=== PATIENT | male | born 1975 | race Caucasian/White ===

== ENCOUNTER → 2018-03-03 16:29 | Outpatient (CLI) | payer MEDICAID, SELFPAY ==
[2018-03-03 16:47] LABS: Abs Immature Grans 0.01 k/cumm (0.0-0.09); Absolute Basophil Count 0.03 k/cumm (0.0-0.2); Absolute Eosinophil Count 0.75 k/cumm (0.0-0.7); Absolute Lymphocyte Count 1.72 k/cumm (1.2-3.4); Absolute Monocyte Count 0.74 k/cumm (0.11-0.7); Absolute Neutrophil Count 4.68 k/cumm (1.2-6.7); Basophils % 0.4; Eosinophils % 9.5; HGB 12.6 g/dL (13.5-17.5); Immature Grans % 0.1; Lymphocytes % 21.7; Mean Corp. HGB Concentration 32.3 g/dL (32.0-36.0); Mean Corpuscular Hemoglobin 27.1 pg (27.0-33.0); Mean Corpuscular Volume 83.9 fL (80-95); Monocytes % 9.3; Platelet Count 350 x1000/uL (130-400); RBC 4.65 m/cumm (4.50-6.00); RBC Distribution Width 13.5 % (11.8-14.1); White Blood Cell Count 7.93 k/cumm (4.4-10.8)
[2018-03-03 17:00] LABS: ALT 26 U/L (12-78); AST 18 U/L (15-37); Albumin 3.2 g/dL (3.4-5.0); Alkaline Phosphatase 98 U/L (46-116); Anion Gap 7.1 mmol/L (3-11); BUN 14 mg/dL (7-18); Bilirubin, Total 0.4 mg/dL (0.2-1.0); CO2 29.9 mmol/L (21.0-32.0); CREATININE 0.87 mg/dL (0.70-1.30); Calcium 8.5 mg/dL (8.5-10.1); Chloride 107 mmol/L (98-107); Glucose 88 mg/dL (70-100); Potassium 4.1 mmol/L (3.5-5.1); Sodium 144 mmol/L (136-145); Total Protein 7.2 g/dL (6.4-8.2)
== END ==
PROVIDERS: PCP Family Medicine; Visit Provider Nurse Practitioner Adult Health
DX: C15.5 Malignant neoplasm of lower third of esophagus (principal)
CPT/HCPCS: 36415; 80053; 85025

== ENCOUNTER → 2018-03-10 15:07 | Outpatient (CLI) | payer MEDICAID, SELFPAY ==
[2018-03-10 16:20] LABS: Abs Immature Grans 0.02 k/cumm (0.0-0.09); Absolute Basophil Count 0.02 k/cumm (0.0-0.2); Absolute Eosinophil Count 0.46 k/cumm (0.0-0.7); Absolute Lymphocyte Count 0.63 k/cumm (1.2-3.4); Absolute Monocyte Count 0.36 k/cumm (0.11-0.7); Absolute Neutrophil Count 5.58 k/cumm (1.2-6.7); Basophils % 0.3; Eosinophils % 6.5; HCT 38.7 % (40.0-50.0); HGB 12.4 g/dL (13.5-17.5); Immature Grans % 0.3; Lymphocytes % 8.9; Mean Corpuscular Hemoglobin 26.6 pg (27.0-33.0); Mean Corpuscular Volume 82.9 fL (80-95); Monocytes % 5.1; Neutrophils % 78.9; Platelet Count 319 x1000/uL (130-400); RBC 4.67 m/cumm (4.50-6.00); RBC Distribution Width 13.4 % (11.8-14.1); White Blood Cell Count 7.07 k/cumm (4.4-10.8)
[2018-03-10 16:32] LABS: ALT 21 U/L (12-78); AST 13 U/L (15-37); Albumin 2.9 g/dL (3.4-5.0); Alkaline Phosphatase 78 U/L (46-116); Anion Gap 6.4 mmol/L (3-11); BUN 11 mg/dL (7-18); Bilirubin, Total 0.6 mg/dL (0.2-1.0); CO2 30.6 mmol/L (21.0-32.0); CREATININE 0.68 mg/dL (0.70-1.30); Calcium 8.3 mg/dL (8.5-10.1); Chloride 104 mmol/L (98-107); Glucose 86 mg/dL (70-100); Potassium 3.9 mmol/L (3.5-5.1); Sodium 141 mmol/L (136-145); Total Protein 6.5 g/dL (6.4-8.2)
== END ==
PROVIDERS: PCP Family Medicine; Visit Provider Nurse Practitioner Adult Health
DX: C15.5 Malignant neoplasm of lower third of esophagus (principal); F10.20 Alcohol dependence, uncomplicated; I25.10 Atherosclerotic heart disease of native coronary artery without angina pectoris
CPT/HCPCS: 36415; 80053; 80061; 80076; 83721; 85025

== ENCOUNTER → 2018-03-18 12:55 | Outpatient (CLI) | payer MEDICAID, SELFPAY ==
[2018-03-18 13:09] LABS: Abs Immature Grans 0.01 k/cumm (0.0-0.09); Absolute Basophil Count 0.02 k/cumm (0.0-0.2); Absolute Eosinophil Count 0.33 k/cumm (0.0-0.7); Absolute Lymphocyte Count 0.29 k/cumm (1.2-3.4); Absolute Monocyte Count 0.32 k/cumm (0.11-0.7); Absolute Neutrophil Count 3.41 k/cumm (1.2-6.7); Basophils % 0.5; Eosinophils % 7.5; HCT 44.5 % (40.0-50.0); HGB 14.6 g/dL (13.5-17.5); Immature Grans % 0.2; Lymphocytes % 6.6; Mean Corp. HGB Concentration 32.8 g/dL (32.0-36.0); Mean Corpuscular Hemoglobin 26.4 pg (27.0-33.0); Mean Corpuscular Volume 80.6 fL (80-95); Mean Platelet Volume 9.3 fL (8.0-11.0); Monocytes % 7.3; Neutrophils % 77.9; Platelet Count 283 x1000/uL (130-400); RBC 5.52 m/cumm (4.50-6.00); RBC Distribution Width 13.3 % (11.8-14.1); White Blood Cell Count 4.38 k/cumm (4.4-10.8)
[2018-03-18 13:24] LABS: ALT 49 U/L (12-78); AST 17 U/L (15-37); Albumin 3.2 g/dL (3.4-5.0); Alkaline Phosphatase 109 U/L (46-116); Anion Gap 8.3 mmol/L (3-11); BUN 12 mg/dL (7-18); Bilirubin, Total 0.9 mg/dL (0.2-1.0); CO2 28.7 mmol/L (21.0-32.0); CREATININE 0.87 mg/dL (0.70-1.30); Chloride 98 mmol/L (98-107); Glucose 137 mg/dL (70-100); Potassium 4.1 mmol/L (3.5-5.1); Sodium 135 mmol/L (136-145); Total Protein 7.5 g/dL (6.4-8.2)
== END ==
PROVIDERS: PCP Family Medicine; Visit Provider Nurse Practitioner Adult Health
DX: C15.5 Malignant neoplasm of lower third of esophagus (principal); F10.20 Alcohol dependence, uncomplicated; I25.10 Atherosclerotic heart disease of native coronary artery without angina pectoris
CPT/HCPCS: 36415; 80053; 85025

== ENCOUNTER 2018-03-18 18:49 | Emergency (ER) | payer MEDICAID, SELFPAY ==
[2018-03-18 18:56] VITALS: BP 113/68; PULSE 111; RESP 18; TEMP 36.9; O2SAT 95
--- NOTE | 2018-03-18 19:30 | DI.REPORT_ITS ---
SYMPTOM/DIAGNOSIS: FEVER, INCREASED SPUTUM PA AND LATERAL CHEST: Comparison is made with 09/03/17. Heart size and pulmonary vasculature are within normal limits. There is a stent seen in the distal esophagus crossing the gastroesophageal junction. The lungs are clear and well expanded. No effusions or pneumothoraces are identified. The bones are intact. IMPRESSION: No acute pulmonary process.
--- NOTE | 2018-03-18 19:44 | ED.GENADUL ---
Disposition Clinical Impression: Fever and neutropenia, Dehydration Disposition: HOME Condition: Fair Instructions: Dehydration (ED) Additional Instructions: Encourage hydration. Please continue to monitor your temperature. If you have any questions or concerns please contact oncology immediately. If you develop new or worsening symptoms return to the emergency department. Oncology would like to hear from you Wednesday. Referrals: Donovan Bobby [Primary Care Provider] - Medical Decision Making - Lab Data Laboratory Tests 03/18/18 03/18/18 19:45 20:27 Lactate 1.2 Urine Color Yellow Urine Clarity Clear Urine pH 6.5 Ur Specific [place] 1.020 Urine Protein Negative Urine Ketones Negative Urine Blood Negative Urine Nitrite Negative Urine Bilirubin Negative Urine Urobilinogen 0.2 Ur Leukocyte Esterase Negative Urine Glucose Negative Results reviewed for labs ordered during visit: Yes - Radiology Data Radiology results: report reviewed CXR reviewed by radiologist. Advised that lungs are unremarkable, no consolidation. Pleural space is unremarkable, no pneumothorax. Heart is unremarkable, no cardiomegaly. Mediastinum significant for wall stent at the distal esophagus across the GE junction. Bones/joints are unremarkable. - Medical Decision Making Patient presents today with chief complaint of neutropenic fever. We are contacted by oncology prior to patient's arrival who advised patient had a T-max of 101.3 at home. Patient has a l temp of 99 at this time. Patient is noted to be slightly tachycardic at 111. Patient does appear dehydrated on exam. He appears fatigued. He is endorsing nausea. Reports that typically ODT Zofran works well for him is requesting this. He has had nausea and vomiting but associates this with chemotherapy. Reports that he had chemotherapy associated nausea and vomiting last week around this time. Reports that he has had poor p.o. intake secondary to his nausea and general malaise. Patient reports that he has had increased sputum production. He denies any cough. Feels that she is more thick than typical and is needing to clear his throat more frequently. No chest pain. No shortness of breath. No new abdominal pain. Patient does have history of diverticulitis. Abdominal pain is limited to epigastric region on exam which patient reports is chronic and unchanged. Calves are soft and nontender. No CVA tenderness. Patient reports that he has had foul-smelling urine. Will obtain urinalysis and chest x-ray to evaluate the symptoms. We will also obtain a lactate. Patient did have blood work completed today. Earlier today, the WBC was noted to be 4.38, this is down from 7.07 last week. Otherwise, the CBC and CMP without significant abnormality. Patient received 2 L of fluid. He reports after the ODT Zofran nausea is greatly improved. He does take tramadol 50 mg every 6 hours. Is requesting his typical evening dose. Reports that he needs the pain medication for his chronic abdominal discomfort. After receiving fluid and pain medicine he reports that his headache is improved. Lactate is 1.2, within normal limits. Urinalysis is without significant normality to suggest infection. Consulted with Dr. Saenz at [facility]. We discussed the patient's presenting vital signs, history and laboratory evaluation. In particular, I was questioning the need for an LP given the patient's low-grade headache. At this point, the patient's headache has resolved. She advised holding off at this time as the patient is such a low-grade fever. She is questioning what may be associated with dehydration given his dehydrated appearance on exam and concentrated urine. Patient did respond well to the fluids. Heart rate is now in the 80s. Dr. Saenz advised watch and wait approach. She did ask that the patient contact oncology Wednesday. Patient reports that he has appointments with oncology on Wednesday and is able to be evaluated by an WELL REACTIVATOR OPERATOR at that time. Patient was given strict return precautions and will be in contact with oncology if he develops new or worsening symptoms. All his questions and concerns were addressed and he is in agreement this plan. Did discuss the usage of his anti-emetics. I advised that he increase this as he is not been taking it as frequently as he is prescribed. Advised that if he is able to stand of his nausea he may frequently sip fluids which will overall help with his symptomatic management. History of Present Illness - General Chief complaint: Fever Stated complaint: PER [facility] Time Seen by Provider: 03/18/18 19:07 Source: patient, family, RN notes reviewed Mode of arrival: ambulatory Limitations: no limitations - History of Present Illness Initial comments: Patient is a 43-year-old male, coming by his , with chief complaint of fever. Patient is currently undergoing chemotherapy and radiation therapy for esophageal cancer. We are contacted prior to his arrival by Dr. Saenz at [facility]. Dr. Saenz advised that the fever at home was noted to be 99?F taken orally. Patient was seen today in the office by his oncologist. Patient underwent chemotherapy on 03/07/2018 and again on 03/14/2018. Patient reports that he has been feeling and feels like crap. However, he contributes primarily to chemotherapy treatments. Patient was endorsing dizziness, headache, urine odor and discoloration to his oncologist. Reports he is feeling quite dehydrated. He reports at this time that he is having very mild headache. Does not typically. However, he does report that this headache feels to be associated with dehydration. He reports that he has been nauseated and vomiting. Vomited just prior to arrival. She states worked well for his nausea and vomiting. The nausea and vomiting is typical after his chemotherapy. Denies any abdominal pain. The reports that just prior to arrival his temp was 101.3?F. Patient reports that his urine has been quite dark since his chemotherapy. Feels that this is not unusual. However, he reports that today he noted a very foul smell to his urine which is changed. Denies pain in back. Denies pain in testicles. - Related Data Aspirin 81 mg PO DAILY tab-cap 03/25/16 Promethazine [Phenergan] 25 mg PO TID PRN #10 tab 05/13/17 Albuterol Sulfate [Proair Hfa] 1 puff IH Q6H PRN #1 inhaler 08/17/17 Nitroglycerin 0.4 mg SL PRN #25 tab-cap 11/25/17 Nicotine [Nicoderm Cq] 1 each TD DAILY #14 patch 01/11/18 Nicotine [Nicotine Patch] 14 mg TD DAILY #14 patch 01/11/18 Metoprolol Succinate 25 mg PO DAILY #90 tab-cap 01/17/18 Atorvastatin Calcium 80 mg PO DAILY #90 tab-cap 01/19/18 Fluticasone Propionate [Flovent 110MCG] 110 mcg IH BID #1 inhaler 01/19/18 Nicotine [Nicotine Patch] 1 each TD DAILY #14 patch 01/19/18 Sucralfate Susp. [Carafate Suspension] 1 g PO QID #1200 ml 01/31/18 Lisinopril 10 mg PO DAILY #90 tab-cap 02/07/18 Pantoprazole Sodium 40 mg PO DAILY #90 tab-cap 07/17/18 Lansoprazole 30 mg PO DAILY #90 tab-cap 02/10/18 TraMADol [Ultram] 50 mg PO Q6H PRN PRN 03/18/18 Allergies Allergy/AdvReac Type Severity Reaction Status Date / Time No Known Allergies Allergy Unverified 03/18/18 19:04 Review of Systems Constitutional: see HPI Eyes: denies: vision change ENT: denies: ear pain, throat pain, congestion Respiratory: see HPI, other (Increased sputum production). denies: cough, shortness of breath Cardiovascular: denies: chest pain, palpitations Gastrointestinal: as per HPI, abdominal pain (Chronic, associated with stent placement), nausea, vomiting. denies: diarrhea, hematemesis Genitourinary: as per HPI, other (Foul-smelling urine). denies: urgency, dysuria, frequency, hematuria Musculoskeletal: denies: back pain, joint swelling Skin: denies: rash, lesions Neurological: as per HPI, headache. denies: weakness, numbness, paresthesias, abnormal gait Past Medical History - Past Medical History Medical history: AMI, cancer, GERD, hypertension Diverticulitis Surgical history: angioplasty/stent, other (Knee arthroscopy) Family history: CAD/ND, diabetes - Social History Alcohol use: none Drug use: marijuana Living Situation: lives with family General Exam - General Limitations: no limitations General appearance: alert, in no apparent distress (Patient appears fatigued and pale) - Head Head exam: Present: atraumatic - Eye Eye exam: Present: normal apperance - ENT ENT exam: Present: normal exam, normal orophraynx, mucous membranes dry - Neck Neck exam: Present: normal inspection. Absent: tenderness, lymphadenopathy - Respiratory Respiratory exam: Present: normal lung sounds bilaterally. Absent: respiratory distress - Cardiovascular Cardiovascular Exam: Present: regular rate, normal rhythm, normal heart sounds - GI/Abdominal GI/Abdominal exam: Present: distended, tenderness (Epigastric tenderness. There is a palpable firmness in this area which patient reports is chronic and associated with stent placement), normal bowel sounds. Absent: soft, guarding, rebound, rigid - Rectal Rectal exam: Present: deferred - Extremities Exam Extremities exam: Present: normal inspection. Absent: pedal edema, calf tenderness - Back Exam Back exam: Present: normal inspection. Absent: CVA tenderness (R), CVA tenderness (L) - Neurological Exam Neurological exam: Present: alert, normal gait - Psychiatric Psychiatric exam: Present: normal affect, normal mood - Skin Skin exam: Present: warm, dry, intact, normal color Course Vital Signs - 24 hr 03/18/18 18:56 Temperature 36.9 C Pulse 111 H Respiratory 18 Rate Blood Pressure 113/68 Pulse Oximetry 95
--- NOTE | 2018-03-18 19:50 | ED.GENADUL_ITS ---
Disposition Clinical Impression: Fever and neutropenia, Dehydration Disposition: HOME Condition: Fair Instructions: Dehydration (ED) Additional Instructions: Encourage hydration. Please continue to monitor your temperature. If you have any questions or concerns please contact oncology immediately. If you develop new or worsening symptoms return to the emergency department. Oncology would like to hear from you Wednesday. Referrals: Donovan Bobby [Primary Care Provider] - Medical Decision Making - Lab Data Laboratory Tests 03/18/18 03/18/18 19:45 20:27 Lactate 1.2 Urine Color Yellow Urine Clarity Clear Urine pH 6.5 Ur Specific [place] 1.020 Urine Protein Negative Urine Ketones Negative Urine Blood Negative Urine Nitrite Negative Urine Bilirubin Negative Urine Urobilinogen 0.2 Ur Leukocyte Esterase Negative Urine Glucose Negative Results reviewed for labs ordered during visit: Yes - Radiology Data Radiology results: report reviewed CXR reviewed by radiologist. Advised that lungs are unremarkable, no consolidation. Pleural space is unremarkable, no pneumothorax. Heart is unremarkable, no cardiomegaly. Mediastinum significant for wall stent at the distal esophagus across the GE junction. Bones/joints are unremarkable. - Medical Decision Making Patient presents today with chief complaint of neutropenic fever. We are contacted by oncology prior to patient's arrival who advised patient had a T- max of 101.3 at home. Patient has a l temp of 99 at this time. Patient is noted to be slightly tachycardic at 111. Patient does appear dehydrated on exam. He appears fatigued. He is endorsing nausea. Reports that typically ODT Zofran works well for him is requesting this. He has had nausea and vomiting but associates this with chemotherapy. Reports that he had chemotherapy associated nausea and vomiting last week around this time. Reports that he has had poor p.o. intake secondary to his nausea and general malaise. Patient reports that he has had increased sputum production. He denies any cough. Feels that she is more thick than typical and is needing to clear his throat more frequently. No chest pain. No shortness of breath. No new abdominal pain. Patient does have history of diverticulitis. Abdominal pain is limited to epigastric region on exam which patient reports is chronic and unchanged. Calves are soft and nontender. No CVA tenderness. Patient reports that he has had foul-smelling urine. Will obtain urinalysis and chest x -ray to evaluate the symptoms. We will also obtain a lactate. Patient did have blood work completed today. Earlier today, the WBC was noted to be 4.38, this is down from 7.07 last week. Otherwise, the CBC and CMP without significant abnormality. Patient received 2 L of fluid. He reports after the ODT Zofran nausea is greatly improved. He does take tramadol 50 mg every 6 hours. Is requesting his typical evening dose. Reports that he needs the pain medication for his chronic abdominal discomfort. After receiving fluid and pain medicine he reports that his headache is improved. Lactate is 1.2, within normal limits. Urinalysis is without significant normality to suggest infection. Consulted with Dr. Saenz at [facility]. We discussed the patient's presenting vital signs, history and laboratory evaluation. In particular, I was questioning the need for an LP given the patient's low-grade headache. At this point, the patient's headache has resolved. She advised holding off at this time as the patient is such a low-grade fever. She is questioning what may be associated with dehydration given his dehydrated appearance on exam and concentrated urine. Patient did respond well to the fluids. Heart rate is now in the 80s. Dr. Saenz advised watch and wait approach. She did ask that the patient contact oncology Wednesday. Patient reports that he has appointments with oncology on Wednesday and is able to be evaluated by an OFFICE EMPLOYEE at that time. Patient was given strict return precautions and will be in contact with oncology if he develops new or worsening symptoms. All his questions and concerns were addressed and he is in agreement this plan. Did discuss the usage of his anti- emetics. I advised that he increase this as he is not been taking it as frequently as he is prescribed. Advised that if he is able to stand of his nausea he may frequently sip fluids which will overall help with his symptomatic management. History of Present Illness - General Chief complaint: Fever Stated complaint: PER [facility] [place] Time Seen by Provider: 03/18/18 19:07 Source: patient, family, RN notes reviewed Mode of arrival: ambulatory Limitations: no limitations - History of Present Illness Initial comments: Patient is a 43-year-old male, coming by his , with chief complaint of fever. Patient is currently undergoing chemotherapy and radiation therapy for esophageal cancer. We are contacted prior to his arrival by Dr. Saenz at [facility]. Dr. Saenz advised that the fever at home was noted to be 99 F taken orally. Patient was seen today in the office by his oncologist. Patient underwent chemotherapy on 03/07/2018 and again on 03/14/2018. Patient reports that he has been feeling and feels like crap. However, he contributes primarily to chemotherapy treatments. Patient was endorsing dizziness, headache , urine odor and discoloration to his oncologist. Reports he is feeling quite dehydrated. He reports at this time that he is having very mild headache. Does not typically. However, he does report that this headache feels to be associated with dehydration. He reports that he has been nauseated and vomiting. Vomited just prior to arrival. She states worked well for his nausea and vomiting. The nausea and vomiting is typical after his chemotherapy. Denies any abdominal pain. The reports that just prior to arrival his temp was 101.3 F. Patient reports that his urine has been quite dark since his chemotherapy. Feels that this is not unusual. However, he reports that today he noted a very foul smell to his urine which is changed. Denies pain in back. Denies pain in testicles. - Related Data Aspirin 81 mg PO DAILY tab-cap 03/25/16 Promethazine [Phenergan] 25 mg PO TID PRN #10 tab 05/13/17 Albuterol Sulfate [Proair Hfa] 1 puff IH Q6H PRN #1 inhaler 08/17/17 Nitroglycerin 0.4 mg SL PRN #25 tab-cap 11/25/17 Nicotine [Nicoderm Cq] 1 each TD DAILY #14 patch 01/11/18 Nicotine [Nicotine Patch] 14 mg TD DAILY #14 patch 01/11/18 Metoprolol Succinate 25 mg PO DAILY #90 tab-cap 01/17/18 Atorvastatin Calcium 80 mg PO DAILY #90 tab-cap 01/19/18 Fluticasone Propionate [Flovent 110MCG] 110 mcg IH BID #1 inhaler 01/19/18 Nicotine [Nicotine Patch] 1 each TD DAILY #14 patch 01/19/18 Sucralfate Susp. [Carafate Suspension] 1 g PO QID #1200 ml 01/31/18 Lisinopril 10 mg PO DAILY #90 tab-cap 02/07/18 Pantoprazole Sodium 40 mg PO DAILY #90 tab-cap 02/08/18 Lansoprazole 30 mg PO DAILY #90 tab-cap 02/10/18 TraMADol [Ultram] 50 mg PO Q6H PRN PRN 03/18/18 Allergies Allergy/AdvReac Type Severity Reaction Status Date / Time No Known Allergies Allergy Unverified 03/18/18 19:04 Review of Systems Constitutional: see HPI Eyes: denies: vision change ENT: denies: ear pain, throat pain, congestion Respiratory: see HPI, other (Increased sputum production). denies: cough, shortness of breath Cardiovascular: denies: chest pain, palpitations Gastrointestinal: as per HPI, abdominal pain (Chronic, associated with stent placement), nausea, vomiting. denies: diarrhea, hematemesis Genitourinary: as per HPI, other (Foul-smelling urine). denies: urgency, dysuria, frequency, hematuria Musculoskeletal: denies: back pain, joint swelling Skin: denies: rash, lesions Neurological: as per HPI, headache. denies: weakness, numbness, paresthesias, abnormal gait Past Medical History - Past Medical History Medical history: AMI, cancer, GERD, hypertension Diverticulitis Surgical history: angioplasty/stent, other (Knee arthroscopy) Family history: CAD/VT, diabetes - Social History Alcohol use: none Drug use: marijuana Living Situation: lives with family General Exam - General Limitations: no limitations General appearance: alert, in no apparent distress (Patient appears fatigued and pale) - Head Head exam: Present: atraumatic - Eye Eye exam: Present: normal apperance - ENT ENT exam: Present: normal exam, normal orophraynx, mucous membranes dry - Neck Neck exam: Present: normal inspection. Absent: tenderness, lymphadenopathy - Respiratory Respiratory exam: Present: normal lung sounds bilaterally. Absent: respiratory distress - Cardiovascular Cardiovascular Exam: Present: regular rate, normal rhythm, normal heart sounds - GI/Abdominal GI/Abdominal exam: Present: distended, tenderness (Epigastric tenderness. There is a palpable firmness in this area which patient reports is chronic and associated with stent placement), normal bowel sounds. Absent: soft, guarding, rebound, rigid - Rectal Rectal exam: Present: deferred - Extremities Exam Extremities exam: Present: normal inspection. Absent: pedal edema, calf tenderness - Back Exam Back exam: Present: normal inspection. Absent: CVA tenderness (R), CVA tenderness (L) - Neurological Exam Neurological exam: Present: alert, normal gait - Psychiatric Psychiatric exam: Present: normal affect, normal mood - Skin Skin exam: Present: warm, dry, intact, normal color Course Vital Signs - 24 hr 03/18/18 18:56 Temperature 36.9 C Pulse 111 H Respiratory 18 Rate Blood Pressure 113/68 Pulse Oximetry 95
[2018-03-18 19:52] LABS: Lactate-non-spesis 1.2 mmol/L (0.6-1.4)
[2018-03-18] MEDS: Ondansetron O.D.T. 4 MG TABEF PO (19:55)
[2018-03-18] MEDS: Normal Saline 1,000 ML 1000 ML IV ×2 (19:56→20:56)
[2018-03-18] MEDS: Normal Saline Flush 10 ML SYR IVP (19:56)
[2018-03-18] MEDS: traMADol 50 MG TAB PO (20:25)
[2018-03-18 20:34] LABS: Bilirubin Negative (Negative); Blood Negative (Negative); Clarity Clear; Glucose Negative (Negative); Ketones Negative (Negative); Leukocyte Esterase Negative (Negative); Nitrite Negative (Negative); Urobilinogen 0.2 EU/dL (Up TO 0.2); pH 6.5 (5-8)
--- NOTE | 2018-03-18 20:58 | DI.VRAD_ITS ---
EXAM: XR Chest, 2 Views EXAM DATE/TIME: 03/18/2018 7:31 PM CLINICAL HISTORY: 43 years old, male; Signs and symptoms; Fever TECHNIQUE: Frontal and lateral views of the chest. COMPARISON: CR - PORTABLE CHEST ONE VIEW 09/03/2016 6:19 PM FINDINGS: Lungs: Unremarkable. No consolidation. Pleural space: Unremarkable. No pneumothorax. Heart: Unremarkable. No cardiomegaly. Mediastinum: Wall stent at the distal esophagus across the GE junction. Bones/joints: Unremarkable. IMPRESSION: No acute findings. Dictated and Authenticated by: Devyn Delgadillo MD. Ordering:MYKEL MATHIS MD
[2018-03-18 21:15] VITALS: BP 106/64; PULSE 89; RESP 16; TEMP 37.5; O2SAT 96
[2018-03-18 21:49] VITALS: BP 106/64; PULSE 89; RESP 16; TEMP 37.5; O2SAT 96
== END 2018-03-18 21:47 | disposition home or self-care (01) ==
PROVIDERS: Physician Assistant; Emergency Provider Emergency Medicine; PCP Family Medicine
DX: D70.9 Neutropenia, unspecified (principal); R50.9 Fever, unspecified; T45.1X5A Adverse effect of antineoplastic and immunosuppressive drugs, initial encounter; R11.2 Nausea with vomiting, unspecified; C15.5 Malignant neoplasm of lower third of esophagus; F10.20 Alcohol dependence, uncomplicated; I25.10 Atherosclerotic heart disease of native coronary artery without angina pectoris; I10 Essential (primary) hypertension
CPT/HCPCS: 36415; 80053; 96360; 96361; 99284; 71046; 81003; 83605; 85025

== ENCOUNTER → 2018-03-24 12:30 | Outpatient (CLI) | payer MEDICAID, SELFPAY ==
[2018-03-24 12:57] LABS: Abs Immature Grans 0.02 k/cumm (0.0-0.09); Absolute Basophil Count 0.01 k/cumm (0.0-0.2); Absolute Eosinophil Count 0.01 k/cumm (0.0-0.7); Absolute Lymphocyte Count 0.14 k/cumm (1.2-3.4); Absolute Monocyte Count 0.41 k/cumm (0.11-0.7); Absolute Neutrophil Count 2.96 k/cumm (1.2-6.7); Basophils % 0.3; Eosinophils % 0.3; HCT 40.3 % (40.0-50.0); HGB 13.6 g/dL (13.5-17.5); Immature Grans % 0.6; Lymphocytes % 3.9; Mean Corp. HGB Concentration 33.7 g/dL (32.0-36.0); Mean Corpuscular Hemoglobin 26.9 pg (27.0-33.0); Mean Corpuscular Volume 79.8 fL (80-95); Mean Platelet Volume 8.9 fL (8.0-11.0); Monocytes % 11.5; Neutrophils % 83.4; Platelet Count 229 x1000/uL (130-400); RBC 5.05 m/cumm (4.50-6.00); RBC Distribution Width 13.6 % (11.8-14.1); White Blood Cell Count 3.55 k/cumm (4.4-10.8)
[2018-03-24 13:10] LABS: ALT 49 U/L (12-78); AST 21 U/L (15-37); Alkaline Phosphatase 99 U/L (46-116); Anion Gap 5.8 mmol/L (3-11); BUN 11 mg/dL (7-18); Bilirubin, Total 0.8 mg/dL (0.2-1.0); CO2 28.2 mmol/L (21.0-32.0); CREATININE 0.72 mg/dL (0.70-1.30); Calcium 9.1 mg/dL (8.5-10.1); Chloride 96 mmol/L (98-107); Glucose 99 mg/dL (70-100); Potassium 4.6 mmol/L (3.5-5.1); Sodium 130 mmol/L (136-145); Total Protein 7.3 g/dL (6.4-8.2)
== END ==
PROVIDERS: PCP Family Medicine; Visit Provider Nurse Practitioner Adult Health
DX: C15.5 Malignant neoplasm of lower third of esophagus (principal); F10.20 Alcohol dependence, uncomplicated; I25.10 Atherosclerotic heart disease of native coronary artery without angina pectoris
CPT/HCPCS: 36415; 80053; 85025

== ENCOUNTER 2018-03-27 01:39 | Outpatient (RCR) | payer MEDICAID, SELFPAY ==
[2018-03-27] MEDS: Normal Saline 2,000 ML 1000 ML IV (09:05)
[2018-03-27] MEDS: Normal Saline Flush 10 ML SYR IVP (09:05)
== END 2018-04-24 23:59 | disposition home or self-care (01) ==
LOC: INF 01:39
PROVIDERS: PCP Family Medicine; Visit Provider Nurse Practitioner Adult Health
DX: E86.0 Dehydration (principal); C15.5 Malignant neoplasm of lower third of esophagus
CPT/HCPCS: 96360; 96361

== ENCOUNTER 2018-03-31 15:03 | Outpatient (CLI) | payer MEDICAID, SELFPAY ==
[2018-03-31 15:27] LABS: Abs Immature Grans 0.01 k/cumm (0.0-0.09); Absolute Basophil Count 0.01 k/cumm (0.0-0.2); Absolute Eosinophil Count 0.01 k/cumm (0.0-0.7); Absolute Lymphocyte Count 0.13 k/cumm (1.2-3.4); Absolute Monocyte Count 0.23 k/cumm (0.11-0.7); Basophils % 0.3; Eosinophils % 0.3; HCT 35.3 % (40.0-50.0); Immature Grans % 0.3; Lymphocytes % 4.3; Mean Corpuscular Volume 79.5 fL (80-95); Mean Platelet Volume 8.6 fL (8.0-11.0); Monocytes % 7.7; Neutrophils % 87.1; Platelet Count 151 x1000/uL (130-400); RBC 4.44 m/cumm (4.50-6.00); RBC Distribution Width 13.8 % (11.8-14.1); White Blood Cell Count 2.99 k/cumm (4.4-10.8)
[2018-03-31 15:40] LABS: ALT 26 U/L (12-78); AST 13 U/L (15-37); Albumin 2.5 g/dL (3.4-5.0); Alkaline Phosphatase 80 U/L (46-116); Anion Gap 4.8 mmol/L (3-11); BUN 13 mg/dL (7-18); Bilirubin, Total 0.3 mg/dL (0.2-1.0); CO2 29.2 mmol/L (21.0-32.0); Calcium 8.6 mg/dL (8.5-10.1); Chloride 105 mmol/L (98-107); Glucose 91 mg/dL (70-100); Potassium 4.2 mmol/L (3.5-5.1); Sodium 139 mmol/L (136-145); Total Protein 6.3 g/dL (6.4-8.2)
== END 2018-03-31 15:23 ==
PROVIDERS: PCP Family Medicine; Visit Provider Nurse Practitioner Adult Health
DX: C15.5 Malignant neoplasm of lower third of esophagus (principal); F10.20 Alcohol dependence, uncomplicated; I25.10 Atherosclerotic heart disease of native coronary artery without angina pectoris
CPT/HCPCS: 36415; 80053; 85025

== ENCOUNTER 2018-04-04 12:21 | Emergency (ER) | payer MEDICAID, SELFPAY ==
[2018-04-04] VITALS (14 sets, daily range): BP systolic 103–117; BP diastolic 61–78; PULSE 108–136; RESP 11–18; TEMP 37; O2SAT 95–97
[2018-04-04] MEDS: Normal Saline 1,000 ML 1000 ML IV (13:07)
--- NOTE | 2018-04-04 13:07 | ED.GENADUL_ITS ---
Discharge Plan Disposition Patient Disposition: HOME Condition: Stable Discharge Details Chief Complaint: GenMedical Clinical Impression: Nausea & vomiting, Diverticulitis of sigmoid colon Primary Care Provider: Donovan Bobby ED Provider: Manolo Pedro Home Meds and New Rx's Prescriptions: New hydrocodone-acetaminophen 10-300 mg tablet 1 tab PO Q4H PRN (Reason: pain) Qty: 12 RF: 0 Continue aspirin 81 MG tablet,chewable 81 mg PO DAILY RF: 0 albuterol sulfate [ProAir HFA] 8.5 GM HFA aerosol inhaler 1 puff Inhalation Q6H PRN Qty: 1 RF: 2 nitroglycerin 0.4 MG tablet, sublingual 0.4 mg Sublingual PRN Qty: 25 RF: 0 nicotine 1 EACH patch 24 hour 14 mg Transdermal DAILY Qty: 14 RF: 0 Nicotine [Nicoderm Cq] 1 EACH PATCH.TD24 1 ea Transdermal DAILY Qty: 14 RF: 0 Metoprolol Succinate 25 MG TAB.ER.24H 25 mg PO DAILY Qty: 90 RF: 4 atorvastatin 80 MG tablet 80 mg PO DAILY Qty: 90 RF: 3 nicotine 1 EACH patch 24 hour 1 ea Transdermal DAILY Qty: 14 RF: 2 fluticasone [Flovent HFA] 12 GM HFA aerosol inhaler 110 mcg Inhalation BID Qty: 1 RF: 12 sucralfate [Carafate] 1 GM/10 ML suspension 1 g PO QID Qty: 1200 RF: 2 lisinopril 10 MG tablet 10 mg PO DAILY Qty: 90 RF: 3 pantoprazole 40 MG tablet,delayed release (DR/EC) 40 mg PO DAILY Qty: 90 RF: 1 Lansoprazole 30 MG CAPSULE.DR 30 mg PO DAILY Qty: 90 RF: 0 promethazine 25 MG tablet 25 mg PO TID PRN (Reason: Nausea) Qty: 10 RF: 0 tramadol 50 MG tablet 50 mg PO Q6H PRN PRNRF: 0 Discharge Instructions Instructions: Hydrocodone (By mouth), Diverticulitis (ED) Additional Instructions: take your antibiotics follow up with your primary care provider or oncologist this week if you have fevers or persistent vomit return to the emergency department Discharge Data Discharge Physician: Manolo Pedro Medical Decision Making MDM Narrative Medical decision making narrative: 43 yo male with hx of esophageal cancer who is undergoing radiation therapy and chemotherapy who comes in with complaints of vomit for 3 days and has had chest pain and abdominal pain since starting radiation for weeks and thinks it is unchanged though now has abdominal pain. He denies fevers or chills. He does appear dehydrated on exam, ecg shows no acute ischemic findings. Will evaluate for cardiac ischemia with troponin, and obtain CT to eval for dissection vs sbo among other surgical pathology and rehydrate the patient. Patient's oncology office called prior to arrival and asked for urine tox to be done so will order this if he urinates pt feeling significantly better, labs show no significant acute abnormalities, awaiting imaging Per Dr. mauro has sigmoid diverticulitis otherwise no acute findings. He feels much better and is hd stable, tolerating PO. He is stable for outpatient management and states he already has abx for cipro and doesn't want a prescription for these here. He is out of his opiates and will refill for 1-2 days until he can see his oncologist, return precautions given Differential Diagnosis chemotherapy side effect, sbo, dissection Imaging Data Radiologic Study: Attestation: I personally reviewed and interpreted this imaging study as follows: Imaging: CT Scan Radiologist's impression: cta thorax/abd/pelvis per Dr. Mauro shows sigmoid diverticulitis Lab Data Lab results reviewed: Yes I reviewed the patient's lab results. ECG Data Attestation: I personally reviewed and interpreted this ECG (s) as follows: Prior ECG tracings: not available for review Interpretation: sinus tachycardia, rate of 123, normal pr's, no acute ischemic findings HPI - General Adult General Mode of arrival: ambulatory . Date/Time Provider Initiated Documentation: 04/04/18 12:47 . Limitations to Documentation: no limitations . Information obtained by: patient . History of Present Illness 43 year old M presents to the emergency department with the chief complaint of nausea and vomit, described as severe, with intensity rated at 7. Quality is described as aching, and is localized to the chest and abdomen. Patient reports no radiation. Patient started experiencing this day(s) (3) and it has been constant. No relieving factors improve symptom(s), No exacerbating factors reported . Patient notes nausea/vomiting. Patient did receive the following treatments prior to arrival, none Related Data Home Medications Medication Instructions Recorded Confirmed aspirin 81 mg PO DAILY tab-cap 03/25/16 03/18/18 tramadol 50 mg PO Q6H PRN PRN 03/18/18 03/18/18 Previous Rx's Medication Instructions Recorded promethazine 25 mg PO TID PRN #10 tab 05/13/17 hydrocodone-acetaminophen 1 tab PO Q4H PRN #12 tab 04/04/18 Allergies Allergy/AdvReac Type Severity Reaction Status Date / Time No Known Allergies Allergy Unverified 03/18/18 19:04 General Stated Complaint: GenMedical CRISTA: 3 Review of Systems Review of Systems All systems reviewed & are unremarkable except as noted in HPI and below Constitutional Denies chills, Denies fever(s) and Denies weakness Eyes Patient Denies loss of vision ENT Denies change in voice Cardiovascular Reports chest pain and Denies dyspnea Respiratory Denies dyspnea Gastrointestinal Reports abdominal pain, Reports nausea and Reports vomiting Genitourinary Denies dysuria Musculoskeletal Denies joint swelling Integumentary/Breasts Denies rash Neurologic Denies loss of vision and Denies weakness Psychiatric Denies depression Endocrine Denies cold intolerance and Denies heat intolerance Allergic/Immunologic Reports urticaria PFSH Family History Mother Diabetes Essential hypertension Heart disease Hyperlipidemia Cerebrovascular accident Father Diabetes Sister No problems noted. Brother Essential hypertension Hyperlipidemia Brother Hyperlipidemia Brother Essential hypertension Heart disease Hyperlipidemia Social History Smoking/Tobacco Use Status: Current every day Surgical History EGD - MAC (12/29/17) Exam Const General: no acute distress Orientation: alert HENMT Head: normal to inspection Ears: external ears normal General nose exam: external nose normal Mouth: moist mucous membranes Eyes General: appearance normal, both eyes and all related structures Neck Neck: normal visual inspection Resp Effort & Inspection: normal respiratory effort and able to speak in complete sentences Cardio Rate: tachycardic Rhythm: regular rhythm GI Inspection: other (soft abdomen, tenderness throughout without guarding or rebound) Palpation: soft Skin General skin exam: no rashes or lesions noted Neuro General: alert and oriented x3 Extrem General: normal to inspection Psych Mental Status: mental status grossly normal Course Vital Signs Temperature 37 C 04/04/18 12:51 Pulse 136 H 04/04/18 12:51 Respiratory Rate 16 04/04/18 12:51 Blood Pressure 103/78 04/04/18 12:51 Pulse Oximetry 97 04/04/18 12:51 Temperature 37 C 04/04/18 12:51 Pulse 136 H 04/04/18 12:51 Respiratory Rate 16 04/04/18 12:51 Blood Pressure 103/78 04/04/18 12:51 Pulse Oximetry 97 04/04/18 12:51
[2018-04-04] MEDS: Ondansetron 4 MG/2 ML VIAL IVP (13:08)
[2018-04-04] MEDS: HYDROmorphone 2 MG/ML VIAL IVP (13:15)
[2018-04-04 13:36] LABS: Abs Immature Grans 0.02 k/cumm (0.0-0.09); Absolute Basophil Count 0.02 k/cumm (0.0-0.2); Absolute Eosinophil Count 0.01 k/cumm (0.0-0.7); Absolute Lymphocyte Count 0.15 k/cumm (1.2-3.4); Absolute Monocyte Count 0.31 k/cumm (0.11-0.7); Absolute Neutrophil Count 2.43 k/cumm (1.2-6.7); Basophils % 0.7; Eosinophils % 0.3; HCT 37.3 % (40.0-50.0); HGB 12.7 g/dL (13.5-17.5); Immature Grans % 0.7; Lymphocytes % 5.1; Mean Corpuscular Volume 79.4 fL (80-95); Mean Platelet Volume 9.4 fL (8.0-11.0); Monocytes % 10.5; Neutrophils % 82.7; Platelet Count 146 x1000/uL (130-400); White Blood Cell Count 2.94 k/cumm (4.4-10.8)
[2018-04-04 13:51] LABS: ALT 26 U/L (12-78); AST 17 U/L (15-37); Albumin 2.6 g/dL (3.4-5.0); Alkaline Phosphatase 115 U/L (46-116); Anion Gap 14.7 mmol/L (3-11); BUN 15 mg/dL (7-18); Bilirubin, Total 0.5 mg/dL (0.2-1.0); CO2 23.3 mmol/L (21.0-32.0); CREATININE 0.81 mg/dL (0.70-1.30); Calcium 9.1 mg/dL (8.5-10.1); Chloride 97 mmol/L (98-107); Glucose 114 mg/dL (70-100); Lipase 57 U/L (73-393); Potassium 4.2 mmol/L (3.5-5.1); Sodium 135 mmol/L (136-145); Total Protein 7.5 g/dL (6.4-8.2)
[2018-04-04] MEDS: Omnipaque 350 MG/ML 100 ML BTL IJ (13:54)
--- NOTE | 2018-04-04 13:55 | DI.CT_ITS ---
SYMPTOM/DIAGNOSIS: CHEST AND ABD PAIN, H/O ESOPHAGEAL CA CTA OF THE CHEST, ABDOMEN AND PELVIS: CT angiography was performed with multi slice acquisition and multi planar and 3D reconstruction. Comparison is made with staging CT of the chest, abdomen and pelvis dated . There is no evidence of aortic dissection or pulmonary emboli. A stent is now seen in the distal esophagus to the mid portion of the stomach. There is soft tissue thickening around the stent in the distal esophagus. There is no abnormal gastric distension or small bowel distension. In the right lower quadrant, there is an area of wall thickening involving the sigmoid colon and some stranding in the adjacent fat involving the distal sigmoid colon. Numerous diverticula are seen in this area. The findings are consistent with diverticulitis. There is no evidence of abscess or perforation. There is no evidence of obstruction. The appendix appears normal. The bladder and prostate are unremarkable. There are underlying emphysematous changes, greater at the upper lobes. The previously noted patchy density in the left lower lobe is no longer present. IMPRESSION: The findings are consistent with sigmoid diverticulitis. Stent seen in the esophagus and stomach with surrounding soft tissue thickening. No acute abnormality is seen in the chest.
[2018-04-04 14:10] LABS: Troponin I < 0.02 ng/mL (0.00-0.06)
== END 2018-04-04 14:48 | disposition home or self-care (01) ==
PROVIDERS: Emergency Provider Emergency Medicine; PCP Family Medicine
DX: R11.2 Nausea with vomiting, unspecified (principal); K57.32 Diverticulitis of large intestine without perforation or abscess without bleeding; C15.9 Malignant neoplasm of esophagus, unspecified; Z79.899 Other long term (current) drug therapy; T45.1X5A Adverse effect of antineoplastic and immunosuppressive drugs, initial encounter
CPT/HCPCS: 36415; 74177; 80053; 83690; 93005; 96374; 96375; 99285; 84484; 85025; 93010; J3490

== ENCOUNTER 2018-04-06 16:30 | Outpatient (CLI) | payer MEDICAID, SELFPAY ==
[2018-04-06 16:48] LABS: Abs Immature Grans 0.01 k/cumm (0.0-0.09); Absolute Basophil Count 0.02 k/cumm (0.0-0.2); Absolute Eosinophil Count 0.02 k/cumm (0.0-0.7); Absolute Lymphocyte Count 0.28 k/cumm (1.2-3.4); Absolute Neutrophil Count 1.07 k/cumm (1.2-6.7); Basophils % 1.2; Eosinophils % 1.2; HCT 33.3 % (40.0-50.0); HGB 10.9 g/dL (13.5-17.5); Immature Grans % 0.6; Lymphocytes % 16.5; Mean Corp. HGB Concentration 32.7 g/dL (32.0-36.0); Mean Corpuscular Hemoglobin 26.7 pg (27.0-33.0); Mean Corpuscular Volume 81.6 fL (80-95); Mean Platelet Volume 8.5 fL (8.0-11.0); Monocytes % 17.6; Neutrophils % 62.9; Platelet Count 133 x1000/uL (130-400); RBC 4.08 m/cumm (4.50-6.00); RBC Distribution Width 14.2 % (11.8-14.1)
[2018-04-06 17:05] LABS: ALT 19 U/L (12-78); AST 15 U/L (15-37); Albumin 2.3 g/dL (3.4-5.0); Alkaline Phosphatase 93 U/L (46-116); Anion Gap 10.4 mmol/L (3-11); BUN 13 mg/dL (7-18); Bilirubin, Total 0.3 mg/dL (0.2-1.0); CO2 24.6 mmol/L (21.0-32.0); CREATININE 0.62 mg/dL (0.70-1.30); Calcium 8.3 mg/dL (8.5-10.1); Chloride 100 mmol/L (98-107); Glucose 86 mg/dL (70-100); Potassium 3.9 mmol/L (3.5-5.1); Sodium 135 mmol/L (136-145); Total Protein 6.5 g/dL (6.4-8.2)
[2018-04-06 17:45] LABS: Diff Comment Diff Reviewed
== END 2018-04-06 16:50 ==
PROVIDERS: PCP Family Medicine; Visit Provider Nurse Practitioner Adult Health
DX: C15.5 Malignant neoplasm of lower third of esophagus (principal)
CPT/HCPCS: 36415; 80053; 85025

== ENCOUNTER 2018-04-14 16:44 | Outpatient (CLI) | payer MEDICAID, SELFPAY ==
[2018-04-14 17:04] LABS: Abs Immature Grans 0.06 k/cumm (0.0-0.09); Absolute Basophil Count 0.02 k/cumm (0.0-0.2); Absolute Eosinophil Count 0.06 k/cumm (0.0-0.7); Absolute Lymphocyte Count 0.81 k/cumm (1.2-3.4); Absolute Monocyte Count 0.55 k/cumm (0.11-0.7); Absolute Neutrophil Count 1.44 k/cumm (1.2-6.7); Basophils % 0.7; HGB 10.6 g/dL (13.5-17.5); Lymphocytes % 27.6; Mean Corp. HGB Concentration 32.1 g/dL (32.0-36.0); Mean Corpuscular Hemoglobin 26.8 pg (27.0-33.0); Mean Corpuscular Volume 83.5 fL (80-95); Mean Platelet Volume 8.4 fL (8.0-11.0); Monocytes % 18.7; Platelet Count 326 x1000/uL (130-400); RBC 3.95 m/cumm (4.50-6.00); RBC Distribution Width 15.1 % (11.8-14.1); White Blood Cell Count 2.94 k/cumm (4.4-10.8)
[2018-04-14 17:17] LABS: ALT 17 U/L (12-78); AST 18 U/L (15-37); Albumin 2.2 g/dL (3.4-5.0); Alkaline Phosphatase 113 U/L (46-116); Anion Gap 7.2 mmol/L (3-11); BUN 9 mg/dL (7-18); Bilirubin, Total 0.3 mg/dL (0.2-1.0); CO2 27.8 mmol/L (21.0-32.0); CREATININE 0.69 mg/dL (0.70-1.30); Calcium 8.4 mg/dL (8.5-10.1); Chloride 102 mmol/L (98-107); Glucose 109 mg/dL (70-100); Potassium 4.5 mmol/L (3.5-5.1); Sodium 137 mmol/L (136-145); Total Protein 6.1 g/dL (6.4-8.2)
[2018-04-14 17:23] LABS: Diff Comment Diff Reviewed
== END 2018-04-14 17:04 ==
PROVIDERS: PCP Family Medicine; Visit Provider Nurse Practitioner Adult Health
DX: C15.5 Malignant neoplasm of lower third of esophagus (principal); F10.20 Alcohol dependence, uncomplicated; I25.10 Atherosclerotic heart disease of native coronary artery without angina pectoris
CPT/HCPCS: 36415; 80053; 85025

== ENCOUNTER 2019-01-18 09:35 | Outpatient (REF) | payer MEDICAID, SELFPAY ==
[2019-01-18 09:45] LABS: Abs Immature Grans 0.02 k/cumm (0.0-0.09); Absolute Basophil Count 0.02 k/cumm (0.0-0.2); Absolute Eosinophil Count 0.32 k/cumm (0.0-0.7); Absolute Monocyte Count 0.78 k/cumm (0.11-0.7); Absolute Neutrophil Count 6.53 k/cumm (1.2-6.7); Basophils % 0.2; Eosinophils % 3.3; HCT 42.2 % (40.0-50.0); Immature Grans % 0.2; Lymphocytes % 20.7; Mean Corp. HGB Concentration 33.2 g/dL (32.0-36.0); Mean Corpuscular Hemoglobin 28.6 pg (27.0-33.0); Mean Corpuscular Volume 86.1 fL (80-95); Mean Platelet Volume 9.6 fL (8.0-11.0); Monocytes % 8.1; Neutrophils % 67.5; Platelet Count 272 x1000/uL (130-400); RBC Distribution Width 15.1 % (11.8-14.1); White Blood Cell Count 9.67 k/cumm (4.4-10.8)
[2019-01-18 09:53] LABS: ALT 40 U/L (12-78); AST 18 U/L (15-37); Albumin 3.2 g/dL (3.4-5.0); Alkaline Phosphatase 155 U/L (46-116); Anion Gap 8.2 mmol/L (3-11); BUN 20 mg/dL (7-18); Bilirubin, Total 0.4 mg/dL (0.2-1.0); CO2 26.8 mmol/L (21.0-32.0); CREATININE 0.85 mg/dL (0.70-1.30); Calcium 8.4 mg/dL (8.5-10.1); Chloride 108 mmol/L (98-107); Glucose 106 mg/dL (70-100); Sodium 143 mmol/L (136-145); Total Protein 6.5 g/dL (6.4-8.2)
== END 2019-01-18 09:55 ==
LOC: LBN 09:35
PROVIDERS: PCP Family Medicine; Visit Provider Registered Nurse Oncology
DX: C15.9 Malignant neoplasm of esophagus, unspecified (principal)
CPT/HCPCS: 80053; 85025

== ENCOUNTER 2019-02-06 23:24 | Emergency (ER) | payer MEDICAID, SELFPAY ==
[2019-02-06 23:30] VITALS: BP 108/77; PULSE 76; RESP 18; TEMP 36.3; O2SAT 99
--- NOTE | 2019-02-07 00:18 | W.ED.GENAD ---
Discharge Plan Disposition Patient Disposition: HOME Condition: Stable Discharge Details Chief Complaint: Urinary Clinical Impression: External hemorrhoid Primary Care Provider: Donovan Bobby ED Provider: Manolo Pedro [place] Meds and New Rx's Prescriptions: New lidocaine HCl [Lidocaine Viscous] 2 % solution 15 ml MM BID-QID Qty: 100 RF: 0 No Action lansoprazole 30 mg capsule,delayed release(DR/EC) 30 mg PO DAILY Qty: 90 RF: 3 albuterol sulfate [ProAir HFA] 90 mcg/actuation HFA aerosol inhaler 1 puff Inhalation Q6H PRN Qty: 1 RF: 2 phenytoin sodium extended [Dilantin Extended] 100 mg capsule 100 mg PO TID RF: 0 prochlorperazine maleate [Compazine] 10 mg tablet 10 mg PO Q6H PRN RF: 0 mirtazapine 30 mg tablet 30 mg PO DAILY Qty: 90 RF: 3 nicotine [Nicoderm CQ] 7 mg/24 hr patch 24 hour 1 patch TD Q24H Qty: 28 RF: 2 Flovent HFA 110 mcg/actuation HFA aerosol inhaler 110 mcg Inhalation BID RF: 0 bupropion HCl [Wellbutrin XL] 150 mg tablet extended release 24 hr 150 mg PO QAM Qty: 90 RF: 2 ondansetron 4 mg tablet,disintegrating 4 mg PO QID PRN (Reason: nausea and vomiting) Qty: 20 RF: 0 aspirin 81 MG tablet,chewable 81 mg PO DAILY RF: 0 nitroglycerin 0.4 MG tablet, sublingual 0.4 mg Sublingual PRN Qty: 25 RF: 0 metoprolol succinate 25 mg tablet extended release 24 hr 25 mg PO DAILY Qty: 90 RF: 4 Discharge Instructions Instructions: Hemorrhoids (ED) Additional Instructions: take the stool softeners that you have prescribed. Apply the lidocaine as needed every 6 hours to the hemorrhoids if symptoms continue in a week see your primary care provider if you feel more ill, have bleeding that doesn't stop or severe worsening of pain return to the emergency department Medical Decision Making 44 yo male with hx of esopagheal cancer comes in with pain in rectum and notes he has hemorrhoids. HE denies any abdominal pain or n/v or back pain. On exam he does have two external hemorrhoids at the 9 and 12 olock positions that are not thrombosed or bleeding. He states he has stool softeners at home and I Advised he start them and also sitz baths and will send home with topical lidocaine, advised f/u with his provider if not better and return precautions given. He also noted some difficulty urinating tonight but urinated here without problems and has only 20cc in bladder now. Suspect some dehydration vs possible enlarged prostate. ADvised f/u with pcp if this continues to be a problem and also return if he has significant suprapubic discomfort and inability to urinate or back pain/weakness. HAs no saddle anesthesia and was able to almost fully empty bladder so doubt cauda equina Differential Diagnosis hemorrhoid, enlarged prostate, dehydration HPI General Mode of arrival: ambulatory. Date/Time Provider Initiated Documentation: 02/06/19 23:38. Limitations to Documentation: no limitations. Information obtained by: patient. History of Present Illness 44 year old M presents to the emergency department with the chief complaint of hemorrhoid pain, described as moderate, Quality is described as aching, and it has been constant. No relieving factors improve symptom(s), No exacerbating factors reported . Patient did receive the following treatments prior to arrival, none Related Data Home Medications Medication Instructions Recorded Confirmed aspirin 81 mg PO DAILY tab-cap 03/25/16 01/24/19 nitroglycerin 0.4 mg SUBLINGUAL PRN #25 tab-cap 11/25/17 01/24/19 metoprolol succinate 25 mg 25 mg PO DAILY #90 tab 10/20/18 01/24/19 tablet,extended release 24 hr albuterol sulfate 90 mcg/actuation 1 puff INHALATION Q6H PRN #1 10/28/18 01/24/19 aerosol inhaler inhaler lansoprazole 30 mg capsule,delayed 30 mg PO DAILY #90 cap 10/28/18 01/24/19 release bupropion HCl 150 mg 24 hr tablet, 150 mg PO QAM #90 tab 12/02/18 01/24/19 extended release fluticasone propionate 110 110 mcg INHALATION BID inhaler 12/02/18 01/24/19 mcg/actuation HFA aerosol inhaler ondansetron 4 mg disintegrating 4 mg PO QID PRN #20 tab 12/02/18 01/24/19 tablet mirtazapine 30 mg tablet 30 mg PO DAILY #90 tab 01/24/19 01/24/19 nicotine 7 mg/24 hr daily 1 patch TD Q24H #28 each 01/24/19 01/24/19 transdermal patch phenytoin sodium extended 100 mg 100 mg PO TID cap 01/24/19 01/24/19 capsule prochlorperazine maleate 10 mg 10 mg PO Q6H PRN tab 01/24/19 01/24/19 tablet lidocaine HCl [Lidocaine Viscous] 15 ml MM BID-QID #100 ml 02/07/19 Previous Rx's Medication Instructions Recorded nitroglycerin 0.4 mg SUBLINGUAL PRN #25 tab-cap 11/25/17 metoprolol succinate 25 mg 25 mg PO DAILY #90 tab 10/20/18 tablet,extended release 24 hr albuterol sulfate 90 mcg/actuation 1 puff INHALATION Q6H PRN #1 10/28/18 aerosol inhaler inhaler lansoprazole 30 mg capsule,delayed 30 mg PO DAILY #90 cap 10/28/18 release bupropion HCl 150 mg 24 hr tablet, 150 mg PO QAM #90 tab 12/02/18 extended release ondansetron 4 mg disintegrating 4 mg PO QID PRN #20 tab 12/02/18 tablet mirtazapine 30 mg tablet 30 mg PO DAILY #90 tab 01/24/19 nicotine 7 mg/24 hr daily 1 patch TD Q24H #28 each 01/24/19 transdermal patch lidocaine HCl [Lidocaine Viscous] 15 ml MM BID-QID #100 ml 02/07/19 Allergies Allergy/AdvReac Type Severity Reaction Status Date / Time No Known Allergies Allergy Unverified 01/24/19 09:01 General Stated Complaint: Urinary CRISTA: 3 Review of Systems Review of Systems All systems reviewed & are unremarkable except as noted in HPI and below Constitutional Denies chills, Denies fever(s) and Denies weakness Cardiovascular Denies chest pain and Denies dyspnea Respiratory Denies dyspnea Gastrointestinal Denies abdominal pain, Denies nausea and Denies vomiting Genitourinary Denies dysuria Neurologic Denies weakness [facility] Social History Smoking/Tobacco Use Status: Former Tobacco Use Drug use: Daily Do you feel safe in your relationship?: Yes Exam Const General: no acute distress Orientation: alert HENAZ Head: normal to inspection Ears: external ears normal General nose exam: external nose normal Mouth: moist mucous membranes Eyes General: appearance normal, both eyes and all related structures Neck Neck: normal visual inspection Resp Effort & Inspection: normal respiratory effort and able to speak in complete sentences Cardio Rate: regular rate Skin General skin exam: no rashes or lesions noted Neuro General: alert and oriented x3 Extrem General: normal to inspection Psych Mental Status: mental status grossly normal Course Vital Signs Temperature 36.3 C L 02/06/19 23:30 Pulse 76 02/06/19 23:30 Respiratory Rate 18 02/06/19 23:30 Blood Pressure 108/77 02/06/19 23:30 Pulse Oximetry 99 02/06/19 23:30 Temperature 36.3 C L 02/06/19 23:30 Temperature Source Tympanic 02/06/19 23:30 Pulse 76 02/06/19 23:30 Respiratory Rate 18 02/06/19 23:30 Blood Pressure 108/77 02/06/19 23:30 Pulse Oximetry 99 02/06/19 23:30 Oxygen Delivery Method Room Air 02/06/19 23:30 Oxygen Flow Rate 0 02/06/19 23:30 Pain Level 8 02/06/19 23:30
[2019-02-07 00:35] VITALS: BP 108/77; PULSE 76; RESP 18; O2SAT 99
[2019-02-07] MEDS: Lidocaine 2% Viscous 15 ML CUP PO (00:40)
== END 2019-02-07 00:40 | disposition home or self-care (01) ==
PROVIDERS: Emergency Provider Emergency Medicine; PCP Family Medicine
DX: K64.4 Residual hemorrhoidal skin tags (principal)
CPT/HCPCS: 99283

== ENCOUNTER 2019-02-22 01:32 | Outpatient (RCR) | payer MEDICAID, SELFPAY ==
[2019-02-01] MEDS: Normal Saline Flush 10 ML SYR 30 ML IVP (08:25)
[2019-02-01 08:31] LABS: Abs Immature Grans 0.01 k/cumm (0.0-0.09); Absolute Basophil Count 0.01 k/cumm (0.0-0.2); Absolute Eosinophil Count 0.15 k/cumm (0.0-0.7); Absolute Lymphocyte Count 0.86 k/cumm (1.2-3.4); Absolute Monocyte Count 0.47 k/cumm (0.11-0.7); Absolute Neutrophil Count 2.15 k/cumm (1.2-6.7); Basophils % 0.3; Eosinophils % 4.1; HCT 39.5 % (40.0-50.0); HGB 13.1 g/dL (13.5-17.5); Immature Grans % 0.3; Lymphocytes % 23.6; Mean Corp. HGB Concentration 33.2 g/dL (32.0-36.0); Mean Corpuscular Hemoglobin 28.6 pg (27.0-33.0); Mean Corpuscular Volume 86.2 fL (80-95); Mean Platelet Volume 8.7 fL (8.0-11.0); Monocytes % 12.9; Neutrophils % 58.8; Platelet Count 146 x1000/uL (130-400); RBC 4.58 m/cumm (4.50-6.00); RBC Distribution Width 14.6 % (11.8-14.1); White Blood Cell Count 3.65 k/cumm (4.4-10.8)
[2019-02-01 08:48] LABS: ALT 24 U/L (12-78); AST 13 U/L (15-37); Albumin 3.2 g/dL (3.4-5.0); Alkaline Phosphatase 110 U/L (46-116); Anion Gap 7.3 mmol/L (3-11); BUN 18 mg/dL (7-18); Bilirubin, Total 0.5 mg/dL (0.2-1.0); CO2 26.7 mmol/L (21.0-32.0); CREATININE 0.94 mg/dL (0.70-1.30); Calcium 8.5 mg/dL (8.5-10.1); Chloride 109 mmol/L (98-107); Glucose 87 mg/dL (70-100); Potassium 4.1 mmol/L (3.5-5.1); Sodium 143 mmol/L (136-145); Total Protein 6.1 g/dL (6.4-8.2)
[2019-02-15 08:21] LABS: Abs Immature Grans 0.01 k/cumm (0.0-0.09); Absolute Basophil Count 0.01 k/cumm (0.0-0.2); Absolute Eosinophil Count 0.11 k/cumm (0.0-0.7); Absolute Lymphocyte Count 0.58 k/cumm (1.2-3.4); Absolute Monocyte Count 0.61 k/cumm (0.11-0.7); Basophils % 0.3; Eosinophils % 2.8; HCT 36.5 % (40.0-50.0); HGB 12.1 g/dL (13.5-17.5); Immature Grans % 0.3; Lymphocytes % 14.8; Mean Corp. HGB Concentration 33.2 g/dL (32.0-36.0); Mean Corpuscular Hemoglobin 28.8 pg (27.0-33.0); Mean Corpuscular Volume 86.9 fL (80-95); Mean Platelet Volume 8.8 fL (8.0-11.0); Monocytes % 15.6; Neutrophils % 66.2; Platelet Count 145 x1000/uL (130-400); RBC Distribution Width 14.9 % (11.8-14.1); White Blood Cell Count 3.92 k/cumm (4.4-10.8)
[2019-02-15] MEDS: Normal Saline Flush 10 ML SYR 30 ML IVP (08:22)
[2019-02-15 08:38] LABS: ALT 27 U/L (12-78); AST 20 U/L (15-37); Alkaline Phosphatase 103 U/L (46-116); Anion Gap 6.7 mmol/L (3-11); BUN 11 mg/dL (7-18); Bilirubin, Total 0.6 mg/dL (0.2-1.0); CO2 29.3 mmol/L (21.0-32.0); CREATININE 0.83 mg/dL (0.70-1.30); Chloride 107 mmol/L (98-107); Glucose 117 mg/dL (70-100); Potassium 3.8 mmol/L (3.5-5.1); Sodium 143 mmol/L (136-145); Total Protein 5.8 g/dL (6.4-8.2)
== END 2019-02-22 23:59 | disposition home or self-care (01) ==
LOC: INF 01:32
PROVIDERS: PCP Family Medicine; Visit Provider Registered Nurse Oncology
DX: C15.9 Malignant neoplasm of esophagus, unspecified (principal); Z45.2 Encounter for adjustment and management of vascular access device
CPT/HCPCS: 36591; 80053; 85025

== ENCOUNTER 2019-02-22 18:54 | Emergency (ER) | payer MEDICAID, SELFPAY ==
[2019-02-22 18:57] VITALS: BP 140/82; PULSE 90; RESP 18; TEMP 37.2; O2SAT 100
--- NOTE | 2019-02-22 19:08 | ED.GENADUL_ITS ---
Discharge Plan Disposition Patient Disposition: HOME Condition: Stable Discharge Details Chief Complaint: Nk/Back Pain Clinical Impression: Radiation dermatitis Primary Care Provider: Donovan Bobby ED Provider: Jovani Sandoval Home Meds and New Rx's Prescriptions: New lidocaine 5 % adhesive patch,medicated 2 patch TP DAILY Qty: 30 RF: 0 No Action lansoprazole 30 mg capsule,delayed release(DR/EC) 30 mg PO DAILY Qty: 90 RF: 3 albuterol sulfate [ProAir HFA] 90 mcg/actuation HFA aerosol inhaler 1 puff Inhalation Q6H PRN Qty: 1 RF: 2 prochlorperazine maleate [Compazine] 10 mg tablet 10 mg PO Q6H PRN RF: 0 mirtazapine 30 mg tablet 30 mg PO DAILY Qty: 90 RF: 3 nicotine [Nicoderm CQ] 7 mg/24 hr patch 24 hour 1 patch TD Q24H Qty: 28 RF: 2 Flovent HFA 110 mcg/actuation HFA aerosol inhaler 110 mcg Inhalation BID RF: 0 bupropion HCl [Wellbutrin XL] 150 mg tablet extended release 24 hr 150 mg PO QAM Qty: 90 RF: 2 ondansetron 4 mg tablet,disintegrating 4 mg PO QID PRN (Reason: nausea and vomiting) Qty: 20 RF: 0 aspirin 81 MG tablet,chewable 81 mg PO DAILY RF: 0 nitroglycerin 0.4 MG tablet, sublingual 0.4 mg Sublingual PRN Qty: 25 RF: 0 metoprolol succinate 25 mg tablet extended release 24 hr 25 mg PO DAILY Qty: 90 RF: 4 lidocaine HCl [Lidocaine Viscous] 2 % solution 15 ml MM BID-QID Qty: 100 RF: 0 Discharge Instructions Additional Instructions: follow up as scheduled with your oncologist tomorrow if you have high fevers, difficulty breathing or severe worsening of pain overnight return to the emergency department Discharge Data Discharge Date/Time-TO BE ENTERED AT DEPARTURE: 02/22/19 20:21 Medical Decision Making <Manolo Pedro MD - Last Filed: 02/23/19 09:26> 44 yo male with hx of esophageal cancer undergoing radiation therapy who comes in with pain around the area of his upper chest and neck where he gets radiation. It has progressively getting worse with treatments like they told him it would. he made an appt to see his oncologist tomorrow for the pain but was unbearable tonight so came here. Has mild erythema that is not warm to touch of the upper chest and anterior neck, no crepitus or other findings to suggest cellulitis or nec fasc. His symptoms seem consistent with radiation of dermatitis, will see if a lidocaine patch helps his pain and hold on topical steroids until he sees his oncologist tomorrow. He is requesting IVF as well for dehydration given it is hard to swallow chronically from his cancer, denies increased difficulty swallowing rececntly. He has no pain over the hyoid or restricted neck movememts, no findings to suggest rpa, well logging captain mud analysis, epiglotitis. No fevers, headaches or meningismus so doubt specialist wound care infection Differential Diagnosis radiation dermatitis, dehydration Medical Records Medical records reviewed: Yes I reviewed the patient's medical records. <Jovani Sandoval DO - Last Filed: 02/22/19 20:10> Case is signed out to me by my colleague Dr. Manolo Pedro. Pending laboratory work-up. Labs have returned, hemoglobin stable, potassium slightly low. We will replete this with oral liquid potassium. Patient has complete resolution of his pain, and would like to go home. Patient remains hemodynamically stable, he is able to tolerate p.o. well without any difficulty, signs of aspiration, or airway compromise. Patient will be discharged home respecting his wishes. He follows up with his oncologist tomorrow. I have extensively reviewed the treatment plan and discharge instructions with the patient and their family. I have addressed all patient concerns at this time. The patient and family was made aware of what symptoms to monitor for that would warrant a return to the emergency department. Discussed the plan with the patient and family, they demonstrate verbal understanding and agreement with our assessment and plan at this time. HPI <Manolo Pedro MD - Last Filed: 02/23/19 09:26> General Mode of arrival: ambulatory . Date/Time Provider Initiated Documentation: 02/22/19 19:00 . Limitations to Documentation: no limitations . Information obtained by: patient . History of Present Illness 44 year old M presents to the emergency department with the chief complaint of neck pain, described as moderate, Quality is described as burning and aching, and is localized to the neck. Patient reports no radiation. Patient started experiencing this week(s) (4) and it has been constant. No relieving factors improve symptom(s), No exacerbating factors reported . Patient did receive the following treatments prior to arrival, none Related Data Home Medications Medication Instructions Recorded Confirmed aspirin 81 mg PO DAILY tab-cap 03/25/16 02/22/19 nitroglycerin 0.4 mg SUBLINGUAL PRN #25 tab-cap 11/25/17 02/22/19 metoprolol succinate 25 mg 25 mg PO DAILY #90 tab 10/20/18 02/22/19 tablet,extended release 24 hr albuterol sulfate 90 mcg/actuation 1 puff INHALATION Q6H PRN #1 10/28/18 02/22/19 aerosol inhaler inhaler lansoprazole 30 mg capsule,delayed 30 mg PO DAILY #90 cap 10/28/18 02/22/19 release bupropion HCl 150 mg 24 hr tablet, 150 mg PO QAM #90 tab 12/02/18 02/22/19 extended release fluticasone propionate 110 110 mcg INHALATION BID inhaler 12/02/18 02/22/19 mcg/actuation HFA aerosol inhaler ondansetron 4 mg disintegrating 4 mg PO QID PRN #20 tab 12/02/18 02/22/19 tablet mirtazapine 30 mg tablet 30 mg PO DAILY #90 tab 01/24/19 02/22/19 nicotine 7 mg/24 hr daily 1 patch TD Q24H #28 each 01/24/19 02/22/19 transdermal patch prochlorperazine maleate 10 mg 10 mg PO Q6H PRN tab 01/24/19 02/22/19 tablet lidocaine HCl [Lidocaine Viscous] 15 ml MM BID-QID #100 ml 02/07/19 02/22/19 lidocaine 2 patch TP DAILY #30 each 02/22/19 Previous Rx's Medication Instructions Recorded nitroglycerin 0.4 mg SUBLINGUAL PRN #25 tab-cap 11/25/17 metoprolol succinate 25 mg 25 mg PO DAILY #90 tab 10/20/18 tablet,extended release 24 hr albuterol sulfate 90 mcg/actuation 1 puff INHALATION Q6H PRN #1 10/28/18 aerosol inhaler inhaler lansoprazole 30 mg capsule,delayed 30 mg PO DAILY #90 cap 10/28/18 release bupropion HCl 150 mg 24 hr tablet, 150 mg PO QAM #90 tab 12/02/18 extended release ondansetron 4 mg disintegrating 4 mg PO QID PRN #20 tab 12/02/18 tablet mirtazapine 30 mg tablet 30 mg PO DAILY #90 tab 01/24/19 nicotine 7 mg/24 hr daily 1 patch TD Q24H #28 each 01/24/19 transdermal patch lidocaine HCl [Lidocaine Viscous] 15 ml MM BID-QID #100 ml 02/07/19 lidocaine 2 patch TP DAILY #30 each 02/22/19 Allergies Allergy/AdvReac Type Severity Reaction Status Date / Time No Known Allergies Allergy Unverified 01/24/19 09:01 General Stated Complaint: Nk/Back Pain CRISTA: 3 Review of Systems <Manolo Pedro MD - Last Filed: 02/23/19 09:26> Review of Systems All systems reviewed & are unremarkable except as noted in HPI and below Constitutional Denies chills, Denies fever(s) and Denies weakness Cardiovascular Denies chest pain and Denies dyspnea Respiratory Denies cough and Denies dyspnea Gastrointestinal Denies abdominal pain, Denies nausea and Denies vomiting Musculoskeletal Denies joint swelling Neurologic Denies weakness PFSH <Manolo Pedro MD - Last Filed: 02/23/19 09:26> Social History Smoking/Tobacco Use Status: Former Tobacco Use Alcohol Intake: current Alcohol Intake frequency: 3 or more drinks per day Drug use: Daily Substance use type: marijuana Do you feel safe at home: Yes Do you feel safe in your relationship?: Yes Exam <Manolo Pedro MD - Last Filed: 02/23/19 09:26> Const General: no acute distress Orientation: alert [facility] Head: normal to inspection Ears: external ears normal General nose exam: external nose normal Mouth: moist mucous membranes Eyes General: appearance normal, both eyes and all related structures Neck Neck: normal visual inspection Resp Effort & Inspection: normal respiratory effort and able to speak in complete sentences Cardio Rate: regular rate Skin General skin exam: elasticity normal Neuro General: alert and oriented x3 Extrem General: normal to inspection Psych Mental Status: mental status grossly normal Course <Manolo Pedro MD - Last Filed: 02/23/19 09:26> Vital Signs Temperature 37.2 C 02/22/19 18:57 Pulse 90 02/22/19 18:57 Respiratory Rate 18 02/22/19 18:57 Blood Pressure 140/82 02/22/19 18:57 Pulse Oximetry 100 02/22/19 18:57 Temperature 37.2 C 02/22/19 18:57 Temperature Source Temporal Artery Scan 02/22/19 18:57 Pulse 90 02/22/19 18:57 Respiratory Rate 18 02/22/19 18:57 Respiratory Effort Non-Labored 02/22/19 19:06 Blood Pressure 140/82 02/22/19 18:57 Pulse Oximetry 100 02/22/19 18:57 Oxygen Delivery Method Room Air 02/22/19 18:57 Oxygen Flow Rate 0 02/22/19 18:57 Sign Out <Manolo Pedro MD - Last Filed: 02/23/19 09:26> Sign Out Data: Sign Out Comment: reassess how he's feeling after IVF, likely d/c Last updated by Manolo Pedro MD at 02/22/19 19:37
[2019-02-22] MEDS: Lidocaine 5% Patch 1 PATCH ×2 (19:23→20:28)
[2019-02-22] MEDS: Normal Saline 1,000 ML 1000 ML IV (19:27)
[2019-02-22 19:33] LABS: Abs Immature Grans 0.03 k/cumm (0.0-0.09); Absolute Basophil Count 0.01 k/cumm (0.0-0.2); Absolute Eosinophil Count 0.11 k/cumm (0.0-0.7); Absolute Lymphocyte Count 0.43 k/cumm (1.2-3.4); Absolute Monocyte Count 0.96 k/cumm (0.11-0.7); Basophils % 0.3; Eosinophils % 2.9; HCT 41.1 % (40.0-50.0); HGB 14.4 g/dL (13.5-17.5); Immature Grans % 0.8; Lymphocytes % 11.5; Mean Corpuscular Volume 82.7 fL (80-95); Mean Platelet Volume 8.8 fL (8.0-11.0); Monocytes % 25.7; Neutrophils % 58.8; Platelet Count 215 x1000/uL (130-400); RBC 4.97 m/cumm (4.50-6.00); RBC Distribution Width 14.3 % (11.8-14.1); White Blood Cell Count 3.74 k/cumm (4.4-10.8)
[2019-02-22 19:38] VITALS: BP 148/87; PULSE 85; RESP 16; O2SAT 98
[2019-02-22 19:48] LABS: ALT 24 U/L (12-78); AST 15 U/L (15-37); Albumin 3.6 g/dL (3.4-5.0); Alkaline Phosphatase 111 U/L (46-116); Anion Gap 10.4 mmol/L (3-11); BUN 14 mg/dL (7-18); Bilirubin, Total 0.5 mg/dL (0.2-1.0); CO2 26.6 mmol/L (21.0-32.0); CREATININE 1.02 mg/dL (0.70-1.30); Calcium 9.3 mg/dL (8.5-10.1); Chloride 103 mmol/L (98-107); Glucose 111 mg/dL (70-100); Magnesium 1.8 mg/dL (1.8-2.4); Potassium 3.2 mmol/L (3.5-5.1); Sodium 140 mmol/L (136-145); Total Protein 7.1 g/dL (6.4-8.2)
[2019-02-22 19:49] VITALS: BP 129/82; PULSE 85; RESP 14; O2SAT 98
[2019-02-22] MEDS: Potassium Chloride Liquid 20 MEQ PKT 40 MEQ PO (20:04)
[2019-02-22] MEDS: Ondansetron O.D.T. 4 MG TABEF (20:21)
[2019-02-22] MEDS: Potassium Chloride 20 MEQ TABCR (20:22)
[2019-02-22 20:25] VITALS: BP 128/87; PULSE 85; RESP 16; O2SAT 98
== END 2019-02-22 20:21 | disposition home or self-care (01) ==
PROVIDERS: Emergency Medicine; Emergency Provider Student in an Organized Health Care Education/Training Program; PCP Family Medicine
DX: L59.8 Other specified disorders of the skin and subcutaneous tissue related to radiation (principal); Z51.0 Encounter for antineoplastic radiation therapy
CPT/HCPCS: 36415; 80053; 96361; 96374; 99284; 83735; 85025

== ENCOUNTER 2019-03-14 01:56 | Outpatient (RCR) | payer MEDICAID, SELFPAY ==
[2019-02-28] MEDS: Normal Saline Flush 10 ML SYR 30 ML IVP (08:35)
[2019-02-28 08:59] LABS: Abs Immature Grans 0.02 k/cumm (0.0-0.09); Absolute Basophil Count 0.02 k/cumm (0.0-0.2); Absolute Eosinophil Count 0.13 k/cumm (0.0-0.7); Absolute Lymphocyte Count 0.36 k/cumm (1.2-3.4); Absolute Monocyte Count 0.68 k/cumm (0.11-0.7); Absolute Neutrophil Count 2.59 k/cumm (1.2-6.7); Basophils % 0.5; Eosinophils % 3.4; HCT 35.2 % (40.0-50.0); HGB 11.9 g/dL (13.5-17.5); Immature Grans % 0.5; Lymphocytes % 9.5; Mean Corp. HGB Concentration 33.8 g/dL (32.0-36.0); Mean Corpuscular Hemoglobin 29.5 pg (27.0-33.0); Mean Corpuscular Volume 87.1 fL (80-95); Mean Platelet Volume 8.6 fL (8.0-11.0); Monocytes % 17.9; Neutrophils % 68.2; Platelet Count 163 x1000/uL (130-400); RBC 4.04 m/cumm (4.50-6.00); RBC Distribution Width 14.9 % (11.8-14.1)
[2019-02-28 09:16] LABS: ALT 16 U/L (12-78); AST 9 U/L (15-37); Albumin 2.6 g/dL (3.4-5.0); Alkaline Phosphatase 98 U/L (46-116); Anion Gap 6.3 mmol/L (3-11); BUN 10 mg/dL (7-18); Bilirubin, Total 0.3 mg/dL (0.2-1.0); CO2 26.7 mmol/L (21.0-32.0); CREATININE 0.82 mg/dL (0.70-1.30); Chloride 110 mmol/L (98-107); Glucose 101 mg/dL (70-100); Sodium 143 mmol/L (136-145); Total Protein 5.8 g/dL (6.4-8.2)
[2019-03-14] MEDS: Normal Saline Flush 10 ML SYR IVP (08:23)
[2019-03-14 08:29] LABS: Abs Immature Grans 0.01 k/cumm (0.0-0.09); Absolute Basophil Count 0.03 k/cumm (0.0-0.2); Absolute Eosinophil Count 0.14 k/cumm (0.0-0.7); Absolute Lymphocyte Count 0.49 k/cumm (1.2-3.4); Absolute Neutrophil Count 2.38 k/cumm (1.2-6.7); Basophils % 0.8; Eosinophils % 3.9; HCT 33.6 % (40.0-50.0); HGB 11.3 g/dL (13.5-17.5); Immature Grans % 0.3; Lymphocytes % 13.8; Mean Corp. HGB Concentration 33.6 g/dL (32.0-36.0); Mean Corpuscular Hemoglobin 29.1 pg (27.0-33.0); Mean Corpuscular Volume 86.6 fL (80-95); Mean Platelet Volume 8.4 fL (8.0-11.0); Monocytes % 14.1; Neutrophils % 67.1; Platelet Count 160 x1000/uL (130-400); RBC 3.88 m/cumm (4.50-6.00); RBC Distribution Width 15.1 % (11.8-14.1); White Blood Cell Count 3.55 k/cumm (4.4-10.8)
[2019-03-14 08:53] LABS: ALT 14 U/L (12-78); AST 8 U/L (15-37); Albumin 2.9 g/dL (3.4-5.0); Alkaline Phosphatase 83 U/L (46-116); BUN 15 mg/dL (7-18); Bilirubin, Total 0.4 mg/dL (0.2-1.0); CREATININE 0.93 mg/dL (0.70-1.30); Calcium 8.2 mg/dL (8.5-10.1); Chloride 111 mmol/L (98-107); Glucose 62 mg/dL (70-100); Potassium 3.6 mmol/L (3.5-5.1); Sodium 146 mmol/L (136-145)
== END 2019-03-25 23:59 | disposition home or self-care (01) ==
LOC: INF 01:56
PROVIDERS: PCP Family Medicine; Visit Provider Registered Nurse Oncology
DX: C15.9 Malignant neoplasm of esophagus, unspecified (principal); Z45.2 Encounter for adjustment and management of vascular access device
CPT/HCPCS: 36591; 80053; 85025

== ENCOUNTER 2019-03-23 17:23 | Emergency (ER) | payer MEDICAID, SELFPAY ==
[2019-03-23 17:29] VITALS: BP 107/74; PULSE 105; RESP 16; TEMP 36.9; O2SAT 97
[2019-03-23] MEDS: Normal Saline-STERILE FIELD 0.9% 10 ML SYR (17:35)
[2019-03-23 17:41] VITALS: RESP 16
--- NOTE | 2019-03-23 17:44 | ED.GENADUL_ITS ---
Discharge Plan Disposition Patient Disposition: HOME Condition: Stable Discharge Details Chief Complaint: GenMedical Clinical Impression: Dehydration Primary Care Provider: Donovan Bobby ED Provider: Manolo Pedro Chemung Meds and New Rx's Prescriptions: Continued lansoprazole 30 mg capsule,delayed release(DR/EC) 30 mg PO DAILY Qty: 90 RF: 3 albuterol sulfate [ProAir HFA] 90 mcg/actuation HFA aerosol inhaler 1 puff Inhalation Q6H PRN Qty: 1 RF: 2 prochlorperazine maleate [Compazine] 10 mg tablet 10 mg PO Q6H PRN RF: 0 lidocaine 5 % adhesive patch,medicated 2 patch TP DAILY RF: 0 mirtazapine 30 mg tablet 45 mg PO DAILY Qty: 90 RF: 3 nicotine 21 mg/24 hr patch 24 hour 1 patch TD Q24H Qty: 30 RF: 0 Flovent HFA 110 mcg/actuation HFA aerosol inhaler 110 mcg Inhalation BID RF: 0 bupropion HCl [Wellbutrin XL] 150 mg tablet extended release 24 hr 150 mg PO QAM Qty: 90 RF: 2 ondansetron 4 mg tablet,disintegrating 4 mg PO QID PRN (Reason: nausea and vomiting) Qty: 20 RF: 0 aspirin 81 MG tablet,chewable 81 mg PO DAILY RF: 0 nitroglycerin 0.4 MG tablet, sublingual 0.4 mg Sublingual PRN Qty: 25 RF: 0 metoprolol succinate 25 mg tablet extended release 24 hr 12.5 mg PO DAILY Qty: 90 RF: 4 lidocaine HCl [Lidocaine Viscous] 2 % solution 15 ml MM BID-QID Qty: 100 RF: 0 Discharge Instructions Instructions: Dehydration (ED) Additional Instructions: have your potassium level rechecked within a week as it was low here today if you feel you are becoming more ill, have high fevers or difficulty breathing return to the emergency department Medical Decision Making 44 yo male with hx of esophageal cancer undergoing chemotherapy and radiation, who comes in with feeling weak and dehydrated. Denies loc, chest pain, sob, fevers, abdominal pain. He states he feels lightheaded when sitting up and has dry mucous membranes, apparently hasn't been drinking fluids well. No focal neuro deficits. Suspect dehydration, will check for anemia and electrolyte abnormalities and hydrate and reassess. labs show K of 3.1 otherwise no significant abnormaltiies and he feels much better with IVF and requesting d/c. Will d/c and have him get his K rechecked next week and if persistently low likely start supplements. He has appointment tomorrow with his oncologist and will return if worsening Differential Diagnosis dehydration, malnutrition, anemia Medical Records Medical records reviewed: Yes I reviewed the patient's medical records. Lab Data Lab results reviewed: Yes I reviewed the patient's lab results. HPI General Mode of arrival: ambulatory . Date/Time Provider Initiated Documentation: 03/23/19 17:34 . Limitations to Documentation: no limitations . Information obtained by: patient . History of Present Illness 44 year old M presents to the emergency department with the chief complaint of weak, described as moderate, Patient started experiencing this day(s) (3) and it has been constant. No relieving factors improve symptom(s), No exacerbating factors reported . Patient did receive the following treatments prior to arrival, none Related Data Home Medications Medication Instructions Recorded Confirmed aspirin 81 mg PO DAILY tab-cap 03/25/16 03/23/19 nitroglycerin 0.4 mg SUBLINGUAL PRN #25 tab-cap 11/25/17 03/23/19 metoprolol succinate 25 mg 12.5 mg PO DAILY #90 tab 10/20/18 03/23/19 tablet,extended release 24 hr albuterol sulfate 90 mcg/actuation 1 puff INHALATION Q6H PRN #1 10/28/18 03/23/19 aerosol inhaler inhaler lansoprazole 30 mg capsule,delayed 30 mg PO DAILY #90 cap 10/28/18 03/23/19 release bupropion HCl 150 mg 24 hr tablet, 150 mg PO QAM #90 tab 12/02/18 03/23/19 extended release fluticasone propionate 110 110 mcg INHALATION BID inhaler 12/02/18 03/23/19 mcg/actuation HFA aerosol inhaler ondansetron 4 mg disintegrating 4 mg PO QID PRN #20 tab 12/02/18 03/23/19 tablet prochlorperazine maleate 10 mg 10 mg PO Q6H PRN tab 01/24/19 03/23/19 tablet lidocaine HCl [Lidocaine Viscous] 15 ml MM BID-QID #100 ml 02/07/19 03/23/19 lidocaine 5 % topical patch 2 patch TP DAILY each 03/10/19 03/23/19 mirtazapine 30 mg tablet 45 mg PO DAILY #90 tab 03/10/19 03/23/19 nicotine 21 mg/24 hr daily 1 patch TD Q24H #30 each 03/10/19 03/23/19 transdermal patch Previous Rx's Medication Instructions Recorded nitroglycerin 0.4 mg SUBLINGUAL PRN #25 tab-cap 11/25/17 metoprolol succinate 25 mg 12.5 mg PO DAILY #90 tab 10/20/18 tablet,extended release 24 hr albuterol sulfate 90 mcg/actuation 1 puff INHALATION Q6H PRN #1 10/28/18 aerosol inhaler inhaler lansoprazole 30 mg capsule,delayed 30 mg PO DAILY #90 cap 10/28/18 release bupropion HCl 150 mg 24 hr tablet, 150 mg PO QAM #90 tab 12/02/18 extended release ondansetron 4 mg disintegrating 4 mg PO QID PRN #20 tab 12/02/18 tablet lidocaine HCl [Lidocaine Viscous] 15 ml MM BID-QID #100 ml 02/07/19 mirtazapine 30 mg tablet 45 mg PO DAILY #90 tab 03/10/19 nicotine 21 mg/24 hr daily 1 patch TD Q24H #30 each 03/10/19 transdermal patch Allergies Allergy/AdvReac Type Severity Reaction Status Date / Time No Known Allergies Allergy Unverified 03/23/19 17:33 General Stated Complaint: GenMedical CRISTA: 3 Review of Systems Review of Systems All systems reviewed & are unremarkable except as noted in HPI and below Constitutional Denies chills and Denies fever(s) Cardiovascular Denies chest pain and Denies dyspnea Respiratory Denies cough and Denies dyspnea Gastrointestinal Denies abdominal pain, Denies nausea and Denies vomiting Musculoskeletal Denies joint swelling Endocrine Denies heat intolerance [facility] Medical History (Updated 03/10/19 @ 12:32 by Donovan Bobby) Cachexia (Acute) will augment mirtazapine encourage po whenever possible Surgical History (Updated 01/02/19 @ 10:53 by Jourdan Cole) EGD - MAC (12/29/17) Social History Smoking/Tobacco Use Status: Former Tobacco Use Alcohol Intake: current Alcohol Intake frequency: 3 or more drinks per day Drug use: Daily Substance use type: marijuana Do you feel safe at home: Yes Do you feel safe in your relationship?: Yes Exam Const General: no acute distress Orientation: alert HENMT Head: normal to inspection Ears: external ears normal General nose exam: external nose normal Mouth: other (dry mucous membranes) Eyes General: appearance normal, both eyes and all related structures Neck Neck: normal visual inspection Resp Effort & Inspection: normal respiratory effort and able to speak in complete sentences Cardio Rate: regular rate Skin General skin exam: no rashes or lesions noted Neuro General: alert and oriented x3 Extrem General: normal to inspection Psych Mental Status: mental status grossly normal Course Vital Signs Temperature 36.9 C 03/23/19 17:29 Pulse 105 H 03/23/19 17:29 Respiratory Rate 16 03/23/19 17:29 Blood Pressure 107/74 03/23/19 17:29 Pulse Oximetry 97 03/23/19 17:29 Temperature 36.9 C 03/23/19 17:29 Temperature Source Skin 03/23/19 17:29 Pulse 105 H 03/23/19 17:29 Respiratory Rate 16 03/23/19 17:41 Respiratory Effort Non-Labored 03/23/19 17:41 Respiratory Depth Normal 03/23/19 17:41 Respiratory Pattern Normal 03/23/19 17:41 Blood Pressure 107/74 03/23/19 17:29 Blood Pressure Position Sitting 03/23/19 17:29 Pulse Oximetry 97 03/23/19 17:29 Oxygen Delivery Method Room Air 03/23/19 17:29 Oxygen Flow Rate 0 03/23/19 17:29 Pain Level 4 03/23/19 17:29
[2019-03-23 18:36] LABS: ALT 24 U/L (16-63); AST 17 U/L (15-37); Albumin 2.9 g/dL (3.4-5.0); Alkaline Phosphatase 88 U/L (46-116); Anion Gap 9.3 mmol/L (3-11); BUN 10 mg/dL (7-18); Bilirubin, Total 0.7 mg/dL (0.2-1.0); CO2 27.7 mmol/L (21.0-32.0); CREATININE 0.85 mg/dL (0.70-1.30); Calcium 8.2 mg/dL (8.5-10.1); Chloride 104 mmol/L (98-107); Glucose 101 mg/dL (70-100); Magnesium 1.7 mg/dL (1.8-2.4); Potassium 3.1 mmol/L (3.5-5.1); Sodium 141 mmol/L (136-145); TSH (W/Ref FT4) 1.09 uIU/mL (0.36-3.74); Total Protein 6.2 g/dL (6.4-8.2)
[2019-03-23 18:39] LABS: Abs Immature Grans 0.01 k/cumm (0.0-0.09); Absolute Basophil Count 0.01 k/cumm (0.0-0.2); Absolute Eosinophil Count 0.05 k/cumm (0.0-0.7); Absolute Neutrophil Count 3.01 k/cumm (1.2-6.7); Basophils % 0.2; Eosinophils % 1.2; HCT 31.6 % (40.0-50.0); HGB 11.1 g/dL (13.5-17.5); Immature Grans % 0.2; Lymphocytes % 7.2; Mean Corp. HGB Concentration 35.1 g/dL (32.0-36.0); Mean Corpuscular Hemoglobin 30.3 pg (27.0-33.0); Mean Corpuscular Volume 86.3 fL (80-95); Mean Platelet Volume 9.2 fL (8.0-11.0); Monocytes % 19.1; Neutrophils % 72.1; Platelet Count 161 x1000/uL (130-400); RBC 3.66 m/cumm (4.50-6.00); RBC Distribution Width 14.5 % (11.8-14.1); White Blood Cell Count 4.18 k/cumm (4.4-10.8)
[2019-03-23] MEDS: Normal Saline 1,000 ML 1000 ML IV (18:43)
--- NOTE | 2019-03-23 19:13 | NUR.NOTE ---
Nursing Note: Per pt request: port access to stay in place. MD agrees to this as well as water supervisor. Right port secured, labeled and capped with curos cap for use 03/24/19 here at [facility] for port blood draw and subsequent treatment at [facility]. Pt verbalizes an understanding of education provided around care and protection of port access. A copy of pt's port card made by this ED and will be scanned into file. Power port needle placed today 19 gauge, .75 with lidocaine. Bio patch used.
[2019-03-23 19:51] VITALS: BP 104/77; PULSE 90; RESP 16; TEMP 36.9; O2SAT 97
== END 2019-03-23 19:51 | disposition home or self-care (01) ==
PROVIDERS: Emergency Provider Emergency Medicine; PCP Family Medicine
DX: E86.0 Dehydration (principal); E87.6 Hypokalemia; C15.9 Malignant neoplasm of esophagus, unspecified; R64 Cachexia; Z79.899 Other long term (current) drug therapy; Z95.828 Presence of other vascular implants and grafts; Z87.891 Personal history of nicotine dependence
CPT/HCPCS: 36591; 80053; 96360; 99284; 83735; 84443; 85025

== ENCOUNTER 2019-04-09 09:27 | Inpatient (IN) | payer OTHER, SELFPAY ==
[2019-04-09] VITALS (142 sets, daily range): BP systolic 108–137; BP diastolic 68–90; PULSE 71–105; RESP 11–29; TEMP 37–37.2; O2SAT 95–100
--- NOTE | 2019-04-09 09:53 | DI.CT_ITS ---
SYMPTOM/DIAGNOSIS: VOMITING, DIZZINESS, H/O ESOPHAGEAL CA, ON CHEMO, HEADACHE NONCONTRAST HEAD CT The exam was performed according to the usual protocol There is no evidence of intracranial hemorrhage or mass. The ventricles are unremarkable. No acute fracture is identified. There is ethmoid sinus disease and mild sphenoid sinus disease. The visualized mastoid air cells are well aerated. The soft tissues are unremarkable. IMPRESSION: No acute intracranial abnormality. PA AND LATERAL CHEST: A Portacath is noted in place with its tip ending at the level of the junction of the superior vena cava and right atrium. Emphysematous changes are noted in the lungs. There is a question regarding faint areas of infiltration involving the right middle and right lower lobes. There is no evidence of a pleural effusion or pneumothorax. The heart is not enlarged. The hilar structures, mediastinum and tracheal air column are intact. SUMMARY: COPD, question faint areas of infiltration in the right middle and right lower lobes.
--- NOTE | 2019-04-09 09:55 | W.ED.GENAD ---
Discharge Plan Disposition Condition: Stable Discharge Details Chief Complaint: Nausea/Vomit/Diar Admit Date/Time: 04/09/19 14:15 Admit Provider: Medina Anne Attending Provider: Bogdan Tovar Primary Care Provider: Donovan Bobby ED Provider: Yfn Sweeney Discharge Instructions Activity:: Activity as Tolerated Equipment/Supplies:: No Equipment Needed Diet:: Low Sodium Discharge Orders Discharge Orders: Discharge Order (Routine); Ordered 04/12/19 Ordered By: Sindi Craig Discharge Data Discharge Date/Time-TO BE ENTERED AT DEPARTURE: 04/09/19 15:01 Medical Decision Making 10:00 --44-year-old male with multiple medical problems including history of coronary artery disease status post stent, esophageal cancer status post resection with esophagectomy, radiation and chemotherapy, now with recurrence and on chemotherapy again, here with nausea, vomiting, inability to tolerate oral fluids. Patient is tachycardic and appears hypovolemic. I will give normal saline IV fluid bolus. Patient also has headache. No focal neurologic deficits but consider metastatic disease. Suspect secondary to dehydration. I will obtain CT of the head to assess for any large mass resulting in vomiting. Patient does have recent low-grade fever, is immunosuppressed and now with new cough. Consider pneumonia. Patient is saturating well in no respiratory distress with clear lung sounds. I will obtain chest x-ray. Screening ECG was reviewed and interpreted by me: Sinus tachycardia 102 bpm, normal axis, QTC 425, PA depression is noted inferiorly with subtle ST elevation, these findings similar to prior EKG from 04/04/2018. Patient has no chest pain. I suspect patient's presentation is related to side effect of chemotherapy. We will give IV hydration, reglan IV and reassess. --CT head interpreted by radiology: No acute intracranial ab normality. Chest x-ray interpreted by radiology: Bilateral pneumonia, focal consolidation right middle lobe and right lower lobe. Plan to initiate treatment with Levaquin 750 mg IV. I have called [facility] to speak with oncologist about potential for transfer versus admission here. 12:55 -- Spoke with [facility] oncology and discussed ED presentation and course and he agrees with Levaquin and recommends adding Zosyn at this time, he does feel that the patient meets criteria for transfer to [facility]. Transfer center to arrange conversation with hospitalist as accepting physician. 13:42 --transfer center at [facility] noted no beds available at [facility]. Spoke with hospitalist at [facility], no beds available. Recommend admitting here for IV antibiotics and monitoring. Spoke with hospitalist who will admit. HPI General Mode of arrival: ambulatory. Date/Time Provider Initiated Documentation: 04/09/19 09:44. Limitations to Documentation: no limitations. Information obtained by: patient. HPI Narrative: 44-year-old male with history of esophageal cancer status post radiation, esophagectomy, on chemotherapy for recurrence, here with chief complaint of nausea. Patient had severe nausea for the past 3 to 4 days. He has frequent dry heaving and is not able to keep down food or fluids. Symptoms are severe. No modifiers -he took Zofran today at 8 AM and Compazine earlier today without effect. No associated abdominal pain. He does have recent cough which is new as well as headache over the past couple days. He has no associated chest pain. Related Data Home Medications Medication Instructions Recorded Confirmed aspirin 81 mg PO DAILY tab-cap 03/25/16 04/12/19 nitroglycerin 0.4 mg SUBLINGUAL PRN #25 tab-cap 11/25/17 04/12/19 metoprolol succinate 25 mg 12.5 mg PO DAILY #90 tab 10/20/18 04/12/19 tablet,extended release 24 hr albuterol sulfate 90 mcg/actuation 1 puff INHALATION Q6H PRN #1 10/28/18 04/12/19 aerosol inhaler inhaler lansoprazole 30 mg capsule,delayed 30 mg PO DAILY #90 cap 10/28/18 04/12/19 release bupropion HCl 150 mg 24 hr tablet, 150 mg PO QAM #90 tab 12/02/18 04/12/19 extended release fluticasone propionate 110 110 mcg INHALATION BID PRN inhaler 12/02/18 04/09/19 mcg/actuation HFA aerosol inhaler ondansetron 4 mg disintegrating 4 mg PO QID PRN #20 tab 12/02/18 04/12/19 tablet prochlorperazine maleate 10 mg 10 mg PO Q6H PRN tab 01/24/19 04/12/19 tablet lidocaine HCl [Lidocaine Viscous] 15 ml MM BID-QID #100 ml 02/07/19 04/12/19 lidocaine 5 % topical patch 2 patch TP DAILY each 03/10/19 04/09/19 nicotine 21 mg/24 hr daily 1 patch TD Q24H #30 each 03/10/19 04/12/19 transdermal patch morphine 10 mg PO Q6H PRN 04/09/19 04/12/19 prochlorperazine 25 mg PA Q6H PRN PRN 04/09/19 04/12/19 levofloxacin [Levaquin] 750 mg PO DAILY #2 tab 04/14/19 mirtazapine [Remeron] 30 mg PO HS #30 tab 04/14/19 Previous Rx's Medication Instructions Recorded nitroglycerin 0.4 mg SUBLINGUAL PRN #25 tab-cap 11/25/17 metoprolol succinate 25 mg 12.5 mg PO DAILY #90 tab 10/20/18 tablet,extended release 24 hr albuterol sulfate 90 mcg/actuation 1 puff INHALATION Q6H PRN #1 10/28/18 aerosol inhaler inhaler lansoprazole 30 mg capsule,delayed 30 mg PO DAILY #90 cap 10/28/18 release bupropion HCl 150 mg 24 hr tablet, 150 mg PO QAM #90 tab 12/02/18 extended release ondansetron 4 mg disintegrating 4 mg PO QID PRN #20 tab 12/02/18 tablet lidocaine HCl [Lidocaine Viscous] 15 ml MM BID-QID #100 ml 02/07/19 nicotine 21 mg/24 hr daily 1 patch TD Q24H #30 each 03/10/19 transdermal patch levofloxacin [Levaquin] 750 mg PO DAILY #2 tab 04/14/19 mirtazapine [Remeron] 30 mg PO HS #30 tab 04/14/19 Allergies Allergy/AdvReac Type Severity Reaction Status Date / Time No Known Allergies Allergy Unverified 04/09/19 09:42 General Stated Complaint: Nausea/Vomit/Diar CRISTA: 3 Review of Systems Review of Systems ROS Unobtainable: All systems reviewed & are unremarkable except as noted in HPI and below Constitutional Constitutional: Reports fever(s) (low grade recently) Cardiovascular Cardiovascular: Denies dyspnea Respiratory Respiratory: Reports cough and Denies dyspnea Gastrointestinal Gastrointestinal: Reports as per HPI, Denies abdominal pain and Denies loose stools Integumentary/Breasts Skin/Breast: Denies rash Neurologic Neurologic: Reports as per HPI PFSH Medical History Cachexia (Chronic) will augment mirtazapine encourage po whenever possible Surgical History EGD - MAC (12/29/17) Family History Mother Diabetes Essential hypertension Heart disease Hyperlipidemia Stroke Father Diabetes Sister No problems noted. Brother Essential hypertension Hyperlipidemia Brother Hyperlipidemia Brother Essential hypertension Heart disease Hyperlipidemia Social History Smoking/Tobacco Use Status: Former Tobacco Use Alcohol Intake: current Alcohol Intake frequency: 3 or more drinks per day Drug use: Daily Substance use type: marijuana Do you feel safe at home: Yes Do you feel safe in your relationship?: Yes Exam Const General: no acute distress Nutritional Appearance: cachectic Orientation: alert and awake Eyes Conjunctivae: normal conjunctivae Sclera: normal sclerae Neck Neck: trachea midline and supple Resp Auscultation: clear to auscultation bilaterally, no rales, no rhonchi and no wheezes Cardio Jugular venous pressure: no JVD Rate: tachycardic Rhythm: regular rhythm GI Palpation: soft, not firm, no guarding, no masses, not rigid and nontender Skin General skin exam: no rashes or lesions noted Neuro General: alert, awake, oriented x3 and tone normal Extrem General: no edema Psych Appearance: grossly normal Mental Status: mental status grossly normal Speech and Movement: speech and movement normal Course Vital Signs Vital signs: Vital Signs Temperature 37.1 C 04/09/19 09:38 Pulse 96 H 04/09/19 09:38 Respiratory Rate 17 04/09/19 09:38 Blood Pressure 129/85 04/09/19 09:38 Pulse Oximetry 99 04/09/19 09:38 Temperature 37.1 C 04/09/19 09:38 Temperature Source Skin 04/09/19 09:38 Pulse 96 H 04/09/19 09:38 Respiratory Rate 17 04/09/19 09:38 Respiratory Effort 04/09/19 09:45 Blood Pressure 129/85 04/09/19 09:38 Blood Pressure Position Sitting 04/09/19 09:38 Pulse Oximetry 99 04/09/19 09:38 Oxygen Delivery Method Room Air 04/09/19 09:38 Oxygen Flow Rate 0 04/09/19 09:38 Pain Level 8 04/09/19 09:38
[2019-04-09 10:28] LABS: Abs Immature Grans 0.01 k/cumm (0.0-0.09); Absolute Basophil Count 0.01 k/cumm (0.0-0.2); Absolute Eosinophil Count 0.02 k/cumm (0.0-0.7); Absolute Lymphocyte Count 0.27 k/cumm (1.2-3.4); Absolute Monocyte Count 0.11 k/cumm (0.11-0.7); Absolute Neutrophil Count 6.47 k/cumm (1.2-6.7); Basophils % 0.1; Eosinophils % 0.3; HCT 33.5 % (40.0-50.0); HGB 11.2 g/dL (13.5-17.5); Immature Grans % 0.1; Lymphocytes % 3.9; Mean Corp. HGB Concentration 33.4 g/dL (32.0-36.0); Mean Corpuscular Hemoglobin 30.3 pg (27.0-33.0); Mean Corpuscular Volume 90.5 fL (80-95); Mean Platelet Volume 8.2 fL (8.0-11.0); Monocytes % 1.6; Platelet Count 207 x1000/uL (130-400); RBC Distribution Width 14.9 % (11.8-14.1); White Blood Cell Count 6.89 k/cumm (4.4-10.8)
[2019-04-09] MEDS: Metoclopramide 10 MG/2 ML VIAL IVP (10:29)
[2019-04-09] MEDS: Normal Saline-STERILE FIELD 0.9% 10 ML SYR (10:29)
[2019-04-09] MEDS: Normal Saline 1,000 ML 1000 ML IV (10:29)
[2019-04-09] MEDS: Normal Saline Flush 10 ML SYR IVP ×2 (10:38→19:25)
[2019-04-09 10:41] LABS: ALT 19 U/L (16-63); AST 13 U/L (15-37); Albumin 3.4 g/dL (3.4-5.0); Alkaline Phosphatase 94 U/L (46-116); BUN 13 mg/dL (7-18); Bilirubin, Total 0.9 mg/dL (0.2-1.0); CREATININE 0.81 mg/dL (0.70-1.30); Calcium 8.8 mg/dL (8.5-10.1); Chloride 99 mmol/L (98-107); Glucose 104 mg/dL (70-100); Magnesium 1.8 mg/dL (1.8-2.4); Potassium 4.2 mmol/L (3.5-5.1); Sodium 136 mmol/L (136-145); Total Protein 6.9 g/dL (6.4-8.2)
[2019-04-09 10:43] LABS: Troponin I < 0.05 ng/mL (0.00-0.06)
[2019-04-09] MEDS: HYDROmorphone 2 MG/ML VIAL 0.5 MG IVP (11:03)
--- NOTE | 2019-04-09 11:29 | DI.VRAD_ITS ---
EXAM: XR Chest, 2 Views EXAM DATE/TIME: 04/09/2019 9:56 AM CLINICAL HISTORY: 44 years old, male; Shortness of breath and other: Dizzyness TECHNIQUE: Imaging protocol: XR of the chest Views: 2 views. COMPARISON: CR CHEST 2 VIEWS PA,LAT 18/03/2018 20:03 FINDINGS: Tubes, catheters and devices: Port-A-Cath in place with the tip in the SVC/RA junction. Lungs: Right middle lobe and right lower lobe consolidation. Increased interstitial markings involving the right and left upper lobe and left lower lobe. Pleural space: No pleural effusion. No pneumothorax. Heart/Mediastinum: Cardiomediastinal silhouette is unremarkable. Bones/joints: Unremarkable for patient's age. IMPRESSION: Bilateral pneumonia. Focal consolidation right middle lobe and right lower lobe. Dictated and Authenticated by: Brissa Cole MD. Ordering:KATHRYN Coulter MD
--- NOTE | 2019-04-09 11:35 | DI.VRAD_ITS ---
EXAM: CT Head Without Contrast EXAM DATE/TIME: 04/09/2019 9:56 AM CLINICAL HISTORY: 44 years old, male; Dizziness TECHNIQUE: Imaging protocol: Computed tomography of the head without contrast. COMPARISON: No relevant prior studies available. FINDINGS: Brain: Unremarkable. No intracranial hemorrhage. Unremarkable white matter. No mass effect. Ventricles: Unremarkable. No ventriculomegaly. Bones/joints: Unremarkable. No acute fracture. Sinuses: Ethmoid sinus disease. Mild sphenoid sinus disease. Mastoid air cells: Visualized mastoid air cells are well aerated. Soft tissues: Unremarkable. IMPRESSION: No acute intracranial abnormality. Dictated and Authenticated by: Brissa Cole MD. Ordering:KATHRYN Coulter MD
[2019-04-09] MEDS: Ketorolac 15 MG/ML VIAL IVP (12:45)
[2019-04-09 13:18] LABS: Lactate 0.6 mmol/L (0.6-1.4)
[2019-04-09] MEDS: levoFLOXacin 750 MG/150 ML BAG 100 MG IVPB (13:24)
--- NOTE | 2019-04-09 14:55 | HPE_ITS ---
Date of service: 04/09/19 Time of Service: 14:55 Assessment and Plan Assessment and plan (1) Nausea & vomiting: Start date: 04/09/19 Start time: 15:31 Status: Acute Assessment and plan: Receives chemo for esophageal cancer, recurrent. Esophagectomy status post radiation one month ago. Restarted on chemo. Chemo is every other week - or Wed-Wednesday for three days on an infusion pump at home. His last dose was following chemo he became nauseated with dry heaving, unable to eat he tried zofran and compazine with no results. This am he called [facility] where he receives care and recommended he go the emergency room. In the Emergency room he was found to have pneumonia bilaterally with focal infiltr ates to RML and RLL. He does endorse sputum production with cough and slight fever yesterday. Afebrile today. He is admitted to m/s with zosyn and vanco for aspiration pneumonia given vomiting over last couple days and immunosupression. Sputum culture ordered, BC ordered, mucinex for cough. ICS. Albuterol prn, IVF for hydration. No wheezing or crackles at this time. Rhonchi to RML and RLL Zofran, compazine and promethzine has been ordered for nausea. Morphine home dose and ibuprofen for pain. (2) Aspiration pneumonia: Start date: 04/09/19 Start time: 15:38 Status: Acute Assessment and plan: Day 1 of vanco and zosyn. See above. (3) Esophageal mass: Start date: 04/09/19 Start time: 15:39 Status: Chronic Assessment and plan: Receiving chemo . see above (4) Mood disorder: Start date: 04/09/19 Start time: 15:40 Status: Chronic Assessment and plan: Depression, will continue home medication of welbutrin. (5) Tobacco use disorder: Start date: 04/09/19 Start time: 15:40 Status: Chronic Assessment and plan: Has not smoked in over a year but does endorse marijuna bid (6) Cachexia: Start date: 04/09/19 Start time: 15:40 Status: Chronic Assessment and plan: esophageal cancer. little appetite. Denies dysphagia, 97 lb wt loss in over a year. patient can eat whatever he likes. (7) DVT prophylaxis: Start date: 04/09/19 Start time: 15:41 Status: Acute Assessment and plan: Heparin subcu History of Present Illness History of Present Illness Chief Complaint: N/V post chemo, Aspiration Pneumonia Narrative: 44 y.o Male with significant PMH for his age. Stemi in 2016 with stent placement, depression, GERD, ION (no longer on CPAP), COPD, tobacco abuse (quit, smoking cigarrettes a year ago), alcohol use (no longer drinks), Diverticulitis and esophageal cancer with esophagectomy post radiation and chemo, with recurrent esophageal cancer on his second round of chemo. Presents to [facility] with nausea vomiting since . Unable to eat, antiemetics were not working. He received chemo at home on - and became sick following discontinuation of chemo. He has not been able to eat or drink and has been suffering a headache. He was admitted to [facility] after CXR in the emergency department revealed bilateral pneumonia with focal infiltrate to RML and RLL. He also head a head CT which was normal. Nothing significant in his lab work. Slight fever at home yesterday but none today. Mr. Love receives chemo every 2 weeks for 3 days a week at home with an infusion pump and IVF of 1 liter every MWF for hydration. He finished radiation 1 month ago. We are suspecting aspiration pneumonia therefore he has been started on vanco and zosyn for broad coverage given immunosuppression on chemo. Sputum culture ordered, blood cultures ordered. Mucinex has been ordered, he does endorse sputum production of clear to yellow, his lungs sounds with rhonchi to RML and RLL, no wheezing, SOB or crackles; incentive spirometer also ordered to help lung function. He does have a hx of COPD and ION but he no longer requires CPAP and does not use his albuterol. Quit smoking over a year ago but does endorse marijuana use bid. He is chacetic with a 97 lb wt loss over the last year. He denies dysphagia but does state tenderness once in awhile where radiation took place. Morphine and ibuprofen is taken daily for pain which I will order. Zofran and compazine are used at home for nausea, these will be ordered along with promethizine, and IVF started. He denies CP, SOB. Review of Systems Review of Systems ROS Unobtainable: All systems reviewed & are unremarkable except as noted in HPI and below Constitutional Constitutional: Reports as per HPI ENT Ears, Nose, Mouth, and Throat: Reports as per HPI and Reports dysphagia Gastrointestinal Gastrointestinal: Reports dysphagia [facility] Medical History (Updated 04/09/19 @ 15:36 by Medina Anne NP) Cachexia (Chronic) will augment mirtazapine encourage po whenever possible Surgical History (Updated 04/09/19 @ 10:00 by Yfn Sweeney MD) EGD - MAC (12/29/17) Family History Mother Diabetes Essential hypertension Heart disease Hyperlipidemia Stroke Father Diabetes Sister No problems noted. Brother Essential hypertension Hyperlipidemia Brother Hyperlipidemia Brother Essential hypertension Heart disease Hyperlipidemia Social History Smoking/Tobacco Use Status: Former Tobacco Use Alcohol Intake: current Alcohol Intake frequency: 3 or more drinks per day Drug use: Daily Substance use type: marijuana Do you feel safe at home: Yes Do you feel safe in your relationship?: Yes Meds Home Medications and Allergies Home Medications Medication Instructions Recorded Confirmed Type aspirin 81 mg PO DAILY tab-cap 03/25/16 04/09/19 History nitroglycerin 0.4 mg SUBLINGUAL PRN #25 tab-cap 11/25/17 04/09/19 Rx metoprolol succinate 25 mg 12.5 mg PO DAILY #90 tab 10/20/18 04/09/19 Rx tablet,extended release 24 hr albuterol sulfate 90 mcg/actuation 1 puff INHALATION Q6H PRN #1 10/28/18 04/09/19 Rx aerosol inhaler inhaler lansoprazole 30 mg capsule,delayed 30 mg PO DAILY #90 cap 10/28/18 04/09/19 Rx release bupropion HCl 150 mg 24 hr tablet, 150 mg PO QAM #90 tab 12/02/18 04/09/19 Rx extended release fluticasone propionate 110 110 mcg INHALATION BID PRN inhaler 12/02/18 04/09/19 History mcg/actuation HFA aerosol inhaler ondansetron 4 mg disintegrating 4 mg PO QID PRN #20 tab 12/02/18 04/09/19 Rx tablet prochlorperazine maleate 10 mg 10 mg PO Q6H PRN tab 01/24/19 04/09/19 History tablet lidocaine HCl [Lidocaine Viscous] 15 ml MM BID-QID #100 ml 02/07/19 04/09/19 Rx lidocaine 5 % topical patch 2 patch TP DAILY each 03/10/19 04/09/19 History mirtazapine 30 mg tablet 45 mg PO DAILY #90 tab 03/10/19 04/09/19 Rx nicotine 21 mg/24 hr daily 1 patch TD Q24H #30 each 03/10/19 04/09/19 Rx transdermal patch morphine 10 mg PO Q6H PRN 04/09/19 04/09/19 History prochlorperazine 25 mg [place] TID PRN 04/09/19 04/09/19 History Allergies Allergy/AdvReac Type Severity Reaction Status Date / Time No Known Allergies Allergy Unverified 04/09/19 09:42 Exam Const General: cooperative, comfortable and no acute distress Nutritional Appearance: cachectic Orientation: alert, awake and oriented x3 HENMT Head: other (sunken eyes) Teeth and gingiva: poor dentition and other (several missing teeth) Eyes Pupils: PERRL Neck Neck: trachea midline and anterior neck swelling (radiation to neck 1 month ago) Lymphatic: no lymphadenopathy noted Chest Chest: normal inspection of the chest Resp Effort & Inspection: normal respiratory effort Auscultation: rhonchi (RML, RLL rhonchi) right lower Cardio Jugular venous pressure: no JVD Rate: regular rate Rhythm: regular rhythm Heart Sounds: S1 normal and S2 normal GI Inspection: visible pulsation and other (sunken in) Auscultation: hypoactive bowel sounds General: deferred Back/Spine/Pelvis Back: no CVA tenderness Thoracic/Lumbar Spine: thoracic and lumbar spine normal to inspection Skin General skin exam: no rashes or lesions noted Wounds: no wounds Neuro General: alert, awake and oriented x3 Cognition: normal cognition Speech: speech normal Sensory Exam: no sensory deficits noted Extrem General: normal to inspection Right upper extremity: normal to inspection Left upper extremity: normal to inspection Right lower extremity: normal to inspection Left lower extremity: normal to inspection Psych Mood: congruent mood Affect: normal affect Attitude: cooperative Results Labs Result diagrams: 04/09/19 10:20 04/09/19 10:20 Labs: Laboratory Results - last 24 hr 04/09/19 04/09/19 04/09/19 10:20 10:20 13:10 WBC 6.89 RBC 3.70 L Hgb 11.2 L Hct 33.5 L MCV 90.5 MCH 30.3 MCHC 33.4 RDW 14.9 H Plt Count 207 MPV 8.2 Immature Gran % 0.1 Neutrophils % 94.0 Lymphocytes % 3.9 Monocytes % 1.6 Eosinophils % 0.3 Basophils % 0.1 Absolute Neutrophils 6.47 Absolute Lymphocytes 0.27 L Absolute Monocytes 0.11 Absolute Eosinophils 0.02 Absolute Basophils 0.01 Sodium 136 Potassium 4.2 Chloride 99 Carbon Dioxide 25.0 Anion Gap 12.0 H BUN 13 Creatinine 0.81 Estimated GFR/1.73 m2 >= 60.00 Glucose 104 H Lactate 0.6 Calcium 8.8 Magnesium 1.8 Total Bilirubin 0.9 AST 13 L ALT 19 Alkaline Phosphatase 94 Troponin I < 0.05 Total Protein 6.9 Albumin 3.4 Last Vital Signs Temp 37.1 C 04/09/19 09:38 Pulse 93 H 04/09/19 14:16 Resp 14 04/09/19 14:28 BP 120/82 04/09/19 14:16 Pulse Ox 98 04/09/19 14:28
[2019-04-09] MEDS: Ibuprofen 800 MG TAB PO (16:37)
[2019-04-09] MEDS: Normal Saline 1,000 ML 75 ML IV (16:38)
[2019-04-09] MEDS: Heparin 5,000 UNITS/ML VIAL 5000 UNITS SC (16:39)
[2019-04-09] MEDS: PIPERACILLIN/TAZO 4.5 GM in Normal Saline 100 ML IVPB ×2 (18:11→23:38)
[2019-04-09] MEDS: Ondansetron 4 MG/2 ML VIAL IVP (19:26)
[2019-04-09] MEDS: guaiFENesin 600 MG TABCR PO (20:09)
[2019-04-09] MEDS: Docusate Sodium 100 MG CAP PO (20:09)
[2019-04-09] MEDS: Mirtazapine 15 MG TAB 45 MG PO (22:08)
[2019-04-09] MEDS: Melatonin 3 MG TAB PO (22:08)
[2019-04-10 04:35] VITALS: TEMP 37.4
[2019-04-10] MEDS: PIPERACILLIN/TAZO 4.5 GM in Normal Saline 100 ML IVPB ×4 (06:02→23:44)
[2019-04-10] MEDS: Normal Saline Flush 10 ML SYR IVP ×5 (06:14→17:58)
[2019-04-10] MEDS: Normal Saline 1,000 ML 75 ML IV (06:38)
[2019-04-10] MEDS: Ibuprofen 800 MG TAB PO (07:01)
[2019-04-10 07:20] VITALS: BP 130/85; PULSE 86; RESP 16; TEMP 36.4; O2SAT 99
[2019-04-10 07:33] LABS: Anion Gap 9.8 mmol/L (3-11); BUN 13 mg/dL (7-18); CO2 24.2 mmol/L (21.0-32.0); CREATININE 0.84 mg/dL (0.70-1.30); Calcium 7.8 mg/dL (8.5-10.1); Chloride 106 mmol/L (98-107); Glucose 92 mg/dL (70-100); Magnesium 1.7 mg/dL (1.8-2.4); Potassium 4.1 mmol/L (3.5-5.1); Sodium 140 mmol/L (136-145)
[2019-04-10 07:46] LABS: Abs Immature Grans 0.01 k/cumm (0.0-0.09); Absolute Basophil Count 0.02 k/cumm (0.0-0.2); Absolute Eosinophil Count 0.14 k/cumm (0.0-0.7); Absolute Lymphocyte Count 0.21 k/cumm (1.2-3.4); Absolute Monocyte Count 0.16 k/cumm (0.11-0.7); Absolute Neutrophil Count 2.86 k/cumm (1.2-6.7); Basophils % 0.6; Eosinophils % 4.1; HCT 28.2 % (40.0-50.0); HGB 9.3 g/dL (13.5-17.5); Immature Grans % 0.3; Lymphocytes % 6.2; Mean Corpuscular Hemoglobin 30.2 pg (27.0-33.0); Mean Corpuscular Volume 91.6 fL (80-95); Mean Platelet Volume 8.9 fL (8.0-11.0); Monocytes % 4.7; Neutrophils % 84.1; RBC 3.08 m/cumm (4.50-6.00); RBC Distribution Width 14.9 % (11.8-14.1)
[2019-04-10] MEDS: guaiFENesin 600 MG TABCR PO ×2 (07:47→20:23)
[2019-04-10] MEDS: buPROPion-XL 150 MG TABCR PO (07:48)
[2019-04-10] MEDS: Docusate Sodium 100 MG CAP PO ×2 (07:48→15:20)
[2019-04-10] MEDS: Aspirin 81 MG CHEW PO (07:48)
[2019-04-10 08:12] LABS: Basophilic Stippling Present; Diff Comment RBC Morph Reviewed; Platelet Count 160 x1000/uL (130-400)
[2019-04-10] MEDS: Ondansetron 4 MG/2 ML VIAL IVP ×3 (08:42→16:50)
[2019-04-10 09:07] LABS: Procalcitonin < 0.1 ng/mL
[2019-04-10] MEDS: Magnesium Oxide 400 MG TAB 800 MG PO (09:13)
[2019-04-10] MEDS: Mometasone 220 MCG 14 DOSE INHALER IH (09:20)
[2019-04-10] MEDS: Nicotine 21 MG/24 HR PATCH TD (09:48)
--- NOTE | 2019-04-10 09:57 | PGE_ITS ---
Date of Service Date of service: 04/10/19 Time of Service: 09:58 Assessment and Plan Assessment and plan (1) Nausea & vomiting: Start date: 04/10/19 Start time: 10:03 Status: Acute Assessment and plan: Rhonchi to RML and RLL, zofran scheduled 30 mins before meals. Phenergan and compazine ordered as well. Did have episode of vomiting this am when trying to swallow more than one pill at a time. he does have difficulty swallowing larger pills, and sometimes hard food due to resection and radiation. Spoke with him about taking one pill at a time, chewing food thoroughly and liquid medication. Ambulatory around hospital. Was in room doing sit up and push up this am. (2) Aspiration pneumonia: Start date: 04/10/19 Start time: 10:08 Status: Acute Assessment and plan: Day 1 of vanco and zosyn. See above. Blood cultures pending. Sputum culture pending. Cough this am upon waking. Continue ICS, a lbuterol prn. mucinex. (3) Esophageal mass: Start date: 04/10/19 Start time: 10:09 Status: Chronic Assessment and plan: Receiving chemo . Every other week with home infusion for 3 days a week. Just finished dose on . (4) Mood disorder: Start date: 04/10/19 Start time: 10:09 Status: Chronic Assessment and plan: Depression, will continue home medication of welbutrin and mirtazipine (5) Tobacco use disorder: Start date: 04/10/19 Start time: 10:10 Status: Chronic Assessment and plan: Has not smoked in over a year but does endorse marijuna bid. Would like 21 mg patch helps him with cravings and not smoking. O rdered (6) Cachexia: Start date: 04/10/19 Start time: 10:10 Status: Chronic Assessment and plan: esophageal cancer. little appetite. Denies dysphagia, 97 lb wt loss in over a year. patient can eat whatever he likes. (7) Hypomagnesemia: Start date: 04/10/19 Start time: 10:15 Status: Acute Assessment and plan: repleted with magneseum. (8) DVT prophylaxis: Start date: 04/10/19 Start time: 10:11 Status: Acute Assessment and plan: Heparin subcu Subjective Subjective Patient reports: feels better Interval history since last seen: Feeling better today. Cough this am with sputum production. Vomiting episode the am when trying to swallow more than 1 pill at a time. He did endorse sometimes he does have difficulty swallowing which is different then what was said yesterday. We spoke about taking 1 pill at a time, chewing food to small bites and changing meds to liquid. Slept well. Niharika scheduled 30 before meals to prevent nausea. Patient would like to ambulate around the hospital with , I feel this is acceptable. He was in room doing sit up and push up this am. He likes to keep moving. Afebrile at this time. IVF dcd 1 liter bolus scheduled for tomorrow. Sputum pending. BC pending. Continue to monitor patient. He denies Exam Const General: cooperative, comfortable and no acute distress Nutritional Appearance: cachectic Orientation: alert, awake and oriented x3 HENMT Head: other (sunken eyes) Teeth and gingiva: poor dentition and other (several missing teeth) Eyes Pupils: PERRL Neck Neck: trachea midline and anterior neck swelling (radiation to neck 1 month ago) Lymphatic: no lymphadenopathy noted Chest Chest: normal inspection of the chest Resp Effort & Inspection: normal respiratory effort Auscultation: rhonchi (RML, RLL rhonchi) right lower Other: to RLL RML Cardio Jugular venous pressure: no JVD Rate: regular rate Rhythm: regular rhythm Heart Sounds: S1 normal and S2 normal GI Inspection: visible pulsation and other (sunken in) Auscultation: hypoactive bowel sounds General: deferred Back/Spine/Pelvis Back: no CVA tenderness Thoracic/Lumbar Spine: thoracic and lumbar spine normal to inspection Skin General skin exam: no rashes or lesions noted Wounds: no wounds Neuro General: alert, awake and oriented x3 Cognition: normal cognition Speech: speech normal Sensory Exam: no sensory deficits noted Extrem General: normal to inspection Right upper extremity: normal to inspection Left upper extremity: normal to inspection Right lower extremity: normal to inspection Left lower extremity: normal to inspection Psych Mood: congruent mood Affect: normal affect Attitude: cooperative Objective Objective Clinical Data: Abnormal lab results 04/09/19 04/09/19 04/10/19 Range/Units 10:20 10:20 06:30 WBC (4.4-10.8) k/cumm RBC 3.70 L (4.50-6.00) m/cumm Hgb 11.2 L (13.5-17.5) g/dL Hct 33.5 L (40.0-50.0) % RDW 14.9 H (11.8-14.1) % Absolute Lymphocytes 0.27 L (1.2-3.4) k/cumm Anion Gap 12.0 H (3-11) mmol/L Glucose 104 H (70-100) mg/dL Calcium 7.8 L (8.5-10.1) mg/dL Magnesium 1.7 L (1.8-2.4) mg/dL AST 13 L (15-37) U/L 04/10/19 Range/Units 06:30 WBC 3.40 L D (4.4-10.8) k/cumm RBC 3.08 L (4.50-6.00) m/cumm Hgb 9.3 L (13.5-17.5) g/dL Hct 28.2 L (40.0-50.0) % RDW 14.9 H (11.8-14.1) % Absolute Lymphocytes 0.21 L (1.2-3.4) k/cumm Anion Gap (3-11) mmol/L Glucose (70-100) mg/dL Calcium (8.5-10.1) mg/dL Magnesium (1.8-2.4) mg/dL AST (15-37) U/L Vital Signs Temperature 36.4 C L 04/10/19 07:20 Temperature Source Tympanic 04/10/19 07:20 Pulse 86 04/10/19 07:20 Pulse Rhythm Regular 04/09/19 19:35 Pulse 97 H 04/09/19 14:40 Respiratory Rate 16 04/10/19 07:20 Respiratory Effort 04/09/19 19:35 Respiratory Depth Normal 04/09/19 19:35 Respiratory Pattern Normal 04/09/19 19:35 Blood Pressure 130/85 04/10/19 07:20 Blood Pressure Mean 89 04/09/19 14:30 Blood Pressure Position Sitting 04/09/19 09:38 Pulse Oximetry 99 04/10/19 07:20 Oxygen Delivery Method Room Air 04/10/19 07:20 Oxygen Flow Rate 0 04/10/19 07:20 Pain Level 0 04/10/19 07:20 Intake & Output 04/09/19 04/09/19 04/10/19 11:59 23:59 11:59 Intake Total 2214 / 2214 1421.25 / 1421.25 Output Total 800 / 800 Balance 2214 / 2214 621.25 / 621.25 Weight 45.7 kg 45.7 kg Intake: IV 2014 921.25 / 921.25 Oral 200 / 200 500 / 500 Output: Urine 800 / 800 Other: Urine Color Yellow Urine Appearance Clear Clear Comment pt removed hat, states that he is voiding. Voiding Methods Toilet Laboratory Results WBC 3.40 k/cumm (4.4-10.8) L D 04/10/19 06:30 RBC 3.08 m/cumm (4.50-6.00) L 04/10/19 06:30 Hgb 9.3 g/dL (13.5-17.5) L 04/10/19 06:30 Hct 28.2 % (40.0-50.0) L 04/10/19 06:30 MCV 91.6 fL (80-95) 04/10/19 06:30 MCH 30.2 pg (27.0-33.0) 04/10/19 06:30 MCHC 33.0 g/dL (32.0-36.0) 04/10/19 06:30 RDW 14.9 % (11.8-14.1) H 04/10/19 06:30 Plt Count 160 x1000/uL (130-400) 04/10/19 06:30 MPV 8.9 fL (8.0-11.0) 04/10/19 06:30 Immature Gran % 0.3 04/10/19 06:30 Neutrophils % 84.1 04/10/19 06:30 Lymphocytes % 6.2 04/10/19 06:30 Monocytes % 4.7 04/10/19 06:30 Eosinophils % 4.1 04/10/19 06:30 Basophils % 0.6 04/10/19 06:30 Absolute Neutrophils 2.86 k/cumm (1.2-6.7) 04/10/19 06:30 Absolute Lymphocytes 0.21 k/cumm (1.2-3.4) L 04/10/19 06:30 Absolute Monocytes 0.16 k/cumm (0.11-0.7) 04/10/19 06:30 Absolute Eosinophils 0.14 k/cumm (0.0-0.7) 04/10/19 06:30 Absolute Basophils 0.02 k/cumm (0.0-0.2) 04/10/19 06:30 Differential Comment Rbc morph reviewed 04/10/19 06:30 RBC Morphology See below 04/10/19 06:30 Basophilic Stippling Present 04/10/19 06:30 Sodium 140 mmol/L (136-145) 04/10/19 06:30 Potassium 4.1 mmol/L (3.5-5.1) 04/10/19 06:30 Chloride 106 mmol/L (98-107) 04/10/19 06:30 Carbon Dioxide 24.2 mmol/L (21.0-32.0) 04/10/19 06:30 Anion Gap 9.8 mmol/L (3-11) 04/10/19 06:30 BUN 13 mg/dL (7-18) 04/10/19 06:30 Creatinine 0.84 mg/dL (0.70-1.30) 04/10/19 06:30 Estimated GFR/1.73 m2 >= 60.00 (mL/min/1.73m2) 04/10/19 06:30 Glucose 92 mg/dL (70-100) 04/10/19 06:30 Lactate 0.6 mmol/L (0.6-1.4) 04/09/19 13:10 Calcium 7.8 mg/dL (8.5-10.1) L 04/10/19 06:30 Magnesium 1.7 mg/dL (1.8-2.4) L 04/10/19 06:30 Total Bilirubin 0.9 mg/dL (0.2-1.0) 04/09/19 10:20 AST 13 U/L (15-37) L 04/09/19 10:20 ALT 19 U/L (16-63) 04/09/19 10:20 Alkaline Phosphatase 94 U/L (46-116) 04/09/19 10:20 Troponin I < 0.05 ng/mL (0.00-0.06) 04/09/19 10:20 Total Protein 6.9 g/dL (6.4-8.2) 04/09/19 10:20 Albumin 3.4 g/dL (3.4-5.0) 04/09/19 10:20 Procalcitonin < 0.1 ng/mL 04/10/19 06:30
[2019-04-10] MEDS: Lansoprazole 30 MG CAPCR PO (09:58)
[2019-04-10] MEDS: Normal Saline 500 ML IV (10:58)
--- NOTE | 2019-04-10 12:30 | PHARADMIT ---
Addendum entered by Francesca Mixon 04/11/19 14:38: Pharmacy Note Subjective nursing reports he is refusing heparin SQ but he is walking the halls-MD aware, no concerns Objective VS ok, afebrile, Mag 1.7. BG 98 Micro blood: no growth x48h Micro sputum: no growth Assessment Vanco trough ordered for 9am 04/12/19 Magox and Potassium x1 doses today Nicotine patch added daily Zofran IVP is before meals to alleviate Nausea and it is helping Zosyn and Vanco continue x total of 5 days (today is full day#2)-Aspiriation Pneumonia dose/HAP Plan Has appt @ [employer] [facility] 04/13/19 Original Note: Admission Pharmacy Clinical Review Nausea, Vomiting, Dehydration, Esophageal Cancer, ?Asp Pneumonia from N/V Code Status Full Code Current Weight 45.7 kg Renally Cleared and Narrow Therapeutic Index Meds CrCl~71ml/min QTc Value / Action Taken QTC 425 BP Control, Fever BP 130/85, Afebrile Electrolytes reviewed K+ 4.1, Mag 1.7 (Mag 800mg po x1) DVT Prophylaxis Heparin SC Opiate Usage / Scheduled Bowel Regimen Ordered Morphine liquid/yes bowel meds Plt/SCr for Heparin / Enoxaparin Plt 160 SCr 0.84 INR for Warfarin H/H stable, WBC/Bands H/H 9.3/28.2 WBC 3.4 Antibiotic appropriateness Zosyn 4.5gm (Aspiration dose), Vancomycin.... x 5 days at least Vanco trough due @ 3pm today rec'd Levaquin in ED x1 Cultures and Sensitivities Sputum and blood pending Surgical ABX d/c within 24 hr DM control / Insulin Dosing BG 92 Heart Failure (Check EF%) (LILIANA's, B-Block, Diuretics) BP meds NOT ordered IV to PO Switch Home Meds Reviewed Asmanex substituted for Flovent HFA Home Meds Not Ordered Atorvastatin, Lidocaine patches, Lisinopril, Toprol, NTG, Sucralfate Comments RN requested liquid Ibuprofen (40ml) po TID/prn-difficulty swallowing with esophageal cancer due to radiation, does have chemo regimen Nicotine patch was x1 dose today Zofran IVP scheduled
[2019-04-10 15:33] LABS: Vancomycin, Trough 22.9 ug/mL (10.0-20.0)
[2019-04-10 15:50] VITALS: BP 131/79; PULSE 100; RESP 17; TEMP 37; O2SAT 100
--- NOTE | 2019-04-10 16:04 | PDOC.CMIN ---
- If Service Date Differs Date of service: 04/10/19 Time of Service: 16:04 Care Management Initial Assess REASON FOR HOSPITALIZATION:: Nausea, vomiting, dehydration, aspiration pneumonia PAST MEDICAL HISTORY/PAST SURGICAL HISTORY:: Mood disorder, weight loss, esophageal cancer, hypertenstion, GERD, hyperlipidemia, cachexia, ST elevated NH, unstable angina, tobacco use disorder. PREVIOUS FUNCTIONAL STATUS/SOCIAL/FAMILY SUPPORTS:: Brady lives with his spouse Jessica in [place], [place]. He is independent with ADL's and transportation. He describes a supportive family and his hermilo to depend on. CURRENT FUNCTIONAL STATUS:: Brady is alert and engaged with CM during assessment. He states he has abstain from alcohol for the past three months. He does report the last time he used alcohol was recently at his daughters wedding and had vomiting after. He declines a resource recovery specialist he states that he receives supports through [facility] and does not need additional services. ADVANCE DIRECTIVES:: None on file, Pt states he completed CM will follow up with [facility] and PCP for copy. Has patient been provided with information about the portal?: Yes Did the patient sign up for the portal?: Yes CODE STATUS:: Full Code INSURANCE COVERAGE / FINANCIAL ISSUES:: [employer] CURRENT HOME/COMMUNITY SERVICES/EQUIPMENT:: He receives service through [facility] and [facility] PRIMARY CARE PHYSICIAN:: POTENTIAL DISCHARGE NEEDS:: Follow up with [facility] and [facility] as directed at time of discharge. PATIENT/FAMILY EDUCATION NEEDS:: Discharge education, limitations and follow up plan of care including ask me three and self management. ANTICIPATED BARRIERS TO DISCHARGE:: None identified TRANSPORTATION:: Via private car with spouse at time of discharge. PLAN:: Brady is being treated for aspiration pneumonia he needs several days of IV antibioitcs per provider. Anticipate no additional services at time of discharge. Brady will resume outpatient services through [facility] at time of discharge.
[2019-04-10] MEDS: Prochlorperazine 10 MG/2 ML VIAL IVP (17:58)
[2019-04-10] MEDS: Melatonin 3 MG TAB PO (20:23)
[2019-04-10] MEDS: Mirtazapine 15 MG TAB 30 MG PO (21:04)
[2019-04-10 23:44] VITALS: BP 105/52; PULSE 85; RESP 18; TEMP 37; O2SAT 98
[2019-04-11 05:47] VITALS: BP 127/60; PULSE 72
[2019-04-11] MEDS: PIPERACILLIN/TAZO 4.5 GM in Normal Saline 100 ML IVPB ×4 (06:05→23:48)
[2019-04-11] MEDS: Normal Saline Flush 10 ML SYR IVP ×10 (06:22→20:34)
[2019-04-11 06:53] LABS: Abs Immature Grans 0.01 k/cumm (0.0-0.09); Absolute Basophil Count 0.02 k/cumm (0.0-0.2); Absolute Eosinophil Count 0.25 k/cumm (0.0-0.7); Absolute Lymphocyte Count 0.43 k/cumm (1.2-3.4); Absolute Monocyte Count 0.17 k/cumm (0.11-0.7); Absolute Neutrophil Count 2.09 k/cumm (1.2-6.7); Basophils % 0.7; Eosinophils % 8.4; HCT 29.5 % (40.0-50.0); HGB 9.5 g/dL (13.5-17.5); Immature Grans % 0.3; Lymphocytes % 14.5; Mean Corp. HGB Concentration 32.2 g/dL (32.0-36.0); Mean Corpuscular Hemoglobin 29.6 pg (27.0-33.0); Mean Corpuscular Volume 91.9 fL (80-95); Mean Platelet Volume 8.9 fL (8.0-11.0); Monocytes % 5.7; Neutrophils % 70.4; Platelet Count 161 x1000/uL (130-400); RBC 3.21 m/cumm (4.50-6.00); White Blood Cell Count 2.97 k/cumm (4.4-10.8)
[2019-04-11 06:55] LABS: Anion Gap 8.5 mmol/L (3-11); BUN 10 mg/dL (7-18); CO2 24.5 mmol/L (21.0-32.0); CREATININE 0.94 mg/dL (0.70-1.30); Chloride 109 mmol/L (98-107); Glucose 98 mg/dL (70-100); Magnesium 1.7 mg/dL (1.8-2.4); Potassium 3.8 mmol/L (3.5-5.1); Sodium 142 mmol/L (136-145)
[2019-04-11] MEDS: Lansoprazole 30 MG CAPCR PO (06:59)
[2019-04-11 07:30] VITALS: BP 117/82; PULSE 112; RESP 19; TEMP 36.5; O2SAT 100
[2019-04-11] MEDS: Ondansetron 4 MG/2 ML VIAL IVP ×3 (07:38→16:39)
[2019-04-11] MEDS: Mometasone 220 MCG 14 DOSE INHALER IH (08:26)
[2019-04-11] MEDS: Prochlorperazine 10 MG/2 ML VIAL IVP ×2 (08:30→13:07)
[2019-04-11] MEDS: Normal Saline 500 ML IV (08:42)
[2019-04-11] MEDS: Nicotine 21 MG/24 HR PATCH TD (09:30)
[2019-04-11] MEDS: buPROPion-XL 150 MG TABCR PO (09:31)
[2019-04-11] MEDS: Magnesium Oxide 400 MG TAB 800 MG PO ×2 (09:31→09:56)
[2019-04-11] MEDS: Aspirin 81 MG CHEW PO (09:32)
[2019-04-11] MEDS: guaiFENesin 600 MG TABCR PO ×2 (09:32→21:14)
[2019-04-11] MEDS: Potassium Chloride 20 MEQ TABCR PO (09:32)
--- NOTE | 2019-04-11 10:58 | PGE_ITS ---
Date of Service Date of service: 04/11/19 Time of Service: 11:03 Assessment and Plan Assessment and plan (1) Nausea & vomiting: Start date: 04/11/19 Start time: 11:39 Status: Acute Assessment and plan: Improved with scheduled zofran administrated 30 minutes prior to meals. Has not had any vomiting today. States that he does have some difficulty with swallowing and has an appointment set up with the radiologist at the [facility] on 04/13/19 to investigate esophageal stricture (2) Aspiration pneumonia: Start date: 04/11/19 Start time: 12:04 Status: Acute Assessment and plan: Day 2 Vancomycin and Zosyn. Blood cultures without growth after 24 hours. Sputum culture pending. Cough improved. Continue with ICS, albuterol prn, and mucinex. (3) Esophageal mass: Start date: 04/11/19 Start time: 12:05 Status: Chronic Assessment and plan: Receiving chemo . Every other week with home infusion for 3 days a week. Just finished dose on . Has an appointment with [facility] on 04/13/19. (4) Hypomagnesemia: Start date: 04/11/19 Start time: 12:05 Status: Acute Assessment and plan: Magnesium level 1.7 today. Replete PRN (5) Cachexia: Start date: 04/11/19 Start time: 12:05 Status: Chronic Assessment and plan: Esophageal cancer. Complains of intermittent dysphagia and chronic nausea. Has had a 97 lb wt loss in over a year. Encourage po intake. (6) Adjustment disorder with depressed mood: Start date: 04/11/19 Start time: 12:05 Status: Chronic Assessment and plan: Continue with home medications Wellbutrin and Mirtazapine. (7) Tobacco use disorder: Start date: 04/11/19 Start time: 12:05 Status: Chronic Assessment and plan: No cigarettes for over a year. Does smoke marijuana daily. Requests nicotene patch to assist with cravings. Nicoderm 21mg patch daily ordered. (8) DVT prophylaxis: Start date: 04/11/19 Start time: 12:05 Status: Acute Assessment and plan: Heparin Sub Q Subjective Subjective Patient reports: feels better Interval history since last seen: Continues with baseline nausea no emesis, reporting good po intake. Continues to take zofran 30 minutes prior to meals. Denies cough, dyspnea/SOB. He states that he has some difficulty with swallowing and that he has an appointment to go see his radiologist at the [facility] on to investigate esophageal strictures. Has been ambulating in halls and outside without difficulty. Expressing desire to go home. Ok to stay another day for IV antibiotics. Exam Const General: cooperative and no acute distress Nutritional Appearance: cachectic Orientation: alert, awake and oriented x3 HENMT Head: normocephalic Eyes Pupils: PERRL EOM: EOM intact bilaterally Resp Effort & Inspection: normal respiratory effort Auscultation: clear to auscultation bilaterally Cardio Rate: regular rate Rhythm: regular rhythm Heart Sounds: S1 normal and S2 normal GI Inspection: normal to inspection and other (sunken in ) Auscultation: normal bowel sounds Other: deferred Skin Lesions: no lesions Rashes: no rashes Neuro General: alert, awake, oriented x3, gait normal and moves all extremities Cognition: normal cognition Speech: speech normal Sensory Exam: no sensory deficits noted Psych Mental Status: mental status grossly normal Speech and Movement: speech and movement normal Affect: normal affect Thought Process: normal Objective Objective Clinical Data: Abnormal lab results 04/10/19 04/11/19 04/11/19 Range/Units 14:55 06:20 06:20 WBC 2.97 L (4.4-10.8) k/cumm RBC 3.21 L (4.50-6.00) m/cumm Hgb 9.5 L (13.5-17.5) g/dL Hct 29.5 L (40.0-50.0) % RDW 15.0 H (11.8-14.1) % Absolute Lymphocytes 0.43 L (1.2-3.4) k/cumm Chloride 109 H (98-107) mmol/L Calcium 8.0 L (8.5-10.1) mg/dL Magnesium 1.7 L (1.8-2.4) mg/dL Vancomycin Trough 22.9 H* (10.0-20.0) ug/mL Vital Signs Temperature 36.5 C 04/11/19 07:30 Temperature Source Tympanic 04/11/19 07:30 Pulse 112 H 04/11/19 07:30 Pulse Rhythm Regular 04/11/19 07:55 Pulse 97 H 04/09/19 14:40 Respiratory Rate 19 04/11/19 07:30 Respiratory Effort Non-Labored 04/11/19 07:55 Respiratory Depth Normal 04/11/19 07:55 Respiratory Pattern Normal 04/11/19 07:55 Blood Pressure 117/82 04/11/19 07:30 Blood Pressure Mean 89 04/09/19 14:30 Blood Pressure Position Sitting 04/09/19 09:38 Pulse Oximetry 100 04/11/19 07:30 Oxygen Delivery Method Room Air 04/11/19 07:30 Oxygen Flow Rate 0 04/11/19 07:30 Pain Level 0 04/11/19 07:30 Intake & Output 04/10/19 04/10/19 04/11/19 11:59 23:59 11:59 Intake Total 1691.25 / 3222.25 1531 / 3222.25 1470 / 1470 Output Total 1100 / 1100 Balance 591.25 / 2122.25 1531 / 2122.25 1470 / 1470 Intake: IV 1191.25 / 2162.25 971 / 2162.25 930 / 930 Oral 500 / 1060 560 / 1060 540 / 540 Output: Urine 1100 / 1100 Other: Urine Color Yellow Light Saritha Urine Appearance Clear Clear Urine Odor None Comment pt removed hat. pt gets up AD MIMI to void. pt reports one void this shift early am. asked him to leave urine to record urine output this am, but patient removed hat d/t diahrrea. left urinal in bathroom for pt to use Stool Size Large Stool Characteristics Formed Hard Voiding Methods Toilet Toilet Laboratory Results WBC 2.97 k/cumm (4.4-10.8) L 04/11/19 06:20 RBC 3.21 m/cumm (4.50-6.00) L 04/11/19 06:20 Hgb 9.5 g/dL (13.5-17.5) L 04/11/19 06:20 Hct 29.5 % (40.0-50.0) L 04/11/19 06:20 MCV 91.9 fL (80-95) 04/11/19 06:20 MCH 29.6 pg (27.0-33.0) 04/11/19 06:20 MCHC 32.2 g/dL (32.0-36.0) 04/11/19 06:20 RDW 15.0 % (11.8-14.1) H 04/11/19 06:20 Plt Count 161 x1000/uL (130-400) 04/11/19 06:20 MPV 8.9 fL (8.0-11.0) 04/11/19 06:20 Immature Gran % 0.3 04/11/19 06:20 Neutrophils % 70.4 04/11/19 06:20 Lymphocytes % 14.5 04/11/19 06:20 Monocytes % 5.7 04/11/19 06:20 Eosinophils % 8.4 04/11/19 06:20 Basophils % 0.7 04/11/19 06:20 Absolute Neutrophils 2.09 k/cumm (1.2-6.7) 04/11/19 06:20 Absolute Lymphocytes 0.43 k/cumm (1.2-3.4) L 04/11/19 06:20 Absolute Monocytes 0.17 k/cumm (0.11-0.7) 04/11/19 06:20 Absolute Eosinophils 0.25 k/cumm (0.0-0.7) 04/11/19 06:20 Absolute Basophils 0.02 k/cumm (0.0-0.2) 04/11/19 06:20 Differential Comment Rbc morph reviewed 04/10/19 06:30 RBC Morphology See below 04/10/19 06:30 Basophilic Stippling Present 04/10/19 06:30 Sodium 142 mmol/L (136-145) 04/11/19 06:20 Potassium 3.8 mmol/L (3.5-5.1) 04/11/19 06:20 Chloride 109 mmol/L (98-107) H 04/11/19 06:20 Carbon Dioxide 24.5 mmol/L (21.0-32.0) 04/11/19 06:20 Anion Gap 8.5 mmol/L (3-11) 04/11/19 06:20 BUN 10 mg/dL (7-18) 04/11/19 06:20 Creatinine 0.94 mg/dL (0.70-1.30) 04/11/19 06:20 Estimated GFR/1.73 m2 >= 60.00 (mL/min/1.73m2) 04/11/19 06:20 Glucose 98 mg/dL (70-100) 04/11/19 06:20 Lactate 0.6 mmol/L (0.6-1.4) 04/09/19 13:10 Calcium 8.0 mg/dL (8.5-10.1) L 04/11/19 06:20 Magnesium 1.7 mg/dL (1.8-2.4) L 04/11/19 06:20 Total Bilirubin 0.9 mg/dL (0.2-1.0) 04/09/19 10:20 AST 13 U/L (15-37) L 04/09/19 10:20 ALT 19 U/L (16-63) 04/09/19 10:20 Alkaline Phosphatase 94 U/L (46-116) 04/09/19 10:20 Troponin I < 0.05 ng/mL (0.00-0.06) 04/09/19 10:20 Total Protein 6.9 g/dL (6.4-8.2) 04/09/19 10:20 Albumin 3.4 g/dL (3.4-5.0) 04/09/19 10:20 Procalcitonin < 0.1 ng/mL 04/10/19 06:30 Vancomycin Trough 22.9 ug/mL (10.0-20.0) H* 04/10/19 14:55
[2019-04-11 11:29] VITALS: BP 107/72; PULSE 72; RESP 18; TEMP 36.3; O2SAT 99
[2019-04-11 14:40] VITALS: BP 109/71; PULSE 74; RESP 16; TEMP 36.9; O2SAT 99
--- NOTE | 2019-04-11 16:00 | CHAPLAIN ---
Willie was resting in bed when I visited. He said he was tired today. When I introduced myself, he pointed out the cross necklace he wears, and told me he is a believer. A couple of near- experiences changed his perspective on life and . He believes that God will take me when he wants, by cancer, by being hit by a car, or by something else. He explained that he had a bad experience in anabaptism years ago, and has not attended since, but has considered going to the [facility] near [place], where his mom attended. We talked about how people often maintain close relationships with God without attending anabaptism. He added that he also leans on Danielito, especially since he has been sick. Willie was expecting his to be in later this afternoon. They have been together a long time, he tells me. His daughter who live and work near [facility] have also visited.
--- NOTE | 2019-04-11 18:09 | PDOC.CMPRO ---
- If Service Date Differs Date of service: 04/11/19 Time of Service: 18:09 Care Management Progress Note S/O: Brady is lying in bed he is alert and engaged during CM interaction. Brady states he is feeling more tired today. He states he has slept most of the day. CM educated patient on the stress response due to illness and the importance of listening to his body when it needs rest. Brady states he is well supported and is taking a day to just rest. A: Brady is a 44 year old male admitted with aspiration pneumonia currently being treated for esophageal cancer. P: Brady is being treated for aspiration pneumonia he needs several days of IV antibiotics per provider. Anticipate discharge at the end of the week. Anticipate no additional services at time of discharge. Brady will resume outpatient services through [facility] at time of discharge.
[2019-04-11] MEDS: Mirtazapine 15 MG TAB 30 MG PO (21:14)
[2019-04-11] MEDS: Melatonin 3 MG TAB PO (21:14)
[2019-04-12 00:03] VITALS: BP 103/66; PULSE 71; RESP 17; TEMP 36.5; O2SAT 97
[2019-04-12] MEDS: Normal Saline Flush 10 ML SYR IVP ×7 (06:25→17:22)
[2019-04-12] MEDS: PIPERACILLIN/TAZO 4.5 GM in Normal Saline 100 ML IVPB ×3 (06:25→17:21)
[2019-04-12] MEDS: Lansoprazole 30 MG CAPCR PO (06:57)
[2019-04-12 07:38] LABS: Abs Immature Grans 0.03 k/cumm (0.0-0.09); Absolute Basophil Count 0.02 k/cumm (0.0-0.2); Absolute Eosinophil Count 0.34 k/cumm (0.0-0.7); Absolute Lymphocyte Count 0.51 k/cumm (1.2-3.4); Absolute Monocyte Count 0.27 k/cumm (0.11-0.7); Absolute Neutrophil Count 3.34 k/cumm (1.2-6.7); Basophils % 0.4; Eosinophils % 7.5; HCT 31.3 % (40.0-50.0); HGB 10.4 g/dL (13.5-17.5); Immature Grans % 0.7; Lymphocytes % 11.3; Mean Corp. HGB Concentration 33.2 g/dL (32.0-36.0); Mean Corpuscular Hemoglobin 30.3 pg (27.0-33.0); Mean Corpuscular Volume 91.3 fL (80-95); Mean Platelet Volume 8.7 fL (8.0-11.0); Neutrophils % 74.1; Platelet Count 169 x1000/uL (130-400); RBC 3.43 m/cumm (4.50-6.00); RBC Distribution Width 15.1 % (11.8-14.1); White Blood Cell Count 4.51 k/cumm (4.4-10.8)
[2019-04-12 07:48] LABS: Anion Gap 12.6 mmol/L (3-11); BUN 4 mg/dL (7-18); CO2 22.4 mmol/L (21.0-32.0); CREATININE 0.93 mg/dL (0.70-1.30); Calcium 8.4 mg/dL (8.5-10.1); Chloride 107 mmol/L (98-107); Glucose 117 mg/dL (70-100); Magnesium 1.7 mg/dL (1.8-2.4); Potassium 3.3 mmol/L (3.5-5.1); Sodium 142 mmol/L (136-145)
[2019-04-12 07:50] VITALS: BP 110/76; PULSE 91; RESP 18; TEMP 36.8; O2SAT 100
[2019-04-12] MEDS: Mometasone 220 MCG 14 DOSE INHALER IH (08:02)
[2019-04-12] MEDS: buPROPion-XL 150 MG TABCR PO (08:03)
[2019-04-12] MEDS: Aspirin 81 MG CHEW PO (08:03)
[2019-04-12] MEDS: guaiFENesin 600 MG TABCR PO (08:03)
[2019-04-12] MEDS: Ondansetron 4 MG/2 ML VIAL IVP ×3 (08:04→15:53)
[2019-04-12] MEDS: Heparin 5,000 UNITS/ML VIAL 5000 UNITS SC ×2 (08:04→15:55)
[2019-04-12] MEDS: Nicotine 21 MG/24 HR PATCH TD (08:04)
[2019-04-12] MEDS: Potassium Chloride 20 MEQ TABCR 40 MEQ PO (10:31)
[2019-04-12] MEDS: Magnesium Oxide 400 MG TAB 800 MG PO (10:31)
[2019-04-12] MEDS: Normal Saline 1,000 ML 100 ML IV (10:32)
[2019-04-12] MEDS: Prochlorperazine 10 MG/2 ML VIAL IVP (13:19)
[2019-04-12 15:45] VITALS: BP 126/84; PULSE 81; RESP 19; TEMP 36.5; O2SAT 100
--- NOTE | 2019-04-12 16:31 | CMPROGNOTE_ITS ---
- If Service Date Differs Date of service: 04/12/19 Time of Service: 16:32 Care Management Progress Note S/O: Brady is up in his room when CM into visit. He wants to be able to go to his appointment at [facility] on . He feels that his difficulty swallowing has become worse and he needs to see his radiologist/oncologist who is only in [facility] every other week. Brady agrees with the plan to change to SB1 today for continues IV antibiotics. Frequency of antibiotics do not allow for him to complete as outpatient. CM reviewed benefits, and SB1 contract with the patient he agrees. CM contacted [facility] and obtained prior authorization for status change, notified access, medical surgical unit and provider. A: Brady is a 44 year old male with esophageal cancer, admitted with with aspiration pneumonia, receiving IV antibiotics. P: Brady will be discharged home when medically ready. His status will change to SB1 for IV abx, anticipate no additional services at time of discharge. He will transport himself home at time of discharge.
--- NOTE | 2019-04-12 18:02 | W.PM.DS.N ---
Date of service: 04/12/19 Time of Service: 18:02 DS: Diagnosis Discharge Diagnosis (1) Nausea & vomiting: Status: Acute (2) Aspiration pneumonia: Status: Acute (3) Esophageal mass: Status: Chronic (4) Hypomagnesemia: Status: Acute (5) Cachexia: Status: Chronic (6) Adjustment disorder with depressed mood: Status: Chronic (7) Tobacco use disorder: Status: Chronic (8) DVT prophylaxis: Status: Acute Discharge Plan Disposition Patient Disposition: [facility] SWING BED LEVEL 1 Condition: Stable Discharge Details Chief Complaint: Nausea/Vomit/Diar Reason For Visit: NAUSEA, VOMITING, DEHYDRATION, ESOPHAGEAL CA, ASP. Admit Date/Time: 04/09/19 14:15 Admit Provider: Medina Anne Attending Provider: Medina Anne Primary Care Provider: Donovan Bobby ED Provider: Yfn Sweeney Hospital Course Hospital Course: Chief complaint: Intractable nausea and vomiting, pneumonia. HPI: 44yo male with history of recurrent esophagel CA, currently on chemotherapy. Admitted from [facility] ER for nausea and vomiting with evidence of pneumonia. Patient has done well with broad specturm antibiotics. Due to immunosuppression related to chemotherapy, and cultures pending he has required a full course of 5 days of IV antibiotics. As patient has an onocology appointment on 04/12/19 and continues to require IV antibiotics to finish therapy course the decision was to transfer him to swing bed status at [facility]. Hospital Course: Assessment and Plan Assessment and plan (1) Nausea & vomiting: Status: Acute Assessment and plan: Denies actual nausea but endorses dysphagia which is causing him to throw up his medications. Continue with zofran administrated 30 minutes prior to meals. States that he does have some difficulty with swallowing and has an appointment set up with the radiologist at the [facility] on 04/13/19 to investigate esophageal stricture (2) Aspiration pneumonia: Status: Acute Assessment and plan: Day 3 Vancomycin and Zosyn. Blood cultures without growth after 24 hours. Sputum culture pending. Cough improved. Continue with ICS, albuterol prn, and mucinex. (3) Esophageal mass: Status: Chronic Assessment and plan: Receiving chemo . Every other week with home infusion for 3 days a week. Just finished dose on . Has an appointment with [facility] on 04/13/19. (4) Hypomagnesemia: Status: Acute Assessment and plan: Magnesium level 1.7 today. Replete PRN (5) Cachexia: Status: Chronic Assessment and plan: Esophageal cancer. Complains of intermittent dysphagia and chronic nausea. Has had a 97 lb wt loss in over a year. Encourage po intake. (6) Adjustment disorder with depressed mood: Status: Chronic Assessment and plan: Continue with home medications Wellbutrin and Mirtazapine. (7) Tobacco use disorder: Status: Chronic Assessment and plan: No cigarettes for over a year. Does smoke marijuana daily. Requests nicotene patch to assist with cravings. Nicoderm 21mg patch daily ordered. (8) DVT prophylaxis: Status: Acute Assessment and plan: Heparin Sub Q Home Meds and New Rx's Prescriptions: No Action lansoprazole 30 mg capsule,delayed release(DR/EC) 30 mg PO DAILY Qty: 90 RF: 3 albuterol sulfate [ProAir HFA] 90 mcg/actuation HFA aerosol inhaler 1 puff Inhalation Q6H PRN Qty: 1 RF: 2 prochlorperazine maleate [Compazine] 10 mg tablet 10 mg PO Q6H PRN RF: 0 lidocaine 5 % adhesive patch,medicated 2 patch TP DAILY RF: 0 mirtazapine 30 mg tablet 45 mg PO DAILY Qty: 90 RF: 3 nicotine 21 mg/24 hr patch 24 hour 1 patch TD Q24H Qty: 30 RF: 0 Flovent HFA 110 mcg/actuation HFA aerosol inhaler 110 mcg Inhalation BID PRNRF: 0 bupropion HCl [Wellbutrin XL] 150 mg tablet extended release 24 hr 150 mg PO QAM Qty: 90 RF: 2 ondansetron 4 mg tablet,disintegrating 4 mg PO QID PRN (Reason: nausea and vomiting) Qty: 20 RF: 0 aspirin 81 MG tablet,chewable 81 mg PO DAILY RF: 0 nitroglycerin 0.4 MG tablet, sublingual 0.4 mg Sublingual PRN Qty: 25 RF: 0 metoprolol succinate 25 mg tablet extended release 24 hr 12.5 mg PO DAILY Qty: 90 RF: 4 prochlorperazine 25 mg Suppository 25 mg RI TID PRNRF: 0 morphine 10 mg/5 mL Solution 10 mg PO Q6H PRNRF: 0 lidocaine HCl [Lidocaine Viscous] 2 % solution 15 ml MM BID-QID Qty: 100 RF: 0 Discharge Instructions Stand Alone Forms: Nursing Discharge Form Referrals: Donovan Bobby [Primary Care Provider] - Activity:: Activity as Tolerated Equipment/Supplies:: No Equipment Needed Diet:: Low Sodium Discharge Orders Discharge Orders: Discharge Order (Routine); Ordered 04/12/19 Ordered By: Sindi Craig DS: Summary Status at Discharge Functional status at discharge: independent ambulation Overall status at discharge: patient is back to baseline Mental Status: mental status grossly normal Speech and Movement: speech and movement normal Mood: congruent mood Affect: normal affect Exam Const General: cooperative and no acute distress Nutritional Appearance: cachectic Orientation: alert, awake and oriented x3 HENMT Head: normocephalic Eyes Pupils: PERRL EOM: EOM intact bilaterally Resp Effort & Inspection: normal respiratory effort Auscultation: clear to auscultation bilaterally Cardio Rate: regular rate Rhythm: regular rhythm Heart Sounds: S1 normal and S2 normal GI Inspection: normal to inspection and other (sunken in ) Auscultation: normal bowel sounds Skin Lesions: no lesions Rashes: no rashes Neuro General: alert, awake, oriented x3, gait normal and moves all extremities Cognition: normal cognition Speech: speech normal Sensory Exam: no sensory deficits noted Psych Mental Status: mental status grossly normal Speech and Movement: speech and movement normal Mood: congruent mood Affect: normal affect Thought Process: normal DS: Data Vitals/I&O Vitals and I&O: Vital Signs Temperature 36.5 C 04/12/19 15:45 Temperature Source Tympanic 04/12/19 15:45 Pulse 81 04/12/19 15:45 Pulse Rhythm Regular 04/12/19 17:28 Pulse 97 H 04/09/19 14:40 Respiratory Rate 19 04/12/19 15:45 Respiratory Effort Non-Labored 04/12/19 17:28 Respiratory Depth Normal 04/12/19 17:28 Respiratory Pattern Normal 04/12/19 17:28 Blood Pressure 126/84 04/12/19 15:45 Blood Pressure Mean 89 04/09/19 14:30 Blood Pressure Position Sitting 04/09/19 09:38 Pulse Oximetry 100 04/12/19 15:45 Oxygen Delivery Method Room Air 04/12/19 15:45 Oxygen Flow Rate 0 04/12/19 15:45 Pain Level 0 04/12/19 15:45 Intake & Output 04/11/19 04/12/19 04/12/19 23:59 11:59 23:59 Intake Total 1271 / 2741 650 / 750 100 / 750 Output Total 350 / 350 Balance 1271 / 2741 300 / 400 100 / 400 Weight 46.7 kg Intake: IV 591 / 1521 400 / 500 100 / 500 Oral 680 / 1220 250 / 250 Output: Urine 350 / 350 Other: Urine Appearance Clear Comment up AD MIMI to void. pt reports 4 voids this shift, encouraged pt to use urinal or hat to record voids Voiding Methods Toilet Urinal Data Completed and Pending Labs on day of discharge: Labs from last 24 hours 04/12/19 04/12/19 04/12/19 09:15 07:25 07:25 WBC 4.51 D RBC 3.43 L Hgb 10.4 L Hct 31.3 L MCV 91.3 MCH 30.3 MCHC 33.2 RDW 15.1 H Plt Count 169 MPV 8.7 Immature Gran % 0.7 Neutrophils % 74.1 Lymphocytes % 11.3 Monocytes % 6.0 Eosinophils % 7.5 Basophils % 0.4 Absolute Neutrophils 3.34 Absolute Lymphocytes 0.51 L Absolute Monocytes 0.27 Absolute Eosinophils 0.34 Absolute Basophils 0.02 Sodium 142 Potassium 3.3 L Chloride 107 Carbon Dioxide 22.4 Anion Gap 12.6 H BUN 4 L Creatinine 0.93 Estimated GFR/1.73 m2 >= 60.00 Glucose 117 H Calcium 8.4 L Magnesium 1.7 L Vancomycin Trough 25.0 H* Preliminary micro results at discharge 04/09/19 13:18 Blood Culture - Preliminary Blood NO GROWTH 72 HOURS 04/09/19 13:10 Blood Culture - Preliminary Blood NO GROWTH 72 HOURS 04/10/19 07:05 Sputum Culture - Preliminary Sputum PFSH Medical History Cachexia (Chronic) will augment mirtazapine encourage po whenever possible Surgical History EGD - MAC (12/29/17) Family History Mother Diabetes Essential hypertension Heart disease Hyperlipidemia Stroke Father Diabetes Sister No problems noted. Brother Essential hypertension Hyperlipidemia Brother Hyperlipidemia Brother Essential hypertension Heart disease Hyperlipidemia Social History Smoking/Tobacco Use Status: Former Tobacco Use Alcohol Intake: current Alcohol Intake frequency: 3 or more drinks per day Drug use: Daily Substance use type: marijuana Do you feel safe at home: Yes Do you feel safe in your relationship?: Yes
== END 2019-04-12 18:24 | disposition swing bed (61) | DRG 391 ==
LOC: ER 14:52 → MS 15:11
PROVIDERS: Nurse Practitioner Family; Admitting Provider Internal Medicine; Emergency Provider Student in an Organized Health Care Education/Training Program; PCP Family Medicine; Visit Provider Internal Medicine
DX: R11.2 Nausea with vomiting, unspecified (principal); J69.0 Pneumonitis due to inhalation of food and vomit; C15.9 Malignant neoplasm of esophagus, unspecified; R64 Cachexia; Z68.1 Body mass index [BMI] 19.9 or less, adult; Z79.899 Other long term (current) drug therapy; R13.10 Dysphagia, unspecified; E83.42 Hypomagnesemia; F43.21 Adjustment disorder with depressed mood; Z87.891 Personal history of nicotine dependence; F12.90 Cannabis use, unspecified, uncomplicated; Z90.49 Acquired absence of other specified parts of digestive tract; J44.9 Chronic obstructive pulmonary disease, unspecified; G47.33 Obstructive sleep apnea (adult) (pediatric)
CPT/HCPCS: 36415; 80048; 80053; 84145; 87040; 93005; 94640; 96361; 96365; 96375; 99223; 99232; 99233; 99238; 99285; 70450; 71046; 80202; 83605; 83735; 84484; 85025; 87070; 87205; 87324; 93010; J0780; J1644; J1885; J1956; J2405; J2543; J2765

== ENCOUNTER 2019-04-12 18:18 | Inpatient (IN) | payer OTHER, SELFPAY ==
[2019-04-12] MEDS: Ondansetron 4 MG/2 ML VIAL IVP (16:00)
[2019-04-12 17:00] VITALS: PULSE 88; RESP 16; TEMP 36.7; O2SAT 98
[2019-04-12] MEDS: PIPERACILLIN/TAZO 4.5 GM in Normal Saline 100 ML IVPB ×2 (17:20→23:51)
--- NOTE | 2019-04-12 18:21 | HPE_ITS ---
Date of service: 04/12/19 Time of Service: 18:21 History of Present Illness History of Present Illness Chief Complaint: Nausea, vomiting, pneumonia Narrative: Hospital Course Hospital Course: Chief complaint: Intractable nausea and vomiting, pneumonia. HPI: 44yo male with history of recurrent esophagel CA, currently on chemotherapy. Admitted from [facility] ER for nausea and vomiting with evidence of pneumonia. Patient has done well with broad specturm antibiotics. Due to immunosuppression related to chemotherapy, and cultures pending he has required a full course of 5 days of IV antibiotics. As patient has an onocology appointment on 04/12/19 and continues to require IV antibiotics to finish therapy course the decision was to transfer him to swing bed status at [facility]. Hospital Course: Assessment and Plan Assessment and plan (1) Nausea & vomiting: Status: Acute Assessment and plan: Denies actual nausea but endorses dysphagia which is causing him to throw up his medications. Continue with zofran administrated 30 minutes prior to meals. States that he does have some difficulty with swallowing and has an appointment set up with the radiologist at the [facility] on 04/13/19 to investigate esophageal stricture (2) Aspiration pneumonia: Status: Acute Assessment and plan: Day 3 Vancomycin and Zosyn. Blood cultures without growth after 24 hours. Sputum culture pending. Cough improved. Continue with ICS, albuterol prn, and mucinex. (3) Esophageal mass: Status: Chronic Assessment and plan: Receiving chemo . Every other week with home infusion for 3 days a week. Just finished dose on . Has an appointment with [facility] on 04/13/19. (4) Hypomagnesemia: Status: Acute Assessment and plan: Magnesium level 1.7 today. Replete PRN (5) Cachexia: Status: Chronic Assessment and plan: Esophageal cancer. Complains of intermittent dysphagia and chronic nausea. Has had a 97 lb wt loss in over a year. Encourage po intake. (6) Adjustment disorder with depressed mood: Status: Chronic Assessment and plan: Continue with home medications Wellbutrin and Mirtazapine. (7) Tobacco use disorder: Status: Chronic Assessment and plan: No cigarettes for over a year. Does smoke marijuana daily. Requests nicotene patch to assist with cravings. Nicoderm 21mg patch daily ordered. (8) DVT prophylaxis: Status: Acute Assessment and plan: Heparin Sub Q PFSH Social History Smoking/Tobacco Use Status: Former Tobacco Use Alcohol Intake: current Alcohol Intake frequency: 3 or more drinks per day Drug use: Daily Substance use type: marijuana Do you feel safe at home: Yes Do you feel safe in your relationship?: Yes Meds Home Medications and Allergies Home Medications Medication Instructions Recorded Confirmed Type aspirin 81 mg PO DAILY tab-cap 03/25/16 04/09/19 History nitroglycerin 0.4 mg SUBLINGUAL PRN #25 tab-cap 11/25/17 04/09/19 Rx metoprolol succinate 25 mg 12.5 mg PO DAILY #90 tab 10/20/18 04/09/19 Rx tablet,extended release 24 hr albuterol sulfate 90 mcg/actuation 1 puff INHALATION Q6H PRN #1 10/28/18 04/09/19 Rx aerosol inhaler inhaler lansoprazole 30 mg capsule,delayed 30 mg PO DAILY #90 cap 10/28/18 04/09/19 Rx release bupropion HCl 150 mg 24 hr tablet, 150 mg PO QAM #90 tab 12/02/18 04/09/19 Rx extended release fluticasone propionate 110 110 mcg INHALATION BID PRN inhaler 12/02/18 04/09/19 History mcg/actuation HFA aerosol inhaler ondansetron 4 mg disintegrating 4 mg PO QID PRN #20 tab 12/02/18 04/09/19 Rx tablet prochlorperazine maleate 10 mg 10 mg PO Q6H PRN tab 01/24/19 04/09/19 History tablet lidocaine HCl [Lidocaine Viscous] 15 ml MM BID-QID #100 ml 02/07/19 04/09/19 Rx lidocaine 5 % topical patch 2 patch TP DAILY each 03/10/19 04/09/19 History mirtazapine 30 mg tablet 45 mg PO DAILY #90 tab 03/10/19 04/09/19 Rx nicotine 21 mg/24 hr daily 1 patch TD Q24H #30 each 03/10/19 04/09/19 Rx transdermal patch morphine 10 mg PO Q6H PRN 04/09/19 04/09/19 History prochlorperazine 25 mg OH TID PRN 04/09/19 04/09/19 History Allergies Allergy/AdvReac Type Severity Reaction Status Date / Time No Known Allergies Allergy Unverified 04/09/19 09:42
[2019-04-12] MEDS: guaiFENesin 600 MG TABCR PO (21:26)
[2019-04-12] MEDS: Mirtazapine 15 MG TAB 30 MG PO (21:26)
[2019-04-12] MEDS: Nystatin 500000 UNITS/5 ML SUSP 5ML CUP PO (21:27)
[2019-04-12] MEDS: Melatonin 3 MG TAB PO (21:27)
[2019-04-12] MEDS: Normal Saline Flush 10 ML SYR IVP (21:29)
[2019-04-12] MEDS: Normal Saline 1,000 ML 100 ML IV (21:39)
--- NOTE | 2019-04-12 23:31 | NUR.NOTE ---
Nursing Note: Pt converted to swing bed status this pm. He went out on pass to home came back at 2120 hrs. Requested to get Morphine po and phenergan given as PRN. Post on right chest flushed and with good blood return. Well behaved and needs attended.
[2019-04-13] MEDS: Normal Saline 1,000 ML 100 ML IV (04:36)
[2019-04-13] MEDS: PIPERACILLIN/TAZO 4.5 GM in Normal Saline 100 ML IVPB ×4 (06:00→23:57)
[2019-04-13] MEDS: Normal Saline Flush 10 ML SYR IVP ×5 (06:55→23:57)
[2019-04-13] MEDS: Ondansetron 4 MG/2 ML VIAL IVP ×3 (06:55→15:58)
[2019-04-13] MEDS: Lansoprazole 30 MG CAPCR PO (06:55)
[2019-04-13] MEDS: Nystatin 500000 UNITS/5 ML SUSP 5ML CUP PO ×4 (07:08→19:35)
[2019-04-13] MEDS: guaiFENesin 600 MG TABCR PO ×2 (07:08→19:35)
[2019-04-13] MEDS: Heparin 5,000 UNITS/ML VIAL 5000 UNITS SC ×2 (07:08→15:59)
[2019-04-13 07:10] VITALS: BP 131/78; PULSE 101; RESP 16; TEMP 36.5; O2SAT 99
[2019-04-13 07:54] LABS: Anion Gap 11.7 mmol/L (3-11); BUN 5 mg/dL (7-18); CO2 22.3 mmol/L (21.0-32.0); CREATININE 0.81 mg/dL (0.70-1.30); Calcium 7.9 mg/dL (8.5-10.1); Chloride 109 mmol/L (98-107); Glucose 115 mg/dL (70-100); Magnesium 1.6 mg/dL (1.8-2.4); Potassium 3.2 mmol/L (3.5-5.1); Sodium 143 mmol/L (136-145)
[2019-04-13] MEDS: MAGNESIUM SULFATE 2 GM/50 ML BAG IVPB (12:53)
[2019-04-13] MEDS: Potassium Chloride 20 MEQ TABCR 40 MEQ PO ×2 (12:57→18:59)
--- NOTE | 2019-04-13 12:58 | PHARADMIT ---
Admission Pharmacy Clinical Review PNEUMONIA (Swing Bed) Code Status Full Code Current Weight wGT-46.7 kg Renally Cleared and Narrow Therapeutic Index Meds CrCl~ 73 mL/min Meds-OK QTc Value / Action Taken QTc- 425 NA BP Control, Fever BP-131/58 Tmax-36.7C Electrolytes reviewed Na- 143 K+3.2 Mag-1.6 DVT Prophylaxis ASA, Heparin- sc Opiate Usage / Scheduled Bowel Regimen Ordered Yes Yes Plt/SCr for Heparin / Enoxaparin Plts-NA SCr-0.81 INR for Warfarin NA H/H stable, WBC/Bands NA Antibiotic appropriateness Zosyn, Vancomycin Day#4 Cultures and Sensitivities SEE ACUTE CHART Surgical ABX d/c within 24 hr NA DM control / Insulin Dosing BG-115 Heart Failure (Check EF%) (LILIANA's, B-Block, Diuretics) none IV to PO Switch No Home Meds Reviewed Yes Home Meds Not Ordered Toprol-XL, Lisinopril, Flovent, Lidooderm, Carafate, NTG Comments BELOW IS THE pHARMACY cLINICAL INTERVENTIONS FOR THE ACUTE ADMISSION: JENNY GALLARDO Male : 1975 Emr# [id number] 04/10/19 12:30 - Pharmacy Review by Francesca Mixon Acct Num: [id number] : 1975 Patient Age: 44 Addendum entered by Francesca Mixon 04/11/19 14:38: Pharmacy Note Subjective nursing reports he is refusing heparin SQ but he is walking the halls-MD aware, no concerns Objective VS ok, afebrile, Mag 1.7. BG 98 Micro blood: no growth x48h Micro sputum: no growth Assessment Vanco trough ordered for 9am 04/12/19 Magox and Potassium x1 doses today Nicotine patch added daily Zofran IVP is before meals to alleviate Nausea and it is helping Zosyn and Vanco continue x total of 5 days (today is full day#2)-Aspiriation Pneumonia dose/HAP Plan Has appt @ [facility] 04/13/19 Original Note: Admission Pharmacy Clinical Review Nausea, Vomiting, Dehydration, Esophageal Cancer, ?Asp Pneumonia from N/V Code Status Full Code Current Weight 45.7 kg Renally Cleared and Narrow Therapeutic Index Meds CrCl~71ml/min QTc Value / Action Taken QTC 425 BP Control, Fever BP 130/85, Afebrile Electrolytes reviewed K+ 4.1, Mag 1.7 (Mag 800mg po x1) DVT Prophylaxis Heparin SC Opiate Usage / Scheduled Bowel Regimen Ordered Morphine liquid/yes bowel meds Plt/SCr for Heparin / Enoxaparin Plt 160 SCr 0.84 INR for Warfarin H/H stable, WBC/Bands H/H 9.3/28.2 WBC 3.4 Antibiotic appropriateness Zosyn 4.5gm (Aspiration dose), Vancomycin.... x 5 days at least Vanco trough due @ 3pm today rec'd Levaquin in ED x1 Cultures and Sensitivities Sputum and blood pending Surgical ABX d/c within 24 hr DM control / Insulin Dosing BG 92 Heart Failure (Check EF%) (LILIANA's, B-Block, Diuretics) BP meds NOT ordered IV to PO Switch Home Meds Reviewed Asmanex substituted for Flovent HFA Home Meds Not Ordered Atorvastatin, Lidocaine patches, Lisinopril, Toprol, NTG, Sucralfate Comments RN requested liquid Ibuprofen (40ml) po TID/prn-difficulty swallowing with esophageal cancer due to radiation, does have chemo regimen Nicotine patch was x1 dose today Zofran IVP scheduled Initialized on 04/10/19 12:30 - END OF NOTE
[2019-04-13 16:29] VITALS: BP 111/76; PULSE 76; RESP 18; TEMP 36.7; O2SAT 100
--- NOTE | 2019-04-13 17:37 | CMSCP_ITS ---
- If Service Date Differs Date of service: 04/12/19 Time of Service: 16:00 Swingbed Plan of Care Plan of care: SWING BED PROGRAM ACTIVITIES/DISCHARGE PLAN OF CARE ACTIVITIES PLAN Date: 04/12/19 Identified Need: Individual activities Intervention/Plan:Activity cart, phone, pet therapy, television, reki, and music therapy when available Initials [facility] DISCHARGE PLAN Date:04/13/19 Identified Need: IV abx q6 and q12 Intervention/Plan: Swing bed for IV abx for the next 48 hours then discharged home with community support services and [facility] Initials [facility]
--- NOTE | 2019-04-13 17:42 | CM.SBPSYCH ---
- If Service Date Differs Date of service: 04/12/19 Time of Service: 16:00 SB Psychosocial/Act.Assessment - Hospital Admission Admission Date: 04/09/19 Admission From:: ED Diagnosis:: Aspiration pneumonia - Swing Bed Admission Swing Bed Admit Date:: 04/12/19 Swing Bed Level of Care: Level 1/SNF - Social Supports PREVIOUS FUNCTIONAL STATUS/SOCIAL/FAMILY SUPPORTS:: Brady lives with his spouse Jessica in [place], [place]. He is independent with ADL's and transportation. He describes a supportive family and his beverly to depend on. - Work History Employment Status:: Not working at this time. Currently being treated for esophageal cancer. - Benefits Financial: Commerical - [employer] Importance of Beverly:: Patient states very important, he wears a cross on his neck and states my beverly keeps me going. - Advance Directives for Healthcare If no AD, do you want more information:: No Advance Directive Agent: None on file, Pt states he completed CM will follow up with [facility] and PCP for copy. - Present Functional Status Physical Abilities:: intact Cognitive:: intact Communication:: Communicates his needs well Sensory Systems: Dysphagia at times related to esophageal cancer and treatments Behavior:: restless, polite and respectful - Medical History PAST MEDICAL HISTORY/PAST SURGICAL HISTORY:: Mood disorder, weight loss, esophageal cancer, hypertenstion, GERD, hyperlipidemia, cachexia, ST elevated GA, unstable angina, tobacco use disorder. General Health:: fair - Admission Data Reason for Swing Bed Admission:: IV abx for 48 hours to complete the treatment for aspiration pneumonia and ability to follow up with oncology as needed. Discharge Plan:: Discharge home when IV abx completed. Follow up with primary care and oncologist after discharge. Legal Services Professional: Pam Hardy Date Assessment was completed:: 04/12/19
[2019-04-13] MEDS: Mirtazapine 15 MG TAB 30 MG PO (21:12)
[2019-04-13] MEDS: Melatonin 3 MG TAB PO (21:12)
[2019-04-13] MEDS: Prochlorperazine 10 MG/2 ML VIAL IVP (21:20)
[2019-04-14 00:10] VITALS: BP 120/73; PULSE 69; RESP 16; TEMP 36; O2SAT 100
[2019-04-14] MEDS: PIPERACILLIN/TAZO 4.5 GM in Normal Saline 100 ML IVPB ×3 (05:28→17:12)
[2019-04-14] MEDS: Lansoprazole 30 MG CAPCR PO (06:33)
[2019-04-14] MEDS: Ondansetron 4 MG/2 ML VIAL IVP ×3 (06:33→17:05)
[2019-04-14 07:11] VITALS: BP 116/77; PULSE 83; RESP 16; TEMP 36.3; O2SAT 100
[2019-04-14 07:21] LABS: Abs Immature Grans 0.02 k/cumm (0.0-0.09); Absolute Basophil Count 0.02 k/cumm (0.0-0.2); Absolute Eosinophil Count 0.17 k/cumm (0.0-0.7); Absolute Lymphocyte Count 0.43 k/cumm (1.2-3.4); Absolute Monocyte Count 0.46 k/cumm (0.11-0.7); Absolute Neutrophil Count 2.34 k/cumm (1.2-6.7); Basophils % 0.6; Eosinophils % 4.9; HCT 26.8 % (40.0-50.0); HGB 8.9 g/dL (13.5-17.5); Immature Grans % 0.6; Lymphocytes % 12.5; Mean Corp. HGB Concentration 33.2 g/dL (32.0-36.0); Mean Corpuscular Hemoglobin 30.4 pg (27.0-33.0); Mean Corpuscular Volume 91.5 fL (80-95); Mean Platelet Volume 8.6 fL (8.0-11.0); Monocytes % 13.4; Platelet Count 135 x1000/uL (130-400); RBC 2.93 m/cumm (4.50-6.00); RBC Distribution Width 15.6 % (11.8-14.1); White Blood Cell Count 3.44 k/cumm (4.4-10.8)
[2019-04-14 07:27] LABS: Anion Gap 12.6 mmol/L (3-11); BUN 4 mg/dL (7-18); CO2 21.4 mmol/L (21.0-32.0); CREATININE 0.85 mg/dL (0.70-1.30); Calcium 8.1 mg/dL (8.5-10.1); Chloride 108 mmol/L (98-107); Glucose 103 mg/dL (70-100); Magnesium 1.8 mg/dL (1.8-2.4); Potassium 3.6 mmol/L (3.5-5.1); Sodium 142 mmol/L (136-145)
[2019-04-14] MEDS: Nystatin 500000 UNITS/5 ML SUSP 5ML CUP PO ×3 (07:40→17:04)
[2019-04-14] MEDS: Nicotine 21 MG/24 HR PATCH TD (07:40)
[2019-04-14] MEDS: buPROPion-XL 150 MG TABCR PO (07:40)
[2019-04-14] MEDS: guaiFENesin 600 MG TABCR PO (07:40)
[2019-04-14] MEDS: Aspirin 81 MG CHEW PO (07:40)
[2019-04-14] MEDS: Heparin 5,000 UNITS/ML VIAL 5000 UNITS SC ×2 (07:41→17:07)
[2019-04-14 07:56] LABS: Anisocytosis 1+; Diff Comment RBC Morph Reviewed
[2019-04-14 07:57] LABS: Polychromasia Present
[2019-04-14 07:58] LABS: Poikilocytes 1+
[2019-04-14] MEDS: Mometasone 220 MCG 14 DOSE INHALER IH (08:07)
[2019-04-14] MEDS: Prochlorperazine 10 MG/2 ML VIAL IVP (09:19)
[2019-04-14] MEDS: Normal Saline 1,000 ML 150 ML IV (12:43)
[2019-04-14] MEDS: Normal Saline Flush 10 ML SYR IVP ×3 (12:46→17:56)
[2019-04-14] MEDS: Magnesium Oxide 400 MG TAB PO (13:36)
[2019-04-14] MEDS: Potassium Chloride 20 MEQ TABCR 40 MEQ PO (13:37)
--- NOTE | 2019-04-14 13:50 | W.PM.DS.N ---
Date of service: 04/14/19 Time of Service: 13:50 DS: Diagnosis Discharge Diagnosis (1) Aspiration pneumonia: Start date: 04/14/19 Start time: 13:50 Status: Acute Asessment and Plan: Finished five days of zosyn and vanco for aspiration pneumonia following dysphagia and vomiting. Will discharge home with a 2 day dose levaquin for extra coverage given on Chemo. Discharge Plan Disposition Patient Disposition: HOME Condition: Improving Discharge Details Reason For Visit: PNEUMONIA Admit Date/Time: 04/12/19 18:18 Admit Provider: Bogdan Tovar Attending Provider: Bogdan Tovar Primary Care Provider: Donovan Bobby Hospital Course Hospital Course: 44 y.o Male with PMH of recurrent esophagel CA, currently on chemotherapy. Admitted from [facility] ER for nausea and vomiting with evidence of pneumonia. He was placed on swing bed to finish a course of IV antibiotics vanco and zosyn due to immunosuppression on chemo. Blood cultures with no growth after 96 hours. Sputum culture no growth for 72 hours. He is being discharged home today after antibiotics. He will continue levaquin for two days for added coverage given immunosuppression. He denies CP, SOB, N/v/D. Home Meds and New Rx's Prescriptions: New mirtazapine [Remeron] 15 mg Tablet 30 mg PO HS Qty: 30 RF: 0 levofloxacin [Levaquin] 750 mg tablet 750 mg PO DAILY Qty: 2 RF: 0 Continued lansoprazole 30 mg capsule,delayed release(DR/EC) 30 mg PO DAILY Qty: 90 RF: 3 albuterol sulfate [ProAir HFA] 90 mcg/actuation HFA aerosol inhaler 1 puff Inhalation Q6H PRN Qty: 1 RF: 2 prochlorperazine maleate [Compazine] 10 mg tablet 10 mg PO Q6H PRN RF: 0 lidocaine 5 % adhesive patch,medicated 2 patch TP DAILY RF: 0 nicotine 21 mg/24 hr patch 24 hour 1 patch TD Q24H Qty: 30 RF: 0 Flovent HFA 110 mcg/actuation HFA aerosol inhaler 110 mcg Inhalation BID PRNRF: 0 bupropion HCl [Wellbutrin XL] 150 mg tablet extended release 24 hr 150 mg PO QAM Qty: 90 RF: 2 ondansetron 4 mg tablet,disintegrating 4 mg PO QID PRN (Reason: nausea and vomiting) Qty: 20 RF: 0 aspirin 81 MG tablet,chewable 81 mg PO DAILY RF: 0 nitroglycerin 0.4 MG tablet, sublingual 0.4 mg Sublingual PRN Qty: 25 RF: 0 metoprolol succinate 25 mg tablet extended release 24 hr 12.5 mg PO DAILY Qty: 90 RF: 4 prochlorperazine 25 mg Suppository 25 mg [place] Q6H PRN PRNRF: 0 morphine 10 mg/5 mL Solution 10 mg PO Q6H PRNRF: 0 lidocaine HCl [Lidocaine Viscous] 2 % solution 15 ml MM BID-QID Qty: 100 RF: 0 Discontinued mirtazapine 30 mg tablet 45 mg PO DAILY Qty: 90 RF: 3 Discharge Instructions Instructions: Antibiotic Resistant Bacteria (GEN), Esophageal Cancer (DC), Gastroesophageal Reflux Disease (GEN), Esophageal Dilation (DC) Additional Instructions: Continue antibiotics for 2 days. Take a probiotic daily, yogurt or over the counter to help the good bacteria in your gut. Follow up with Oncologist. Stand Alone Forms: Nursing Discharge Form Referrals: Donovan Bobby [Primary Care Provider] - 04/19/19 9:40 am Activity:: Activity as Tolerated Equipment/Supplies:: No Equipment Needed Diet:: As Tolerated Discharge Orders Discharge Orders: Discharge Order (Routine); Ordered 04/14/19 Ordered By: Medina Anne DS: Summary Status at Discharge Functional status at discharge: independent ambulation Overall status at discharge: patient is back to baseline Mental Status: mental status grossly normal Speech and Movement: speech and movement normal Mood: congruent mood Affect: normal affect Exam Const General: cooperative, comfortable and no acute distress HENMT Head: normal to inspection Eyes Conjunctivae: conjunctivae normal Pupils: PERRL Neck Neck: normal visual inspection Lymphatic: other Other: swollen anterior neck from radiation Chest Chest: normal inspection of the chest Resp Effort & Inspection: normal respiratory effort and able to speak in complete sentences Auscultation: clear to auscultation bilaterally Cardio Jugular venous pressure: no JVD Palpation: normal PMI Rate: regular rate Rhythm: regular rhythm Heart Sounds: S1 normal and S2 normal GI Inspection: normal to inspection Palpation: soft and no hepatosplenomegaly Skin General skin exam: no rashes or lesions noted Wounds: no wounds Other: ashen appearance. Neuro General: alert, awake and oriented x3 Extrem General: normal to inspection Psych Mental Status: mental status grossly normal Speech and Movement: speech and movement normal Mood: congruent mood Affect: normal affect Attitude: cooperative DS: Data Vitals/I&O Vitals and I&O: Vital Signs Temperature 36.3 C L 04/14/19 07:11 Temperature Source Temporal Artery Scan 04/14/19 07:11 Pulse 83 04/14/19 07:11 Pulse Rhythm Regular 04/14/19 06:00 Respiratory Rate 16 04/14/19 07:11 Respiratory Effort Non-Labored 04/14/19 06:00 Respiratory Depth Normal 04/14/19 06:00 Respiratory Pattern Normal 04/14/19 06:00 Blood Pressure 116/77 04/14/19 07:11 Pulse Oximetry 100 04/14/19 07:11 Oxygen Delivery Method Room Air 04/14/19 07:11 Oxygen Flow Rate 0 04/14/19 07:11 Pain Level 10 04/14/19 12:45 Intake & Output 04/13/19 04/14/19 04/14/19 23:59 11:59 23:59 Intake Total 694.333 / 2319.333 560 / 660 100 / 660 Balance 694.333 / 2319.333 560 / 660 100 / 660 Intake: IV 694.333 / 2069.333 440 / 540 100 / 540 Oral 120 / 120 Other: Urine Appearance Clear Clear Comment pt voiding independently; urine not assessed at this time; pt denies issues at this time Stool Size Moderate Stool Characteristics Liquid Brown Voiding Methods Toilet Data Completed and Pending Completed studies during hospitalization [Text1]: Exam(s) a CT:CT head wo a RAD:XR chest 2V PA & lateral SYMPTOM/DIAGNOSIS: VOMITING, DIZZINESS, H/O ESOPHAGEAL CA, ON CHEMO, HEADACHE NONCONTRAST HEAD CT The exam was performed according to the usual protocol There is no evidence of intracranial hemorrhage or mass. The ventricles are unremarkable. No acute fracture is identified. There is ethmoid sinus disease and mild sphenoid sinus disease. The visualized mastoid air cells are well aerated. The soft tissues are unremarkable. IMPRESSION: No acute intracranial abnormality. PA AND LATERAL CHEST: A Portacath is noted in place with its tip ending at the level of the junction of the superior vena cava and right atrium. Emphysematous changes are noted in the lungs. There is a question regarding faint areas of infiltration involving the right middle and right lower lobes. There is no evidence of a pleural effusion or pneumothorax. The heart is not enlarged. The hilar structures, mediastinum and tracheal air column are intact. SUMMARY: COPD, question faint areas of infiltration in the right middle and right lower lobes. Exam(s) a CT:CT head wo a RAD:XR chest 2V PA & lateral SYMPTOM/DIAGNOSIS: VOMITING, DIZZINESS, H/O ESOPHAGEAL CA, ON CHEMO, HEADACHE NONCONTRAST HEAD CT The exam was performed according to the usual protocol There is no evidence of intracranial hemorrhage or mass. The ventricles are unremarkable. No acute fracture is identified. There is ethmoid sinus disease and mild sphenoid sinus disease. The visualized mastoid air cells are well aerated. The soft tissues are unremarkable. IMPRESSION: No acute intracranial abnormality. PA AND LATERAL CHEST: A Portacath is noted in place with its tip ending at the level of the junction of the superior vena cava and right atrium. Emphysematous changes are noted in the lungs. There is a question regarding faint areas of infiltration involving the right middle and right lower lobes. There is no evidence of a pleural effusion or pneumothorax. The heart is not enlarged. The hilar structures, mediastinum and tracheal air column are intact. SUMMARY: COPD, question faint areas of infiltration in the right middle and right lower lobes. Exam(s) EXAM: XR Chest, 2 Views EXAM DATE/TIME: 04/09/2019 9:56 AM CLINICAL HISTORY: 44 years old, male; Shortness of breath and other: Dizzyness TECHNIQUE: Imaging protocol: XR of the chest Views: 2 views. COMPARISON: CR CHEST 2 VIEWS PA,LAT 18/03/2018 20:03 FINDINGS: Tubes, catheters and devices: Port-A-Cath in place with the tip in the SVC/RA junction. Lungs: Right middle lobe and right lower lobe consolidation. Increased interstitial markings involving the right and left upper lobe and left lower lobe. Pleural space: No pleural effusion. No pneumothorax. Heart/Mediastinum: Cardiomediastinal silhouette is unremarkable. Bones/joints: Unremarkable for patient's age. IMPRESSION: Bilateral pneumonia. Focal consolidation right middle lobe and right lower lobe. EXAM: CT Head Without Contrast EXAM DATE/TIME: 04/09/2019 9:56 AM CLINICAL HISTORY: 44 years old, male; Dizziness TECHNIQUE: Imaging protocol: Computed tomography of the head without contrast. COMPARISON: No relevant prior studies available. FINDINGS: Brain: Unremarkable. No intracranial hemorrhage. Unremarkable white matter. No mass effect. Ventricles: Unremarkable. No ventriculomegaly. Bones/joints: Unremarkable. No acute fracture. Sinuses: Ethmoid sinus disease. Mild sphenoid sinus disease. Mastoid air cells: Visualized mastoid air cells are well aerated. Soft tissues: Unremarkable. IMPRESSION: No acute intracranial abnormality. Labs on day of discharge: Labs from last 24 hours 04/14/19 04/14/19 06:40 06:40 WBC 3.44 L RBC 2.93 L Hgb 8.9 L Hct 26.8 L MCV 91.5 MCH 30.4 MCHC 33.2 RDW 15.6 H Plt Count 135 MPV 8.6 Immature Gran % 0.6 Neutrophils % 68.0 Lymphocytes % 12.5 Monocytes % 13.4 Eosinophils % 4.9 Basophils % 0.6 Absolute Neutrophils 2.34 Absolute Lymphocytes 0.43 L Absolute Monocytes 0.46 Absolute Eosinophils 0.17 Absolute Basophils 0.02 Differential Comment Rbc morph reviewed RBC Morphology See below Polychromasia Present Poikilocytosis 1+ Anisocytosis 1+ Sodium 142 Potassium 3.6 Chloride 108 H Carbon Dioxide 21.4 Anion Gap 12.6 H BUN 4 L Creatinine 0.85 Estimated GFR/1.73 m2 >= 60.00 Glucose 103 H Calcium 8.1 L Magnesium 1.8 PFSH Medical History Cachexia (Chronic) will augment mirtazapine encourage po whenever possible Surgical History EGD - MAC (12/29/17) Family History Mother Diabetes Essential hypertension Heart disease Hyperlipidemia Stroke Father Diabetes Sister No problems noted. Brother Essential hypertension Hyperlipidemia Brother Hyperlipidemia Brother Essential hypertension Heart disease Hyperlipidemia Social History Smoking/Tobacco Use Status: Former Tobacco Use Alcohol Intake: current Alcohol Intake frequency: 3 or more drinks per day Drug use: Daily Substance use type: marijuana Do you feel safe at home: Yes Do you feel safe in your relationship?: Yes
--- NOTE | 2019-04-14 15:46 | CMDISCH_ITS ---
- If Service Date Differs Date of service: 04/14/19 Time of Service: 15:46 LACE Index Scoring Tool - Questions: Length of Stay (in days): 4 - 6 Acuity (Admit via E.D.?): Yes Comorbidities: Any Tumor E.D. Visits: 4 - Answers: Total Score: 13 Risk of Readmission: High Risk Care Management Discharge Reason for Hospitalization: Aspiration pneumonia Discharge Plan: Brady will be discharged home today after his last dose of IV abx. He has scheduled follow up with [facility] and will have a speech and egd at [facility] coordinated by [facility]. Brady will return home with his spouse time of discharge. Patient/Family Education Needs: Discharge education, limitations and follow up plan of care.
[2019-04-14] MEDS: Heparin 500 UNITS/5 ML SYRINGE IV (17:56)
[2019-04-14 17:57] VITALS: BP 128/87; PULSE 81; RESP 17; TEMP 36.3; O2SAT 99
== END 2019-04-14 18:08 | disposition home or self-care (01) | DRG 178 ==
PROVIDERS: Nurse Practitioner Family; Admitting Provider Internal Medicine; PCP Family Medicine; Visit Provider Internal Medicine
DX: J69.0 Pneumonitis due to inhalation of food and vomit (principal); R64 Cachexia; Z68.1 Body mass index [BMI] 19.9 or less, adult; C15.9 Malignant neoplasm of esophagus, unspecified; Z79.2 Long term (current) use of antibiotics; Z79.899 Other long term (current) drug therapy; Z79.891 Long term (current) use of opiate analgesic; F43.21 Adjustment disorder with depressed mood
CPT/HCPCS: 36415; 80048; 94640; 99239; 99306; 99316; NC; 80202; 83735; 85025; J0780; J1644; J2405; J2543

== ENCOUNTER 2019-04-17 00:54 | Outpatient (RCR) | payer OTHER, SELFPAY ==
[2019-03-28] MEDS: Normal Saline Flush 10 ML SYR IVP (08:11)
[2019-03-28 08:22] LABS: Abs Immature Grans 0.03 k/cumm (0.0-0.09); Absolute Basophil Count 0.03 k/cumm (0.0-0.2); Absolute Eosinophil Count 0.12 k/cumm (0.0-0.7); Absolute Lymphocyte Count 0.58 k/cumm (1.2-3.4); Absolute Neutrophil Count 0.89 k/cumm (1.2-6.7); Basophils % 1.4; Eosinophils % 5.6; HCT 31.3 % (40.0-50.0); HGB 10.8 g/dL (13.5-17.5); Immature Grans % 1.4; Mean Corp. HGB Concentration 34.5 g/dL (32.0-36.0); Mean Corpuscular Volume 86.9 fL (80-95); Mean Platelet Volume 8.8 fL (8.0-11.0); Monocytes % 23.3; Neutrophils % 41.3; Platelet Count 198 x1000/uL (130-400); RBC Distribution Width 15.4 % (11.8-14.1); White Blood Cell Count 2.15 k/cumm (4.4-10.8)
[2019-03-28 08:32] LABS: ALT 15 U/L (16-63); AST 10 U/L (15-37); Albumin 2.7 g/dL (3.4-5.0); Alkaline Phosphatase 77 U/L (46-116); Anion Gap 8.6 mmol/L (3-11); BUN 8 mg/dL (7-18); Bilirubin, Total 0.6 mg/dL (0.2-1.0); CO2 27.4 mmol/L (21.0-32.0); CREATININE 0.84 mg/dL (0.70-1.30); Calcium 8.2 mg/dL (8.5-10.1); Chloride 105 mmol/L (98-107); Glucose 116 mg/dL (70-100); Potassium 3.3 mmol/L (3.5-5.1); Sodium 141 mmol/L (136-145); Total Protein 5.9 g/dL (6.4-8.2)
[2019-03-28 08:45] LABS: Diff Comment Diff Reviewed; Polychromasia Present
[2019-04-04] MEDS: Normal Saline Flush 10 ML SYR IVP (08:55)
[2019-04-04 09:06] LABS: Abs Immature Grans 0.08 k/cumm (0.0-0.09); Absolute Basophil Count 0.03 k/cumm (0.0-0.2); Absolute Eosinophil Count 0.19 k/cumm (0.0-0.7); Absolute Lymphocyte Count 0.66 k/cumm (1.2-3.4); Absolute Monocyte Count 0.54 k/cumm (0.11-0.7); Absolute Neutrophil Count 2.98 k/cumm (1.2-6.7); Basophils % 0.7; Eosinophils % 4.2; HCT 32.7 % (40.0-50.0); HGB 10.7 g/dL (13.5-17.5); Immature Grans % 1.8; Lymphocytes % 14.7; Mean Corp. HGB Concentration 32.7 g/dL (32.0-36.0); Mean Corpuscular Hemoglobin 30.1 pg (27.0-33.0); Mean Corpuscular Volume 91.9 fL (80-95); Mean Platelet Volume 8.4 fL (8.0-11.0); Monocytes % 12.1; Neutrophils % 66.5; Platelet Count 304 x1000/uL (130-400); RBC 3.56 m/cumm (4.50-6.00); RBC Distribution Width 16.3 % (11.8-14.1); White Blood Cell Count 4.48 k/cumm (4.4-10.8)
[2019-04-04 09:17] LABS: ALT 17 U/L (16-63); AST 11 U/L (15-37); Albumin 2.8 g/dL (3.4-5.0); Alkaline Phosphatase 84 U/L (46-116); Anion Gap 8.9 mmol/L (3-11); BUN 10 mg/dL (7-18); Bilirubin, Total 0.5 mg/dL (0.2-1.0); CO2 28.1 mmol/L (21.0-32.0); CREATININE 0.86 mg/dL (0.70-1.30); Calcium 8.3 mg/dL (8.5-10.1); Chloride 109 mmol/L (98-107); Glucose 106 mg/dL (70-100); Sodium 146 mmol/L (136-145)
== END 2019-04-24 23:59 | disposition home or self-care (01) ==
LOC: INF 00:54
PROVIDERS: PCP Family Medicine; Visit Provider Registered Nurse Oncology
DX: C15.9 Malignant neoplasm of esophagus, unspecified (principal); Z45.2 Encounter for adjustment and management of vascular access device
CPT/HCPCS: 36591; 80053; 85025

== ENCOUNTER 2019-04-30 22:37 | Emergency (ER) | payer OTHER, SELFPAY ==
--- NOTE | 2019-04-30 00:15 | DI.CT_ITS ---
EXAM: CT CHEST PE CTA CLINICAL HISTORY: chest pain, h/o esophageal and throat cancer. TECHNIQUE: The study was carried out according to the usual protocol with the intravenous administra tion of 60 cc of Omnipaque 350. Axial CT angiography was performed with multi-slice acquisition and multi-planar and/or 3D reconstruc tions. FINDINGS: There is no evidence of PE. The aorta is unremarkable. There is no evidence of aneurysm or dissectio n. Note is made of pleural blebs/paraseptal emphysema. Note is made of a nodular infiltrate involvin g the right upper lobe consistent with focal nonspecific small airway disease. Follow-up examination is warranted to ensure resolution. The pleural spaces are unremarkable with no evidence of a pneumo thorax or pleural effusion. The heart is not enlarged. Patient is status post gastric pull-through l ikely for esophageal malignancy. The intrathoracic portion of the stomach is critically thick walled . Clinical correlation regarding the possibility of gastritis suggested. There is no lymphadenopath y. The bony structures are unremarkable. Soft tissues are unremarkable. IMPRESSION: Intrathoracic portion of the stomach is equivocally thick-walled. Recommended clinical correlation in this patient who is status post gastric pull-through. A nodular infiltrate in the right upper lobe w ould be compatible with a focal nonspecific small airway disease. Follow-up evaluation is suggested t o ensure resolution.
[2019-04-30 22:43] VITALS: BP 125/80; PULSE 95; RESP 16; TEMP 37.3; O2SAT 99
[2019-04-30] MEDS: HYDROmorphone 2 MG/ML VIAL 0.5 MG IVP (23:26)
--- NOTE | 2019-04-30 23:46 | ED.GENADUL_ITS ---
Discharge Plan Disposition Patient Disposition: AGAINST MEDICAL ADVICE Condition: Improving Discharge Details Chief Complaint: Chest Pain Clinical Impression: Chest pain, URI with cough and congestion Primary Care Provider: Donovan Bobby ED Provider: Therese Lora Home Meds and New Rx's Prescriptions: Continued lansoprazole 30 mg capsule,delayed release(DR/EC) 30 mg PO DAILY Qty: 90 RF: 3 albuterol sulfate [ProAir HFA] 90 mcg/actuation HFA aerosol inhaler 1 puff Inhalation Q6H PRN Qty: 1 RF: 2 prochlorperazine maleate [Compazine] 10 mg tablet 10 mg PO Q6H PRN RF: 0 Flovent HFA 110 mcg/actuation HFA aerosol inhaler 110 mcg Inhalation BID PRNRF: 0 bupropion HCl [Wellbutrin XL] 150 mg tablet extended release 24 hr 150 mg PO QAM Qty: 90 RF: 2 ondansetron 4 mg tablet,disintegrating 4 mg PO QID PRN (Reason: nausea and vomiting) Qty: 20 RF: 0 aspirin 81 MG tablet,chewable 81 mg PO DAILY RF: 0 nitroglycerin 0.4 MG tablet, sublingual 0.4 mg Sublingual PRN Qty: 25 RF: 0 nicotine 21 mg/24 hr patch 24 hour 1 patch TD Q24H Qty: 30 RF: 0 prochlorperazine 25 mg Suppository 25 mg OK Q6H PRN PRNRF: 0 morphine 10 mg/5 mL Solution 10 mg PO Q6H PRNRF: 0 mirtazapine [Remeron] 15 mg Tablet 30 mg PO HS Qty: 30 RF: 0 Discharge Instructions Instructions: Chest Pain (ED), Upper Respiratory Infection (ED) Additional Instructions: You may have pericarditis which is an inflammation possibly due to a viral infection around your heart. Treatment for this can include NSAIDs such as ibuprofen. You are leaving AGAINST MEDICAL ADVICE as we do not know the cause of your chest pain and your EKG has changes compared to a previous EKG. You are advised to follow-up with your primary care doctor in the next 2 days for reevaluation. Return immediately to the emergency department if you develop any worsening or concerning symptoms such as persistent fevers, worsening chest pain, shortness of breath. Discharge Data Discharge Physician: Therese Lora Medical Decision Making 2300 -- 44-year-old male with history of daily alcohol abuse, CAD and cardiac stent, GERD, hypertension, hyperlipidemia, esophageal cancer with previous esophageal stent who recently finished chemotherapy presents with right-sided pleuritic chest pain and productive cough for the past few weeks. Patient was recently admitted to the hospital for aspiration pneumonia treated with IV antibiotics with negative sputum and blood cultures. Temp 99.1 temporal on arrival, 100.3 p.o. on my evaluation. Remainder vitals within normal limits. Patient appears chronically ill. Patient initially seen by my colleague Sujit Jo who ordered a cardiac work-up including CT chest to rule out PE considering his history and complaint of pleuritic pain. EKG on arrival noted a rate of 99, sinus with questionable [address] elevation in 2, 3, aVF and V6, with notable OK depression in 2, 3, aVF and V6, which appears new compared to previous EKG. A second repeat EKG did not note significant change. EKG is reviewed with [facility] cardiology who found that with patient's symptom presentation and EKG findings, presentation more concerning for pericarditis. Cardiac and infectious work-up ordered including blood cultures, influenza, CT chest ordered. Patient given a dose of Dilaudid and admitted to complete relief of pain. Labs and imaging reviewed. White blood cell count 6. Hemoglobin stable at 9.5. Normal electrolytes. Troponin negative. Lactate 0.5. CT chest notes thick- walled intrathoracic portion of stomach as well as nodule infiltrate right upper lobe compatible with focal nonspecific small airway disease. No evidence of PE. 0230 --second troponin negative. Repeat EKG still notes OK depression and ST elevation in inferior lateral leads which may be repolarization as well as ST depression in aVR which may be consistent with pericarditis. Patient was advised to stay for admission for serial troponins and observation but he is declining. The risks of and disability due to a serious pathology explained to patient and he fully understands. He demonstrates capacity to make decisions. AMA form signed. As pt is refusing admission, discussed with patient that his symptoms could possibly be due to pericarditis and would recommend NSAIDs, fluids, rest and follow-up with his primary care doctor in the next 2 days. He is advised to return here immediately at any time if worse. Medical Records Medical records reviewed: Yes I reviewed the patient's medical records. Imaging Data Radiologic Study: Radiologist's impression: CT Angiography Chest With Contrast Exam date and time: 04/30/2019 11:58 PM Clinical history: 44 years old, male; Chest pain; Type not specified; Prior surgery; Surgery date: 6+ months; Surgery type: Esophageal cancer surgery 04/2018, picc; Patient HX: Esophageal and throat cancer TECHNIQUE: Imaging protocol: Computed tomographic angiography of the chest with intravenous contrast. 3D rendering: MIP reconstructed images were created and reviewed. Radiation optimization: All CT scans at this facility use at least one of these dose optimization techniques: automated exposure control; mA and/or kV adjustment per patient size (includes targeted exams where dose is matched to clinical indication); or iterative reconstruction. Contrast material: OMNIPAQUE 350; Contrast volume: 60 ml; Contrast route: PICC; COMPARISON: Vascular^CTA CAP (Adult) 04/04/2018 1:27 PM FINDINGS: Pulmonary arteries: There is no evidence for PE. Aorta: Unremarkable. No aortic aneurysm. No aortic dissection. Lungs: Subpleural blebs/paraseptal emphysema noted Nodular infiltrate right upper lobe compatible with focal nonspecific small airways disease. Followup may be warranted to insure resolution. Pleural space: Unremarkable. No pneumothorax. No pleural effusion. Heart: Unremarkable. No cardiomegaly. No pericardial effusion. Mediastinum: Patient status post gastric pull-through likely for esophageal malignancy Stomach and bowel: The intrathoracic portion of the stomach is equivocally thickwalled. Recommend clinical correlation to exclude gastritis involving the gastric pull-through. Lymph nodes: Unremarkable. No enlarged lymph nodes. Bones/joints: Unremarkable. No acute fracture. Soft tissues: Unremarkable. IMPRESSION: 1. The intrathoracic portion of the stomach is equivocally thickwalled. Recommend clinical correlation to exclude gastritis involving the gastric pull-through. 2. Nodular infiltrate right upper lobe compatible with focal nonspecific small airways disease. Followup may be warranted to insure resolution. Lab Data Lab results reviewed: Yes I reviewed the patient's lab results. ECG Data Attestation: I personally reviewed and interpreted this ECG (s) as follows: Interpretation: #1 --Rate of 99, sinus, [address] elevation in 2, aVF, V6 which appears more consistent with repolarization. [address] depression in aVR. OK depression noted in 2, 3, aVF, V6. OK 124. QTc 400. QRS 96. #2 --rate of 101, sinus, [address] elevation in 2, 3, aVF, V6 which appears consistent with possible repolarization. OK depression noted in 2, 3, aVF and V6. OK 126. QTc 407. QRS 98. #3 --rate of 76. sinus, [address] elevation in 2, 3, aVF, the 5 and V6. OK depression noted in 2, 3, aVF, V5 and V6. [address] depression noted in aVR. OK 136. QTc 396. QRS 100. HPI General Mode of arrival: ambulatory . Date/Time Provider Initiated Documentation: 04/30/19 22:40 . Limitations to Documentation: no limitations . Information obtained by: patient . HPI Narrative: Patient is a 44-year-old male with history of alcohol abuse, coronary artery disease with one stent, GERD, hypertension, hyperlipidemia, esophageal cancer with previous history of esophageal stent, who recently finished chemotherapy a few weeks ago who presents with cough productive of green sputum for the past few weeks and substernal right-sided sharp chest pain for the past few days. States the pain in his chest is worse with deep breath. He denies any known injury. He was recently admitted here for aspiration pneumonia treated with IV antibiotics after having vomiting and was found to have negative blood and sputum cultures. Patient states he developed the cough after his recent admission. He denies known fever, shortness of breath, leg pain or swelling, or injury. He states his pain is currently 8/10. Related Data Home Medications Medication Instructions Recorded Confirmed aspirin 81 mg PO DAILY tab-cap 03/25/16 04/30/19 nitroglycerin 0.4 mg SUBLINGUAL PRN #25 tab-cap 11/25/17 04/30/19 albuterol sulfate 90 mcg/actuation 1 puff INHALATION Q6H PRN #1 10/28/18 04/30/19 aerosol inhaler inhaler lansoprazole 30 mg capsule,delayed 30 mg PO DAILY #90 cap 10/28/18 04/30/19 release bupropion HCl 150 mg 24 hr tablet, 150 mg PO QAM #90 tab 12/02/18 04/30/19 extended release fluticasone propionate 110 110 mcg INHALATION BID PRN inhaler 12/02/18 04/30/19 mcg/actuation HFA aerosol inhaler ondansetron 4 mg disintegrating 4 mg PO QID PRN #20 tab 12/02/18 04/30/19 tablet prochlorperazine maleate 10 mg 10 mg PO Q6H PRN tab 01/24/19 04/30/19 tablet morphine 10 mg PO Q6H PRN 04/09/19 04/30/19 prochlorperazine 25 mg OK Q6H PRN PRN 04/09/19 04/30/19 mirtazapine [Remeron] 30 mg PO HS #30 tab 04/14/19 04/30/19 nicotine 21 mg/24 hr daily 1 patch TD Q24H #30 each 04/27/19 04/30/19 transdermal patch Previous Rx's Medication Instructions Recorded nitroglycerin 0.4 mg SUBLINGUAL PRN #25 tab-cap 11/25/17 albuterol sulfate 90 mcg/actuation 1 puff INHALATION Q6H PRN #1 10/28/18 aerosol inhaler inhaler lansoprazole 30 mg capsule,delayed 30 mg PO DAILY #90 cap 10/28/18 release bupropion HCl 150 mg 24 hr tablet, 150 mg PO QAM #90 tab 12/02/18 extended release ondansetron 4 mg disintegrating 4 mg PO QID PRN #20 tab 12/02/18 tablet mirtazapine [Remeron] 30 mg PO HS #30 tab 04/14/19 nicotine 21 mg/24 hr daily 1 patch TD Q24H #30 each 04/27/19 transdermal patch Allergies Allergy/AdvReac Type Severity Reaction Status Date / Time No Known Allergies Allergy Unverified 04/30/19 22:45 General Stated Complaint: Chest Pain CRISTA: 3 Review of Systems Review of Systems ROS Unobtainable: All systems reviewed & are unremarkable except as noted in HPI and below Constitutional Constitutional: Reports as per HPI, Denies chills and Denies fever(s) Eyes Eyes: Denies blurry vision ENT Ears, Nose, Mouth, and Throat: Denies dizziness, Denies sore throat and Denies throat swelling Cardiovascular Cardiovascular: Reports chest pain and Denies dyspnea Respiratory Respiratory: Reports cough and Denies dyspnea Gastrointestinal Gastrointestinal: Denies abdominal pain, Denies diarrhea and Denies vomiting Genitourinary Genitourinary: Denies hematuria and Denies dysuria Musculoskeletal Musculoskeletal: Denies back pain and Denies numbness Integumentary/Breasts Skin/Breast: Denies lesions and Denies rash Neurologic Neurologic: Denies dizziness, Denies focal weakness and Denies numbness Allergic/Immunologic Allergic/Immunologic: Denies throat swelling [facility] Medical History Adjustment disorder with depressed mood (Inactive) Alcohol abuse (Inactive 07/14/13) Bleeding hemorrhoids (Inactive 05/28/17) Cachexia (Chronic) will augment mirtazapine encourage po whenever possible Coronary artery disease (Inactive) Esophageal cancer (Inactive) Essential hypertension (Inactive 07/13/13) Gastroesophageal reflux disease with esophagitis (Inactive 03/09/13) GERD (gastroesophageal reflux disease) (Inactive) Hyperlipidemia (Inactive 11/19/08) Mood disorder (Inactive) ST elevation myocardial infarction involving left circumflex coronary artery (Inactive 03/18/16) SANDRITA to LCX EF 62% Tobacco use disorder (Inactive) Surgical History EGD - MAC (12/29/17) Esophagus cancer (Acute) with h/o esophagus stent History of coronary artery stent placement (Chronic) Family History Mother Diabetes Essential hypertension Heart disease Hyperlipidemia Stroke Father Diabetes Sister No problems noted. Brother Essential hypertension Hyperlipidemia Brother Hyperlipidemia Brother Essential hypertension Heart disease Hyperlipidemia Social History Smoking/Tobacco Use Status: Former Tobacco Use Alcohol Intake: current Alcohol Intake frequency: 3 or more drinks per day Drug use: Daily Substance use type: marijuana Do you feel safe at home: Yes Do you feel safe in your relationship?: Yes Exam Const General: cooperative, no acute distress and ill appearing chronically Nutritional Appearance: cachectic HENMT Head: normal to inspection Face and sinus: normal facial exam Eyes General: appearance normal, both eyes and all related structures Pupils: PERRL EOM: EOM intact bilaterally Neck Neck: normal visual inspection and No submandibular swelling Lymphatic: no lymphadenopathy noted Chest Chest: normal inspection of the chest and no tenderness Resp Effort & Inspection: normal respiratory effort and able to speak in complete sentences Auscultation: clear to auscultation bilaterally Cardio Rate: regular rate Rhythm: regular rhythm GI Inspection: normal to inspection Palpation: soft, not firm, not rigid and nontender Auscultation: normal bowel sounds Skin General skin exam: no rashes or lesions noted Neuro General: alert, awake and oriented x3 Cognition: normal cognition Speech: speech normal Motor: muscle tone normal throughout Sensory Exam: no sensory deficits noted Extrem General: normal to inspection, full ROM, normal capillary refill, no calf tenderness bilaterally and no edema Psych Appearance: grossly normal Mental Status: mental status grossly normal Speech and Movement: speech and movement normal Affect: normal affect Course Vital Signs Vital signs: Vital Signs Temperature 99.1 F 04/30/19 22:43 Pulse 95 H 04/30/19 22:43 Respiratory Rate 16 04/30/19 22:43 Blood Pressure 125/80 04/30/19 22:43 Pulse Oximetry 99 04/30/19 22:43 Temperature 99.1 F 04/30/19 22:43 Pulse 95 H 04/30/19 22:43 Respiratory Rate 16 04/30/19 22:43 Respiratory Effort 04/30/19 22:48 Blood Pressure 125/80 04/30/19 22:43 Pulse Oximetry 99 04/30/19 22:43 Pain Level 9 04/30/19 23:26 Lab/Test Results Lab/Test Results: 04/30/19 23:03 Nasopharynx Influenza Types A,B Antigen - Pending 04/30/19 22:57 Blood Blood Culture - Pending 04/30/19 22:57 Blood Blood Culture - Pending
[2019-04-30] MEDS: Omnipaque 350 MG/ML 100 ML BTL IJ (23:53)
[2019-04-30 23:57] LABS: Abs Immature Grans 0.03 k/cumm (0.0-0.09); Absolute Basophil Count 0.02 k/cumm (0.0-0.2); Absolute Eosinophil Count 0.19 k/cumm (0.0-0.7); Absolute Lymphocyte Count 0.65 k/cumm (1.2-3.4); Absolute Monocyte Count 1.37 k/cumm (0.11-0.7); Absolute Neutrophil Count 3.98 k/cumm (1.2-6.7); Basophils % 0.3; HGB 9.5 g/dL (13.5-17.5); Immature Grans % 0.5; Lymphocytes % 10.4; Mean Corp. HGB Concentration 31.7 g/dL (32.0-36.0); Mean Corpuscular Hemoglobin 31.1 pg (27.0-33.0); Mean Corpuscular Volume 98.4 fL (80-95); Mean Platelet Volume 8.9 fL (8.0-11.0); Neutrophils % 63.8; Platelet Count 210 x1000/uL (130-400); RBC 3.05 m/cumm (4.50-6.00); RBC Distribution Width 14.9 % (11.8-14.1); White Blood Cell Count 6.24 k/cumm (4.4-10.8)
[2019-05-01] VITALS (30 sets, daily range): BP systolic 86–98; BP diastolic 54–63; PULSE 77–97; RESP 16; TEMP 37.1; O2SAT 95–99
[2019-05-01] MEDS: Acetaminophen 500 MG TAB 1000 MG PO (00:19)
[2019-05-01] MEDS: Normal Saline 1,000 ML 1000 ML IV (00:19)
[2019-05-01 00:25] LABS: ALT 23 U/L (16-63); AST 19 U/L (15-37); Albumin 2.7 g/dL (3.4-5.0); Alkaline Phosphatase 107 U/L (46-116); Anion Gap 7.3 mmol/L (3-11); BUN 12 mg/dL (7-18); Bilirubin, Total 0.5 mg/dL (0.2-1.0); CO2 27.7 mmol/L (21.0-32.0); CREATININE 0.71 mg/dL (0.70-1.30); Calcium 8.1 mg/dL (8.5-10.1); Chloride 103 mmol/L (98-107); Glucose 104 mg/dL (70-100); Magnesium 1.7 mg/dL (1.8-2.4); Potassium 3.9 mmol/L (3.5-5.1); Sodium 138 mmol/L (136-145); Total Protein 5.9 g/dL (6.4-8.2)
[2019-05-01 00:27] LABS: Troponin I < 0.05 ng/mL (0.00-0.06)
--- NOTE | 2019-05-01 00:30 | DI.VRAD_ITS ---
PROCEDURE INFORMATION: Exam: CT Angiography Chest With Contrast Exam date and time: 04/30/2019 11:58 PM Clinical history: 44 years old, male; Chest pain; Type not specified; Prior surgery; Surgery date: 6+ months; Surgery type: Esophageal cancer surgery 04/2018, pic[facility]; Patient HX: Esophageal and throat cancer TECHNIQUE: Imaging protocol: Computed tomographic angiography of the chest with intravenous contrast. 3D rendering: MIP reconstructed images were created and reviewed. Radiation optimization: All CT scans at this facility use at least one of these dose optimization techniques: automated exposure control; mA and/or kV adjustment per patient size (includes targeted exams where dose is matched to clinical indication); or iterative reconstruction. Contrast material: OMNIPAQUE 350; Contrast volume: 60 ml; Contrast route: PICC; COMPARISON: Vascular^CTA CAP (Adult) 04/04/2018 1:27 PM FINDINGS: Pulmonary arteries: There is no evidence for PE. Aorta: Unremarkable. No aortic aneurysm. No aortic dissection. Lungs: Subpleural blebs/paraseptal emphysema noted Nodular infiltrate right upper lobe compatible with focal nonspecific small airways disease. Followup may be warranted to insure resolution. Pleural space: Unremarkable. No pneumothorax. No pleural effusion. Heart: Unremarkable. No cardiomegaly. No pericardial effusion. Mediastinum: Patient status post gastric pull-through likely for esophageal malignancy Stomach and bowel: The intrathoracic portion of the stomach is equivocally thickwalled. Recommend clinical correlation to exclude gastritis involving the gastric pull-through. Lymph nodes: Unremarkable. No enlarged lymph nodes. Bones/joints: Unremarkable. No acute fracture. Soft tissues: Unremarkable. IMPRESSION: 1. The intrathoracic portion of the stomach is equivocally thickwalled. Recommend clinical correlation to exclude gastritis involving the gastric pull-through. 2. Nodular infiltrate right upper lobe compatible with focal nonspecific small airways disease. Followup may be warranted to insure resolution. Dictated and Authenticated by: Edd Hernandez MD. Ordering:HARPER Alba MD
[2019-05-01] MEDS: Ketorolac 30 MG/ML VIAL IVP (01:18)
[2019-05-01 01:30] LABS: Lipase 47 U/L (73-393)
[2019-05-01 01:54] LABS: Lactate 0.5 mmol/L (0.6-1.4)
[2019-05-01 02:14] LABS: Troponin I < 0.05 ng/mL (0.00-0.06)
[2019-05-01] MEDS: Heparin 500 UNITS/5 ML SYRINGE IVP (02:56)
== END 2019-05-01 02:55 | disposition left against medical advice (07) ==
PROVIDERS: Nurse Practitioner Family; Emergency Provider Physician Assistant; PCP Family Medicine
DX: R07.9 Chest pain, unspecified (principal); J06.9 Acute upper respiratory infection, unspecified; R05 Cough; I25.10 Atherosclerotic heart disease of native coronary artery without angina pectoris; I10 Essential (primary) hypertension; Z95.5 Presence of coronary angioplasty implant and graft
CPT/HCPCS: 36415; 71275; 80053; 83690; 87040; 87449; 93005; 96361; 96374; 96375; 99285; 83605; 83735; 84484; 85025; 93010; J1885; J3490

== ENCOUNTER 2019-05-01 01:45 | Outpatient (RCR) | payer SELFPAY | END 2019-05-25 23:59 | disposition home or self-care (01) | LOC: INF 01:45 | PROVIDERS: PCP Family Medicine; Visit Provider Registered Nurse Oncology | DX: R69 Illness, unspecified (principal) ==

== ENCOUNTER 2019-06-02 16:45 | Emergency (ER) | payer OTHER, SELFPAY ==
[2019-06-02] VITALS (40 sets, daily range): BP systolic 118–148; BP diastolic 75–104; PULSE 72–115; RESP 10–25; TEMP 36.5; O2SAT 93–100
--- NOTE | 2019-06-02 17:15 | DI.CT_ITS ---
EXAM: CT ABDOMEN PELVIS W CLINICAL HISTORY: epigastric abdominal pain, h/o esaphageal CA TECHNIQUE: The exam was performed with 64 cc's of Omnipaque 350. CT CHEST PE CTA from 04/30/2019 FINDINGS: There is a stable 3 mm nodule in the right middle lobe. There is stable scarring in the medial aspec t of the left lung base. No acute pulmonary infiltrates are present. There are again seen postsurgi brittany changes of a gastric pull-up. The liver is normal in size. No hepatic mass is seen. The portal, superior mesenteric and splenic v eins are patent. The gallbladder is negative. There is no biliary ductal dilatation. The pancreas is unremarkable. Calcifications are again seen in the spleen. These likely reflect prior granulomatous disease. There is unchanged nodularity of the left adrenal gland. The right adrenal gland is unremarkable. The kidneys, ureters and urinary bladder are unremarkable. The reproductive organs are unremarkable as visualized. There is atherosclerosis of the abdominal aorta but no aneurysmal dilatation. No significant abdominal or pelvic adenopathy, ascites or pneumoperitoneum is present. There is stool seen throughout the colon. This likely reflects constipation. There is no evidence o f bowel obstruction. There is a normal appendix present. There are densities seen in the right lower quadrant. These were not present on the prior examinatio n. They appear to be intraluminal. These may represent fecaliths/appendicoliths. No acute osseous abnormalities identified. IMPRESSION: 1. Large amount of stool throughout the colon. The findings are suggestive of constipation. 2. Status post gastric pull-up. 3. Stable right middle lobe pulmonary nodule and left basilar scarring or atelectasis. 4. Densities seen in the right lower quadrant of the abdomen. These appear to be intraluminal, this may represent residual contrast, fecalith or appendicolith.
[2019-06-02] MEDS: HYDROmorphone 2 MG/ML VIAL 1 MG IVP ×2 (17:31→18:28)
[2019-06-02] MEDS: Ondansetron 4 MG/2 ML VIAL (17:32)
[2019-06-02] MEDS: Normal Saline Flush 10 ML SYR IVP (17:38)
--- NOTE | 2019-06-02 17:46 | ED.GENADUL_ITS ---
Discharge Plan Disposition Patient Disposition: HOME Condition: Good Discharge Details Chief Complaint: Abd Prob Clinical Impression: Constipation, Abdominal pain Primary Care Provider: Donovan Bobby ED Provider: Jovani Sandoval Home Meds and New Rx's Prescriptions: New docusate sodium [Colace] 100 mg capsule 100 mg PO BID Qty: 60 RF: 0 No Action lansoprazole 30 mg capsule,delayed release(DR/EC) 30 mg PO DAILY Qty: 90 RF: 3 albuterol sulfate [ProAir HFA] 90 mcg/actuation HFA aerosol inhaler 1 puff Inhalation Q6H PRN Qty: 1 RF: 2 prochlorperazine maleate [Compazine] 10 mg tablet 10 mg PO Q6H PRN RF: 0 bupropion HCl 300 mg tablet extended release 24 hr 300 mg PO QAM Qty: 30 RF: 2 mirtazapine [Remeron] 15 mg tablet 30 mg PO HS Qty: 30 RF: 0 nicotine 21 mg/24 hr patch 24 hour 1 patch TD Q24H Qty: 30 RF: 2 Flovent HFA 110 mcg/actuation HFA aerosol inhaler 110 mcg Inhalation BID PRNRF: 0 ondansetron 4 mg tablet,disintegrating 4 mg PO QID PRN (Reason: nausea and vomiting) Qty: 20 RF: 0 aspirin 81 MG tablet,chewable 81 mg PO DAILY RF: 0 nitroglycerin 0.4 MG tablet, sublingual 0.4 mg Sublingual PRN Qty: 25 RF: 0 prochlorperazine 25 mg Suppository 25 mg ID Q6H PRN PRNRF: 0 morphine 10 mg/5 mL Solution 5 mg PO Q6H PRNRF: 0 Discharge Instructions Instructions: Constipation (ED), Abdominal Pain (ED) Additional Instructions: At this time your labs have notably improved. It appears that you were mildly dehydrated, but also notably constipated. This is likely secondary to morphine use. Please take the Colace as directed to help with this. If you notice any worsening of your symptoms, or any new symptoms such as vomiting, diarrhea, fev er, chills, shortness of breath, chest pain, numbness, weakness, or fainting , please return immediately to the emergency department for reevaluation. Please follow up with your primary care provider as soon as possible for reassessment and reevaluation. As always, it was a pleasure participating in your medical care today. Referrals: Donovan Bobby. [Primary Care Provider] - Discharge Data Discharge Date/Time-TO BE ENTERED AT DEPARTURE: 06/02/19 21:35 Medical Decision Making <Yfn Sweeney MD - Last Filed: 07/06/19 16:05> 17:40 --44-year-old male with history of esophageal cancer, coronary artery disease, here with severe epigastric abdominal pain and tenderness. Concern for acute surgical process. Plan to obtain CT of the abdomen pelvis. I will treat pain with Dilaudid 1 mg IV. IV fluids have been initiated and patient is remained n.p.o. --Screening ECG was reviewed and interpreted by me: Sinus tachycardia, ID depression is noted inferiorly, EKG with no significant change from prior EKG 04/04/2018. Nondiagnostic. --Labs reviewed and lactate elevated, mild anion gap acidosis. Plan to continue IV fluid. CT of the abdomen and pelvis interpreted by radiology: Suspect constipation. Status post gastric pull-up procedure. Patient reassessed and feeling much better. I discussed results with the patient. Will repeat lactate and BMP. <Jovani Sandoval DO - Last Filed: 06/02/19 21:22> Patient signed out to me by Dr. Yfn Sweeney. Please refer to his documentation for initial assessment and plan. We are pending repeat labs on signout. CT scan was negative for acute process aside for evidence of mild constipation. No evidence of perforation per virtual radiology. Serial troponins have been normal, initial EKG was unchanged. Repeat anion gap was normal, repeat lactate was normal. Calcium was slightly low, however when corrected against albumin was 8.1. Urinalysis was negative for any evidence of infection. On reassessment the patient feels well and is notably asking to go home. He would like to be discharged immediately. We will prescribe Colace for home use, recommend continued fluids and outpatient enema. We discussed red flags which to return. I have extensively reviewed the treatment plan and discharge instructions with the patient and their family. I have addressed all patient concerns at this time. The patient and family was made aware of what symptoms to monitor for that would warrant a return to the emergency department. Discussed the plan with the patient and family, they demonstrate verbal understanding and agreement with our assessment and plan at this time. HPI <Yfn Sweeney MD - Last Filed: 07/06/19 16:05> General Mode of arrival: ambulatory . Date/Time Provider Initiated Documentation: 06/02/19 16:58 . Limitations to Documentation: no limitations . Information obtained by: patient . HPI Narrative: 44-year-old male with multiple medical problems including history of esophageal cancer, status post chemotherapy, coronary artery disease status post stent, here with chief complaint of abdominal pain. Patient notes pain started this morning and has been intermittent since onset. More severe this afternoon. Pain is localized to his epigastric abdomen. Pain is worse on palpation of his abdomen. He notes associated nausea. Patient specifically describes the pain as diverticulitis pain but in my upper abdomen. Related Data Home Medications Medication Instructions Recorded Confirmed aspirin 81 mg PO DAILY tab-cap 03/25/16 06/02/19 nitroglycerin 0.4 mg SUBLINGUAL PRN #25 tab-cap 11/25/17 06/02/19 albuterol sulfate 90 mcg/actuation 1 puff INHALATION Q6H PRN #1 10/28/18 06/02/19 aerosol inhaler inhaler lansoprazole 30 mg capsule,delayed 30 mg PO DAILY #90 cap 10/28/18 06/02/19 release fluticasone propionate 110 110 mcg INHALATION BID PRN inhaler 12/02/18 06/02/19 mcg/actuation HFA aerosol inhaler ondansetron 4 mg disintegrating 4 mg PO QID PRN #20 tab 12/02/18 06/02/19 tablet prochlorperazine maleate 10 mg 10 mg PO Q6H PRN tab 01/24/19 06/02/19 tablet morphine 5 mg PO Q6H PRN 04/09/19 06/02/19 prochlorperazine 25 mg ID Q6H PRN PRN 04/09/19 06/02/19 bupropion HCl 300 mg 24 hr tablet, 300 mg PO QAM #30 tab 05/23/19 06/02/19 extended release mirtazapine 15 mg tablet 30 mg PO HS #30 tab 05/23/19 06/02/19 nicotine 21 mg/24 hr daily 1 patch TD Q24H #30 each 05/23/19 06/02/19 transdermal patch docusate sodium [Colace] 100 mg PO BID #60 cap 06/02/19 Previous Rx's Medication Instructions Recorded nitroglycerin 0.4 mg SUBLINGUAL PRN #25 tab-cap 11/25/17 albuterol sulfate 90 mcg/actuation 1 puff INHALATION Q6H PRN #1 10/28/18 aerosol inhaler inhaler lansoprazole 30 mg capsule,delayed 30 mg PO DAILY #90 cap 10/28/18 release ondansetron 4 mg disintegrating 4 mg PO QID PRN #20 tab 12/02/18 tablet bupropion HCl 300 mg 24 hr tablet, 300 mg PO QAM #30 tab 05/23/19 extended release mirtazapine 15 mg tablet 30 mg PO HS #30 tab 05/23/19 nicotine 21 mg/24 hr daily 1 patch TD Q24H #30 each 05/23/19 transdermal patch docusate sodium [Colace] 100 mg PO BID #60 cap 06/02/19 Allergies Allergy/AdvReac Type Severity Reaction Status Date / Time No Known Allergies Allergy Unverified 06/02/19 17:00 General Stated Complaint: Abd Prob CRISTA: 3 Review of Systems <Yfn Sweeney MD - Last Filed: 07/06/19 16:05> All systems reviewed & are unremarkable except as noted in HPI and below Constitutional Constitutional: Denies fever(s) Gastrointestinal Gastrointestinal: Reports abdominal pain and Reports nausea Genitourinary Genitourinary: Reports dysuria PFSH <Yfn Sweeney MD - Last Filed: 07/06/19 16:05> Medical History Adjustment disorder with depressed mood (Inactive) Alcohol abuse (Inactive 07/14/13) Bleeding hemorrhoids (Inactive 05/28/17) Cachexia (Chronic) will augment mirtazapine encourage po whenever possible Coronary artery disease (Inactive) Esophageal cancer (Inactive) Essential hypertension (Inactive 07/13/13) Gastroesophageal reflux disease with esophagitis (Inactive 03/09/13) GERD (gastroesophageal reflux disease) (Inactive) Hyperlipidemia (Inactive 11/19/08) Mood disorder (Inactive) ST elevation myocardial infarction involving left circumflex coronary artery (Inactive 03/18/16) SANDRITA to LCX EF 62% Tobacco use disorder (Inactive) Surgical History EGD - MAC (12/29/17) Esophagus cancer (Acute) with h/o esophagus stent History of coronary artery stent placement (Chronic) Family History Mother Diabetes Essential hypertension Heart disease Hyperlipidemia Stroke Father Diabetes Sister No problems noted. Brother Essential hypertension Hyperlipidemia Brother Hyperlipidemia Brother Essential hypertension Heart disease Hyperlipidemia Social History Smoking/Tobacco Use Status: Former Tobacco Use Alcohol Intake: current Alcohol Intake frequency: 3 or more drinks per day Drug use: Daily Substance use type: marijuana Do you feel safe at home: Yes Do you feel safe in your relationship?: Yes Exam <Yfn Sweeney MD - Last Filed: 07/06/19 16:05> Const General: cooperative and uncomfortable HENMT Mouth: moist mucous membranes Eyes Conjunctivae: normal conjunctivae Sclera: normal sclerae Neck Neck: trachea midline and supple Resp Auscultation: clear to auscultation bilaterally, no rales, no rhonchi and no wheezes Cardio Jugular venous pressure: no JVD Rate: tachycardic Rhythm: regular rhythm GI Inspection: non-distended Palpation: soft, no guarding, no masses, not rigid and tender in the epigastrum Auscultation: normal bowel sounds Skin General skin exam: no rashes or lesions noted Neuro General: alert, awake and tone normal Extrem General: no edema Psych Appearance: grossly normal Mental Status: mental status grossly normal Course <Yfn Sweeney MD - Last Filed: 07/06/19 16:05> Vital Signs Vital signs: Vital Signs Temperature 36.5 C 06/02/19 16:57 Pulse 98 H 06/02/19 16:57 Respiratory Rate 16 06/02/19 16:57 Blood Pressure 140/97 H 06/02/19 16:57 Pulse Oximetry 98 06/02/19 16:57 Temperature 36.5 C 06/02/19 16:57 Temperature Source Temporal Artery Scan 06/02/19 16:57 Pulse 98 H 06/02/19 16:57 Respiratory Rate 16 06/02/19 16:57 Respiratory Effort Non-Labored 06/02/19 16:57 Blood Pressure 140/97 H 06/02/19 16:57 Blood Pressure Position Sitting 06/02/19 16:57 Pulse Oximetry 98 06/02/19 16:57 Oxygen Delivery Method Room Air 06/02/19 16:57 Oxygen Flow Rate 0 06/02/19 16:57 Pain Level 10 06/02/19 17:31 Sign Out <Yfn Sweeney MD - Last Filed: 07/06/19 16:05> Sign Out Data: Sign Out Comment: Care signed out to Dr. Sandoval with plan to follow-up on repeat chemistry, lactate, and troponin. Reassess patient for disposition. Last updated by Yfn Sweeney MD at 06/02/19 20:21
[2019-06-02 17:48] LABS: Abs Immature Grans 0.03 k/cumm (0.0-0.09); Absolute Basophil Count 0.04 k/cumm (0.0-0.2); Absolute Lymphocyte Count 0.98 k/cumm (1.2-3.4); Absolute Monocyte Count 0.66 k/cumm (0.11-0.7); Absolute Neutrophil Count 6.08 k/cumm (1.2-6.7); Basophils % 0.5; Eosinophils % 3.7; HCT 38.7 % (40.0-50.0); HGB 12.7 g/dL (13.5-17.5); Immature Grans % 0.4; Lymphocytes % 12.1; Mean Corp. HGB Concentration 32.8 g/dL (32.0-36.0); Mean Corpuscular Hemoglobin 30.6 pg (27.0-33.0); Mean Corpuscular Volume 93.3 fL (80-95); Monocytes % 8.2; Neutrophils % 75.1; Platelet Count 246 x1000/uL (130-400); RBC 4.15 m/cumm (4.50-6.00); RBC Distribution Width 11.8 % (11.8-14.1); White Blood Cell Count 8.09 k/cumm (4.4-10.8)
[2019-06-02] MEDS: Omnipaque 350 MG/ML 100 ML BTL IJ (18:02)
[2019-06-02 18:07] LABS: ALT 27 U/L (16-63); AST 12 U/L (15-37); Albumin 3.3 g/dL (3.4-5.0); Alkaline Phosphatase 112 U/L (46-116); BUN 17 mg/dL (7-18); Bilirubin, Total 0.3 mg/dL (0.2-1.0); Calcium 8.4 mg/dL (8.5-10.1); Chloride 107 mmol/L (98-107); Glucose 116 mg/dL (70-100); Lipase 69 U/L (73-393); Potassium 3.5 mmol/L (3.5-5.1); Sodium 142 mmol/L (136-145); Total Protein 6.6 g/dL (6.4-8.2)
[2019-06-02 18:10] LABS: Troponin I < 0.05 ng/mL (0.00-0.06)
--- NOTE | 2019-06-02 18:25 | DI.VRAD_ITS ---
PROCEDURE INFORMATION: Exam: CT Abdomen And Pelvis With Contrast Exam date and time: 06/02/2019 5:56 PM Clinical history: 44 years old, male; Prior surgery; Patient HX: Epigastric abdominal pain, h/o esophageal CA TECHNIQUE: Imaging protocol: Computed tomography of the abdomen and pelvis with intravenous contrast. COMPARISON: CT CHEST ABD PELVIS WITH CONTRAST 01/11/2018 9:36 AM FINDINGS: Lungs: The visualized lung bases are within normal limits. Heart: The visualized portions of the heart and pericardium are unremarkable. Mediastinum: The patient has a history of esophageal carcinoma. Liver: The liver is within normal limits. Gallbladder and bile ducts: The gallbladder is unremarkable. Pancreas: The pancreas is within normal limits. Spleen: The spleen is within normal limits. There are calcifications within the spleen which could represent old granulomatous disease. Adrenals: The adrenal glands are unremarkable. Kidneys and ureters: The kidneys are within normal limits. Stomach and bowel: The patient is status post gastric pull-up procedure. There are feces within the colon which could represent some degree of constipation. Appendix: The patient is status post appendectomy. Intraperitoneal space: Unremarkable. No free air. No significant fluid collection. Vasculature: There are arteriosclerotic changes of the aorta. Lymph nodes: No enlarged lymph nodes. Bladder: The urinary bladder is within normal limits. Reproductive: The prostate and seminal vesicles are within normal limits. Bones/joints: Unremarkable. No acute fracture. Soft tissues: Unremarkable. IMPRESSION: Suspect constipation. Status post gastric pull-up procedure. Dictated and Authenticated by: Bridger Saunders MD. Ordering:KATHRYN Coulter MD
[2019-06-02] MEDS: Normal Saline 1,000 ML 1000 ML IV (18:27)
[2019-06-02 20:35] LABS: Troponin I < 0.05 ng/mL (0.00-0.06)
[2019-06-02 20:38] LABS: Lactate 0.5 mmol/L (0.6-1.4)
[2019-06-02 20:47] LABS: Anion Gap 9.9 mmol/L (3-11); BUN 13 mg/dL (7-18); CO2 25.1 mmol/L (21.0-32.0); CREATININE 0.67 mg/dL (0.70-1.30); Calcium 7.5 mg/dL (8.5-10.1); Chloride 105 mmol/L (98-107); Glucose 101 mg/dL (70-100); Potassium 3.9 mmol/L (3.5-5.1); Sodium 140 mmol/L (136-145)
[2019-06-02 21:11] LABS: Bilirubin Negative (Negative); Blood Negative (Negative); Clarity Clear (Clear); Glucose Negative (Negative); Ketones Negative (Negative); Leukocyte Esterase Negative (Negative); Nitrite Negative (Negative); Urobilinogen 0.2 EU/dL (Up TO 0.2)
[2019-06-02] MEDS: Heparin 500 UNITS/5 ML SYRINGE (21:33)
== END 2019-06-02 21:35 | disposition home or self-care (01) ==
PROVIDERS: Student in an Organized Health Care Education/Training Program; Emergency Provider Student in an Organized Health Care Education/Training Program; PCP Family Medicine
DX: K59.00 Constipation, unspecified (principal); R10.13 Epigastric pain; E86.0 Dehydration; I10 Essential (primary) hypertension; Z95.828 Presence of other vascular implants and grafts
CPT/HCPCS: 36415; 36591; 80048; 80053; 83690; 93005; 96361; 96374; 96375; 96376; 99285; 74177; 81003; 83605; 84484; 85025; 93010; 99284; J2405; J3490

== ENCOUNTER 2021-10-13 02:26 | Outpatient (RCR) | payer OTHER, SELFPAY ==
[2021-09-30] MEDS: Normal Saline Flush 10 ML SYR IVP (07:40)
[2021-09-30 08:03] LABS: Abs Immature Grans 0.02 10^3/uL (0.0-0.06); Absolute Basophil Count 0.04 10^3/uL (0.0-0.2); Absolute Eosinophil Count 0.15 10^3/uL (0.0-0.7); Absolute Lymphocyte Count 1.79 10^3/uL (1.2-3.4); Absolute Monocyte Count 0.67 10^3/uL (0.1-0.8); Absolute Neutrophil Count 6.19 10^3/uL (1.2-6.7); Basophils % 0.5; Eosinophils % 1.7; HCT 45.4 % (40.0-50.0); HGB 14.6 g/dL (13.5-17.5); Immature Grans % 0.2; Lymphocytes % 20.2; MCH 29.5 pg (27.0-33.0); MCHC 32.2 % (32.0-36.0); MCV 91.7 fL (80-95); Monocytes % 7.6; Neutrophils % 69.8; Nucleated RBC 0 %; Platelet Count 299 10^3/uL (130-400); RBC 4.95 10^6/uL (4.36-5.78); RDW 13.1 % (11.8-14.1); RDW-SD 44.1 fL; WBC 8.86 10^3/uL (4.4-10.8)
[2021-09-30 08:08] LABS: Calculated LDL 131 mg/dL (<100); Cholesterol 224 mg/dL (<200); HDL Cholesterol 67 mg/dL (40-60); Triglyceride 131 mg/dL (<150)
[2021-09-30 08:16] LABS: ALT 24 U/L (16-63); AST 15 U/L (15-37); Albumin 3.7 g/dL (3.4-5.0); Alkaline Phosphatase 75 U/L (46-116); Anion Gap 8.6 mmol/L (3-11); BUN 13 mg/dL (7-18); CO2 26.4 mmol/L (21.0-32.0); Chloride 107 mmol/L (98-107); Glucose 127 mg/dL (74-106); Sodium 142 mmol/L (136-145); Total Protein 7.1 g/dL (6.4-8.2)
[2021-09-30 19:58] LABS: CEA 39.4 ng/mL (See Note)
[2021-10-13] MEDS: Normal Saline Flush 10 ML SYR IVP (08:36)
[2021-10-13 08:52] LABS: Abs Immature Grans 0.03 10^3/uL (0.0-0.06); Absolute Basophil Count 0.03 10^3/uL (0.0-0.2); Absolute Eosinophil Count 0.19 10^3/uL (0.0-0.7); Absolute Monocyte Count 0.65 10^3/uL (0.1-0.8); Absolute Neutrophil Count 4.47 10^3/uL (1.2-6.7); Basophils % 0.4; Eosinophils % 2.5; HCT 43.7 % (40.0-50.0); HGB 14.3 g/dL (13.5-17.5); Immature Grans % 0.4; Lymphocytes % 29.1; MCH 29.9 pg (27.0-33.0); MCHC 32.7 % (32.0-36.0); MCV 91.4 fL (80-95); MPV 8.8 fL (8.0-11.0); Monocytes % 8.6; Nucleated RBC 0 %; Platelet Count 217 10^3/uL (130-400); RBC 4.78 10^6/uL (4.36-5.78); RDW 12.7 % (11.8-14.1); RDW-SD 42.5 fL; WBC 7.57 10^3/uL (4.4-10.8)
[2021-10-13 09:17] LABS: ALT 23 U/L (16-63); AST 12 U/L (15-37); Albumin 3.7 g/dL (3.4-5.0); Alkaline Phosphatase 76 U/L (46-116); Anion Gap 8.2 mmol/L (3-11); BUN 15 mg/dL (7-18); Bilirubin, Total 0.6 mg/dL (0.2-1.0); CO2 26.8 mmol/L (21.0-32.0); CREATININE 1.1 mg/dL (0.70-1.30); Calcium 8.7 mg/dL (8.5-10.1); Chloride 104 mmol/L (98-107); FREE T4 1.09 ng/dL (0.76-1.46); Glucose 147 mg/dL (74-106); Potassium 4.1 mmol/L (3.5-5.1); Sodium 139 mmol/L (136-145); TSH 13.67 uIU/mL (0.36-3.74); Total Protein 6.9 g/dL (6.4-8.2)
[2021-10-13 18:24] LABS: CEA 52.3 ng/mL (See Note)
== END 2021-10-23 23:59 | disposition home or self-care (01) ==
LOC: INF 02:26
PROVIDERS: PCP Family Medicine; Visit Provider Nurse Practitioner Adult Health
DX: C15.5 Malignant neoplasm of lower third of esophagus (principal); E78.5 Hyperlipidemia, unspecified; Z45.2 Encounter for adjustment and management of vascular access device
CPT/HCPCS: 36591; 80053; 80061; 82378; 84439; 84443; 85025

== ENCOUNTER 2021-11-10 02:12 | Outpatient (RCR) | payer OTHER, SELFPAY ==
[2021-10-27 08:27] LABS: Abs Immature Grans 0.02 10^3/uL (0.0-0.06); Absolute Basophil Count 0.03 10^3/uL (0.0-0.2); Absolute Eosinophil Count 0.06 10^3/uL (0.0-0.7); Absolute Lymphocyte Count 2.05 10^3/uL (1.2-3.4); Absolute Monocyte Count 0.74 10^3/uL (0.1-0.8); Absolute Neutrophil Count 3.48 10^3/uL (1.2-6.7); Basophils % 0.5; Eosinophils % 0.9; HCT 38.7 % (40.0-50.0); HGB 13.4 g/dL (13.5-17.5); Immature Grans % 0.3; Lymphocytes % 32.1; MCH 30.5 pg (27.0-33.0); MCHC 34.6 % (32.0-36.0); MPV 8.8 fL (8.0-11.0); Monocytes % 11.6; Neutrophils % 54.6; Nucleated RBC 0 %; Platelet Count 216 10^3/uL (130-400); RDW 15.2 % (11.8-14.1); RDW-SD 43.4 fL; WBC 6.38 10^3/uL (4.4-10.8)
[2021-10-27] MEDS: Normal Saline Flush 10 ML SYR IVP (08:35)
[2021-10-27 08:51] LABS: ALT 20 U/L (16-63); AST 15 U/L (15-37); Albumin 3.6 g/dL (3.4-5.0); Alkaline Phosphatase 75 U/L (46-116); Anion Gap 8.4 mmol/L (3-11); BUN 10 mg/dL (7-18); Bilirubin, Total 1.1 mg/dL (0.2-1.0); CO2 26.6 mmol/L (21.0-32.0); CREATININE 0.9 mg/dL (0.70-1.30); Calcium 8.8 mg/dL (8.5-10.1); Chloride 104 mmol/L (98-107); FREE T4 1.18 ng/dL (0.76-1.46); Glucose 129 mg/dL (74-106); Potassium 4.1 mmol/L (3.5-5.1); Sodium 139 mmol/L (136-145); TSH 10.81 uIU/mL (0.36-3.74); Total Protein 6.9 g/dL (6.4-8.2)
[2021-10-27 18:36] LABS: CEA 50.6 ng/mL (See Note)
[2021-11-10] MEDS: Normal Saline Flush 10 ML SYR IVP (07:20)
[2021-11-10 07:29] LABS: Abs Immature Grans 0.02 10^3/uL (0.0-0.06); Absolute Basophil Count 0.05 10^3/uL (0.0-0.2); Absolute Eosinophil Count 0.09 10^3/uL (0.0-0.7); Basophils % 0.9; Eosinophils % 1.6; HCT 34.8 % (40.0-50.0); HGB 12.2 g/dL (13.5-17.5); Immature Grans % 0.3; Lymphocytes % 31.3; MCH 31.4 pg (27.0-33.0); MCHC 35.1 % (32.0-36.0); MCV 89.7 fL (80-95); MPV 8.6 fL (8.0-11.0); Monocytes % 13.9; Platelet Count 182 10^3/uL (130-400); RBC 3.88 10^6/uL (4.36-5.78); RDW 17.6 % (11.8-14.1); RDW-SD 53.4 fL; WBC 5.76 10^3/uL (4.4-10.8)
[2021-11-10 07:50] LABS: ALT 40 U/L (16-63); AST 21 U/L (15-37); Albumin 3.5 g/dL (3.4-5.0); Alkaline Phosphatase 78 U/L (46-116); Anion Gap 6.8 mmol/L (3-11); BUN 10 mg/dL (7-18); Bilirubin, Total 0.9 mg/dL (0.2-1.0); CO2 27.2 mmol/L (21.0-32.0); CREATININE 0.9 mg/dL (0.70-1.30); Calcium 8.4 mg/dL (8.5-10.1); Chloride 106 mmol/L (98-107); FREE T4 1.31 ng/dL (0.76-1.46); Glucose 104 mg/dL (74-106); Potassium 4.2 mmol/L (3.5-5.1); Sodium 140 mmol/L (136-145); TSH 10.13 uIU/mL (0.36-3.74); Total Protein 6.6 g/dL (6.4-8.2)
[2021-11-10 18:08] LABS: CEA 41.5 ng/mL (See Note)
== END 2021-11-22 23:59 | disposition home or self-care (01) ==
LOC: INF 02:12
PROVIDERS: PCP Family Medicine; Visit Provider Nurse Practitioner Adult Health
DX: C15.5 Malignant neoplasm of lower third of esophagus (principal); Z45.2 Encounter for adjustment and management of vascular access device; Z79.899 Other long term (current) drug therapy
CPT/HCPCS: 36591; 80053; 82378; 84439; 84443; 85025

== ENCOUNTER 2021-12-15 02:33 | Outpatient (RCR) | payer OTHER, SELFPAY ==
[2021-12-01 10:05] LABS: Abs Immature Grans 0.03 10^3/uL (0.0-0.06); Absolute Basophil Count 0.06 10^3/uL (0.0-0.2); Absolute Eosinophil Count 0.19 10^3/uL (0.0-0.7); Absolute Lymphocyte Count 1.92 10^3/uL (1.2-3.4); Absolute Monocyte Count 0.99 10^3/uL (0.1-0.8); Absolute Neutrophil Count 1.21 10^3/uL (1.2-6.7); Basophils % 1.4; Eosinophils % 4.3; HCT 36.7 % (40.0-50.0); HGB 12.5 g/dL (13.5-17.5); Immature Grans % 0.7; Lymphocytes % 43.6; MCH 32.3 pg (27.0-33.0); MCHC 34.1 % (32.0-36.0); MCV 95 fL (80-95); MPV 8.6 fL (8.0-11.0); Monocytes % 22.5; Neutrophils % 27.5; Platelet Count 213 10^3/uL (130-400); RBC 3.87 10^6/uL (4.36-5.78); RDW 18.2 % (11.8-14.1); RDW-SD 62.1 fL
[2021-12-01] MEDS: Normal Saline Flush 10 ML SYR IVP (10:12)
[2021-12-01 10:44] LABS: ALT 43 U/L (16-63); AST 27 U/L (15-37); Albumin 3.6 g/dL (3.4-5.0); Alkaline Phosphatase 77 U/L (46-116); BUN 9 mg/dL (7-18); CREATININE 0.8 mg/dL (0.70-1.30); Calcium 8.7 mg/dL (8.5-10.1); Chloride 106 mmol/L (98-107); Glucose 117 mg/dL (74-106); Potassium 4.1 mmol/L (3.5-5.1); Sodium 143 mmol/L (136-145); TSH 2.25 uIU/mL (0.36-3.74); Total Protein 6.5 g/dL (6.4-8.2)
[2021-12-01 11:00] LABS: FREE T4 1.27 ng/dL (0.76-1.46)
[2021-12-15] MEDS: Normal Saline Flush 10 ML SYR IVP (08:38)
[2021-12-15 08:46] LABS: Abs Immature Grans 0.03 10^3/uL (0.0-0.06); Absolute Basophil Count 0.03 10^3/uL (0.0-0.2); Absolute Eosinophil Count 0.16 10^3/uL (0.0-0.7); Absolute Lymphocyte Count 1.89 10^3/uL (1.2-3.4); Absolute Monocyte Count 0.85 10^3/uL (0.1-0.8); Absolute Neutrophil Count 3.43 10^3/uL (1.2-6.7); Basophils % 0.5; Eosinophils % 2.5; HCT 37.9 % (40.0-50.0); HGB 12.9 g/dL (13.5-17.5); Immature Grans % 0.5; Lymphocytes % 29.6; MCH 32.7 pg (27.0-33.0); MCV 96 fL (80-95); MPV 9.6 fL (8.0-11.0); Monocytes % 13.3; Neutrophils % 53.6; Platelet Count 183 10^3/uL (130-400); RBC 3.94 10^6/uL (4.36-5.78); RDW 16.2 % (11.8-14.1); RDW-SD 57.6 fL; WBC 6.39 10^3/uL (4.4-10.8)
[2021-12-15 09:09] LABS: ALT 35 U/L (16-63); AST 24 U/L (15-37); Albumin 3.4 g/dL (3.4-5.0); Alkaline Phosphatase 75 U/L (46-116); Anion Gap 8.5 mmol/L (3-11); BUN 13 mg/dL (7-18); Bilirubin, Total 0.8 mg/dL (0.2-1.0); CO2 26.5 mmol/L (21.0-32.0); Calcium 8.7 mg/dL (8.5-10.1); Chloride 106 mmol/L (98-107); FREE T4 1.15 ng/dL (0.76-1.46); Glucose 156 mg/dL (74-106); Potassium 4.1 mmol/L (3.5-5.1); Sodium 141 mmol/L (136-145); TSH 2.99 uIU/mL (0.36-3.74); Total Protein 6.6 g/dL (6.4-8.2)
[2021-12-15 18:18] LABS: CEA 16.6 ng/mL (See Note)
== END 2021-12-23 23:59 | disposition home or self-care (01) ==
LOC: INF 02:33
PROVIDERS: Nurse Practitioner Adult Health; PCP Family Medicine; Visit Provider Internal Medicine Medical Oncology
DX: C15.5 Malignant neoplasm of lower third of esophagus (principal); Z45.2 Encounter for adjustment and management of vascular access device
CPT/HCPCS: 36591; 80053; 82378; 84439; 84443; 85025

== ENCOUNTER 2022-01-12 02:13 | Outpatient (RCR) | payer OTHER, SELFPAY ==
[2021-12-29] MEDS: Normal Saline Flush 10 ML SYR IVP (10:36)
[2021-12-29 10:53] LABS: Abs Immature Grans 0.03 10^3/uL (0.0-0.06); Absolute Basophil Count 0.06 10^3/uL (0.0-0.2); Absolute Eosinophil Count 0.16 10^3/uL (0.0-0.7); Absolute Lymphocyte Count 2.21 10^3/uL (1.2-3.4); Absolute Monocyte Count 1.02 10^3/uL (0.1-0.8); Absolute Neutrophil Count 3.25 10^3/uL (1.2-6.7); Basophils % 0.9; Eosinophils % 2.4; HCT 37.2 % (40.0-50.0); HGB 12.6 g/dL (13.5-17.5); Immature Grans % 0.4; Lymphocytes % 32.8; MCH 31.9 pg (27.0-33.0); MCHC 33.9 % (32.0-36.0); MCV 94 fL (80-95); MPV 9.2 fL (8.0-11.0); Monocytes % 15.2; Neutrophils % 48.3; Platelet Count 196 10^3/uL (130-400); RBC 3.95 10^6/uL (4.36-5.78); RDW 15.1 % (11.8-14.1); WBC 6.73 10^3/uL (4.4-10.8)
[2021-12-29 11:17] LABS: ALT 34 U/L (16-63); AST < 5 U/L (15-37); Albumin 3.4 g/dL (3.4-5.0); Alkaline Phosphatase 86 U/L (46-116); Anion Gap 7.6 mmol/L (3-11); BUN 8 mg/dL (7-18); Bilirubin, Total 0.9 mg/dL (0.2-1.0); CO2 28.4 mmol/L (21.0-32.0); CREATININE 0.9 mg/dL (0.70-1.30); Calcium 8.5 mg/dL (8.5-10.1); Chloride 106 mmol/L (98-107); FREE T4 1.34 ng/dL (0.76-1.46); Glucose 109 mg/dL (74-106); Magnesium 1.9 mg/dL (1.8-2.4); Potassium 3.9 mmol/L (3.5-5.1); Sodium 142 mmol/L (136-145); TSH 4.75 uIU/mL (0.36-3.74); Total Protein 6.6 g/dL (6.4-8.2)
[2021-12-29 18:16] LABS: CEA 11.6 ng/mL (See Note)
[2022-01-12] MEDS: Normal Saline Flush 10 ML SYR IVP (08:23)
[2022-01-12 08:25] LABS: Abs Immature Grans 0.03 10^3/uL (0.0-0.06); Absolute Basophil Count 0.04 10^3/uL (0.0-0.2); Absolute Eosinophil Count 0.15 10^3/uL (0.0-0.7); Absolute Monocyte Count 0.95 10^3/uL (0.1-0.8); Absolute Neutrophil Count 3.49 10^3/uL (1.2-6.7); Basophils % 0.6; Eosinophils % 2.3; HCT 40.6 % (40.0-50.0); HGB 13.9 g/dL (13.5-17.5); Immature Grans % 0.5; MCH 31.7 pg (27.0-33.0); MCHC 34.2 % (32.0-36.0); MCV 93 fL (80-95); MPV 9.3 fL (8.0-11.0); Monocytes % 14.3; Neutrophils % 52.3; Platelet Count 174 10^3/uL (130-400); RBC 4.38 10^6/uL (4.36-5.78); RDW 14.6 % (11.8-14.1); RDW-SD 48.3 fL; WBC 6.66 10^3/uL (4.4-10.8)
[2022-01-12 08:49] LABS: ALT 29 U/L (16-63); AST 25 U/L (15-37); Albumin 3.6 g/dL (3.4-5.0); Alkaline Phosphatase 83 U/L (46-116); Anion Gap 8.6 mmol/L (3-11); BUN 9 mg/dL (7-18); Bilirubin, Total 0.7 mg/dL (0.2-1.0); CO2 27.4 mmol/L (21.0-32.0); CREATININE 0.9 mg/dL (0.70-1.30); Calcium 8.9 mg/dL (8.5-10.1); Chloride 103 mmol/L (98-107); FREE T4 1.33 ng/dL (0.76-1.46); Glucose 124 mg/dL (74-106); Magnesium 1.8 mg/dL (1.8-2.4); Potassium 3.8 mmol/L (3.5-5.1); Sodium 139 mmol/L (136-145); Total Protein 6.9 g/dL (6.4-8.2)
[2022-01-12 19:46] LABS: CEA 9.5 ng/mL (See Note)
== END 2022-01-22 23:59 | disposition home or self-care (01) ==
LOC: INF 02:13
PROVIDERS: PCP Family Medicine; Visit Provider Internal Medicine Medical Oncology
DX: C15.5 Malignant neoplasm of lower third of esophagus (principal); Z79.899 Other long term (current) drug therapy; Z45.2 Encounter for adjustment and management of vascular access device
CPT/HCPCS: 36591; 80053; 82378; 83735; 84439; 84443; 85025

== ENCOUNTER 2022-02-16 02:31 | Outpatient (RCR) | payer OTHER, SELFPAY ==
[2022-02-02] MEDS: Normal Saline Flush 10 ML SYR IVP (11:55)
[2022-02-02 12:12] LABS: Abs Immature Grans 0.04 10^3/uL (0.0-0.06); Absolute Basophil Count 0.05 10^3/uL (0.0-0.2); Absolute Eosinophil Count 0.15 10^3/uL (0.0-0.7); Absolute Lymphocyte Count 1.95 10^3/uL (1.2-3.4); Absolute Monocyte Count 0.91 10^3/uL (0.1-0.8); Absolute Neutrophil Count 4.73 10^3/uL (1.2-6.7); Basophils % 0.6; Eosinophils % 1.9; HGB 14.9 g/dL (13.5-17.5); Immature Grans % 0.5; Lymphocytes % 24.9; MCH 31.5 pg (27.0-33.0); MCHC 34.7 % (32.0-36.0); MCV 91 fL (80-95); MPV 8.8 fL (8.0-11.0); Monocytes % 11.6; Neutrophils % 60.5; Platelet Count 245 10^3/uL (130-400); RBC 4.73 10^6/uL (4.36-5.78); RDW 14.8 % (11.8-14.1); RDW-SD 49.4 fL; WBC 7.83 10^3/uL (4.4-10.8)
[2022-02-02 12:37] LABS: ALT 20 U/L (16-63); AST 16 U/L (15-37); Albumin 3.4 g/dL (3.4-5.0); Alkaline Phosphatase 84 U/L (46-116); Anion Gap 7.7 mmol/L (3-11); BUN 13 mg/dL (7-18); Bilirubin, Total 0.4 mg/dL (0.2-1.0); CO2 27.3 mmol/L (21.0-32.0); CREATININE 0.9 mg/dL (0.70-1.30); Calcium 8.8 mg/dL (8.5-10.1); Chloride 105 mmol/L (98-107); Glucose 156 mg/dL (74-106); Potassium 3.9 mmol/L (3.5-5.1); Sodium 140 mmol/L (136-145); TSH 2.88 uIU/mL (0.36-3.74); Total Protein 6.6 g/dL (6.4-8.2)
[2022-02-02 23:40] LABS: CEA 6.4 ng/mL (See Note)
[2022-02-16] MEDS: Normal Saline Flush 10 ML SYR IVP (07:41)
[2022-02-16 08:05] LABS: Abs Immature Grans 0.03 10^3/uL (0.0-0.06); Absolute Basophil Count 0.05 10^3/uL (0.0-0.2); Absolute Eosinophil Count 0.19 10^3/uL (0.0-0.7); Absolute Neutrophil Count 4.59 10^3/uL (1.2-6.7); Basophils % 0.7; Eosinophils % 2.5; HCT 42.1 % (40.0-50.0); HGB 14.7 g/dL (13.5-17.5); Immature Grans % 0.4; Lymphocytes % 23.8; MCH 31.2 pg (27.0-33.0); MCHC 34.9 % (32.0-36.0); MCV 89 fL (80-95); MPV 9.3 fL (8.0-11.0); Monocytes % 11.9; Neutrophils % 60.7; Platelet Count 166 10^3/uL (130-400); RBC 4.71 10^6/uL (4.36-5.78); RDW 14.8 % (11.8-14.1); RDW-SD 48.2 fL; WBC 7.56 10^3/uL (4.4-10.8)
[2022-02-16 08:30] LABS: ALT 31 U/L (16-63); AST 25 U/L (15-37); Albumin 3.4 g/dL (3.4-5.0); Alkaline Phosphatase 84 U/L (46-116); Anion Gap 8.8 mmol/L (3-11); BUN 9 mg/dL (7-18); Bilirubin, Total 0.6 mg/dL (0.2-1.0); CO2 27.2 mmol/L (21.0-32.0); CREATININE 0.8 mg/dL (0.70-1.30); Calcium 8.8 mg/dL (8.5-10.1); Chloride 105 mmol/L (98-107); FREE T4 1.15 ng/dL (0.76-1.46); Glucose 141 mg/dL (74-106); Magnesium 1.9 mg/dL (1.8-2.4); Sodium 141 mmol/L (136-145); TSH 2.85 uIU/mL (0.36-3.74); Total Protein 6.7 g/dL (6.4-8.2)
[2022-02-16 18:07] LABS: CEA 5.8 ng/mL (See Note)
== END 2022-02-22 23:59 | disposition home or self-care (01) ==
LOC: INF 02:31
PROVIDERS: PCP Family Medicine; Visit Provider Internal Medicine Medical Oncology
DX: C15.5 Malignant neoplasm of lower third of esophagus (principal); Z79.899 Other long term (current) drug therapy; Z45.2 Encounter for adjustment and management of vascular access device
CPT/HCPCS: 36591; 80053; 82378; 83735; 84439; 84443; 85025

== ENCOUNTER 2022-03-23 02:58 | Outpatient (RCR) | payer OTHER, SELFPAY ==
[2022-03-02] MEDS: Normal Saline Flush 10 ML SYR IVP (10:01)
[2022-03-02 10:14] LABS: Abs Immature Grans 0.02 10^3/uL (0.0-0.06); Absolute Basophil Count 0.05 10^3/uL (0.0-0.2); Absolute Eosinophil Count 0.16 10^3/uL (0.0-0.7); Absolute Lymphocyte Count 2.11 10^3/uL (1.2-3.4); Absolute Monocyte Count 0.89 10^3/uL (0.1-0.8); Absolute Neutrophil Count 3.49 10^3/uL (1.2-6.7); Basophils % 0.7; Eosinophils % 2.4; HCT 42.2 % (40.0-50.0); HGB 14.7 g/dL (13.5-17.5); Immature Grans % 0.3; Lymphocytes % 31.4; MCH 31.3 pg (27.0-33.0); MCHC 34.8 % (32.0-36.0); MCV 90 fL (80-95); MPV 9.5 fL (8.0-11.0); Monocytes % 13.2; Platelet Count 183 10^3/uL (130-400); RDW 15.4 % (11.8-14.1); RDW-SD 49.5 fL; WBC 6.72 10^3/uL (4.4-10.8)
[2022-03-02 10:42] LABS: ALT 32 U/L (16-63); AST 25 U/L (15-37); Albumin 3.4 g/dL (3.4-5.0); Alkaline Phosphatase 84 U/L (46-116); Anion Gap 5.4 mmol/L (3-11); BUN 8 mg/dL (7-18); Bilirubin, Total 0.7 mg/dL (0.2-1.0); CO2 30.6 mmol/L (21.0-32.0); CREATININE 0.8 mg/dL (0.70-1.30); Calcium 8.7 mg/dL (8.5-10.1); Chloride 106 mmol/L (98-107); FREE T4 1.14 ng/dL (0.76-1.46); Glucose 107 mg/dL (74-106); Potassium 4.4 mmol/L (3.5-5.1); Sodium 142 mmol/L (136-145); TSH 6.94 uIU/mL (0.36-3.74); Total Protein 6.7 g/dL (6.4-8.2)
[2022-03-02 17:28] LABS: CEA 5.6 ng/mL (See Note)
[2022-03-23] MEDS: Normal Saline Flush 10 ML SYR IVP (09:38)
[2022-03-23 09:55] LABS: Abs Immature Grans 0.04 10^3/uL (0.0-0.06); Absolute Basophil Count 0.06 10^3/uL (0.0-0.2); Absolute Lymphocyte Count 1.88 10^3/uL (1.2-3.4); Absolute Monocyte Count 0.96 10^3/uL (0.1-0.8); Absolute Neutrophil Count 3.09 10^3/uL (1.2-6.7); Eosinophils % 3.2; HCT 41.5 % (40.0-50.0); HGB 13.9 g/dL (13.5-17.5); Immature Grans % 0.6; Lymphocytes % 30.2; MCH 30.8 pg (27.0-33.0); MCHC 33.5 % (32.0-36.0); MCV 92 fL (80-95); MPV 9.3 fL (8.0-11.0); Monocytes % 15.4; Neutrophils % 49.6; Platelet Count 215 10^3/uL (130-400); RBC 4.52 10^6/uL (4.36-5.78); RDW 16.1 % (11.8-14.1); RDW-SD 53.6 fL; WBC 6.23 10^3/uL (4.4-10.8)
[2022-03-23 10:19] LABS: ALT 30 U/L (16-63); AST 24 U/L (15-37); Albumin 3.4 g/dL (3.4-5.0); Alkaline Phosphatase 101 U/L (46-116); Anion Gap 7.3 mmol/L (3-11); BUN 8 mg/dL (7-18); Bilirubin, Total 0.8 mg/dL (0.2-1.0); CO2 28.7 mmol/L (21.0-32.0); CREATININE 0.9 mg/dL (0.70-1.30); Calcium 8.5 mg/dL (8.5-10.1); Chloride 104 mmol/L (98-107); FREE T4 1.16 ng/dL (0.76-1.46); Glucose 158 mg/dL (74-106); Magnesium 1.9 mg/dL (1.8-2.4); Potassium 3.9 mmol/L (3.5-5.1); Sodium 140 mmol/L (136-145); TSH 9.62 uIU/mL (0.36-3.74); Total Protein 6.7 g/dL (6.4-8.2)
== END 2022-03-25 23:59 | disposition home or self-care (01) ==
LOC: INF 02:58
PROVIDERS: Nurse Practitioner Adult Health; PCP Family Medicine; Visit Provider Internal Medicine Medical Oncology
DX: C15.5 Malignant neoplasm of lower third of esophagus (principal); Z79.899 Other long term (current) drug therapy; Z45.2 Encounter for adjustment and management of vascular access device
CPT/HCPCS: 36591; 80053; 82378; 83735; 84439; 84443; 85025

== ENCOUNTER 2022-04-20 02:26 | Outpatient (RCR) | payer OTHER, SELFPAY ==
[2022-04-06] MEDS: Normal Saline Flush 10 ML SYR IVP (12:22)
[2022-04-06 12:29] LABS: Abs Immature Grans 0.04 10^3/uL (0.0-0.06); Absolute Basophil Count 0.04 10^3/uL (0.0-0.2); Absolute Eosinophil Count 0.06 10^3/uL (0.0-0.7); Absolute Lymphocyte Count 1.71 10^3/uL (1.2-3.4); Absolute Monocyte Count 0.87 10^3/uL (0.1-0.8); Absolute Neutrophil Count 7.85 10^3/uL (1.2-6.7); Basophils % 0.4; Eosinophils % 0.6; HCT 40.5 % (40.0-50.0); HGB 13.8 g/dL (13.5-17.5); Immature Grans % 0.4; Lymphocytes % 16.2; MCH 30.7 pg (27.0-33.0); MCHC 34.1 % (32.0-36.0); MCV 90 fL (80-95); MPV 9.3 fL (8.0-11.0); Monocytes % 8.2; Neutrophils % 74.2; Platelet Count 194 10^3/uL (130-400); RBC 4.49 10^6/uL (4.36-5.78); RDW 15.6 % (11.8-14.1); RDW-SD 50.8 fL; WBC 10.57 10^3/uL (4.4-10.8)
[2022-04-06 13:00] LABS: ALT 23 U/L (16-63); AST 19 U/L (15-37); Albumin 3.4 g/dL (3.4-5.0); Alkaline Phosphatase 84 U/L (46-116); Anion Gap 7.7 mmol/L (3-11); BUN 14 mg/dL (7-18); Bilirubin, Total 0.8 mg/dL (0.2-1.0); CO2 29.3 mmol/L (21.0-32.0); CREATININE 1.1 mg/dL (0.70-1.30); Calcium 8.8 mg/dL (8.5-10.1); Chloride 104 mmol/L (98-107); Estimated GFR 82.29 (mL/min/1.73m2); FREE T4 1.32 ng/dL (0.76-1.46); Glucose 127 mg/dL (74-106); Magnesium 1.8 mg/dL (1.8-2.4); Potassium 3.7 mmol/L (3.5-5.1); Sodium 141 mmol/L (136-145); TSH 2.02 uIU/mL (0.36-3.74); Total Protein 6.7 g/dL (6.4-8.2)
[2022-04-06 22:32] LABS: CEA 5.1 ng/mL (See Note)
[2022-04-20] MEDS: Normal Saline Flush 10 ML SYR IVP (09:40)
[2022-04-20 09:52] LABS: Abs Immature Grans 0.03 10^3/uL (0.0-0.06); Absolute Basophil Count 0.05 10^3/uL (0.0-0.2); Absolute Eosinophil Count 0.27 10^3/uL (0.0-0.7); Absolute Lymphocyte Count 1.68 10^3/uL (1.2-3.4); Absolute Monocyte Count 0.87 10^3/uL (0.1-0.8); Absolute Neutrophil Count 4.94 10^3/uL (1.2-6.7); Basophils % 0.6; Eosinophils % 3.4; HCT 43.9 % (40.0-50.0); HGB 14.9 g/dL (13.5-17.5); Immature Grans % 0.4; Lymphocytes % 21.4; MCH 31.3 pg (27.0-33.0); MCHC 33.9 % (32.0-36.0); MCV 92 fL (80-95); MPV 8.9 fL (8.0-11.0); Monocytes % 11.1; Neutrophils % 63.1; Platelet Count 222 10^3/uL (130-400); RBC 4.76 10^6/uL (4.36-5.78); RDW 15.3 % (11.8-14.1); RDW-SD 51.7 fL; WBC 7.84 10^3/uL (4.4-10.8)
[2022-04-20 10:19] LABS: ALT 24 U/L (16-63); AST 19 U/L (15-37); Albumin 3.3 g/dL (3.4-5.0); Alkaline Phosphatase 87 U/L (46-116); Anion Gap 8.3 mmol/L (3-11); BUN 11 mg/dL (7-18); Bilirubin, Total 0.8 mg/dL (0.2-1.0); CO2 26.7 mmol/L (21.0-32.0); CREATININE 1.1 mg/dL (0.70-1.30); Calcium 8.9 mg/dL (8.5-10.1); Chloride 104 mmol/L (98-107); Estimated GFR 82.29 (mL/min/1.73m2); FREE T4 0.94 ng/dL (0.76-1.46); Glucose 181 mg/dL (74-106); Magnesium 1.7 mg/dL (1.8-2.4); Sodium 139 mmol/L (136-145); TSH 14.55 uIU/mL (0.36-3.74); Total Protein 6.8 g/dL (6.4-8.2)
[2022-04-20 18:29] LABS: CEA 4.5 ng/mL (See Note)
== END 2022-04-24 23:59 | disposition home or self-care (01) ==
LOC: INF 02:26
PROVIDERS: Nurse Practitioner Adult Health; PCP Family Medicine; Visit Provider Internal Medicine Medical Oncology
DX: C15.5 Malignant neoplasm of lower third of esophagus (principal); Z79.899 Other long term (current) drug therapy; Z45.2 Encounter for adjustment and management of vascular access device
CPT/HCPCS: 36591; 80053; 82378; 83735; 84439; 84443; 85025

== ENCOUNTER 2022-05-18 02:23 | Outpatient (RCR) | payer OTHER, SELFPAY ==
[2022-05-04] MEDS: Normal Saline Flush 10 ML SYR IVP (07:51)
[2022-05-04 08:08] LABS: Abs Immature Grans 0.03 10^3/uL (0.0-0.06); Absolute Basophil Count 0.05 10^3/uL (0.0-0.2); Absolute Lymphocyte Count 1.65 10^3/uL (1.2-3.4); Absolute Neutrophil Count 4.22 10^3/uL (1.2-6.7); Basophils % 0.7; Eosinophils % 2.9; HCT 44.2 % (40.0-50.0); HGB 15.1 g/dL (13.5-17.5); Immature Grans % 0.4; Lymphocytes % 23.7; MCH 31.6 pg (27.0-33.0); MCHC 34.2 % (32.0-36.0); MCV 93 fL (80-95); MPV 9.1 fL (8.0-11.0); Monocytes % 11.5; Neutrophils % 60.8; Platelet Count 213 10^3/uL (130-400); RBC 4.78 10^6/uL (4.36-5.78); RDW-SD 50.9 fL; WBC 6.95 10^3/uL (4.4-10.8)
[2022-05-04 08:33] LABS: ALT 25 U/L (16-63); AST 19 U/L (15-37); Albumin 3.6 g/dL (3.4-5.0); Alkaline Phosphatase 85 U/L (46-116); Anion Gap 9.7 mmol/L (3-11); BUN 9 mg/dL (7-18); Bilirubin, Total 0.8 mg/dL (0.2-1.0); CO2 27.3 mmol/L (21.0-32.0); CREATININE 0.9 mg/dL (0.70-1.30); Chloride 105 mmol/L (98-107); Glucose 120 mg/dL (74-106); Magnesium 1.8 mg/dL (1.8-2.4); Sodium 142 mmol/L (136-145); TSH 6.68 uIU/mL (0.36-3.74); Total Protein 6.9 g/dL (6.4-8.2)
[2022-05-04 18:38] LABS: CEA 5.5 ng/mL (See Note)
[2022-05-04 23:33] LABS: FREE T4 1.22 ng/dL (0.76-1.46)
[2022-05-18] MEDS: Normal Saline Flush 10 ML SYR IVP (09:42)
[2022-05-18 09:47] LABS: Abs Immature Grans 0.03 10^3/uL (0.0-0.06); Absolute Basophil Count 0.04 10^3/uL (0.0-0.2); Absolute Eosinophil Count 0.21 10^3/uL (0.0-0.7); Absolute Lymphocyte Count 1.77 10^3/uL (1.2-3.4); Absolute Monocyte Count 0.82 10^3/uL (0.1-0.8); Absolute Neutrophil Count 3.08 10^3/uL (1.2-6.7); Basophils % 0.7; Eosinophils % 3.5; HCT 43.2 % (40.0-50.0); HGB 14.6 g/dL (13.5-17.5); Immature Grans % 0.5; Lymphocytes % 29.7; MCH 31.1 pg (27.0-33.0); MCHC 33.8 % (32.0-36.0); MCV 92 fL (80-95); MPV 8.8 fL (8.0-11.0); Monocytes % 13.8; Neutrophils % 51.8; Platelet Count 211 10^3/uL (130-400); RDW 14.1 % (11.8-14.1); RDW-SD 47.2 fL; WBC 5.95 10^3/uL (4.4-10.8)
[2022-05-18 10:15] LABS: ALT 27 U/L (16-63); AST 18 U/L (15-37); Albumin 3.6 g/dL (3.4-5.0); Alkaline Phosphatase 81 U/L (46-116); Anion Gap 5.2 mmol/L (3-11); BUN 12 mg/dL (7-18); Bilirubin, Total 0.8 mg/dL (0.2-1.0); CO2 30.8 mmol/L (21.0-32.0); CREATININE 1.1 mg/dL (0.70-1.30); Calcium 9.2 mg/dL (8.5-10.1); Chloride 103 mmol/L (98-107); Estimated GFR 82.29 (mL/min/1.73m2); Glucose 124 mg/dL (74-106); Magnesium 2.1 mg/dL (1.8-2.4); Potassium 4.2 mmol/L (3.5-5.1); Sodium 139 mmol/L (136-145); Total Protein 6.7 g/dL (6.4-8.2)
[2022-05-18 18:36] LABS: CEA 4.8 ng/mL (See Note)
== END 2022-05-25 23:59 | disposition home or self-care (01) ==
LOC: INF 02:23
PROVIDERS: PCP Family Medicine; Visit Provider Internal Medicine Medical Oncology
DX: C15.5 Malignant neoplasm of lower third of esophagus (principal); Z79.899 Other long term (current) drug therapy; Z45.2 Encounter for adjustment and management of vascular access device
CPT/HCPCS: 36591; 80053; 82378; 83735; 84439; 84443; 85025

== ENCOUNTER 2022-06-15 02:16 | Outpatient (RCR) | payer OTHER, SELFPAY ==
[2022-06-01] MEDS: Normal Saline Flush 10 ML SYR IVP (09:31)
[2022-06-01 09:51] LABS: Abs Immature Grans 0.03 10^3/uL (0.0-0.06); Absolute Basophil Count 0.05 10^3/uL (0.0-0.2); Absolute Eosinophil Count 0.24 10^3/uL (0.0-0.7); Absolute Lymphocyte Count 2.21 10^3/uL (1.2-3.4); Absolute Monocyte Count 0.95 10^3/uL (0.1-0.8); Absolute Neutrophil Count 3.95 10^3/uL (1.2-6.7); Basophils % 0.7; Eosinophils % 3.2; Immature Grans % 0.4; Lymphocytes % 29.7; MCH 31.4 pg (27.0-33.0); MCHC 33.3 % (32.0-36.0); MCV 94 fL (80-95); Monocytes % 12.8; Neutrophils % 53.2; Platelet Count 222 10^3/uL (130-400); RBC 4.46 10^6/uL (4.36-5.78); RDW-SD 47.8 fL; WBC 7.43 10^3/uL (4.4-10.8)
[2022-06-01 10:18] LABS: ALT 19 U/L (16-63); AST 14 U/L (15-37); Albumin 3.5 g/dL (3.4-5.0); Alkaline Phosphatase 72 U/L (46-116); Anion Gap 6.7 mmol/L (3-11); BUN 16 mg/dL (7-18); Bilirubin, Total 0.7 mg/dL (0.2-1.0); CO2 29.3 mmol/L (21.0-32.0); CREATININE 1.2 mg/dL (0.70-1.30); Calcium 8.8 mg/dL (8.5-10.1); Chloride 106 mmol/L (98-107); Estimated GFR 74.13 (mL/min/1.73m2); FREE T4 1.32 ng/dL (0.76-1.46); Glucose 93 mg/dL (74-106); Potassium 4.1 mmol/L (3.5-5.1); Sodium 142 mmol/L (136-145); TSH 1.51 uIU/mL (0.36-3.74); Total Protein 6.4 g/dL (6.4-8.2)
[2022-06-01 18:13] LABS: CEA 5.3 ng/mL (See Note)
[2022-06-15] MEDS: Normal Saline Flush 10 ML SYR IVP (10:04)
[2022-06-15 10:26] LABS: Abs Immature Grans 0.04 10^3/uL (0.0-0.06); Absolute Basophil Count 0.07 10^3/uL (0.0-0.2); Absolute Eosinophil Count 0.33 10^3/uL (0.0-0.7); Absolute Lymphocyte Count 2.64 10^3/uL (1.2-3.4); Absolute Monocyte Count 1.46 10^3/uL (0.1-0.8); Absolute Neutrophil Count 6.89 10^3/uL (1.2-6.7); Basophils % 0.6; Eosinophils % 2.9; HCT 45.5 % (40.0-50.0); HGB 15.4 g/dL (13.5-17.5); Immature Grans % 0.3; Lymphocytes % 23.1; MCH 31.6 pg (27.0-33.0); MCHC 33.8 % (32.0-36.0); MCV 93 fL (80-95); Monocytes % 12.8; Neutrophils % 60.3; Platelet Count 236 10^3/uL (130-400); RBC 4.87 10^6/uL (4.36-5.78); RDW-SD 47.7 fL; WBC 11.43 10^3/uL (4.4-10.8)
[2022-06-15 10:53] LABS: ALT 28 U/L (16-63); AST 17 U/L (15-37); Albumin 3.6 g/dL (3.4-5.0); Alkaline Phosphatase 93 U/L (46-116); Anion Gap 8.2 mmol/L (3-11); BUN 14 mg/dL (7-18); Bilirubin, Total 0.9 mg/dL (0.2-1.0); CO2 28.8 mmol/L (21.0-32.0); CREATININE 1.3 mg/dL (0.70-1.30); Calcium 9.2 mg/dL (8.5-10.1); Chloride 102 mmol/L (98-107); Estimated GFR 67.34 (mL/min/1.73m2); FREE T4 1.35 ng/dL (0.76-1.46); Glucose 98 mg/dL (74-106); Magnesium 2.2 mg/dL (1.8-2.4); Potassium 4.3 mmol/L (3.5-5.1); Sodium 139 mmol/L (136-145); TSH 3.75 uIU/mL (0.36-3.74); Total Protein 7.2 g/dL (6.4-8.2)
[2022-06-15 20:22] LABS: CEA 5.6 ng/mL (See Note)
== END 2022-06-24 23:59 | disposition home or self-care (01) ==
LOC: INF 02:16
PROVIDERS: PCP Family Medicine; Visit Provider Internal Medicine Medical Oncology
DX: C15.5 Malignant neoplasm of lower third of esophagus (principal); Z79.899 Other long term (current) drug therapy; Z45.2 Encounter for adjustment and management of vascular access device
CPT/HCPCS: 36591; 80053; 82378; 83735; 84439; 84443; 85025

== ENCOUNTER 2022-07-13 02:41 | Outpatient (RCR) | payer OTHER, SELFPAY ==
[2022-06-29] MEDS: Normal Saline Flush 10 ML SYR IVP (09:27)
[2022-06-29 09:39] LABS: Abs Immature Grans 0.06 10^3/uL (0.0-0.06); Absolute Basophil Count 0.05 10^3/uL (0.0-0.2); Absolute Eosinophil Count 0.42 10^3/uL (0.0-0.7); Absolute Lymphocyte Count 1.99 10^3/uL (1.2-3.4); Absolute Monocyte Count 1.08 10^3/uL (0.1-0.8); Absolute Neutrophil Count 5.88 10^3/uL (1.2-6.7); Basophils % 0.5; Eosinophils % 4.4; HCT 41.9 % (40.0-50.0); HGB 13.9 g/dL (13.5-17.5); Immature Grans % 0.6; MCH 31.2 pg (27.0-33.0); MCHC 33.2 % (32.0-36.0); MCV 94 fL (80-95); MPV 8.8 fL (8.0-11.0); Monocytes % 11.4; Neutrophils % 62.1; Platelet Count 218 10^3/uL (130-400); RBC 4.46 10^6/uL (4.36-5.78); WBC 9.48 10^3/uL (4.4-10.8)
[2022-06-29 10:06] LABS: ALT 21 U/L (16-63); AST 18 U/L (15-37); Albumin 3.4 g/dL (3.4-5.0); Alkaline Phosphatase 78 U/L (46-116); Anion Gap 6.1 mmol/L (3-11); BUN 11 mg/dL (7-18); Bilirubin, Total 0.6 mg/dL (0.2-1.0); CO2 28.9 mmol/L (21.0-32.0); Calcium 8.7 mg/dL (8.5-10.1); Chloride 106 mmol/L (98-107); Estimated GFR 92.26 (mL/min/1.73m2); FREE T4 1.19 ng/dL (0.76-1.46); Glucose 123 mg/dL (74-106); Magnesium 1.8 mg/dL (1.8-2.4); Sodium 141 mmol/L (136-145); TSH 1.05 uIU/mL (0.36-3.74); Total Protein 6.4 g/dL (6.4-8.2)
[2022-06-29 17:49] LABS: CEA 6.2 ng/mL (See Note)
[2022-07-13] MEDS: Normal Saline Flush 10 ML SYR IVP (10:25)
[2022-07-13 10:38] LABS: Abs Immature Grans 0.02 10^3/uL (0.0-0.06); Absolute Basophil Count 0.04 10^3/uL (0.0-0.2); Absolute Eosinophil Count 0.34 10^3/uL (0.0-0.7); Absolute Lymphocyte Count 1.94 10^3/uL (1.2-3.4); Absolute Monocyte Count 1.15 10^3/uL (0.1-0.8); Absolute Neutrophil Count 4.84 10^3/uL (1.2-6.7); Basophils % 0.5; Eosinophils % 4.1; HCT 43.7 % (40.0-50.0); HGB 14.7 g/dL (13.5-17.5); Immature Grans % 0.2; Lymphocytes % 23.3; MCH 31.5 pg (27.0-33.0); MCHC 33.6 % (32.0-36.0); MCV 94 fL (80-95); MPV 8.9 fL (8.0-11.0); Monocytes % 13.8; Neutrophils % 58.1; Platelet Count 253 10^3/uL (130-400); RBC 4.67 10^6/uL (4.36-5.78); RDW 14.5 % (11.8-14.1); RDW-SD 49.3 fL; WBC 8.33 10^3/uL (4.4-10.8)
[2022-07-13 11:05] LABS: ALT 23 U/L (16-63); AST 19 U/L (15-37); Albumin 3.6 g/dL (3.4-5.0); Alkaline Phosphatase 82 U/L (46-116); Anion Gap 6.9 mmol/L (3-11); BUN 11 mg/dL (7-18); Bilirubin, Total 0.9 mg/dL (0.2-1.0); CO2 29.1 mmol/L (21.0-32.0); CREATININE 1.1 mg/dL (0.70-1.30); Calcium 9.5 mg/dL (8.5-10.1); Chloride 103 mmol/L (98-107); Estimated GFR 82.29 (mL/min/1.73m2); FREE T4 1.43 ng/dL (0.76-1.46); Glucose 115 mg/dL (74-106); Magnesium 2.1 mg/dL (1.8-2.4); Potassium 4.2 mmol/L (3.5-5.1); Sodium 139 mmol/L (136-145); TSH 2.74 uIU/mL (0.36-3.74); Total Protein 6.9 g/dL (6.4-8.2)
[2022-07-13 18:31] LABS: CEA 5.7 ng/mL (See Note)
== END 2022-07-25 23:59 | disposition home or self-care (01) ==
LOC: INF 02:41
PROVIDERS: PCP Family Medicine; Visit Provider Internal Medicine Medical Oncology
DX: C15.5 Malignant neoplasm of lower third of esophagus (principal); Z79.899 Other long term (current) drug therapy; Z45.2 Encounter for adjustment and management of vascular access device
CPT/HCPCS: 36591; 80053; 82378; 83735; 84439; 84443; 85025

== ENCOUNTER 2022-08-04 01:46 | Outpatient (CLI) | payer OTHER, SELFPAY ==
--- NOTE | 2022-08-04 | DI.CT_ITS ---
Exam(s) CT CHEST/ABD W EXAM: CT CHEST/ABD W CLINICAL HISTORY: RECUR. METASTATIC ESOPHAGEALCA.C15.5,ON CHEMO,RESTAGING EXAM TECHNIQUE: Imaging Protocol: Axial computed tomography images with coronal and sagittal reformatted images were created and reviewed CONTRAST MATERIAL: Intravenous: Omnipaque 350 contrast volume:100 mL Oral: Yes FINDINGS: CHEST: Tracheobronchial tree: Patent where visualized. Pulmonary parenchyma: Emphysematous changes are present in the lungs. There is unchanged scarring in the medial aspects of the upper lobes bilaterally. There is a stable nodule in the lateral aspect o f the right middle lobe. Scarring at the base of the right major fissure is unchanged. No new pulmo nary nodules are present. No focal consolidating infiltrates are seen. Visualized thyroid gland: Unremarkable. Mediastinum and [place]: No dominant adenopathy or fluid collection. Postsurgical changes are again seen of a gastric pull-up. Pleura: No effusion or pneumothorax. Heart: The heart is not dilated. Coronary artery calcifications are present. No pericardial effusion . Pulmonary arteries: The segmental and subsegmental pulmonary arteries are inadequately opacified for evaluation of pulmonary emboli. No large central pulmonary embolus is seen. Aorta: Thoracic aorta non-dilated. Atherosclerosis is present. Lymph nodes: Within normal limits. Tubes, Catheters, and Lines: There is an [id number] catheter in place. The tip is in good positio n at the junction of the superior vena cava and right atrium. Soft tissues: Unremarkable. Bones:Within normal limits for the patient's age. No suspicious lesions. ABDOMEN: Liver: Normal density. No measurable mass. Portal, Superior Mesenteric, and Splenic Veins: Unremarkable. Gallbladder and Biliary Tract: No radiodense calculus or dilation. Pancreas: Normal density, no abnormal calcifications or inflammatory process. Spleen: Calcified granuloma are present. Adrenals: There is unchanged nodularity of the left adrenal gland. The right adrenal gland is unrema rkable. Kidneys: Normal size, contour and axis. No radiodense stones or obstructive uropathy. No masses seen. Abdominal Aorta: Abdominal portion non-dilated. Atherosclerosis is present. Bowel: No obstruction or bowel wall thickening. Postsurgical changes are again seen of a gastric pull -up. Peritoneal Cavity: No ascites, collection or mesenteric inflammatory response. No free air. Lymph Nodes: Within normal limits. Bones: Within normal limits for the patient's age. No suspicious lesions. Soft Tissues: Unremarkable. IMPRESSION: 1. No change in appearance of the chest compared to the prior examination. 2. No evidence of abdominal metastatic disease. RADIATION DOSE DELIVERED: 893.83mGy.cm Total DLP DATA REPOSITORY: All CT scans at this facility are submitted to the National Radiology Data Registry (NRDR) Dose Index Registry (DIR) with the [employer] (A[employer]). RADIATION OPTIMIZATION: All CT scans at this facility use at least one of these dose optimization te chniques: automated exposure control; mA and/or kV adjustment per patient size (includes targeted exa ms where dose is matched to clinical indication); or iterative reconstruction.
[2022-08-04] MEDS: Normal Saline - Diluent 50 ML VIAL IJ (09:57)
[2022-08-04] MEDS: Omnipaque 350 MG/ML 100 ML BTL IJ (09:59)
[2022-08-04] MEDS: Normal Saline Flush 10 ML SYR IVP (09:59)
[2022-08-04] MEDS: Barium Sulfate 2% W/V-Berry Smoothie 450 ML BTL PO (10:03)
== END 2022-08-04 02:06 ==
LOC: DI 01:46
PROVIDERS: PCP Family Medicine; Visit Provider Internal Medicine Medical Oncology
DX: C15.5 Malignant neoplasm of lower third of esophagus (principal)
CPT/HCPCS: 71260; 74160; J3490

== ENCOUNTER 2022-08-17 02:11 | Outpatient (RCR) | payer OTHER, SELFPAY ==
[2022-07-28] MEDS: Normal Saline Flush 10 ML SYR IVP (09:21)
[2022-07-28 09:24] LABS: Abs Immature Grans 0.08 10^3/uL (0.0-0.06); Absolute Basophil Count 0.07 10^3/uL (0.0-0.2); Absolute Eosinophil Count 0.43 10^3/uL (0.0-0.7); Absolute Lymphocyte Count 2.82 10^3/uL (1.2-3.4); Absolute Monocyte Count 1.31 10^3/uL (0.1-0.8); Absolute Neutrophil Count 5.23 10^3/uL (1.2-6.7); Basophils % 0.7; Eosinophils % 4.3; HCT 45.4 % (40.0-50.0); HGB 14.9 g/dL (13.5-17.5); Immature Grans % 0.8; Lymphocytes % 28.4; MCH 31.3 pg (27.0-33.0); MCHC 32.8 % (32.0-36.0); MCV 95 fL (80-95); Monocytes % 13.2; Neutrophils % 52.6; Platelet Count 248 10^3/uL (130-400); RBC 4.76 10^6/uL (4.36-5.78); RDW 14.4 % (11.8-14.1); RDW-SD 50.4 fL; WBC 9.94 10^3/uL (4.4-10.8)
[2022-07-28 09:52] LABS: ALT 36 U/L (16-63); AST 24 U/L (15-37); Albumin 3.6 g/dL (3.4-5.0); Alkaline Phosphatase 105 U/L (46-116); Anion Gap 5.2 mmol/L (3-11); BUN 12 mg/dL (7-18); Bilirubin, Total 0.7 mg/dL (0.2-1.0); CO2 28.8 mmol/L (21.0-32.0); CREATININE 1.1 mg/dL (0.70-1.30); Calcium 8.9 mg/dL (8.5-10.1); Chloride 107 mmol/L (98-107); Estimated GFR 82.29 (mL/min/1.73m2); FREE T4 1.11 ng/dL (0.76-1.46); Glucose 75 mg/dL (74-106); Magnesium 2.2 mg/dL (1.8-2.4); Potassium 4.5 mmol/L (3.5-5.1); Sodium 141 mmol/L (136-145); TSH 2.07 uIU/mL (0.36-3.74)
[2022-07-28 19:28] LABS: CEA 5.8 ng/mL (See Note)
[2022-08-04] MEDS: Normal Saline Flush 10 ML SYR IVP (10:22)
[2022-08-04] MEDS: Heparin 500 UNITS/5 ML SYRINGE IV (10:22)
[2022-08-17] MEDS: Normal Saline Flush 10 ML SYR IVP (07:38)
[2022-08-17 08:01] LABS: Absolute Basophil Count 0.06 10^3/uL (0.0-0.2); Absolute Lymphocyte Count 1.78 10^3/uL (1.2-3.4); Absolute Monocyte Count 1.61 10^3/uL (0.1-0.8); Absolute Neutrophil Count 8.11 10^3/uL (1.2-6.7); Basophils % 0.5; Eosinophils % 0.8; HCT 39.4 % (40.0-50.0); HGB 13.2 g/dL (13.5-17.5); Immature Grans % 1.7; MCH 31.6 pg (27.0-33.0); MCHC 33.5 % (32.0-36.0); MCV 94 fL (80-95); MPV 9.2 fL (8.0-11.0); Monocytes % 13.6; Neutrophils % 68.4; Platelet Count 405 10^3/uL (130-400); RBC 4.18 10^6/uL (4.36-5.78); RDW 13.5 % (11.8-14.1); RDW-SD 46.2 fL; WBC 11.86 10^3/uL (4.4-10.8)
[2022-08-17 08:03] LABS: Absolute Eosinophil Count 0.09 10^3/uL (0.0-0.7)
[2022-08-17 08:17] LABS: Diff Comment Agrees w/ Instrument; RBC Morphology Normal
[2022-08-17 08:40] LABS: ALT 23 U/L (16-63); AST 15 U/L (15-37); Albumin 3.1 g/dL (3.4-5.0); Alkaline Phosphatase 118 U/L (46-116); BUN 10 mg/dL (7-18); Bilirubin, Total 0.6 mg/dL (0.2-1.0); CREATININE 0.9 mg/dL (0.70-1.30); Calcium 9.1 mg/dL (8.5-10.1); Chloride 103 mmol/L (98-107); Glucose 108 mg/dL (74-106); Magnesium 1.7 mg/dL (1.8-2.4); Potassium 4.3 mmol/L (3.5-5.1); Sodium 139 mmol/L (136-145); TSH 2.13 uIU/mL (0.36-3.74); Total Protein 7.1 g/dL (6.4-8.2)
[2022-08-17 17:28] LABS: CEA 4.7 ng/mL (See Note)
== END 2022-08-25 23:59 | disposition home or self-care (01) ==
LOC: INF 02:11
PROVIDERS: PCP Family Medicine; Visit Provider Internal Medicine Medical Oncology
DX: C15.5 Malignant neoplasm of lower third of esophagus (principal); Z79.899 Other long term (current) drug therapy; Z45.2 Encounter for adjustment and management of vascular access device
CPT/HCPCS: 36591; 80053; 96523; 82378; 83735; 84439; 84443; 85025

== ENCOUNTER 2022-09-14 02:10 | Outpatient (RCR) | payer OTHER, SELFPAY ==
[2022-08-31] MEDS: Normal Saline Flush 10 ML SYR IVP (08:14)
[2022-08-31 08:29] LABS: Abs Immature Grans 0.08 10^3/uL (0.0-0.06); Absolute Lymphocyte Count 1.53 10^3/uL (1.2-3.4); Absolute Monocyte Count 1.22 10^3/uL (0.1-0.8); Basophils % 0.8; Eosinophils % 1.7; HCT 42.4 % (40.0-50.0); HGB 13.8 g/dL (13.5-17.5); Immature Grans % 0.7; Lymphocytes % 12.8; MCH 31.1 pg (27.0-33.0); MCHC 32.5 % (32.0-36.0); MCV 96 fL (80-95); MPV 8.8 fL (8.0-11.0); Monocytes % 10.2; Neutrophils % 73.8; Platelet Count 415 10^3/uL (130-400); RBC 4.44 10^6/uL (4.36-5.78); RDW 13.2 % (11.8-14.1); RDW-SD 47.1 fL; WBC 11.96 10^3/uL (4.4-10.8)
[2022-08-31 08:31] LABS: Absolute Neutrophil Count 8.83 10^3/uL (1.2-6.7)
[2022-08-31 08:54] LABS: ALT 14 U/L (16-63); AST 20 U/L (15-37); Albumin 3.4 g/dL (3.4-5.0); Alkaline Phosphatase 92 U/L (46-116); Anion Gap 5.9 mmol/L (3-11); BUN 10 mg/dL (7-18); Bilirubin, Total 0.5 mg/dL (0.2-1.0); CO2 28.1 mmol/L (21.0-32.0); CREATININE 0.9 mg/dL (0.70-1.30); Chloride 104 mmol/L (98-107); FREE T4 1.42 ng/dL (0.76-1.46); Glucose 112 mg/dL (74-106); Potassium 3.9 mmol/L (3.5-5.1); Sodium 138 mmol/L (136-145); TSH 0.28 uIU/mL (0.36-3.74); Total Protein 7.2 g/dL (6.4-8.2)
[2022-08-31 18:10] LABS: CEA 4.5 ng/mL (See Note)
[2022-09-14] MEDS: Normal Saline Flush 10 ML SYR IVP (07:24)
[2022-09-14 07:34] LABS: Abs Immature Grans 0.06 10^3/uL (0.0-0.06); Absolute Basophil Count 0.07 10^3/uL (0.0-0.2); Absolute Eosinophil Count 0.51 10^3/uL (0.0-0.7); Absolute Lymphocyte Count 2.29 10^3/uL (1.2-3.4); Absolute Monocyte Count 0.94 10^3/uL (0.1-0.8); Absolute Neutrophil Count 5.44 10^3/uL (1.2-6.7); Basophils % 0.8; Eosinophils % 5.5; HCT 43.1 % (40.0-50.0); HGB 14.2 g/dL (13.5-17.5); Immature Grans % 0.6; Lymphocytes % 24.6; MCH 31.2 pg (27.0-33.0); MCHC 32.9 % (32.0-36.0); MCV 95 fL (80-95); MPV 8.9 fL (8.0-11.0); Monocytes % 10.1; Neutrophils % 58.4; Platelet Count 264 10^3/uL (130-400); RBC 4.55 10^6/uL (4.36-5.78); RDW 13.3 % (11.8-14.1); RDW-SD 46.4 fL; WBC 9.31 10^3/uL (4.4-10.8)
[2022-09-14 07:59] LABS: ALT 30 U/L (16-63); AST 23 U/L (15-37); Albumin 3.3 g/dL (3.4-5.0); Alkaline Phosphatase 91 U/L (46-116); Anion Gap 7.8 mmol/L (3-11); BUN 9 mg/dL (7-18); Bilirubin, Total 0.4 mg/dL (0.2-1.0); CO2 28.2 mmol/L (21.0-32.0); CREATININE 0.9 mg/dL (0.70-1.30); Calcium 8.7 mg/dL (8.5-10.1); Chloride 106 mmol/L (98-107); Glucose 115 mg/dL (74-106); Magnesium 1.9 mg/dL (1.8-2.4); Potassium 4.4 mmol/L (3.5-5.1); Sodium 142 mmol/L (136-145); TSH 0.99 uIU/mL (0.36-3.74); Total Protein 6.4 g/dL (6.4-8.2)
[2022-09-14 18:48] LABS: CEA 4.4 ng/mL (See Note)
== END 2022-09-22 23:59 | disposition home or self-care (01) ==
LOC: INF 02:10
PROVIDERS: Nurse Practitioner Adult Health; PCP Family Medicine; Visit Provider Internal Medicine Medical Oncology
DX: C15.5 Malignant neoplasm of lower third of esophagus (principal); Z79.899 Other long term (current) drug therapy
CPT/HCPCS: 36591; 80053; 82378; 83735; 84439; 84443; 85025

== ENCOUNTER 2022-10-12 03:37 | Outpatient (RCR) | payer OTHER, SELFPAY ==
[2022-09-28] MEDS: Normal Saline Flush 10 ML SYR IVP (07:44)
[2022-09-28 08:13] LABS: Abs Immature Grans 0.03 10^3/uL (0.0-0.06); Absolute Basophil Count 0.05 10^3/uL (0.0-0.2); Absolute Eosinophil Count 0.27 10^3/uL (0.0-0.7); Absolute Lymphocyte Count 1.69 10^3/uL (1.2-3.4); Absolute Monocyte Count 0.82 10^3/uL (0.1-0.8); Absolute Neutrophil Count 4.36 10^3/uL (1.2-6.7); Basophils % 0.7; Eosinophils % 3.7; HCT 44.2 % (40.0-50.0); HGB 14.5 g/dL (13.5-17.5); Immature Grans % 0.4; Lymphocytes % 23.4; MCH 30.9 pg (27.0-33.0); MCHC 32.8 % (32.0-36.0); MCV 94 fL (80-95); MPV 8.9 fL (8.0-11.0); Monocytes % 11.4; Neutrophils % 60.4; Platelet Count 289 10^3/uL (130-400); RBC 4.69 10^6/uL (4.36-5.78); RDW 13.3 % (11.8-14.1); RDW-SD 45.8 fL; WBC 7.22 10^3/uL (4.4-10.8)
[2022-09-28 08:27] LABS: ALT 22 U/L (16-63); AST 16 U/L (15-37); Albumin 3.7 g/dL (3.4-5.0); Alkaline Phosphatase 81 U/L (46-116); Anion Gap 7.2 mmol/L (3-11); BUN 12 mg/dL (7-18); Bilirubin, Total 0.7 mg/dL (0.2-1.0); CO2 28.8 mmol/L (21.0-32.0); CREATININE 0.9 mg/dL (0.70-1.30); Calcium 9.1 mg/dL (8.5-10.1); Chloride 103 mmol/L (98-107); Glucose 106 mg/dL (74-106); Magnesium 1.8 mg/dL (1.8-2.4); Potassium 4.1 mmol/L (3.5-5.1); Sodium 139 mmol/L (136-145); Total Protein 6.9 g/dL (6.4-8.2)
[2022-09-28 18:48] LABS: CEA 4.5 ng/mL (See Note)
[2022-10-12] MEDS: Normal Saline Flush 10 ML SYR IVP (07:47)
[2022-10-12 08:07] LABS: Abs Immature Grans 0.07 10^3/uL (0.0-0.06); Absolute Basophil Count 0.07 10^3/uL (0.0-0.2); Absolute Eosinophil Count 0.26 10^3/uL (0.0-0.7); Absolute Neutrophil Count 9.29 10^3/uL (1.2-6.7); Basophils % 0.6; Eosinophils % 2.1; HCT 43.8 % (40.0-50.0); HGB 14.8 g/dL (13.5-17.5); Immature Grans % 0.6; Lymphocytes % 13.7; MCH 31.7 pg (27.0-33.0); MCHC 33.8 % (32.0-36.0); MCV 94 fL (80-95); MPV 8.5 fL (8.0-11.0); Monocytes % 8.1; Neutrophils % 74.9; Platelet Count 251 10^3/uL (130-400); RBC 4.67 10^6/uL (4.36-5.78); RDW 13.7 % (11.8-14.1); RDW-SD 46.7 fL
[2022-10-12 08:33] LABS: ALT 22 U/L (16-63); AST 15 U/L (15-37); Albumin 3.5 g/dL (3.4-5.0); Alkaline Phosphatase 80 U/L (46-116); Anion Gap 7.8 mmol/L (3-11); BUN 11 mg/dL (7-18); Bilirubin, Total 0.5 mg/dL (0.2-1.0); CO2 29.2 mmol/L (21.0-32.0); Calcium 8.7 mg/dL (8.5-10.1); Chloride 106 mmol/L (98-107); Estimated GFR 92.26 (mL/min/1.73m2); Glucose 116 mg/dL (74-106); Magnesium 1.9 mg/dL (1.8-2.4); Potassium 4.2 mmol/L (3.5-5.1); Sodium 143 mmol/L (136-145); TSH 3.98 uIU/mL (0.36-3.74); Total Protein 6.5 g/dL (6.4-8.2)
[2022-10-12 08:43] LABS: T4 9.8 ug/dL (4.7-13.3)
[2022-10-12 18:06] LABS: CEA 5.3 ng/mL (See Note)
== END 2022-10-23 23:59 | disposition home or self-care (01) ==
LOC: INF 03:37
PROVIDERS: Nurse Practitioner Family; PCP Family Medicine; Visit Provider Internal Medicine Medical Oncology
DX: C15.5 Malignant neoplasm of lower third of esophagus (principal); Z79.899 Other long term (current) drug therapy; Z45.2 Encounter for adjustment and management of vascular access device
CPT/HCPCS: 36591; 80053; 82378; 83735; 84436; 84443; 85025

== ENCOUNTER 2022-10-26 09:16 | Emergency (ER) | payer OTHER, SELFPAY ==
[2022-10-26 09:19] VITALS: BP 121/74; PULSE 88; RESP 18; TEMP 36.9; O2SAT 99
--- NOTE | 2022-10-26 09:33 | ED.GENADUL_ITS ---
Discharge Plan Disposition Patient Disposition: Home Condition: Stable Discharge Details Clinical Impression: Pneumonia, Leukocytosis Primary Care Provider: Donovan Bobby ED Provider: Sylvie Myers Meds and New Rx's Prescriptions: New levofloxacin 750 mg tablet 750 mg PO DAILY Qty: 6 0RF Continued budesonide-formoterol [Symbicort] 80-4.5 mcg/actuation HFA aerosol inhaler 2 puff IH BID PRN Patient Comments: not on med list multivitamin Tablet 1 tab PO DAILY nystatin 100,000 unit/mL suspension 5 ml PO QID Qty: 200 0RF Rx Instructions: swish and swallow levothyroxine 75 mcg capsule 75 mcg PO DAILY Qty: 90 3RF nitroglycerin 0.4 mg tablet, sublingual 0.4 mg Sublingual PRN Qty: 25 0RF tadalafil 20 mg tablet 20 mg PO DAILY PRN (Reason: sexual activity) Qty: 30 2RF Rx Instructions: administer approximately 30min before sexual activity; do not use more than 1 dose per 24hrs amoxicillin 875 mg tablet 875 mg PO BID Qty: 14 0RF Patient Comments: not on med list aspirin 81 MG tablet,chewable 81 mg PO DAILY nicotine 14 mg/24 hr patch 24 hour 1 patch TD DAILY Qty: 28 5RF Patient Comments: not on med list lansoprazole 30 mg capsule,delayed release(DR/EC) 30 mg PO DAILY Qty: 90 3RF nicotine 21 mg/24 hr patch 24 hour 1 patch TD Q24H Qty: 30 2RF Patient Comments: not on med list bupropion HCl 300 mg tablet extended release 24 hr 300 mg PO QAM Qty: 30 5RF ondansetron 4 mg tablet,disintegrating 4 mg PO QID PRN (Reason: nausea and vomiting) Qty: 20 3RF diphenhydramine HCl 12.5 mg/5 mL Elixir 12.5 mg PO Q4H PRN docusate sodium 100 mg Capsule 100 mg PO BID lidocaine HCl 2 % Solution 1 applic MUCOUS MEMBRANE Q4H PRN albuterol sulfate 90 mcg/actuation Hfa Aerosol Inhaler 2 puff INHALATION Q4H PRN fluticasone propionate 110 mcg/actuation Hfa Aerosol Inhaler 2 puff INHALATION PRN PRN alum-mag hydroxide-simeth 200-200-20 mg/5 mL Suspension 5 ml PO Q4H lorazepam 0.5 mg tablet 0.5 mg PO Q6H PRN sulfamethoxazole 500 mg Tablet PO sennosides [senna] 8.6 mg Tablet 8.6 mg PO DAILY PRN prochlorperazine maleate 10 mg tablet 10 mg PO Q6H Patient Comments: TAKE 1 TABLET BY MOUTH EVERY 6 HOURS NEEDED FOR NAUSEA mirtazapine 15 mg Tablet 15 mg PO QHS Discharge Instructions Instructions: Pneumonia (ED) Additional Instructions: As we discussed, your history and exam as well as imaging are most consistent with pneumonia. Please encourage hydration. Please take the antibiotics as prescribed. Even if symptoms improve, please take the entire course. Please take a probiotic while on the antibiotics. If you develop difficulty breathing, shortness of breath, inability stay hydrated or any new/worsening symptom please seek care urgently once again. Otherwise, please follow-up within the next week with your oncology team. Please call today to schedule follow-up appointment. They will be able to reschedule your pet exam, chemotherapy and continue to evaluate the area in the right bottom of your lung. Referrals: Donovan Bobby MD [Primary Care Provider] - Discharge Data Discharge Date/Time-TO BE ENTERED AT DEPARTURE: 10/26/22 14:22 Medical Decision Making Patient is a pleasant 47-year-old male, accompanied by his , presenting today with chief complaint of fever in setting of receiving chemotherapy for esophageal cancer. Patient last received chemo 2 weeks ago and was due for repeat dosing today. States that he had fever with a Tmax of 102.8 ?F for the past 24 hours. Has been taking acetaminophen with good relief. Last took acetaminophen 4 hours prior to arrival. He reports that on Wednesday, 3 days ago, he was helping to push a friend's truck that was stuck and since then has been having some upper right-sided chest discomfort and shoulder pain. He states that this is worse when he takes a deep breath. This subsequently makes him feel slightly short of breath. He has not had any substernal chest pain. He does have a history of PA and states this does not feel like it has in the past although he states that he has had some chest pain unrelated to this pushing the car which has felt more similar to his cardiac pathology. States that he feels like I may be getting a chest cold. States that he did bring up some brown sputum this morning. However, has not been outwardly sick up to this point denies any rhinorrhea, nasal congestion, ear pain. He has some chronic abdominal discomfort which she associates with his known esophageal cancer and previous surgeries and has also had increase in acid reflux which she associates with large metabolic pain he was recently. However, he denies any increase in his baseline abdominal pain. No change in bowel habits. States that his urine has been dark but otherwise no increased frequency, urgency or dysuria. On exam, patient appears chronically ill and cachectic. His lungs are clear, normal cardiac auscultation. He is full range of motion of the right shoulder with no indication of infection in the shoulder. No reproducible pain. No reproducible chest pain with palpation although he does have increased discomfort with deep inspiration in the right upper lobe. No crepitus palpable. Abdomen is benign. His previous surgical incision sites are well- healed. He has no CVA tenderness. He does have bilateral calf tenderness which patient feels is more musculoskeletal in nature from pushing the car. He has no lower extremity edema. Patient has no meningeal irritation. Past medical history is pertinent for alcohol abuse, anxiety, CAD, esophageal cancer, hypertension, GERD, hyperlipidemia. Concern for primarily infectious etiology, particular pneumonia. Consider neutropenic fever. Patient has not been neutropenic recently and did have blood draw completed prior to his previous chemotherapy 2 weeks ago. However, as he has been does since then certainly consider this still. I also considered a potential PE given the pleuritic nature, bilateral calf pain we will move forward with a CTA to evaluate for this. We will begin the patient on levofloxacin. While he certainly does not sound to have active ACS., He may have progressing coronary artery disease given his other chest discomforts. Labs reviewed, WBC 19, ANC elevated at 15. Lactqte WNL. Cultures pending. CMP significant for elevate at 1.4 which is new for the patient. Consulted with radiologist, he advised that there is concerning mass in the RLL which has increased in size since July. It does have some surrounding groundglass appearance. We will send the images to his oncology team. Patient is already received levofloxacin. Patient does not have a neutropenic fever. We will consult with oncology team regarding continued management. Consulted with Dr. Montanez with oncology at [facility] [place]. She reviewed the imaging, we discussed labs, history, presentation. Will continue with Levofloxacin, as outpatient as he is not neutropenic. They are concerned about the above spot on RLL but are unclear if cancerous vs. infectious. Will treat with abx, they will reschedule PET scan. Discussed with mustapha. He will call oncology team to schedule f/u. Will continue with Levofloxacin. Encouraged hydration. Discussed supportive care measures. Strict return preautions given. All of their questions and concern were addressed, they are in agreement with this plan. HPI General Date/Time Provider Initiated Documentation: 10/26/22 09:33 . Limitations to Documentation: no limitations . Information obtained by: patient, family, RN notes reviewed and old records reviewed . History of Present Illness 47 year old M presents to the emergency department with the chief complaint of fever, cough, described as moderate, Quality is described as aching (right upper chest wall pain with deep inspiration), Patient reports no radiation. Patient started experiencing this day(s) (1) and it has been constant. Medication improves symptom(s), (APAP has had good relief) No exacerbating factors reported . Patient notes confusion (right upper chest wall, pleuritic pain), cough, fever/chills, loss of appetite, malaise, nausea/vomiting (states he gets nauseated with anxiety) and shortness of breath (associated with deep inspiration and discomfort on right side); denies rash. Patient did receive the following treatments prior to arrival, other (APAP) Related Data Home Medications Medication Instructions Recorded Confirmed aspirin 81 mg chewable tablet 81 mg PO DAILY 03/25/16 10/26/22 nicotine 14 mg/24 hr daily 1 patch transdermal DAILY #28 ea 03/27/20 08/19/22 transdermal patch budesonide-formoterol HFA 80 2 puff inhalation BID PRN 04/16/20 08/19/22 mcg-4.5 mcg/actuation aerosol inhaler (Symbicort) multivitamin 1 tab PO DAILY 04/16/20 10/26/22 nystatin 100,000 unit/mL oral 5 ml PO QID thrush #200 mL 04/16/20 08/19/22 suspension lansoprazole 30 mg capsule,delayed 30 mg PO DAILY #90 caps 11/04/20 10/26/22 release nicotine 21 mg/24 hr daily 1 patch transdermal Q24H #30 ea 09/25/21 08/19/22 transdermal patch nitroglycerin 0.4 mg sublingual 0.4 mg sublingual PRN #25 tabs 12/23/21 10/26/22 tablet tadalafil 20 mg tablet 20 mg PO DAILY PRN sexual activity 12/23/21 10/26/22 #30 tabs levothyroxine 75 mcg capsule 75 mcg PO DAILY #90 caps 02/16/22 10/26/22 bupropion HCl 300 mg 24 hr tablet, 300 mg PO QAM #30 tabs 07/04/22 10/26/22 extended release amoxicillin 875 mg tablet 875 mg PO BID #14 tabs 08/19/22 08/19/22 ondansetron 4 mg disintegrating 4 mg PO QID PRN nausea and 10/21/22 10/26/22 tablet vomiting #20 tabs albuterol sulfate 90 mcg/actuation 2 puff inhalation Q4H PRN 10/26/22 10/26/22 aerosol inhaler aluminum-mag hydroxide-simethicone 5 ml PO Q4H 10/26/22 10/26/22 200 mg-200 mg-20 mg/5 mL oral susp diphenhydramine HCl 12.5 mg/5 mL 12.5 mg PO Q4H PRN 10/26/22 10/26/22 oral elixir docusate sodium 100 mg capsule 100 mg PO BID 10/26/22 10/26/22 fluticasone propionate 110 2 puff inhalation PRN PRN 10/26/22 10/26/22 mcg/actuation HFA aerosol inhaler levofloxacin 750 mg tablet 750 mg PO DAILY #6 tabs 10/26/22 lidocaine HCl 2 % mucosal solution 1 applic mucous membrane Q4H PRN 10/26/22 10/26/22 lorazepam 0.5 mg tablet 0.5 mg PO Q6H PRN 10/26/22 10/26/22 mirtazapine 15 mg tablet 15 mg PO QHS 10/26/22 10/26/22 prochlorperazine maleate 10 mg 10 mg PO Q6H 10/26/22 10/26/22 tablet sennosides 8.6 mg tablet (senna) 8.6 mg PO DAILY PRN 10/26/22 10/26/22 sulfamethoxazole 500 mg tablet mg PO 10/26/22 Previous Rx's Medication Instructions Recorded nicotine 14 mg/24 hr daily 1 patch transdermal DAILY #28 ea 03/27/20 transdermal patch nystatin 100,000 unit/mL oral 5 ml PO QID thrush #200 mL 04/16/20 suspension lansoprazole 30 mg capsule,delayed 30 mg PO DAILY #90 caps 11/04/20 release nicotine 21 mg/24 hr daily 1 patch transdermal Q24H #30 ea 09/25/21 transdermal patch nitroglycerin 0.4 mg sublingual 0.4 mg sublingual PRN #25 tabs 12/23/21 tablet tadalafil 20 mg tablet 20 mg PO DAILY PRN sexual activity 12/23/21 #30 tabs levothyroxine 75 mcg capsule 75 mcg PO DAILY #90 caps 02/16/22 bupropion HCl 300 mg 24 hr tablet, 300 mg PO QAM #30 tabs 07/04/22 extended release amoxicillin 875 mg tablet 875 mg PO BID #14 tabs 08/19/22 ondansetron 4 mg disintegrating 4 mg PO QID PRN nausea and 10/21/22 tablet vomiting #20 tabs levofloxacin 750 mg tablet 750 mg PO DAILY #6 tabs 10/26/22 Allergies Allergy/AdvReac Type Severity Reaction Status Date / Time No Known Allergies Allergy Verified 10/26/22 09:36 General Stated Complaint: Fever CRISTA: 3 Review of Systems Constitutional Constitutional: Reports as per HPI and Denies headache(s) Eyes Eyes: Reports as per HPI, Denies eye discharge and Denies irritation ENT Ears, Nose, Mouth, and Throat: Reports as per HPI and Denies headache(s) Cardiovascular Cardiovascular: Reports as per HPI Respiratory Respiratory: Reports as per HPI Gastrointestinal Gastrointestinal: Reports as per HPI, Denies abdominal pain, Denies change in bowel habits and Denies vomiting Integumentary/Breasts Skin/Breast: Reports as per HPI and Denies rash Neurologic Neurologic: Reports as per HPI and Denies headache(s) PFSH All Active Problems (Updated 10/26/22 @ 14:09 by NISSA Dahl) Pneumonia (Acute) Leukocytosis (Acute) Sinusitis (Acute) Sleep disorder (Acute) Anxiety (Chronic) Mood disorder (Acute) Mucus plugging of bronchi (Acute) Thrush (Acute) Erectile dysfunction (Acute) Hypomagnesemia (Acute) Aspiration pneumonia (Acute) DVT prophylaxis (Acute) Nausea & vomiting (Acute) Fatigue (Chronic) Low BP (Chronic) wean metoprolol to stop Cachexia (Chronic) will augment mirtazapine encourage po whenever possible Pharyngitis (Chronic) Likely related to radiation Persistent mood disorder (Chronic) better but wt down History of arthroscopy of left knee (Chronic 12/31/14) Weight loss (Chronic) 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) Knee pain (Chronic 07/14/13) Unstable angina (Chronic) Medical History (Updated 10/26/22 @ 14:09 by NISSA Dahl) Adjustment disorder with depressed mood Alcohol abuse (07/14/13) Anxiety Bleeding hemorrhoids (05/28/17) Coronary artery disease Esophageal cancer Essential hypertension (07/13/13) Gastroesophageal reflux disease with esophagitis (03/09/13) GERD (gastroesophageal reflux disease) Hyperlipidemia (11/19/08) ST elevation myocardial infarction involving left circumflex coronary artery (03/18/16) SANDRITA to LCX EF 62% Tobacco use disorder Surgical History EGD - MAC (12/29/17) Esophagus cancer with h/o esophagus stent History of coronary artery stent placement Family History Mother Diabetes Essential hypertension Heart disease Hyperlipidemia Stroke Father Diabetes Sister No problems noted. Brother Essential hypertension Hyperlipidemia Brother Hyperlipidemia Brother Essential hypertension Heart disease Hyperlipidemia Social History (Updated 10/21/20 @ 09:53 by Elizabeth Cho) Smoking/Tobacco Use Status: Former Tobacco Use Smokeless tobacco user: chewing tobacco Quit status: has quit before Smoking risk assessment performed?: Yes Alcohol Intake: former Drug use: Daily Substance use type: marijuana Caregiver/Support person: No Household members: spouse Housing: house Communication Needs: None Do you need help understanding health information?: Never Pets and animals: Yes Pets and animals: dog(s) and bird(s) Do you think of yourself as: straight/heterosexual Current gender identity: male What is your relationship status?: How often do you talk on the phone with friends or family?: three or more times per week How often do you get together with friends or relatives?: never How often do you attend sabianist or samaritan services?: decline to answer Do you belong to any clubs or organized social groups?: no Panel score (0-1 are the most socially isolated patients): 2 What type of physical activity do you participate in: decline to answer [place]/Latter-Day: No preference Special beverly needs: No Seatbelt use: always Helmet use: Yes Drive 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 Do you feel safe at home: Yes Do you feel safe in your relationship?: Yes Exam Const General: cooperative, comfortable, no acute distress, well developed, well groomed and ill appearing chronically Nutritional Appearance: well nourished and cachectic Orientation: alert and awake [facility] Head: normal to inspection, normocephalic and atraumatic Ears: hearing grossly normal bilaterally, external ears normal and TM's normal bilaterally General nose exam: external nose normal and nares normal Face and sinus: normal facial exam, sinuses nontender and face symmetric Mouth: oral mucosae normal, lip normal, tongue normal, oropharynx normal and moist mucous membranes Teeth and gingiva: dentition normal Throat: posterior oropharynx normal, tonsils normal and uvula midline Eyes General: appearance normal, both eyes and all related structures Neck Neck: normal visual inspection, full ROM, no lymphadenopathy and no meningeal signs Chest Chest: normal inspection of the chest, no crepitus, no masses, tenderness (right upper chest wall) and No rash (scarring noted near neck) Resp Effort & Inspection: normal respiratory effort, able to speak in complete sentences and no respiratory distress Auscultation: clear to auscultation bilaterally, no rales, no rhonchi and no wheezes Cardio Rate: regular rate Rhythm: regular rhythm Heart Sounds: S1 normal and S2 normal GI Inspection: normal to inspection and scar (well healed surgical incision) Palpation: soft, no guarding, not rigid and nontender Skin General skin exam: no rashes or lesions noted Neuro General: patient alert and patient awake Cognition: normal cognition Speech: speech normal Gait: normal gait Extrem General: normal to inspection, capillary refill normal, normal gait and calf tenderness (equal bilaterally, no palpable cord, reported to be MSK from overuse) Psych Appearance: grossly normal and well kempt Mental Status: mental status grossly normal Speech and Movement: speech and movement normal Course Vital Signs Vital signs: Vital Signs Temperature 36.9 C 10/26/22 09:19 Pulse 88 10/26/22 09:19 Respiratory Rate 18 10/26/22 09:19 Blood Pressure 121/74 10/26/22 09:19 Pulse Oximetry 99 10/26/22 09:19 Temperature 36.9 C 10/26/22 09:19 Temperature Source Oral 10/26/22 09:19 Pulse 88 10/26/22 09:19 Respiratory Rate 18 10/26/22 09:19 Respiratory Effort Normal, Non-Labored 10/26/22 09:21 Blood Pressure 121/74 10/26/22 09:19 Pulse Oximetry 99 10/26/22 09:19 Oxygen Delivery Method Room Air 10/26/22 09:19 Oxygen Flow Rate 0 10/26/22 09:19
--- NOTE | 2022-10-26 09:45 | DI.CT_ITS ---
Exam(s) CT CHEST PE CTA EXAM: CT CHEST PE CTA CLINICAL HISTORY: right sided pleuritic pain, known cancer, SOB. TECHNIQUE: Imaging Protocol: CT angiography of the chest was performed using pulmonary embolus anali col. Multi planar reconstructions were performed. CONTRAST MATERIAL: Intravenous: Omnipaque 350 Contrast volume: 100 cc COMPARISON: CT CT CHEST/ABD W from 08/04/2022 FINDINGS: CHEST: PULMONARY ARTERIES: There are no intraluminal filling defects to suggest acute pulmonary emboli. LUNGS: There is a increasing size nodular density in the right lung base which is pleural based and m easures approximately 2 x 2.5 cm and exhibits some additional surrounding ground-glass infiltrate. T his finding has increased from the prior CT scan of 08/04/2022. The adjacent ground-glass component measures approximately 3 x 2 cm. There is also small area of infiltrate in the medial aspect of the right upper lobe adjacent to the mediastinum. This, however, is unchanged from 08/04/2022. No other areas of infiltrate and there are no pleural effusions on either side. There are no pleural effusio ns. MEDIASTINUM: Gastric pull up surgery again noted. No evidence of fluid collection the mediastinum no r pneumomediastinum. No subcarinal adenopathy. Mild right-sided hilar adenopathy. No adenopathy in the anterior mediastinal fat. Visualized thyroid unremarkable. CARDIAC: Heart size is upper normal. There is no pericardial effusion.Caliber of the thoracic aorta is within normal limits. No evidence of aortic dissection. There is no significant shift of the inte rventricular septum. PARTIALLY VISUALIZED UPPERMOST ABDOMEN: No obvious findings OSSEOUS: No significant osseous lesions.. IMPRESSION: 1. No evidence of acute pulmonary emboli. 2. Increasing pleural based density in the right lower lobe contiguous with the diaphragm and posteri or aspect of the major fissure at this level, this measuring approximately 2 x 2.5 cm and exhibiting surrounding ground-glass infiltrate. Both these findings are significantly increased from previous. Cannot exclude neoplasm at this level with surrounding infiltrate. There is no associated pleural e ffusion. 3. Right upper lobe paramedian infiltrate appears unchanged from 08/04/2022. 4. Gastric pull-up again noted with no evidence of mediastinal fluid nor mediastinal air. Called by myself to ER provider. RADIATION DOSE DELIVERED: 251.1mGy.cm Total DLP DATA REPOSITORY: All CT scans at this facility are submitted to the National Radiology Data Registry (NRDR) Dose Index Registry (DIR) with the [employer] (ACR). RADIATION OPTIMIZATION: All CT scans at this facility use at least one of these dose optimization te chniques: automated exposure control; mA and/or kV adjustment per patient size (includes targeted exa ms where dose is matched to clinical indication); or iterative reconstruction.
--- NOTE | 2022-10-26 10:00 | RT.EKG_ITS ---
APPROVED REPORT Exam: Resting ECG Reason for Exam: Patient Location: E HR:81 bpm ECG Measurements Heart Rate 81 AXIS RI 153 P 74 QRSd 99 QRS 70 QT 350 T 47 QTc 407 Conclusion Sinus rhythm...normal P axis, V-rate 60- 99 ST elevation suggests acute pericarditis...ST >0.10mV, ant/lat/inf
[2022-10-26 10:26] LABS: Lactate 1.2 mmol/L (0.6-1.4)
[2022-10-26] MEDS: Ketorolac 15 MG/ML VIAL IVP (10:26)
[2022-10-26] MEDS: Normal Saline 1,000 ML 1000 ML IV (10:26)
[2022-10-26 10:29] LABS: Abs Immature Grans 0.14 10^3/uL (0.0-0.06); Absolute Basophil Count 0.06 10^3/uL (0.0-0.2); Absolute Eosinophil Count 0.06 10^3/uL (0.0-0.7); Absolute Lymphocyte Count 1.46 10^3/uL (1.2-3.4); Absolute Monocyte Count 2.82 10^3/uL (0.1-0.8); Absolute Neutrophil Count 15.19 10^3/uL (1.2-6.7); Basophils % 0.3; Eosinophils % 0.3; HCT 45.3 % (40.0-50.0); HGB 15.2 g/dL (13.5-17.5); Immature Grans % 0.7; Lymphocytes % 7.4; MCH 31.3 pg (27.0-33.0); MCHC 33.6 % (32.0-36.0); MCV 93 fL (80-95); MPV 8.9 fL (8.0-11.0); Monocytes % 14.3; Platelet Count 254 10^3/uL (130-400); RBC 4.85 10^6/uL (4.36-5.78); RDW 13.8 % (11.8-14.1); RDW-SD 46.4 fL; WBC 19.73 10^3/uL (4.4-10.8)
[2022-10-26 10:50] LABS: ALT 52 U/L (16-63); AST 35 U/L (15-37); Albumin 3.5 g/dL (3.4-5.0); Alkaline Phosphatase 100 U/L (46-116); Anion Gap 9.1 mmol/L (3-11); BUN 12 mg/dL (7-18); Bilirubin, Total 1.4 mg/dL (0.2-1.0); CO2 28.9 mmol/L (21.0-32.0); Calcium 9.1 mg/dL (8.5-10.1); Chloride 102 mmol/L (98-107); Estimated GFR 92.26 (mL/min/1.73m2); Glucose 96 mg/dL (74-106); Magnesium 2.2 mg/dL (1.8-2.4); Sodium 140 mmol/L (136-145); Total Protein 7.4 g/dL (6.4-8.2); Troponin I < 50 ng/L (<or=60)
[2022-10-26 10:55] LABS: Diff Comment Diff Reviewed; RBC Morphology Normal
[2022-10-26] MEDS: levoFLOXacin 750 MG/150 ML BAG 100 MG IVPB (11:06)
[2022-10-26 11:09] VITALS: BP 109/65; PULSE 90; RESP 20; TEMP 36.9; O2SAT 100
[2022-10-26 11:31] LABS: Bilirubin Negative (Negative); Blood Negative (Negative); Clarity Clear (Clear); Glucose Negative (Negative); Ketones Trace mg/dL (Negative); Leukocyte Esterase Negative (Negative); Nitrite Negative (Negative)
[2022-10-26] MEDS: Omnipaque 350 MG/ML 500 ML BTL-Imaging package 100 ML IJ (11:56)
[2022-10-26] MEDS: Normal Saline Flush 10 ML SYR IVP (11:57)
[2022-10-26] MEDS: Normal Saline - Diluent 50 ML VIAL IJ (11:57)
[2022-10-26] MEDS: Ondansetron 4 MG/2 ML VIAL IVP (13:45)
[2022-10-26 14:22] VITALS: BP 125/85; PULSE 85; RESP 20; TEMP 37.1; O2SAT 99
[2022-10-26 14:23] LABS: COVID-19 PCR Negative (Negative); Influenza A PCR Negative (Negative); Influenza B PCR Negative (Negative); RSV PCR Negative (Negative)
[2022-10-26 14:24] LABS: Source Nasopharynx
== END 2022-10-26 14:22 | disposition home or self-care (01) ==
PROVIDERS: Emergency Provider Physician Assistant; PCP Family Medicine
DX: J18.9 Pneumonia, unspecified organism (principal); D72.829 Elevated white blood cell count, unspecified; R06.02 Shortness of breath; R07.89 Other chest pain; Z20.822 Contact with and (suspected) exposure to COVID-19; C15.9 Malignant neoplasm of esophagus, unspecified; I25.10 Atherosclerotic heart disease of native coronary artery without angina pectoris; R22.41 Localized swelling, mass and lump, right lower limb; I25.2 Old myocardial infarction
CPT/HCPCS: 36415; 71275; 80053; 87040; 87637; 93005; 96361; 96365; 96366; 96375; 99285; 81003; 83605; 83735; 84484; 85025; 93010; 99284; J1885; J1956; J2405

== ENCOUNTER 2022-11-09 01:25 | Outpatient (RCR) | payer OTHER, SELFPAY ==
[2022-11-09] MEDS: Normal Saline Flush 10 ML SYR IVP (07:50)
[2022-11-09 08:24] LABS: Abs Immature Grans 0.08 10^3/uL (0.0-0.06); Absolute Basophil Count 0.09 10^3/uL (0.0-0.2); Absolute Monocyte Count 1.02 10^3/uL (0.1-0.8); Absolute Neutrophil Count 11.03 10^3/uL (1.2-6.7); Basophils % 0.6; Eosinophils % 1.4; HGB 14.8 g/dL (13.5-17.5); Immature Grans % 0.6; Lymphocytes % 13.3; MCH 30.8 pg (27.0-33.0); MCHC 33.6 % (32.0-36.0); MCV 92 fL (80-95); MPV 8.5 fL (8.0-11.0); Monocytes % 7.1; Platelet Count 412 10^3/uL (130-400); RBC 4.81 10^6/uL (4.36-5.78); RDW 13.4 % (11.8-14.1); RDW-SD 45.6 fL; WBC 14.32 10^3/uL (4.4-10.8)
[2022-11-09 08:47] LABS: ALT 22 U/L (16-63); AST 17 U/L (15-37); Albumin 3.5 g/dL (3.4-5.0); Alkaline Phosphatase 84 U/L (46-116); BUN 13 mg/dL (7-18); Bilirubin, Total 0.7 mg/dL (0.2-1.0); CREATININE 0.9 mg/dL (0.70-1.30); Calcium 8.8 mg/dL (8.5-10.1); Chloride 105 mmol/L (98-107); FREE T4 1.15 ng/dL (0.76-1.46); Glucose 147 mg/dL (74-106); Magnesium 1.8 mg/dL (1.8-2.4); Sodium 140 mmol/L (136-145); TSH 7.49 uIU/mL (0.36-3.74); Total Protein 7.1 g/dL (6.4-8.2)
[2022-11-09 18:10] LABS: CEA 5.3 ng/mL (See Note)
== END 2022-11-22 23:59 | disposition home or self-care (01) ==
LOC: INF 01:25
PROVIDERS: Nurse Practitioner Family; PCP Family Medicine; Visit Provider Internal Medicine Medical Oncology
DX: Z79.899 Other long term (current) drug therapy (principal); C15.5 Malignant neoplasm of lower third of esophagus; Z45.2 Encounter for adjustment and management of vascular access device
CPT/HCPCS: 36591; 80053; 82378; 83735; 84439; 84443; 85025

== ENCOUNTER 2022-12-07 01:51 | Outpatient (RCR) | payer OTHER, SELFPAY ==
[2022-11-23] MEDS: Normal Saline Flush 10 ML SYR IVP (09:40)
[2022-11-23 09:46] LABS: Abs Immature Grans 0.02 10^3/uL (0.0-0.06); Absolute Basophil Count 0.03 10^3/uL (0.0-0.2); Absolute Eosinophil Count 0.34 10^3/uL (0.0-0.7); Absolute Lymphocyte Count 2.81 10^3/uL (1.2-3.4); Absolute Monocyte Count 1.25 10^3/uL (0.1-0.8); Absolute Neutrophil Count 5.08 10^3/uL (1.2-6.7); Basophils % 0.3; Eosinophils % 3.6; HCT 42.6 % (40.0-50.0); HGB 14.3 g/dL (13.5-17.5); Immature Grans % 0.2; Lymphocytes % 29.5; MCH 30.8 pg (27.0-33.0); MCHC 33.6 % (32.0-36.0); MCV 92 fL (80-95); MPV 8.8 fL (8.0-11.0); Monocytes % 13.1; Neutrophils % 53.3; Platelet Count 243 10^3/uL (130-400); RBC 4.65 10^6/uL (4.36-5.78); RDW 13.9 % (11.8-14.1); RDW-SD 46.6 fL; WBC 9.53 10^3/uL (4.4-10.8)
[2022-11-23 10:10] LABS: ALT 25 U/L (16-63); AST 21 U/L (15-37); Albumin 3.2 g/dL (3.4-5.0); Alkaline Phosphatase 95 U/L (46-116); Anion Gap 7.5 mmol/L (3-11); BUN 13 mg/dL (7-18); Bilirubin, Total 0.4 mg/dL (0.2-1.0); CO2 26.5 mmol/L (21.0-32.0); CREATININE 0.9 mg/dL (0.70-1.30); Calcium 8.5 mg/dL (8.5-10.1); Chloride 111 mmol/L (98-107); FREE T4 1.04 ng/dL (0.76-1.46); Glucose 81 mg/dL (74-106); Magnesium 1.9 mg/dL (1.8-2.4); Potassium 4.4 mmol/L (3.5-5.1); Sodium 145 mmol/L (136-145); TSH 2.33 uIU/mL (0.36-3.74); Total Protein 6.5 g/dL (6.4-8.2)
[2022-12-07] MEDS: Normal Saline Flush 10 ML SYR IVP (08:29)
[2022-12-07 08:43] LABS: Abs Immature Grans 0.03 10^3/uL (0.0-0.06); Absolute Basophil Count 0.05 10^3/uL (0.0-0.2); Absolute Eosinophil Count 0.27 10^3/uL (0.0-0.7); Absolute Lymphocyte Count 2.25 10^3/uL (1.2-3.4); Absolute Monocyte Count 0.98 10^3/uL (0.1-0.8); Absolute Neutrophil Count 4.37 10^3/uL (1.2-6.7); Basophils % 0.6; Eosinophils % 3.4; HCT 42.5 % (40.0-50.0); HGB 14.1 g/dL (13.5-17.5); Immature Grans % 0.4; Lymphocytes % 28.3; MCH 30.6 pg (27.0-33.0); MCHC 33.2 % (32.0-36.0); MCV 92 fL (80-95); Monocytes % 12.3; Platelet Count 250 10^3/uL (130-400); RBC 4.61 10^6/uL (4.36-5.78); RDW 14.1 % (11.8-14.1); RDW-SD 47.8 fL; WBC 7.95 10^3/uL (4.4-10.8)
[2022-12-07 09:03] LABS: ALT 29 U/L (16-63); AST 15 U/L (15-37); Albumin 3.2 g/dL (3.4-5.0); Alkaline Phosphatase 98 U/L (46-116); Anion Gap 3.9 mmol/L (3-11); BUN 9 mg/dL (7-18); Bilirubin, Total 0.7 mg/dL (0.2-1.0); CO2 30.1 mmol/L (21.0-32.0); CREATININE 0.9 mg/dL (0.70-1.30); Calcium 8.7 mg/dL (8.5-10.1); Chloride 107 mmol/L (98-107); FREE T4 1.15 ng/dL (0.76-1.46); Glucose 110 mg/dL (74-106); Magnesium 1.9 mg/dL (1.8-2.4); Potassium 4.1 mmol/L (3.5-5.1); Sodium 141 mmol/L (136-145); TSH 3.11 uIU/mL (0.36-3.74); Total Protein 6.7 g/dL (6.4-8.2)
[2022-12-07 18:08] LABS: CEA 5.1 ng/mL (See Note)
== END 2022-12-23 23:59 | disposition home or self-care (01) ==
LOC: INF 01:51
PROVIDERS: Nurse Practitioner Family; PCP Family Medicine; Visit Provider Internal Medicine Medical Oncology
DX: Z79.899 Other long term (current) drug therapy (principal); C15.5 Malignant neoplasm of lower third of esophagus; Z45.2 Encounter for adjustment and management of vascular access device
CPT/HCPCS: 36591; 80053; 82378; 83735; 84439; 84443; 85025

== ENCOUNTER 2023-01-05 01:16 | Outpatient (CLI) | payer OTHER, SELFPAY ==
--- NOTE | 2023-01-05 | DI.CT_ITS ---
Exam(s) CT CHEST W EXAM: CT CHEST W CLINICAL HISTORY: ESOPHAGUS CA,C15.5,LUNG METS, ON TREATMENT, RESTAGING EXAM,. TECHNIQUE: Multi planar reconstructions were performed. CONTRAST MATERIAL: Omnipaque 350; 75 cc COMPARISON: CT CT CHEST PE CTA from 10/26/2022 FINDINGS: CHEST: Tip of the Port-A-Cath is in the upper right atrium. Gastric pull-up again noted. No new significant findings at the anastomosis. No abnormal fluid unruly ection or air in the mediastinum.. No new adenopathy along the pole up nor elsewhere in the mediasti num-subcarinal region nor within the epigastric region of the upper abdomen. No metastatic lesions e vident in the partially included liver.. LUNGS: The previously described concerning abnormal pleural based nodular infiltrate in the right marquis g base just above the hemidiaphragm presently measures approximately 1.6 by 1.7 cm, smaller than prev ious and there is no longer surrounding ground-glass infiltrate in the adjacent lung. No new additio nal right lung findings. No new left lung findings. No pleural effusions on either side. MEDIASTINUM: There is no new hilar adenopathy. No adenopathy in the anterior mediastinal fat nor sub carinal region. Thyroid gland appears unremarkable. CARDIAC: Heart size is normal. There is no pericardial effusion.Caliber of the thoracic aorta is wit hin normal limits. VISUALIZED UPPER ABDOMEN:Calcified granulomas noted in the spleen. Spleen size normal. Nodularity o f the adrenal glands appears unchanged. OSSEOUS: No significant osseous lesions.No fractures.. IMPRESSION: 1. Compared to prior CT scan of 10/26/2022 the gastric pull-up appears stable and there is no evidenc e of new lymphadenopathy, fluid collection, or air/gas in the mediastinum. 2. The previously described concerning pleural based nodular infiltrate in the right lower lobe has d ecreased in size, previously measuring 2.5 x 2 cm and presently measuring 1.6 x 1.7 cm. There are no new pulmonary nodules nor pleural effusions. 3. No metastatic lesions seen in the liver, realized that only 2/3 of the liver included in the fiel d of view of this chest study. RADIATION DOSE DELIVERED: 403.76mGy.cm Total DLP DATA REPOSITORY: All CT scans at this facility are submitted to the National Radiology Data Registry (NRDR) Dose Index Registry (DIR) with the [employer] (ACR). RADIATION OPTIMIZATION: All CT scans at this facility use at least one of these dose optimization te chniques: automated exposure control; mA and/or kV adjustment per patient size (includes targeted exa ms where dose is matched to clinical indication); or iterative reconstruction.
[2023-01-05] MEDS: Normal Saline Flush 10 ML SYR IVP (14:05)
[2023-01-05] MEDS: Omnipaque 350 MG/ML 100 ML BTL IJ (14:06)
[2023-01-05] MEDS: Normal Saline - Diluent 50 ML VIAL IJ (14:06)
== END 2023-01-05 01:36 ==
LOC: DI 01:17
PROVIDERS: PCP Family Medicine; Visit Provider Internal Medicine Medical Oncology
DX: C15.5 Malignant neoplasm of lower third of esophagus (principal); R91.1 Solitary pulmonary nodule
CPT/HCPCS: 71260; J3490

== ENCOUNTER 2023-01-11 03:55 | Outpatient (RCR) | payer OTHER, SELFPAY ==
[2022-12-28] MEDS: Normal Saline Flush 10 ML SYR IVP (08:24)
[2022-12-28 08:33] LABS: Abs Immature Grans 0.05 10^3/uL (0.0-0.06); Absolute Basophil Count 0.07 10^3/uL (0.0-0.2); Absolute Eosinophil Count 0.25 10^3/uL (0.0-0.7); Absolute Lymphocyte Count 2.06 10^3/uL (1.2-3.4); Absolute Neutrophil Count 3.19 10^3/uL (1.2-6.7); Basophils % 1.1; Eosinophils % 3.8; HCT 42.6 % (40.0-50.0); HGB 14.2 g/dL (13.5-17.5); Immature Grans % 0.8; Lymphocytes % 31.1; MCH 30.4 pg (27.0-33.0); MCHC 33.3 % (32.0-36.0); MCV 91 fL (80-95); MPV 8.8 fL (8.0-11.0); Monocytes % 15.1; Neutrophils % 48.1; Platelet Count 357 10^3/uL (130-400); RBC 4.67 10^6/uL (4.36-5.78); RDW 13.7 % (11.8-14.1); WBC 6.62 10^3/uL (4.4-10.8)
[2022-12-28 08:57] LABS: ALT 22 U/L (16-63); AST 19 U/L (15-37); Albumin 3.4 g/dL (3.4-5.0); Alkaline Phosphatase 99 U/L (46-116); Anion Gap 8.5 mmol/L (3-11); BUN 10 mg/dL (7-18); Bilirubin, Total 0.5 mg/dL (0.2-1.0); CO2 27.5 mmol/L (21.0-32.0); CREATININE 0.8 mg/dL (0.70-1.30); Chloride 106 mmol/L (98-107); Estimated GFR 108.49 (mL/min/1.73m2); FREE T4 0.91 ng/dL (0.76-1.46); Glucose 136 mg/dL (74-106); Potassium 4.2 mmol/L (3.5-5.1); Sodium 142 mmol/L (136-145); TSH 8.68 uIU/mL (0.36-3.74)
[2022-12-29 10:24] LABS: CEA 3.7 ng/mL (See Note)
[2023-01-05] MEDS: Normal Saline Flush 10 ML SYR IVP (13:52)
[2023-01-05] MEDS: Heparin 500 UNITS/5 ML SYRINGE IV (13:52)
[2023-01-11 09:27] LABS: Abs Immature Grans 0.02 10^3/uL (0.0-0.06); Absolute Basophil Count 0.04 10^3/uL (0.0-0.2); Absolute Eosinophil Count 0.23 10^3/uL (0.0-0.7); Absolute Lymphocyte Count 1.78 10^3/uL (1.2-3.4); Absolute Neutrophil Count 5.51 10^3/uL (1.2-6.7); Basophils % 0.5; Eosinophils % 2.7; HCT 39.9 % (40.0-50.0); HGB 13.6 g/dL (13.5-17.5); Immature Grans % 0.2; MCH 30.6 pg (27.0-33.0); MCHC 34.1 % (32.0-36.0); MCV 90 fL (80-95); MPV 8.4 fL (8.0-11.0); Monocytes % 10.6; Platelet Count 295 10^3/uL (130-400); RBC 4.45 10^6/uL (4.36-5.78); RDW 13.4 % (11.8-14.1); RDW-SD 44.2 fL; WBC 8.48 10^3/uL (4.4-10.8)
[2023-01-11 09:53] LABS: ALT 16 U/L (16-63); AST 15 U/L (15-37); Albumin 3.3 g/dL (3.4-5.0); Alkaline Phosphatase 89 U/L (46-116); Anion Gap 8.5 mmol/L (3-11); BUN 8 mg/dL (7-18); Bilirubin, Total 0.7 mg/dL (0.2-1.0); CO2 27.5 mmol/L (21.0-32.0); CREATININE 0.9 mg/dL (0.70-1.30); Calcium 8.7 mg/dL (8.5-10.1); Chloride 107 mmol/L (98-107); FREE T4 1.09 ng/dL (0.76-1.46); Glucose 101 mg/dL (74-106); Magnesium 1.9 mg/dL (1.8-2.4); Potassium 3.8 mmol/L (3.5-5.1); Sodium 143 mmol/L (136-145); TSH 5.83 uIU/mL (0.36-3.74); Total Protein 6.6 g/dL (6.4-8.2)
[2023-01-11] MEDS: Normal Saline Flush 10 ML SYR IVP (10:08)
[2023-01-11 19:04] LABS: CEA 3.6 ng/mL (See Note)
== END 2023-01-22 23:59 | disposition home or self-care (01) ==
LOC: INF 03:55
PROVIDERS: Nurse Practitioner Family; PCP Family Medicine; Visit Provider Internal Medicine Medical Oncology
DX: Z79.899 Other long term (current) drug therapy (principal); C15.5 Malignant neoplasm of lower third of esophagus; Z45.2 Encounter for adjustment and management of vascular access device
CPT/HCPCS: 36591; 80053; 96523; 82378; 83735; 84439; 84443; 85025

== ENCOUNTER 2023-02-08 10:30 | Outpatient (RCR) | payer OTHER, SELFPAY ==
[2023-01-25] MEDS: Normal Saline Flush 10 ML SYR IVP (09:03)
[2023-01-25 09:13] LABS: Abs Immature Grans 0.02 10^3/uL (0.0-0.06); Absolute Basophil Count 0.05 10^3/uL (0.0-0.2); Absolute Eosinophil Count 0.34 10^3/uL (0.0-0.7); Absolute Lymphocyte Count 2.09 10^3/uL (1.2-3.4); Absolute Monocyte Count 0.95 10^3/uL (0.1-0.8); Absolute Neutrophil Count 5.83 10^3/uL (1.2-6.7); Basophils % 0.5; Eosinophils % 3.7; HCT 41.6 % (40.0-50.0); Immature Grans % 0.2; Lymphocytes % 22.5; MCH 30.3 pg (27.0-33.0); MCHC 33.7 % (32.0-36.0); MCV 90 fL (80-95); MPV 8.8 fL (8.0-11.0); Monocytes % 10.2; Neutrophils % 62.9; Platelet Count 296 10^3/uL (130-400); RBC 4.62 10^6/uL (4.36-5.78); RDW 13.5 % (11.8-14.1); RDW-SD 44.4 fL; WBC 9.28 10^3/uL (4.4-10.8)
[2023-01-25 09:38] LABS: ALT 16 U/L (16-63); AST 14 U/L (15-37); Albumin 3.4 g/dL (3.4-5.0); Alkaline Phosphatase 94 U/L (46-116); Anion Gap 7.7 mmol/L (3-11); BUN 11 mg/dL (7-18); Bilirubin, Total 0.7 mg/dL (0.2-1.0); CO2 27.3 mmol/L (21.0-32.0); CREATININE 0.9 mg/dL (0.70-1.30); Calcium 8.7 mg/dL (8.5-10.1); Chloride 104 mmol/L (98-107); Estimated GFR 104.05 (mL/min/1.73m2); Glucose 109 mg/dL (74-106); Potassium 3.9 mmol/L (3.5-5.1); Sodium 139 mmol/L (136-145); TSH 4.99 uIU/mL (0.36-3.74); Total Protein 6.8 g/dL (6.4-8.2)
[2023-01-26 03:24] LABS: CEA 3.9 ng/mL (See Note)
[2023-02-08] MEDS: Normal Saline Flush 10 ML SYR IVP (10:42)
[2023-02-08 10:49] LABS: Abs Immature Grans 0.03 10^3/uL (0.0-0.06); Absolute Basophil Count 0.04 10^3/uL (0.0-0.2); Absolute Eosinophil Count 0.12 10^3/uL (0.0-0.7); Absolute Lymphocyte Count 1.97 10^3/uL (1.2-3.4); Absolute Monocyte Count 0.73 10^3/uL (0.1-0.8); Basophils % 0.6; Eosinophils % 1.9; HCT 40.1 % (40.0-50.0); HGB 13.2 g/dL (13.5-17.5); Immature Grans % 0.5; Lymphocytes % 30.8; MCH 29.7 pg (27.0-33.0); MCHC 32.9 % (32.0-36.0); MCV 90 fL (80-95); MPV 8.6 fL (8.0-11.0); Monocytes % 11.4; Neutrophils % 54.8; Platelet Count 285 10^3/uL (130-400); RBC 4.45 10^6/uL (4.36-5.78); RDW 13.4 % (11.8-14.1); RDW-SD 44.4 fL; WBC 6.39 10^3/uL (4.4-10.8)
[2023-02-08 11:12] LABS: ALT 14 U/L (16-63); AST 13 U/L (15-37); Albumin 3.4 g/dL (3.4-5.0); Alkaline Phosphatase 86 U/L (46-116); Anion Gap 7.6 mmol/L (3-11); BUN 7 mg/dL (7-18); Bilirubin, Total 0.6 mg/dL (0.2-1.0); CO2 27.4 mmol/L (21.0-32.0); CREATININE 1.1 mg/dL (0.70-1.30); Calcium 8.7 mg/dL (8.5-10.1); Chloride 106 mmol/L (98-107); Estimated GFR 81.78 (mL/min/1.73m2); FREE T4 1.09 ng/dL (0.76-1.46); Glucose 160 mg/dL (74-106); Magnesium 1.9 mg/dL (1.8-2.4); Potassium 3.7 mmol/L (3.5-5.1); Sodium 141 mmol/L (136-145); TSH 6.34 uIU/mL (0.36-3.74); Total Protein 6.6 g/dL (6.4-8.2)
[2023-02-09 10:05] LABS: CEA 3.6 ng/mL (See Note)
== END 2023-02-22 23:59 | disposition home or self-care (01) ==
LOC: INF 10:30
PROVIDERS: Nurse Practitioner Family; PCP Family Medicine; Visit Provider Internal Medicine Medical Oncology
DX: C15.5 Malignant neoplasm of lower third of esophagus (principal); Z79.899 Other long term (current) drug therapy; Z45.2 Encounter for adjustment and management of vascular access device
CPT/HCPCS: 36591; 80053; 82378; 83735; 84439; 84443; 85025

== ENCOUNTER 2023-03-24 01:31 | Outpatient (RCR) | payer OTHER, SELFPAY ==
[2023-03-01] MEDS: Normal Saline Flush 10 ML SYR IVP (11:13)
[2023-03-01 11:32] LABS: Abs Immature Grans 0.03 10^3/uL (0.0-0.06); Absolute Basophil Count 0.05 10^3/uL (0.0-0.2); Absolute Eosinophil Count 0.12 10^3/uL (0.0-0.7); Absolute Lymphocyte Count 1.43 10^3/uL (1.2-3.4); Absolute Monocyte Count 1.15 10^3/uL (0.1-0.8); Absolute Neutrophil Count 3.74 10^3/uL (1.2-6.7); Basophils % 0.8; Eosinophils % 1.8; HCT 39.3 % (40.0-50.0); HGB 13.1 g/dL (13.5-17.5); Immature Grans % 0.5; Lymphocytes % 21.9; MCH 30.2 pg (27.0-33.0); MCHC 33.3 % (32.0-36.0); MCV 91 fL (80-95); MPV 8.8 fL (8.0-11.0); Monocytes % 17.6; Neutrophils % 57.4; Platelet Count 383 10^3/uL (130-400); RBC 4.34 10^6/uL (4.36-5.78); RDW 14.1 % (11.8-14.1); RDW-SD 46.5 fL; WBC 6.52 10^3/uL (4.4-10.8)
[2023-03-01 11:57] LABS: ALT 23 U/L (16-63); AST 18 U/L (15-37); Albumin 3.3 g/dL (3.4-5.0); Alkaline Phosphatase 92 U/L (46-116); Anion Gap 6.5 mmol/L (3-11); BUN 12 mg/dL (7-18); Bilirubin, Total 0.5 mg/dL (0.2-1.0); CO2 28.5 mmol/L (21.0-32.0); Calcium 8.8 mg/dL (8.5-10.1); Chloride 105 mmol/L (98-107); Estimated GFR 91.69 (mL/min/1.73m2); FREE T4 1.04 ng/dL (0.76-1.46); Glucose 152 mg/dL (74-106); Magnesium 1.9 mg/dL (1.8-2.4); Potassium 3.8 mmol/L (3.5-5.1); Sodium 140 mmol/L (136-145); TSH 4.22 uIU/mL (0.36-3.74); Total Protein 6.5 g/dL (6.4-8.2)
[2023-03-01 23:00] LABS: CEA 3.8 ng/mL (See Note)
[2023-03-24] MEDS: Normal Saline Flush 10 ML SYR IVP (08:00)
[2023-03-24 08:50] LABS: Abs Immature Grans 0.07 10^3/uL (0.0-0.06); Absolute Basophil Count 0.07 10^3/uL (0.0-0.2); Absolute Eosinophil Count 0.21 10^3/uL (0.0-0.7); Absolute Lymphocyte Count 1.94 10^3/uL (1.2-3.4); Absolute Monocyte Count 1.24 10^3/uL (0.1-0.8); Absolute Neutrophil Count 3.32 10^3/uL (1.2-6.7); Eosinophils % 3.1; HCT 41.8 % (40.0-50.0); HGB 13.6 g/dL (13.5-17.5); Lymphocytes % 28.3; MCH 29.4 pg (27.0-33.0); MCHC 32.5 % (32.0-36.0); MCV 91 fL (80-95); MPV 9.4 fL (8.0-11.0); Monocytes % 18.1; Neutrophils % 48.5; Platelet Count 385 10^3/uL (130-400); RBC 4.62 10^6/uL (4.36-5.78); RDW 13.8 % (11.8-14.1); RDW-SD 45.6 fL; WBC 6.85 10^3/uL (4.4-10.8)
[2023-03-24 09:21] LABS: ALT 26 U/L (16-63); AST 20 U/L (15-37); Albumin 3.6 g/dL (3.4-5.0); Alkaline Phosphatase 104 U/L (46-116); Anion Gap 9.4 mmol/L (3-11); BUN 11 mg/dL (7-18); Bilirubin, Total 0.6 mg/dL (0.2-1.0); CO2 27.6 mmol/L (21.0-32.0); CREATININE 0.8 mg/dL (0.70-1.30); Calcium 8.9 mg/dL (8.5-10.1); Chloride 103 mmol/L (98-107); Estimated GFR 107.82 (mL/min/1.73m2); FREE T4 1.16 ng/dL (0.76-1.46); Glucose 128 mg/dL (74-106); Magnesium 1.8 mg/dL (1.8-2.4); Potassium 3.7 mmol/L (3.5-5.1); Sodium 140 mmol/L (136-145); TSH 5.38 uIU/mL (0.36-3.74); Total Protein 6.9 g/dL (6.4-8.2)
[2023-03-24 19:06] LABS: CEA 3.9 ng/mL (See Note)
== END 2023-03-25 23:59 | disposition home or self-care (01) ==
LOC: INF 01:31
PROVIDERS: PCP Family Medicine; Visit Provider Internal Medicine Medical Oncology
DX: C15.5 Malignant neoplasm of lower third of esophagus (principal); Z79.899 Other long term (current) drug therapy; Z45.2 Encounter for adjustment and management of vascular access device
CPT/HCPCS: 36591; 80053; 82378; 83735; 84439; 84443; 85025

== ENCOUNTER → 2023-04-12 02:54 | Outpatient (CLI) | payer OTHER, SELFPAY ==
--- NOTE | 2023-04-12 | DI.CT_ITS ---
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 TECHNIQUE: Imaging Protocol: Axial CT angiography was performed with multi-slice acquisition and mu lti-planar and/or 3D reconstructions. CONTRAST MATERIAL: Intravenous: Omnipaque 350 Contrast volume:[address] CHEST/ABD W from 08/04/[address] CHEST PE CTA from 10/26/[address] CHEST W from 01/05/2023 FINDINGS: CHEST: Pulmonary Arteries: No evidence of filling defects to suggest pulmonary emboli. Tracheobronchial tree: No bronchiectasis or mucus plugging. Mediastinum and [place]: Status post gastric pull-through. No dominant adenopathy or fluid collection. Pulmonary parenchyma: Moderate emphysematous changes. Stable appearance of masslike density above th e right diaphragm in the, in the anterior right middle lobe, measuring 17 millimeters. Pleura: No effusion. No pneumothorax. Heart: The heart is notdilated. Mild coronary artery calcifications are seen. Aorta: Thoracic aorta non-dilated. Bones: Unremarkable for age. Tubes, Catheters, and Lines: Port over left chest. ABDOMEN and PELVIS: Liver: Normal size. Normal density. No suspicious measurable mass. Portal, Superior Mesenteric, and Splenic Veins: Unremarkable. Gallbladder and Biliary Tract: No radiodense calculus. No biliary dilatation. Pancreas: Normal density, no abnormal calcifications or inflammatory process. Spleen: Normal. Adrenals: No masses seen. Kidneys: Normal size, contour and axis. No radiodense stones. No obstructive uropathy. No masses seen . Vasculature: Abdominal portion non-dilated. Bowel: No obstruction or bowel wall thickening. Appendix is unremarkable. Peritoneal Cavity: No ascites, collection or mesenteric inflammatory response. Lymph Nodes: Within normal limits. Soft Tissues: Unremarkable. Lymph Nodes: Within normal limits. Bones: Unremarkable for age.. IMPRESSION: 1. Stable appearance of masslike density above the right diaphragm. No new findings. 2. No acute abdominal or pelvic process. RADIATION DOSE DELIVERED: 711.94mGy.cm Total DLP DATA REPOSITORY: All CT scans at this facility are submitted to the National Radiology Data Registry (NRDR) Dose Index Registry (DIR) with the [employer] (ACR). RADIATION OPTIMIZATION: All CT scans at this facility use at least one of these dose optimization te chniques: automated exposure control; mA and/or kV adjustment per patient size (includes targeted exa ms where dose is matched to clinical indication); or iterative reconstruction.
[2023-04-12] MEDS: Barium Sulfate 2% W/V-Berry Smoothie 450 ML BTL PO (13:04)
[2023-04-12] MEDS: Normal Saline Flush 10 ML SYR IVP (14:12)
[2023-04-12] MEDS: Omnipaque 350 MG/ML 500 ML BTL-Imaging package IJ (14:13)
== END ==
PROVIDERS: PCP Family Medicine; Visit Provider Internal Medicine Medical Oncology
DX: C15.5 Malignant neoplasm of lower third of esophagus (principal); C78.01 Secondary malignant neoplasm of right lung
CPT/HCPCS: 71260; 74160

== ENCOUNTER 2023-04-12 04:16 | Outpatient (RCR) | payer OTHER, SELFPAY ==
[2023-04-12] MEDS: Heparin 500 UNITS/5 ML SYRINGE IV (13:00)
[2023-04-12] MEDS: Normal Saline Flush 10 ML SYR IVP (13:00)
[2023-04-12 13:12] LABS: Abs Immature Grans 0.03 10^3/uL (0.0-0.06); Absolute Basophil Count 0.04 10^3/uL (0.0-0.2); Absolute Eosinophil Count 0.28 10^3/uL (0.0-0.7); Absolute Lymphocyte Count 2.51 10^3/uL (1.2-3.4); Absolute Monocyte Count 0.89 10^3/uL (0.1-0.8); Absolute Neutrophil Count 2.25 10^3/uL (1.2-6.7); Basophils % 0.7; Eosinophils % 4.7; HCT 41.4 % (40.0-50.0); HGB 13.4 g/dL (13.5-17.5); Immature Grans % 0.5; Lymphocytes % 41.8; MCH 29.1 pg (27.0-33.0); MCHC 32.4 % (32.0-36.0); MCV 90 fL (80-95); MPV 8.7 fL (8.0-11.0); Monocytes % 14.8; Neutrophils % 37.5; Platelet Count 346 10^3/uL (130-400); RBC 4.61 10^6/uL (4.36-5.78); RDW 13.6 % (11.8-14.1); RDW-SD 44.7 fL
[2023-04-12 13:41] LABS: ALT 18 U/L (16-63); AST 14 U/L (15-37); Albumin 3.4 g/dL (3.4-5.0); Alkaline Phosphatase 97 U/L (46-116); Anion Gap 8.2 mmol/L (3-11); BUN 16 mg/dL (7-18); Bilirubin, Total 0.5 mg/dL (0.2-1.0); CO2 27.8 mmol/L (21.0-32.0); CREATININE 0.8 mg/dL (0.70-1.30); Calcium 9.4 mg/dL (8.5-10.1); Chloride 103 mmol/L (98-107); Estimated GFR 107.82 (mL/min/1.73m2); FREE T4 1.26 ng/dL (0.76-1.46); Glucose 110 mg/dL (74-106); Potassium 3.9 mmol/L (3.5-5.1); Sodium 139 mmol/L (136-145); Total Protein 6.9 g/dL (6.4-8.2)
[2023-04-12 23:13] LABS: CEA 3.2 ng/mL (See Note)
== END 2023-04-24 23:59 | disposition home or self-care (01) ==
LOC: INF 04:16
PROVIDERS: Nurse Practitioner Family; PCP Family Medicine; Visit Provider Internal Medicine Medical Oncology
DX: C15.5 Malignant neoplasm of lower third of esophagus (principal); Z79.899 Other long term (current) drug therapy; Z45.2 Encounter for adjustment and management of vascular access device
CPT/HCPCS: 36591; 80053; 82378; 83735; 84439; 84443; 85025

== ENCOUNTER 2023-05-10 04:29 | Outpatient (RCR) | payer OTHER, SELFPAY ==
[2023-05-10] MEDS: Normal Saline Flush 10 ML SYR IVP (11:57)
[2023-05-10 12:02] LABS: Abs Immature Grans 0.09 10^3/uL (0.0-0.06); Absolute Basophil Count 0.06 10^3/uL (0.0-0.2); Absolute Monocyte Count 1.52 10^3/uL (0.1-0.8); Absolute Neutrophil Count 7.75 10^3/uL (1.2-6.7); Basophils % 0.5; Eosinophils % 1.6; HGB 13.5 g/dL (13.5-17.5); Immature Grans % 0.7; Lymphocytes % 21.4; MCH 29.5 pg (27.0-33.0); MCHC 32.9 % (32.0-36.0); MCV 90 fL (80-95); MPV 9.2 fL (8.0-11.0); Monocytes % 12.4; Neutrophils % 63.4; Platelet Count 327 10^3/uL (130-400); RBC 4.58 10^6/uL (4.36-5.78); RDW 13.4 % (11.8-14.1); RDW-SD 43.8 fL; WBC 12.22 10^3/uL (4.4-10.8)
[2023-05-10 12:05] LABS: Absolute Lymphocyte Count 2.62 10^3/uL (1.2-3.4)
[2023-05-10 12:17] LABS: Diff Comment Diff Reviewed; RBC Morphology Normal
[2023-05-10 12:27] LABS: ALT 52 U/L (16-63); AST 21 U/L (15-37); Albumin 3.2 g/dL (3.4-5.0); Alkaline Phosphatase 133 U/L (46-116); Anion Gap 6.8 mmol/L (3-11); BUN 13 mg/dL (7-18); Bilirubin, Total 0.5 mg/dL (0.2-1.0); CO2 27.2 mmol/L (21.0-32.0); Chloride 105 mmol/L (98-107); Estimated GFR 91.69 (mL/min/1.73m2); FREE T4 1.27 ng/dL (0.76-1.46); Glucose 132 mg/dL (74-106); Potassium 3.7 mmol/L (3.5-5.1); Sodium 139 mmol/L (136-145); TSH 0.82 uIU/mL (0.36-3.74)
[2023-05-10 23:33] LABS: CEA 3.3 ng/mL (See Note)
== END 2023-05-25 23:59 | disposition home or self-care (01) ==
LOC: INF 04:29
PROVIDERS: Nurse Practitioner Family; PCP Family Medicine; Visit Provider Internal Medicine Medical Oncology
DX: C15.5 Malignant neoplasm of lower third of esophagus (principal); Z79.899 Other long term (current) drug therapy; Z45.2 Encounter for adjustment and management of vascular access device
CPT/HCPCS: 36591; 80053; 82378; 83735; 84439; 84443; 85025

== ENCOUNTER 2023-06-21 02:24 | Outpatient (RCR) | payer OTHER, SELFPAY ==
[2023-05-31] MEDS: Normal Saline Flush 10 ML SYR IVP (08:54)
[2023-05-31 08:56] LABS: Abs Immature Grans 0.03 10^3/uL (0.0-0.06); Absolute Basophil Count 0.04 10^3/uL (0.0-0.2); Absolute Lymphocyte Count 2.02 10^3/uL (1.2-3.4); Absolute Monocyte Count 1.13 10^3/uL (0.1-0.8); Absolute Neutrophil Count 2.75 10^3/uL (1.2-6.7); Basophils % 0.6; Eosinophils % 3.2; HCT 41.4 % (40.0-50.0); HGB 13.4 g/dL (13.5-17.5); Immature Grans % 0.5; Lymphocytes % 32.7; MCH 28.7 pg (27.0-33.0); MCHC 32.4 % (32.0-36.0); MCV 89 fL (80-95); MPV 8.9 fL (8.0-11.0); Monocytes % 18.3; Neutrophils % 44.7; Platelet Count 368 10^3/uL (130-400); RBC 4.67 10^6/uL (4.36-5.78); RDW 13.5 % (11.8-14.1); RDW-SD 43.9 fL; WBC 6.17 10^3/uL (4.4-10.8)
[2023-05-31 09:23] LABS: ALT 34 U/L (16-63); AST 22 U/L (15-37); Albumin 3.3 g/dL (3.4-5.0); Alkaline Phosphatase 110 U/L (46-116); Anion Gap 8.4 mmol/L (3-11); BUN 8 mg/dL (7-18); Bilirubin, Total 0.3 mg/dL (0.2-1.0); CO2 26.6 mmol/L (21.0-32.0); CREATININE 0.8 mg/dL (0.70-1.30); Chloride 104 mmol/L (98-107); Estimated GFR 107.82 (mL/min/1.73m2); FREE T4 1.36 ng/dL (0.76-1.46); Glucose 123 mg/dL (74-106); Potassium 3.7 mmol/L (3.5-5.1); Sodium 139 mmol/L (136-145); TSH 0.48 uIU/mL (0.36-3.74); Total Protein 6.7 g/dL (6.4-8.2)
[2023-05-31 18:03] LABS: CEA 4.2 ng/mL (See Note)
[2023-06-21] MEDS: Normal Saline Flush 10 ML SYR IVP (08:40)
[2023-06-21 09:01] LABS: Abs Immature Grans 0.06 10^3/uL (0.0-0.06); Absolute Basophil Count 0.06 10^3/uL (0.0-0.2); Absolute Eosinophil Count 0.07 10^3/uL (0.0-0.7); Absolute Lymphocyte Count 2.06 10^3/uL (1.2-3.4); Absolute Monocyte Count 1.12 10^3/uL (0.1-0.8); Absolute Neutrophil Count 5.02 10^3/uL (1.2-6.7); Basophils % 0.7; Eosinophils % 0.8; HCT 41.3 % (40.0-50.0); HGB 13.3 g/dL (13.5-17.5); Immature Grans % 0.7; Lymphocytes % 24.6; MCH 28.6 pg (27.0-33.0); MCHC 32.2 % (32.0-36.0); MCV 89 fL (80-95); MPV 9.1 fL (8.0-11.0); Monocytes % 13.3; Neutrophils % 59.9; Platelet Count 341 10^3/uL (130-400); RBC 4.65 10^6/uL (4.36-5.78); RDW 13.5 % (11.8-14.1); WBC 8.39 10^3/uL (4.4-10.8)
[2023-06-21 09:24] LABS: ALT 23 U/L (16-63); AST 19 U/L (15-37); Albumin 3.4 g/dL (3.4-5.0); Alkaline Phosphatase 105 U/L (46-116); Anion Gap 8.2 mmol/L (3-11); BUN 13 mg/dL (7-18); Bilirubin, Total 0.6 mg/dL (0.2-1.0); CO2 26.8 mmol/L (21.0-32.0); CREATININE 0.9 mg/dL (0.70-1.30); Calcium 9.1 mg/dL (8.5-10.1); Chloride 108 mmol/L (98-107); Estimated GFR 104.05 (mL/min/1.73m2); FREE T4 1.22 ng/dL (0.76-1.46); Glucose 115 mg/dL (74-106); Magnesium 1.7 mg/dL (1.8-2.4); Potassium 3.7 mmol/L (3.5-5.1); Sodium 143 mmol/L (136-145); TSH 1.45 uIU/mL (0.36-3.74); Total Protein 6.9 g/dL (6.4-8.2)
[2023-06-21 19:06] LABS: CEA 4.1 ng/mL (See Note)
== END 2023-06-24 23:59 | disposition home or self-care (01) ==
LOC: INF 02:24
PROVIDERS: Nurse Practitioner Family; PCP Family Medicine; Visit Provider Internal Medicine Medical Oncology
DX: C15.5 Malignant neoplasm of lower third of esophagus (principal); Z79.899 Other long term (current) drug therapy; Z45.2 Encounter for adjustment and management of vascular access device
CPT/HCPCS: 36591; 80053; 82378; 83735; 84439; 84443; 85025

== ENCOUNTER → 2023-07-05 02:58 | Outpatient (CLI) | payer OTHER, SELFPAY ==
[2023-07-05] MEDS: Normal Saline - Diluent 50 ML VIAL IJ (09:40)
[2023-07-05] MEDS: Barium Sulfate 2% W/V-Creamy Vanilla Smoothie 450 ML BTL PO (09:41)
[2023-07-05] MEDS: Omnipaque 350 MG/ML 500 ML BTL-Imaging package 100 ML IJ (09:41)
--- NOTE | 2023-07-05 10:00 | DI.CT_ITS ---
Exam(s) CT CHEST/ABD W EXAM: CT CHEST/ABD W CLINICAL HISTORY: ESOPHAGUS CANCER C15.5. TECHNIQUE: Imaging Protocol: Axial computed tomography images with coronal and sagittal reformatted images were created and reviewed CONTRAST MATERIAL: Intravenous: Omnipaque 350 Contrast volume:100 ml Oral: yes/450 mL barium PO COMPARISON: CT CT ABDOMEN PELVIS W from 06/02/[address] CHEST/ABD W from 04/12/2023 FINDINGS: CHEST: Status post gastric pull-through. No focal mass visible. Tracheobronchial tree: Patent where visualized. Pulmonary parenchyma: Mild emphysematous changes. Stable appearance of masslike density a the right diaphragm. No consolidation or new mass. Pleura: No effusion or pneumothorax. Lymph nodes: Within normal limits. Aorta: Thoracic portion non-dilated. Heart: No pericardial effusion. Normal size. Coronary artery calcifications. Bones: Unremarkable for age. No lytic or blastic lesions.No compression fractures. Soft tissues: Unremarkable. ABDOMEN and PELVIS: Liver: Normal density. No measurable mass. Gallbladder and biliary tract: No evidence of stones or wall thickening. No biliary dilatation. Pancreas: Normal density, no abnormal calcifications or inflammatory process. Spleen: Normal. Kidneys: Normal size, contour and axis. No radiodense stones hip. No obstructive uropathy. No suspic ious masses seen. Adrenal glands: No masses seen. Aorta: Abdominal portion non-dilated. Lymph nodes: Within normal limits. Soft tissues: Unremarkable. Bowel: No obstruction or bowel wall thickening. Peritoneal cavity: No ascites. No focal collection. No mesenteric inflammatory response. Bones: Unremarkable for age. IMPRESSION: Post gastric pull-through. Stable masslike density at right lung base. No new findings. RADIATION DOSE DELIVERED: Total DLP DATA REPOSITORY: All CT scans at this facility are submitted to the National Radiology Data Registry (NRDR) Dose Index Registry (DIR) with the [employer] (ACR). RADIATION OPTIMIZATION: All CT scans at this facility use at least one of these dose optimization te chniques: automated exposure control; mA and/or kV adjustment per patient size (includes targeted exa ms where dose is matched to clinical indication); or iterative reconstruction.
== END ==
PROVIDERS: PCP Family Medicine; Visit Provider Internal Medicine Medical Oncology
DX: C15.5 Malignant neoplasm of lower third of esophagus (principal); Z98.890 Other specified postprocedural states
CPT/HCPCS: 71260; 74160

== ENCOUNTER 2023-07-12 01:56 | Outpatient (RCR) | payer OTHER, SELFPAY ==
[2023-07-05] MEDS: Normal Saline Flush 10 ML SYR IVP (08:35)
[2023-07-05] MEDS: Heparin 500 UNITS/5 ML SYRINGE IV (08:35)
[2023-07-12 08:56] LABS: Abs Immature Grans 0.04 10^3/uL (0.0-0.06); Absolute Basophil Count 0.07 10^3/uL (0.0-0.2); Absolute Eosinophil Count 0.27 10^3/uL (0.0-0.7); Absolute Monocyte Count 1.28 10^3/uL (0.1-0.8); Absolute Neutrophil Count 3.55 10^3/uL (1.2-6.7); Eosinophils % 3.7; HCT 42.7 % (40.0-50.0); HGB 13.9 g/dL (13.5-17.5); Immature Grans % 0.6; Lymphocytes % 27.7; MCH 29.2 pg (27.0-33.0); MCHC 32.6 % (32.0-36.0); MCV 90 fL (80-95); MPV 9.1 fL (8.0-11.0); Monocytes % 17.8; Neutrophils % 49.2; Platelet Count 382 10^3/uL (130-400); RBC 4.76 10^6/uL (4.36-5.78); RDW 13.8 % (11.8-14.1); RDW-SD 45.2 fL; WBC 7.21 10^3/uL (4.4-10.8)
[2023-07-12 09:23] LABS: ALT 21 U/L (16-63); AST 17 U/L (15-37); Albumin 3.4 g/dL (3.4-5.0); Alkaline Phosphatase 114 U/L (46-116); Anion Gap 10.1 mmol/L (3-11); BUN 17 mg/dL (7-18); Bilirubin, Total 0.5 mg/dL (0.2-1.0); CO2 27.9 mmol/L (21.0-32.0); Calcium 9.2 mg/dL (8.5-10.1); Chloride 105 mmol/L (98-107); Estimated GFR 91.69 (mL/min/1.73m2); FREE T4 1.15 ng/dL (0.76-1.46); Glucose 112 mg/dL (74-106); Magnesium 1.7 mg/dL (1.8-2.4); Potassium 3.8 mmol/L (3.5-5.1); Sodium 143 mmol/L (136-145); TSH 1.38 uIU/mL (0.36-3.74); Total Protein 6.8 g/dL (6.4-8.2)
[2023-07-12] MEDS: Normal Saline Flush 10 ML SYR IVP (11:52)
[2023-07-12 17:54] LABS: CEA 4.2 ng/mL (See Note)
== END 2023-07-25 23:59 | disposition home or self-care (01) ==
LOC: INF 01:56
PROVIDERS: Nurse Practitioner Family; PCP Family Medicine; Visit Provider Internal Medicine Medical Oncology
DX: C15.5 Malignant neoplasm of lower third of esophagus (principal); Z79.899 Other long term (current) drug therapy; Z45.2 Encounter for adjustment and management of vascular access device
CPT/HCPCS: 36591; 80053; 96523; 82378; 83735; 84439; 84443; 85025

== ENCOUNTER 2023-08-23 03:06 | Outpatient (RCR) | payer OTHER, SELFPAY ==
[2023-08-02] MEDS: Normal Saline Flush 10 ML SYR IVP (10:46)
[2023-08-02 10:59] LABS: Abs Immature Grans 0.05 10^3/uL (0.0-0.06); Absolute Basophil Count 0.05 10^3/uL (0.0-0.2); Absolute Eosinophil Count 0.18 10^3/uL (0.0-0.7); Absolute Lymphocyte Count 2.35 10^3/uL (1.2-3.4); Absolute Monocyte Count 1.23 10^3/uL (0.1-0.8); Absolute Neutrophil Count 3.67 10^3/uL (1.2-6.7); Basophils % 0.7; Eosinophils % 2.4; HCT 39.7 % (40.0-50.0); HGB 12.7 g/dL (13.5-17.5); Immature Grans % 0.7; Lymphocytes % 31.2; MCH 28.8 pg (27.0-33.0); MCV 90 fL (80-95); MPV 8.7 fL (8.0-11.0); Monocytes % 16.3; Neutrophils % 48.7; Platelet Count 349 10^3/uL (130-400); RBC 4.41 10^6/uL (4.36-5.78); RDW 13.8 % (11.8-14.1); RDW-SD 46.2 fL; WBC 7.53 10^3/uL (4.4-10.8)
[2023-08-02 11:29] LABS: ALT 25 U/L (16-63); AST 17 U/L (15-37); Albumin 3.3 g/dL (3.4-5.0); Alkaline Phosphatase 104 U/L (46-116); Anion Gap 8.8 mmol/L (3-11); BUN 14 mg/dL (7-18); Bilirubin, Total 0.6 mg/dL (0.2-1.0); CO2 27.2 mmol/L (21.0-32.0); CREATININE 1.1 mg/dL (0.70-1.30); Chloride 108 mmol/L (98-107); Estimated GFR 81.78 (mL/min/1.73m2); FREE T4 1.14 ng/dL (0.76-1.46); Glucose 155 mg/dL (74-106); Potassium 3.7 mmol/L (3.5-5.1); Sodium 144 mmol/L (136-145); Total Protein 6.5 g/dL (6.4-8.2)
[2023-08-02 17:56] LABS: CEA 4.4 ng/mL (See Note)
[2023-08-23] MEDS: Normal Saline Flush 10 ML SYR IVP (08:24)
[2023-08-23 08:43] LABS: Abs Immature Grans 0.11 10^3/uL (0.0-0.06); Absolute Basophil Count 0.06 10^3/uL (0.0-0.2); Absolute Eosinophil Count 0.18 10^3/uL (0.0-0.7); Absolute Lymphocyte Count 3.25 10^3/uL (1.2-3.4); Absolute Monocyte Count 1.28 10^3/uL (0.1-0.8); Absolute Neutrophil Count 3.76 10^3/uL (1.2-6.7); Basophils % 0.7; Eosinophils % 2.1; HGB 13.4 g/dL (13.5-17.5); Immature Grans % 1.3; Lymphocytes % 37.6; MCHC 32.7 % (32.0-36.0); MCV 89 fL (80-95); MPV 8.8 fL (8.0-11.0); Monocytes % 14.8; Neutrophils % 43.5; Platelet Count 374 10^3/uL (130-400); RBC 4.62 10^6/uL (4.36-5.78); RDW 13.6 % (11.8-14.1); RDW-SD 44.2 fL; WBC 8.64 10^3/uL (4.4-10.8)
[2023-08-23 09:56] LABS: ALT 22 U/L (16-63); AST 16 U/L (15-37); Albumin 3.1 g/dL (3.4-5.0); Alkaline Phosphatase 111 U/L (46-116); Anion Gap 12.2 mmol/L (3-11); BUN 12 mg/dL (7-18); Bilirubin, Total 0.5 mg/dL (0.2-1.0); CO2 24.8 mmol/L (21.0-32.0); Chloride 105 mmol/L (98-107); Estimated GFR 91.69 (mL/min/1.73m2); FREE T4 1.12 ng/dL (0.76-1.46); Glucose 156 mg/dL (74-106); Potassium 3.8 mmol/L (3.5-5.1); Sodium 142 mmol/L (136-145); TSH 0.79 uIU/mL (0.36-3.74); Total Protein 6.9 g/dL (6.4-8.2)
[2023-08-23 19:18] LABS: CEA 4.8 ng/mL (See Note)
== END 2023-08-25 23:59 | disposition home or self-care (01) ==
LOC: INF 03:06
PROVIDERS: PCP Family Medicine; Visit Provider Internal Medicine Medical Oncology
DX: C15.5 Malignant neoplasm of lower third of esophagus (principal); Z79.899 Other long term (current) drug therapy; Z45.2 Encounter for adjustment and management of vascular access device
CPT/HCPCS: 36591; 80053; 82378; 83735; 84439; 84443; 85025

== ENCOUNTER 2023-09-15 01:22 | Outpatient (RCR) | payer OTHER, SELFPAY ==
[2023-09-15] MEDS: Normal Saline Flush 10 ML SYR IVP (08:35)
[2023-09-15 09:37] LABS: HCT 41.5 % (40.0-50.0); HGB 13.4 g/dL (13.5-17.5); MCH 28.7 pg (27.0-33.0); MCHC 32.3 % (32.0-36.0); MCV 89 fL (80-95); MPV 9.6 fL (8.0-11.0); Platelet Count 365 10^3/uL (130-400); RBC 4.67 10^6/uL (4.36-5.78); RDW 13.5 % (11.8-14.1); RDW-SD 43.7 fL; WBC 8.76 10^3/uL (4.4-10.8)
[2023-09-15 10:03] LABS: Absolute Basophil Count 0.09 10^3/uL (0.0-0.2); Absolute Eosinophil Count 0.44 10^3/uL (0.0-0.7); Absolute Lymphocyte Count 3.15 10^3/uL (1.2-3.4); Absolute Monocyte Count 1.05 10^3/uL (0.1-0.8); Absolute Neutrophil Count 4.03 10^3/uL (1.2-6.7); Diff Comment Manual Differential; RBC Morphology Normal
[2023-09-15 10:23] LABS: ALT 27 U/L (16-63); AST 19 U/L (15-37); Albumin 3.2 g/dL (3.4-5.0); Alkaline Phosphatase 122 U/L (46-116); Anion Gap 10.1 mmol/L (3-11); BUN 15 mg/dL (7-18); Bilirubin, Total 0.5 mg/dL (0.2-1.0); CO2 25.9 mmol/L (21.0-32.0); Calcium 8.7 mg/dL (8.5-10.1); Chloride 105 mmol/L (98-107); Estimated GFR 91.69 (mL/min/1.73m2); FREE T4 1.12 ng/dL (0.76-1.46); Glucose 129 mg/dL (74-106); Magnesium 1.8 mg/dL (1.8-2.4); Potassium 3.6 mmol/L (3.5-5.1); Sodium 141 mmol/L (136-145); TSH 0.64 uIU/mL (0.36-3.74); Total Protein 6.8 g/dL (6.4-8.2)
[2023-09-15 19:34] LABS: CEA 5.1 ng/mL (See Note)
== END 2023-09-23 23:59 | disposition home or self-care (01) ==
LOC: INF 01:22
PROVIDERS: PCP Family Medicine; Visit Provider Internal Medicine Medical Oncology
DX: C15.5 Malignant neoplasm of lower third of esophagus (principal); Z79.899 Other long term (current) drug therapy; Z45.2 Encounter for adjustment and management of vascular access device
CPT/HCPCS: 36591; 80053; 82378; 83735; 84439; 84443; 85025

== ENCOUNTER → 2023-10-12 03:31 | Outpatient (CLI) | payer OTHER, SELFPAY ==
--- NOTE | 2023-10-12 11:20 | DI.RAD_ITS ---
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 TECHNIQUE: 2D digital imaging was performed. AP and lateral views. FINDINGS: BONES: No acute fracture is present. Abnormal vague lucenciesin the upper, mid and distal femoral sha ft. JOINTS: Visualized portion of knee and hip joints are unremarkable. SOFT TISSUE: Vascular calcifications. IMPRESSION: Abnormal lucencies in the femoral shaft, consistent with metastatic lesions. DATA REPOSITORY: RADIATION DOSE DELIVERED:
== END ==
PROVIDERS: PCP Family Medicine; Visit Provider Internal Medicine Medical Oncology
DX: C79.51 Secondary malignant neoplasm of bone (principal)
CPT/HCPCS: 73552

== ENCOUNTER 2023-10-23 11:21 | Emergency (ER) | payer OTHER, SELFPAY ==
[2023-10-23 11:27] VITALS: BP 117/70; PULSE 74; RESP 20; TEMP 36.9; O2SAT 98
--- NOTE | 2023-10-23 11:36 | W.EDPROG ---
Date of service: 10/23/23 Time of Service: 11:36 Medical Decision Making I inadvertently ordered tetanus and L ET on this patient. I counseled these and the patient did not receive these. I did not see this patient. Quality:[facility] Health Related Social Needs: No Data to Display Discharge Plan Discharge Details Chief Complaint: Nk/Back Pain Primary Care Provider: Donovan Bobby ED Provider: Parth Jo Home Meds and New Rx's Prescriptions: No Action budesonide-formoterol [Symbicort] 80-4.5 mcg/actuation HFA aerosol inhaler 2 puff IH BID PRN Patient Comments: not on med list multivitamin Tablet 1 tab PO DAILY nystatin 100,000 unit/mL suspension 5 ml PO QID Qty: 200 0RF Rx Instructions: swish and swallow nitroglycerin 0.4 mg tablet, sublingual 0.4 mg Sublingual PRN Qty: 25 0RF sildenafil 100 mg tablet 100 mg PO DAILY PRN (Reason: sexual activity) Qty: 30 2RF Rx Instructions: administer 30 minutes to 4 hours before activity cyclobenzaprine 5 mg tablet 5 mg PO TID PRN (Reason: muscle spasm) Qty: 60 0RF Rx Instructions: Take 1 tablet by mouth three times a day as needed for pain aspirin 81 MG tablet,chewable 81 mg PO DAILY nicotine 14 mg/24 hr patch 24 hour 1 patch TD DAILY Qty: 28 5RF Patient Comments: not on med list lansoprazole 30 mg capsule,delayed release(DR/EC) 30 mg PO DAILY Qty: 90 3RF nicotine 21 mg/24 hr patch 24 hour 1 patch TD Q24H Qty: 30 2RF Patient Comments: not on med list ondansetron 4 mg tablet,disintegrating 4 mg PO QID PRN (Reason: nausea and vomiting) Qty: 20 3RF levothyroxine 75 mcg capsule 75 mcg PO DAILY Qty: 90 3RF diphenhydramine HCl 12.5 mg/5 mL Elixir 12.5 mg PO Q4H PRN docusate sodium 100 mg Capsule 100 mg PO BID lidocaine HCl 2 % Solution 1 applic MUCOUS MEMBRANE Q4H PRN albuterol sulfate 90 mcg/actuation Hfa Aerosol Inhaler 2 puff INHALATION Q4H PRN fluticasone propionate 110 mcg/actuation Hfa Aerosol Inhaler 2 puff INHALATION PRN PRN alum-mag hydroxide-simeth 200-200-20 mg/5 mL Suspension 5 ml PO Q4H lorazepam 0.5 mg tablet 0.5 mg PO Q6H PRN sulfamethoxazole 500 mg Tablet PO sennosides [senna] 8.6 mg Tablet 8.6 mg PO DAILY PRN prochlorperazine maleate 10 mg tablet 10 mg PO Q6H Patient Comments: TAKE 1 TABLET BY MOUTH EVERY 6 HOURS NEEDED FOR NAUSEA mirtazapine 15 mg Tablet 15 mg PO QHS
--- NOTE | 2023-10-23 11:45 | DI.CT_ITS ---
Exam(s) CT THORACIC LUMBAR SPINE WO EXAM: CT THORACIC LUMBAR SPINE WO CLINICAL HISTORY: back pain, Hx Cancer. TECHNIQUE: Imaging Protocol: Axial computed tomography images with coronal and sagittal reformatted images were created and reviewed. COMPARISON: CT CT CHEST/ABD W from 07/05/2023 FINDINGS: Bones: No fractures or dislocations are seen. The alignment of the spine is normal including the cerv icothoracic junction and the thoracolumbar junction. There is a lucency which is more prominent in t he superior aspect of the L2 vertebral body. There is a destructive lesion seen in the posterior lef t aspect of the L3 vertebral body. Soft tissues: Emphysematous changes are present in the lungs. The patient is status post gastric pul l-up. The medial left upper lobe mass is again seen. No large disk herniations are identified. Ther e is diverticulosis of the colon. IMPRESSION: 1. Osteolytic lesions seen in the L2 and L3 vertebral bodies. 2. No acute fracture or subluxation. 3. Postsurgical changes of esophagectomy and gastric pull-up. 4. The mass in the medial aspect of the left upper lobe is again seen. RADIATION DOSE DELIVERED: Total DLP DATA REPOSITORY: All CT scans at this facility are submitted to the National Radiology Data Registry (NRDR) Dose Index Registry (DIR) with the [employer] (ACR). RADIATION OPTIMIZATION: All CT scans at this facility use at least one of these dose optimization te chniques: automated exposure control; mA and/or kV adjustment per patient size (includes targeted exa ms where dose is matched to clinical indication); or iterative reconstruction.
--- NOTE | 2023-10-23 11:55 | ED.GENADUL_ITS ---
Discharge Plan Disposition Patient Disposition: Home Discharge Details Clinical Impression: Acute lumbar myofascial strain Primary Care Provider: Donovan Bobby ED Provider: Parth Jo [place] Meds and New Rx's Prescriptions: New methocarbamol 750 mg tablet 750 - 1,500 mg PO TID PRN (Reason: muscle spasm) 4 Days Qty: 20 0RF lidocaine 5 % adhesive patch,medicated 1 patch TP DAILY PRN (Reason: pain) Qty: 15 0RF Rx Instructions: leave on most painful area for 12 hrs No Action multivitamin Tablet 1 tab PO DAILY nitroglycerin 0.4 mg tablet, sublingual 0.4 mg Sublingual PRN Qty: 25 0RF sildenafil 100 mg tablet 100 mg PO DAILY PRN (Reason: sexual activity) Qty: 30 2RF Rx Instructions: administer 30 minutes to 4 hours before activity cyclobenzaprine 5 mg tablet 5 mg PO TID PRN (Reason: muscle spasm) Qty: 60 0RF Hold Instructions: Hold medication while on different muscle relaxer Rx Instructions: Take 1 tablet by mouth three times a day as needed for pain aspirin 81 MG tablet,chewable 81 mg PO DAILY lansoprazole 30 mg capsule,delayed release(DR/EC) 30 mg PO DAILY Qty: 90 3RF nicotine 21 mg/24 hr patch 24 hour 1 patch TD Q24H Qty: 30 2RF Patient Comments: not on med list levothyroxine 75 mcg capsule 75 mcg PO DAILY Qty: 90 3RF diphenhydramine HCl 12.5 mg/5 mL Elixir 12.5 mg PO Q4H PRN docusate sodium 100 mg Capsule 100 mg PO BID lidocaine HCl 2 % Solution 1 applic MUCOUS MEMBRANE Q4H PRN albuterol sulfate 90 mcg/actuation Hfa Aerosol Inhaler 2 puff INHALATION Q4H PRN alum-mag hydroxide-simeth 200-200-20 mg/5 mL Suspension 5 ml PO Q4H PRN sennosides [senna] 8.6 mg Tablet 8.6 mg PO DAILY PRN prochlorperazine maleate 10 mg tablet 10 mg PO Q6H Patient Comments: TAKE 1 TABLET BY MOUTH EVERY 6 HOURS NEEDED FOR NAUSEA mirtazapine 15 mg Tablet 15 mg PO QHS oxycodone 5 mg tablet 5 mg PO Q6H PRN Patient Comments: TAKE ONE TABLET BY MOUTH EVERY 6 HOURS NEEDED FOR PAIN ondansetron 4 mg tablet,disintegrating 8 mg PO QID PRN (Reason: nausea and vomiting) Discharge Instructions Instructions: Low Back Strain (ED), Lower Back Exercises (ED) Additional Instructions: Continue to use your already prescribed narcotic along with acetaminophen as needed for pain and discomfort. You have also been prescribed a muscle relaxer and please use caution with this to ensure that there is not oversedation but you may use this for continued muscle spasms. Minimize any lifting bending or twisting activities but you may perform gentle range of motion and very mild activities as tolerated. Return to the emergency department immediately for any new or significant worsening symptoms otherwise follow-up with your primary care provider Referrals: Donovan Bobby MD [Primary Care Provider] - (As needed for reassessment) HPI General Mode of arrival: ambulatory . Date/Time Provider Initiated Documentation: 10/23/23 11:26 . Limitations to Documentation: no limitations . Information obtained by: patient, family and RN notes reviewed . History of Present Illness 48 year old M presents to the emergency department with the chief complaint of back pain , described as moderate and severe, Quality is described as sharp, and is localized to the back. Patient reports no radiation. Patient started experiencing this week(s) (1) and it has been intermittent. Rest improves symptom(s), Movement worsens symptoms . Patient notes no other symptoms.. Patient did receive the following treatments prior to arrival, other (Acetaminophen, oxycodone) Related Data Home Medications Medication Instructions Recorded Confirmed aspirin 81 mg chewable tablet 81 mg PO DAILY 03/25/16 10/23/23 multivitamin 1 tab PO DAILY 04/16/20 10/23/23 lansoprazole 30 mg capsule,delayed 30 mg PO DAILY #90 caps 11/04/20 10/23/23 release nicotine 21 mg/24 hr daily 1 patch transdermal Q24H #30 ea 09/25/21 10/23/23 transdermal patch nitroglycerin 0.4 mg sublingual 0.4 mg sublingual PRN #25 tabs 12/23/21 10/23/23 tablet albuterol sulfate 90 mcg/actuation 2 puff inhalation Q4H PRN 10/26/22 10/23/23 aerosol inhaler aluminum-mag hydroxide-simethicone 5 ml PO Q4H PRN 10/26/22 10/23/23 200 mg-200 mg-20 mg/5 mL oral susp diphenhydramine HCl 12.5 mg/5 mL 12.5 mg PO Q4H PRN 10/26/22 10/23/23 oral elixir docusate sodium 100 mg capsule 100 mg PO BID 10/26/22 10/23/23 lidocaine HCl 2 % mucosal solution 1 applic mucous membrane Q4H PRN 10/26/22 10/23/23 mirtazapine 15 mg tablet 15 mg PO QHS 10/26/22 10/23/23 prochlorperazine maleate 10 mg 10 mg PO Q6H 10/26/22 10/23/23 tablet sennosides 8.6 mg tablet (senna) 8.6 mg PO DAILY PRN 10/26/22 10/23/23 levothyroxine 75 mcg capsule 75 mcg PO DAILY #90 caps 10/27/22 10/23/23 sildenafil 100 mg tablet 100 mg PO DAILY PRN sexual 12/29/22 10/23/23 activity #30 tabs cyclobenzaprine 5 mg tablet 5 mg PO TID PRN muscle spasm #60 10/05/23 10/23/23 tabs lidocaine 5 % topical patch 1 patch topical DAILY PRN pain #15 10/23/23 ea methocarbamol 750 mg tablet 750 - 1,500 mg (1 - 2 x 750 mg) PO 10/23/23 TID PRN muscle spasm 4 days #20 tabs ondansetron 4 mg disintegrating 8 mg PO QID PRN nausea and vomiting 10/23/23 10/23/23 tablet oxycodone 5 mg tablet 5 mg PO Q6H PRN 10/23/23 10/23/23 Previous Rx's Medication Instructions Recorded lansoprazole 30 mg capsule,delayed 30 mg PO DAILY #90 caps 11/04/20 release nicotine 21 mg/24 hr daily 1 patch transdermal Q24H #30 ea 09/25/21 transdermal patch nitroglycerin 0.4 mg sublingual 0.4 mg sublingual PRN #25 tabs 12/23/21 tablet levothyroxine 75 mcg capsule 75 mcg PO DAILY #90 caps 10/27/22 sildenafil 100 mg tablet 100 mg PO DAILY PRN sexual 12/29/22 activity #30 tabs cyclobenzaprine 5 mg tablet 5 mg PO TID PRN muscle spasm #60 10/05/23 tabs lidocaine 5 % topical patch 1 patch topical DAILY PRN pain #15 10/23/23 ea methocarbamol 750 mg tablet 750 - 1,500 mg (1 - 2 x 750 mg) PO 10/23/23 TID PRN muscle spasm 4 days #20 tabs Allergies Allergy/AdvReac Type Severity Reaction Status Date / Time No Known Allergies Allergy Verified 10/23/23 13:21 General Stated Complaint: Nk/Back Pain CRISTA: 3 Review of Systems Constitutional Constitutional: Denies chills and Denies fever(s) Cardiovascular Cardiovascular: Denies chest pain and Denies dyspnea on exertion Respiratory Respiratory: Denies cough and Denies dyspnea on exertion Gastrointestinal Gastrointestinal: Denies abdominal pain, Denies change in bowel habits, Denies diarrhea, Denies nausea and Denies vomiting Genitourinary Genitourinary: Denies difficulty urinating and Denies urinary incontinence Musculoskeletal Musculoskeletal: Reports as per HPI and Reports back pain Neurologic Neurologic: Denies sensory deficit Exam Const General: cooperative Orientation: alert, awake and oriented x3 Neck Neck: normal visual inspection, full ROM and no meningeal signs Resp Effort & Inspection: normal respiratory effort Auscultation: clear to auscultation bilaterally Cardio Rate: regular rate Rhythm: regular rhythm Heart Sounds: S1 normal and S2 normal Back/Spine/Pelvis Thoracic/Lumbar Spine: pain with thoraco-lumbar ROM, paraspinal tenderness, thoraco-lumbar ROM limited, No thoracic spinal tenderness and No lumbar spinal tenderness Neuro General: patient alert, patient awake and patient oriented x3 Course Vital Signs Vital signs: Vital Signs Temperature 36.9 C 10/23/23 11:27 Pulse 74 10/23/23 11:27 Respiratory Rate 20 10/23/23 11:27 Blood Pressure 117/70 10/23/23 11:27 Pulse Oximetry 98 10/23/23 11:27 Temperature 36.9 C 10/23/23 11:27 Temperature Source Oral 10/23/23 11:27 Pulse 74 10/23/23 11:27 Respiratory Rate 20 10/23/23 11:27 Respiratory Effort Normal 10/23/23 11:36 Blood Pressure 117/70 10/23/23 11:27 Blood Pressure Position Sitting 10/23/23 11:27 Pulse Oximetry 98 10/23/23 11:27 Oxygen Delivery Method Room Air 10/23/23 11:27 Oxygen Flow Rate 0 10/23/23 11:27 Pain Level 10 10/23/23 11:27 Medical Decision Making Patient presenting to the emergency department for chief complaint of back pain. Patient reports last week he was snowblowing and scooping snow with the winter storm that came through and seem to aggravate his back. 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 Patient has significant past medical history of ongoing cancer with current radiation therapy and esophageal surgery. Physical exam shows no spinal tenderness but significant pain with movement and some paraspinal tenderness is noted. While I suspect lumbar muscular strain given history of metastatic cancer do feel important to perform imaging to rule out any new metastatic disease to spine. Labs were performed and reviewed and show no emergent or worrisome findings, CT imaging performed and shows no metastatic disease to spine otherwise expected findings noted. Patient continued to have some muscular spasms and spite of Flexeril so patient was given Robaxin and ketorolac after already receiving some narcotic. Patient reassessed and did state some improvement send patient will be discharged with prescription for further lidocaine patch use as needed and Robaxin. Patient to continue his home oxycodone use as needed. After discussion of diagnosis and plan of care patient has no further needs, questions, or concerns and states clear understanding to return to the emergency department for any worsening symptoms. This documentation was generated using [employer] dictation system, please disregard any oddities of phrase or misspellings. Imaging Data Radiologic Study: Imaging: CT Scan Radiologist's impression: Exam(s) PROCEDURE INFORMATION: Exam: CT Thoracic Spine Without Contrast Exam date and time: 10/23/2023 12:33 PM Age: 48 years old Clinical indication: Other: Back pain HX of cancer; Other: Back pain HX if cancer TECHNIQUE: Imaging protocol: Computed tomography of the thoracic spine without contrast. COMPARISON: CT CHEST/ABD W 07/05/2023 9:43 AM FINDINGS: Bones/joints: No acute fracture. Normal alignment. No significant disc bulge or herniation. No severe spinal canal stenosis. No significant neural foraminal narrowing. Soft tissues: Unremarkable. Vasculature: No thoracic aortic aneurysm. Minimal amount of calcified plaque within the arteries. Lungs: Moderate paraseptal emphysematous changes. Mediastinum: Previous esophagectomy with gastric pull-through. Anastomosis in the upper portion of the thoracic esophagus. No evidence of leak or mass. IMPRESSION: 1. No osteolytic or osteoblastic lesions. The spine is normally aligned. No spinal stenosis or neural foraminal narrowing. 2. Probable esophageal cancer with resection and gastric pull-through. No evidence of tumor recurrence. 3. Paraseptal emphysematous changes of the lungs. PROCEDURE INFORMATION: Exam: CT Lumbar Spine Without Contrast Exam date and time: 10/23/2023 12:33 PM Age: 48 years old Clinical indication: Other: Back pain HX of cancer; Other: Back pain HX if cancer TECHNIQUE: Imaging protocol: Computed tomography of the lumbar spine without contrast. COMPARISON: CT CHEST/ABD W 07/05/2023 9:43 AM FINDINGS: Bones/joints: No acute fracture. Normal alignment. No significant disc bulge or herniation. No severe spinal canal stenosis. No significant neural foraminal narrowing. Stomach and bowel: Multiple colonic diverticula without inflammatory changes. Vasculature: Small amount of calcified plaque within the arteries. No aneurysm. Soft tissues: Unremarkable. IMPRESSION: 1. No osteolytic or osteoblastic lesions. The spinal alignment is preserved. 2. Uncomplicated colonic diverticulosis. Dictated and Authenticated by: Bobby Lam MD. Lab Data Lab results reviewed: Yes I reviewed the patient's lab results. Quality:SDOH Health Related Social Needs: No Data to Display PFSH All Active Problems (Updated 10/23/23 @ 14:31 by Parth Jo NP) Acute lumbar myofascial strain (Acute) Cancer with pulmonary metastases (Acute ~09/15/23) Right shoulder pain (Acute) Nausea (Acute) Sinusitis (Acute) Sleep disorder (Acute) Anxiety (Chronic) Mood disorder (Acute) Mucus plugging of bronchi (Acute) Thrush (Acute) Erectile dysfunction (Acute) Hypomagnesemia (Acute) Aspiration pneumonia (Acute) DVT prophylaxis (Acute) Nausea & vomiting (Acute) Fatigue (Chronic) Low BP (Chronic) wean metoprolol to stop Cachexia (Chronic) will augment mirtazapine encourage po whenever possible Pharyngitis (Chronic) Likely related to radiation Persistent mood disorder (Chronic) better but wt down History of arthroscopy of left knee (Chronic 12/31/14) Weight loss (Chronic) 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) Knee pain (Chronic 07/14/13) Unstable angina (Chronic) Medical History Anxiety Esophageal cancer Alcohol abuse (07/14/13) Bleeding hemorrhoids (05/28/17) Essential hypertension (07/13/13) Gastroesophageal reflux disease with esophagitis (03/09/13) Hyperlipidemia (11/19/08) ST elevation myocardial infarction involving left circumflex coronary artery (03/18/16) SANDRITA to LCX EF 62% Adjustment disorder with depressed mood Tobacco use disorder GERD (gastroesophageal reflux disease) Coronary artery disease Surgical History History of coronary artery stent placement Esophagus cancer with h/o esophagus stent EGD - MAC (12/29/17) Family History Mother Diabetes Essential hypertension Heart disease Hyperlipidemia Stroke Father Diabetes Sister No problems noted. Brother Essential hypertension Hyperlipidemia Brother Hyperlipidemia Brother Essential hypertension Heart disease Hyperlipidemia Social History Smoking/Tobacco Use Status: Former Tobacco Use tobacco type: cigarettes and smokeless tobacco Smokeless tobacco user: chewing tobacco Second Hand Exposure: Yes Smoking risk assessment performed?: Yes Alcohol Intake: former Drug use: Daily Substance use type: marijuana Caregiver/Support person: No Household members: spouse Housing: house Communication Needs: None Do you need help understanding health information?: Never Pets and animals: Yes Pets and animals: dog(s) and bird(s) Do you think of yourself as: straight/heterosexual Current gender identity: male What is your relationship status?: How often do you talk on the phone with friends or family?: three or more times per week How often do you get together with friends or relatives?: never How often do you attend hinduism or christianity services?: decline to answer Do you belong to any clubs or organized social groups?: no Panel score (0-1 are the most socially isolated patients): 2 What type of physical activity do you participate in: decline to answer Beverly/Sabianist: No preference Special beverly needs: No Seatbelt use: always Helmet use: Yes Drive intox or ride w/intox dedicated truck driver: No Do you feel safe at home: Yes Do you feel safe in your relationship?: Yes
[2023-10-23] MEDS: Normal Saline 500 ML IV (12:09)
[2023-10-23] MEDS: HYDROmorphone 2 MG/ML SYR 1 MG IVP (12:10)
[2023-10-23] MEDS: Cyclobenzaprine 10 MG TAB PO (12:11)
[2023-10-23] MEDS: Lidocaine 5% Patch 1 PATCH TP (12:11)
[2023-10-23 12:16] LABS: Abs Immature Grans 0.07 10^3/uL (0.0-0.06); Absolute Basophil Count 0.05 10^3/uL (0.0-0.2); Absolute Eosinophil Count 0.15 10^3/uL (0.0-0.7); Absolute Lymphocyte Count 1.89 10^3/uL (1.2-3.4); Absolute Monocyte Count 1.16 10^3/uL (0.1-0.8); Basophils % 0.5; Eosinophils % 1.4; HCT 39.1 % (40.0-50.0); HGB 12.6 g/dL (13.5-17.5); Immature Grans % 0.7; Lymphocytes % 18.1; MCH 28.3 pg (27.0-33.0); MCHC 32.2 % (32.0-36.0); MCV 88 fL (80-95); MPV 8.8 fL (8.0-11.0); Monocytes % 11.1; Neutrophils % 68.2; Platelet Count 326 10^3/uL (130-400); RBC 4.45 10^6/uL (4.36-5.78); RDW 13.2 % (11.8-14.1); RDW-SD 42.6 fL; WBC 10.42 10^3/uL (4.4-10.8)
[2023-10-23 12:32] LABS: ALT 14 U/L (16-63); AST 13 U/L (15-37); Alkaline Phosphatase 111 U/L (46-116); Anion Gap 8.8 mmol/L (3-11); BUN 18 mg/dL (7-18); Bilirubin, Total 0.4 mg/dL (0.2-1.0); CO2 27.2 mmol/L (21.0-32.0); CREATININE 0.9 mg/dL (0.70-1.30); Calcium 8.5 mg/dL (8.5-10.1); Chloride 103 mmol/L (98-107); Estimated GFR 104.05 (mL/min/1.73m2); Glucose 111 mg/dL (74-106); Magnesium 1.8 mg/dL (1.8-2.4); Sodium 139 mmol/L (136-145); Total Protein 6.5 g/dL (6.4-8.2)
--- NOTE | 2023-10-23 13:42 | DI.VRAD_ITS ---
PROCEDURE INFORMATION: Exam: CT Thoracic Spine Without Contrast Exam date and time: 10/23/2023 12:33 PM Age: 48 years old Clinical indication: Other: Back pain HX of cancer; Other: Back pain HX if cancer TECHNIQUE: Imaging protocol: Computed tomography of the thoracic spine without contrast. COMPARISON: CT CHEST/ABD W 07/05/2023 9:43 AM FINDINGS: Bones/joints: No acute fracture. Normal alignment. No significant disc bulge or herniation. No severe spinal canal stenosis. No significant neural foraminal narrowing. Soft tissues: Unremarkable. Vasculature: No thoracic aortic aneurysm. Minimal amount of calcified plaque within the arteries. Lungs: Moderate paraseptal emphysematous changes. Mediastinum: Previous esophagectomy with gastric pull-through. Anastomosis in the upper portion of the thoracic esophagus. No evidence of leak or mass. IMPRESSION: 1. No osteolytic or osteoblastic lesions. The spine is normally aligned. No spinal stenosis or neural foraminal narrowing. 2. Probable esophageal cancer with resection and gastric pull-through. No evidence of tumor recurrence. 3. Paraseptal emphysematous changes of the lungs. PROCEDURE INFORMATION: Exam: CT Lumbar Spine Without Contrast Exam date and time: 10/23/2023 12:33 PM Age: 48 years old Clinical indication: Other: Back pain HX of cancer; Other: Back pain HX if cancer TECHNIQUE: Imaging protocol: Computed tomography of the lumbar spine without contrast. COMPARISON: CT CHEST/ABD W 07/05/2023 9:43 AM FINDINGS: Bones/joints: No acute fracture. Normal alignment. No significant disc bulge or herniation. No severe spinal canal stenosis. No significant neural foraminal narrowing. Stomach and bowel: Multiple colonic diverticula without inflammatory changes. Vasculature: Small amount of calcified plaque within the arteries. No aneurysm. Soft tissues: Unremarkable. IMPRESSION: 1. No osteolytic or osteoblastic lesions. The spinal alignment is preserved. 2. Uncomplicated colonic diverticulosis. Dictated and Authenticated by: Bobby Lam MD. Ordering:HARPER Alba MD
[2023-10-23] MEDS: Methocarbamol 500 MG TAB 750 MG PO (14:15)
[2023-10-23] MEDS: Ketorolac 15 MG/ML VIAL IVP (14:15)
[2023-10-23] MEDS: Heparin 500 UNITS/5 ML SYRINGE (14:56)
== END 2023-10-23 14:57 | disposition home or self-care (01) ==
PROVIDERS: Emergency Provider Nurse Practitioner Family; PCP Family Medicine
DX: S39.012A Strain of muscle, fascia and tendon of lower back, initial encounter; X50.0XXA Overexertion from strenuous movement or load, initial encounter
CPT/HCPCS: 00123; 80053; 96374; 96375; 99284; 72128; 72131; 83735; 85025; 99283; J1170; J1642; J1885

== ENCOUNTER 2023-10-30 17:46 | Emergency (ER) | payer OTHER, SELFPAY ==
[2023-10-30 17:50] VITALS: BP 122/67; PULSE 93; RESP 18; TEMP 38.5; O2SAT 98
[2023-10-30 18:32] VITALS: BP 122/67; PULSE 93; RESP 18; TEMP 38.5; O2SAT 98
[2023-10-30] MEDS: ACETAMINOPHEN 1,000 MG/100 ML BTL 400 MG IVPB (18:55)
[2023-10-30] MEDS: Normal Saline 250 ML 500 ML IV (19:00)
[2023-10-30 19:31] LABS: Abs Immature Grans 0.03 10^3/uL (0.0-0.06); Absolute Basophil Count 0.05 10^3/uL (0.0-0.2); Absolute Eosinophil Count 0.45 10^3/uL (0.0-0.7); Absolute Lymphocyte Count 1.44 10^3/uL (1.2-3.4); Absolute Monocyte Count 1.42 10^3/uL (0.1-0.8); Absolute Neutrophil Count 6.69 10^3/uL (1.2-6.7); Basophils % 0.5; Eosinophils % 4.5; HCT 38.8 % (40.0-50.0); HGB 12.5 g/dL (13.5-17.5); Immature Grans % 0.3; Lymphocytes % 14.3; MCH 28.7 pg (27.0-33.0); MCHC 32.2 % (32.0-36.0); MCV 89 fL (80-95); MPV 8.8 fL (8.0-11.0); Monocytes % 14.1; Neutrophils % 66.3; Platelet Count 431 10^3/uL (130-400); RBC 4.36 10^6/uL (4.36-5.78); RDW-SD 42.8 fL; WBC 10.08 10^3/uL (4.4-10.8)
[2023-10-30 19:47] LABS: COVID-19 PCR Negative (Negative); Influenza A PCR Negative (Negative); Influenza B PCR Negative (Negative); RSV PCR Negative (Negative)
[2023-10-30 19:48] LABS: ALT 18 U/L (16-63); AST 15 U/L (15-37); Alkaline Phosphatase 108 U/L (46-116); Anion Gap 7.9 mmol/L (3-11); BUN 12 mg/dL (7-18); Bilirubin, Total 0.4 mg/dL (0.2-1.0); CO2 29.1 mmol/L (21.0-32.0); CREATININE 0.8 mg/dL (0.70-1.30); Calcium 8.6 mg/dL (8.5-10.1); Chloride 102 mmol/L (98-107); Estimated GFR 107.82 (mL/min/1.73m2); Glucose 111 mg/dL (74-106); Potassium 4.1 mmol/L (3.5-5.1); Sodium 139 mmol/L (136-145); Total Protein 6.9 g/dL (6.4-8.2)
[2023-10-30 19:48] LABS: Source NASOPHARYNX
[2023-10-30 20:00] VITALS: BP 90/62; PULSE 82; RESP 13; TEMP 37.1; O2SAT 97
[2023-10-30] MEDS: Normal Saline Flush 10 ML SYR IVP (20:01)
[2023-10-30 20:20] LABS: Bilirubin Small (Negative); Blood Negative (Negative); Clarity Clear (Clear); Glucose Negative (Negative); Ketones Negative (Negative); Leukocyte Esterase Negative (Negative); Nitrite Negative (Negative); Specific Gravity 1.025 (1.005-1.025)
[2023-10-30] MEDS: Alteplase 2 MG VIAL IJ (21:11)
[2023-10-30 22:12] VITALS: BP 119/78; PULSE 81; RESP 16; TEMP 36.9; O2SAT 98
--- NOTE | 2023-10-30 22:28 | W.ED.GENAD ---
Discharge Plan Disposition Patient Disposition: Home Discharge Details Clinical Impression: Fever of unknown origin Primary Care Provider: Donovan Bobby ED Provider: Parth Jo Home Meds and New Rx's Prescriptions: No Action multivitamin Tablet 1 tab PO DAILY nitroglycerin 0.4 mg tablet, sublingual 0.4 mg Sublingual PRN Qty: 25 0RF sildenafil 100 mg tablet 100 mg PO DAILY PRN (Reason: sexual activity) Qty: 30 2RF Rx Instructions: administer 30 minutes to 4 hours before activity cyclobenzaprine 5 mg tablet 5 mg PO TID PRN (Reason: muscle spasm) Qty: 60 0RF Hold Instructions: Hold medication while on different muscle relaxer Rx Instructions: Take 1 tablet by mouth three times a day as needed for pain aspirin 81 MG tablet,chewable 81 mg PO DAILY lansoprazole 30 mg capsule,delayed release(DR/EC) 30 mg PO DAILY Qty: 90 3RF nicotine 21 mg/24 hr patch 24 hour 1 patch TD Q24H Qty: 30 2RF Patient Comments: not on med list levothyroxine 75 mcg capsule 75 mcg PO DAILY Qty: 90 3RF diphenhydramine HCl 12.5 mg/5 mL Elixir 12.5 mg PO Q4H PRN docusate sodium 100 mg Capsule 100 mg PO BID lidocaine HCl 2 % Solution 1 applic MUCOUS MEMBRANE Q4H PRN albuterol sulfate 90 mcg/actuation Hfa Aerosol Inhaler 2 puff INHALATION Q4H PRN alum-mag hydroxide-simeth 200-200-20 mg/5 mL Suspension 5 ml PO Q4H PRN sennosides [senna] 8.6 mg Tablet 8.6 mg PO DAILY PRN prochlorperazine maleate 10 mg tablet 10 mg PO Q6H Patient Comments: TAKE 1 TABLET BY MOUTH EVERY 6 HOURS NEEDED FOR NAUSEA mirtazapine 15 mg Tablet 15 mg PO QHS oxycodone 5 mg tablet 5 mg PO Q6H PRN Patient Comments: TAKE ONE TABLET BY MOUTH EVERY 6 HOURS NEEDED FOR PAIN ondansetron 4 mg tablet,disintegrating 8 mg PO QID PRN (Reason: nausea and vomiting) lidocaine 5 % adhesive patch,medicated 1 patch TP DAILY PRN (Reason: pain) Qty: 15 0RF Rx Instructions: leave on most painful area for 12 hrs Discharge Instructions Instructions: Fever in Adults (ED) Additional Instructions: You may continue use of [id number] acetaminophen/Tylenol as needed for further fever. As per oncology please monitor your symptoms and if you have any new or significant worsening please return to the emergency department immediately or contact the oncology department. Referrals: [facility] [Outside] Discharge Data Discharge Date/Time-TO BE ENTERED AT DEPARTURE: 10/30/23 22:59 HPI General Mode of arrival: ambulatory. Date/Time Provider Initiated Documentation: 10/30/23 18:45. Limitations to Documentation: no limitations. Information obtained by: patient and RN notes reviewed. History of Present Illness 48 year old M presents to the emergency department with the chief complaint of Fever, described as mild, Patient started experiencing this hour(s) (4) and it has been constant. No relieving factors improve symptom(s), No exacerbating factors reported . Patient notes no other symptoms.. Patient did receive the following treatments prior to arrival, other (Acetaminophen) Related Data Home Medications Medication Instructions Recorded Confirmed aspirin 81 mg chewable tablet 81 mg PO DAILY 03/25/16 10/30/23 multivitamin 1 tab PO DAILY 04/16/20 10/30/23 lansoprazole 30 mg capsule,delayed 30 mg PO DAILY #90 caps 11/04/20 10/30/23 release nicotine 21 mg/24 hr daily 1 patch transdermal Q24H #30 ea 09/25/21 10/30/23 transdermal patch nitroglycerin 0.4 mg sublingual 0.4 mg sublingual PRN #25 tabs 12/23/21 10/30/23 tablet albuterol sulfate 90 mcg/actuation 2 puff inhalation Q4H PRN 10/26/22 10/30/23 aerosol inhaler aluminum-mag hydroxide-simethicone 5 ml PO Q4H PRN 10/26/22 10/30/23 200 mg-200 mg-20 mg/5 mL oral susp diphenhydramine HCl 12.5 mg/5 mL 12.5 mg PO Q4H PRN 10/26/22 10/30/23 oral elixir docusate sodium 100 mg capsule 100 mg PO BID 10/26/22 10/30/23 lidocaine HCl 2 % mucosal solution 1 applic mucous membrane Q4H PRN 10/26/22 10/30/23 mirtazapine 15 mg tablet 15 mg PO QHS 10/26/22 10/30/23 prochlorperazine maleate 10 mg 10 mg PO Q6H 10/26/22 10/30/23 tablet sennosides 8.6 mg tablet (senna) 8.6 mg PO DAILY PRN 10/26/22 10/30/23 levothyroxine 75 mcg capsule 75 mcg PO DAILY #90 caps 10/27/22 10/30/23 sildenafil 100 mg tablet 100 mg PO DAILY PRN sexual 12/29/22 10/30/23 activity #30 tabs cyclobenzaprine 5 mg tablet 5 mg PO TID PRN muscle spasm #60 10/05/23 10/30/23 tabs lidocaine 5 % topical patch 1 patch topical DAILY PRN pain #15 10/23/23 10/30/23 ea ondansetron 4 mg disintegrating 8 mg PO QID PRN nausea and vomiting 10/23/23 10/30/23 tablet oxycodone 5 mg tablet 5 mg PO Q6H PRN 10/23/23 10/30/23 Previous Rx's Medication Instructions Recorded lansoprazole 30 mg capsule,delayed 30 mg PO DAILY #90 caps 11/04/20 release nicotine 21 mg/24 hr daily 1 patch transdermal Q24H #30 ea 09/25/21 transdermal patch nitroglycerin 0.4 mg sublingual 0.4 mg sublingual PRN #25 tabs 12/23/21 tablet levothyroxine 75 mcg capsule 75 mcg PO DAILY #90 caps 10/27/22 sildenafil 100 mg tablet 100 mg PO DAILY PRN sexual 12/29/22 activity #30 tabs cyclobenzaprine 5 mg tablet 5 mg PO TID PRN muscle spasm #60 10/05/23 tabs lidocaine 5 % topical patch 1 patch topical DAILY PRN pain #15 10/23/23 ea Allergies Allergy/AdvReac Type Severity Reaction Status Date / Time No Known Allergies Allergy Verified 10/30/23 17:53 General Stated Complaint: GenMedical CRISTA: 3 Review of Systems Constitutional Constitutional: Reports chills, Denies fatigue, Reports fever(s), Denies headache(s), Denies lethargy, Denies malaise and Denies poor appetite ENT Ears, Nose, Mouth, and Throat: Denies headache(s) Cardiovascular Cardiovascular: Denies chest pain and Denies dyspnea Respiratory Respiratory: Denies cough and Denies dyspnea Gastrointestinal Gastrointestinal: Denies abdominal pain, Denies diarrhea, Denies nausea and Denies vomiting Genitourinary Genitourinary: Denies dysuria and Denies flank pain Integumentary/Breasts Skin/Breast: Denies rash Neurologic Neurologic: Denies headache(s) Endocrine Endocrine: Denies fatigue Exam Const General: cooperative Orientation: alert, awake and oriented x3 HENMT Ears: hearing grossly normal bilaterally General nose exam: external nose normal Mouth: oral mucosae normal, lip normal and tongue normal Throat: posterior oropharynx normal and tonsils normal Neck Neck: no lymphadenopathy noted Resp Effort & Inspection: normal respiratory effort and able to speak in complete sentences Auscultation: clear to auscultation bilaterally Cardio Rate: regular rate Rhythm: regular rhythm Heart Sounds: S1 normal and S2 normal GI Inspection: normal to inspection Palpation: soft, not firm, no guarding, no masses, no pulsatile masses, not rigid and nontender Auscultation: normal bowel sounds Neuro General: patient alert, patient awake, patient oriented x3, gait normal and moves all extremities Course Vital Signs Vital signs: Vital Signs Temperature 38.5 C H 10/30/23 17:50 Pulse 93 H 10/30/23 17:50 Respiratory Rate 18 10/30/23 17:50 Blood Pressure 122/67 10/30/23 17:50 Pulse Oximetry 98 10/30/23 17:50 Temperature 36.9 C 10/30/23 22:12 Temperature Source Oral 10/30/23 22:12 Pulse 81 10/30/23 22:12 Respiratory Rate 16 10/30/23 22:12 Respiratory Effort Normal, Non-Labored 10/30/23 20:02 Respiratory Depth Normal 10/30/23 20:02 Respiratory Pattern Normal 10/30/23 20:02 Blood Pressure 119/78 10/30/23 22:12 Blood Pressure Position Sitting 10/30/23 18:32 Pulse Oximetry 98 10/30/23 22:12 Oxygen Delivery Method Room Air 10/30/23 22:12 Oxygen Flow Rate 0 10/30/23 22:12 Pain Level 0 10/30/23 18:32 Lab/Test Results Lab/Test Results: 10/30/23 19:13 Blood Blood Culture - Pending 10/30/23 19:21 Blood Blood Culture - Pending Laboratory Tests Range/Units 10/30/23 10/30/23 10/30/23 19:07 19:13 20:13 WBC (4.4-10.8) 10^3/uL 10.08 RBC (4.36-5.78) 10^6/uL 4.36 Hgb (13.5-17.5) g/dL 12.5 L Hct (40.0-50.0) % 38.8 L MCV (80-95) fL 89 MCH (27.0-33.0) pg 28.7 MCHC (32.0-36.0) % 32.2 RDW (11.8-14.1) % 13.0 Plt Count (130-400) 10^3/uL 431 H MPV (8.0-11.0) fL 8.8 Immature Gran % 0.3 Neutrophils % 66.3 Lymphocytes % 14.3 Monocytes % 14.1 Eosinophils % 4.5 Basophils % 0.5 Nucleated RBC % (0.0-0.3) % 0.0 Absolute Neutrophils (1.2-6.7) 10^3/uL 6.69 Absolute Lymphocytes (1.2-3.4) 10^3/uL 1.44 Absolute Monocytes (0.1-0.8) 10^3/uL 1.42 H Absolute Eosinophils (0.0-0.7) 10^3/uL 0.45 Absolute Basophils (0.0-0.2) 10^3/uL 0.05 Sodium (136-145) mmol/L 139 Potassium (3.5-5.1) mmol/L 4.1 Chloride (98-107) mmol/L 102 Carbon Dioxide (21.0-32.0) mmol/L 29.1 Anion Gap (3-11) mmol/L 7.9 BUN (7-18) mg/dL 12 Creatinine (0.70-1.30) mg/dL 0.8 Est GFR (CKD-EPI 2020) (mL/min/1.73m2) 107.82 Glucose (74-106) mg/dL 111 H Calcium (8.5-10.1) mg/dL 8.6 Magnesium (1.8-2.4) mg/dL 2.0 Total Bilirubin (0.2-1.0) mg/dL 0.4 AST (15-37) U/L 15 ALT (16-63) U/L 18 Alkaline Phosphatase (46-116) U/L 108 Total Protein (6.4-8.2) g/dL 6.9 Albumin (3.4-5.0) g/dL 3.0 L Urine Color (Yellow) Yellow Urine Clarity (Clear) Clear Urine pH (5-8) 7.0 Ur Specific [place] (1.005-1.025) 1.025 Urine Protein (Neg-Trace) mg/dL Negative Urine Ketones (Negative) mg/dL Negative Urine Blood (Negative) Negative Urine Nitrite (Negative) Negative Urine Bilirubin (Negative) Small H Urine Urobilinogen (Up to 0.2) mg/dL 4.0 H Ur Leukocyte Esterase (Negative) Negative Urine Glucose (Negative) mg/dL Negative COVID-19 Source NASOPHARYNX SARS-CoV-2 (PCR) (Negative) Negative Influenza Type A (PCR) (Negative) Negative Influenza Type B (PCR) (Negative) Negative RSV (PCR) (Negative) Negative Medical Decision Making Patient presenting to the emergency department for chief complaint of fever. Patient had a esophageal dilation procedure done yesterday at [facility] secondary to patient's esophageal cancer. Patient states that he has significantly improved and his swallowing, pain and discomfort, and overall symptoms except for the fever which started today without any other new symptoms. Patient denies any other systemic complaints and at time of my assessment states no pain or discomfort. Physical exam is noncontributory with no acute findings noted. Patient does have a port in place that has been accessed previously. We did attempt to obtain cultures off of the site but were unable to obtain them. Peripheral blood was drawn along with cultures and urinalysis and viral swab. Given patient has no pain discomfort or other symptoms we will hold off any on any advanced imaging. Reviewed patient's labs which are overall unremarkable and nondiagnostic, no significant leukocytosis or shift, urinalysis is negative, viral panel is negative for COVID flu and RSV. Patient consented to instilling alteplase into port to see if this would help alleviate any restrictions and allow for cultures to be obtained from site. Initially we were unable to get any return and so [facility] was contacted. I did speak with the heme-onc fellow on-call who was reassured by patient's labs and lack of symptoms and recommended patient to continue conservative management and return immediately to the emergency department for new or worsening of condition otherwise to hold off on antibiotics or further testing at this time. Patient is very agreeable to this and does not want to stay any further. Just prior to discharge we were able to get a small amount of blood return from port before it was deaccessed. This sample was sent off to the lab for culture but we were only able to obtain 1 pediatric specimen. After discussion of diagnosis and plan of care patient has no further needs, questions, or concerns and states clear understanding to return to the emergency department for any worsening symptoms. This documentation was generated using [employer] dictation system, please disregard any oddities of phrase or misspellings. Lab Data Lab results reviewed: Yes I reviewed the patient's lab results. Quality:SDOH Health Related Social Needs: No Data to Display PFSH All Active Problems Fever of unknown origin (Acute) Acute lumbar myofascial strain (Acute) Cancer with pulmonary metastases (Acute ~09/15/23) Right shoulder pain (Acute) Nausea (Acute) Sinusitis (Acute) Sleep disorder (Acute) Anxiety (Chronic) Mood disorder (Acute) Mucus plugging of bronchi (Acute) Thrush (Acute) Erectile dysfunction (Acute) Hypomagnesemia (Acute) Aspiration pneumonia (Acute) DVT prophylaxis (Acute) Nausea & vomiting (Acute) Fatigue (Chronic) Low BP (Chronic) wean metoprolol to stop Cachexia (Chronic) will augment mirtazapine encourage po whenever possible Pharyngitis (Chronic) Likely related to radiation Persistent mood disorder (Chronic) better but wt down History of arthroscopy of left knee (Chronic 12/31/14) Weight loss (Chronic) 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) Knee pain (Chronic 07/14/13) Unstable angina (Chronic) Medical History Anxiety Esophageal cancer Alcohol abuse (07/14/13) Bleeding hemorrhoids (05/28/17) Essential hypertension (07/13/13) Gastroesophageal reflux disease with esophagitis (03/09/13) Hyperlipidemia (11/19/08) ST elevation myocardial infarction involving left circumflex coronary artery (03/18/16) SANDRITA to LCX EF 62% Adjustment disorder with depressed mood Tobacco use disorder GERD (gastroesophageal reflux disease) Coronary artery disease Surgical History History of coronary artery stent placement Esophagus cancer with h/o esophagus stent EGD - MAC (12/29/17) Family History Mother Diabetes Essential hypertension Heart disease Hyperlipidemia Stroke Father Diabetes Sister No problems noted. Brother Essential hypertension Hyperlipidemia Brother Hyperlipidemia Brother Essential hypertension Heart disease Hyperlipidemia Social History Smoking/Tobacco Use Status: Former Tobacco Use tobacco type: cigarettes and smokeless tobacco Smokeless tobacco user: chewing tobacco Second Hand Exposure: Yes Smoking risk assessment performed?: Yes Alcohol Intake: former Drug use: Daily Substance use type: marijuana Caregiver/Support person: No Household members: spouse Housing: house Communication Needs: None Do you need help understanding health information?: Never Pets and animals: Yes Pets and animals: dog(s) and bird(s) Do you think of yourself as: straight/heterosexual Current gender identity: male What is your relationship status?: How often do you talk on the phone with friends or family?: three or more times per week How often do you get together with friends or relatives?: never How often do you attend restorationism or orthodoxy services?: decline to answer Do you belong to any clubs or organized social groups?: no Panel score (0-1 are the most socially isolated patients): 2 What type of physical activity do you participate in: decline to answer Beverly/Jehovah'S Witness: No preference Special beverly needs: No Seatbelt use: always Helmet use: Yes Drive intox or ride w/intox goat driver: No Do you feel safe at home: Yes Do you feel safe in your relationship?: Yes
--- NOTE | 2023-10-31 11:38 | NUR.NOTE ---
Accessed Pt chart to see if Pt was prescribed antibiotics. The Specimen report given to Dr Mike Pedro for follow thru.
--- NOTE | 2023-11-01 11:20 | NUR.NOTE ---
Accessed chart: Fred Esparza, Food Operations Manager; called asking about positive blood cultures preliminary, but nothing documented that something was done about them. They will address this for the ED. Dr. Yfn Sweeney is aware. Nursing Note:
== END 2023-10-30 22:59 | disposition home or self-care (01) ==
PROVIDERS: Emergency Provider Nurse Practitioner Family; PCP Family Medicine
DX: R50.9 Fever, unspecified (principal); C15.9 Malignant neoplasm of esophagus, unspecified; I10 Essential (primary) hypertension; E78.5 Hyperlipidemia, unspecified; I25.10 Atherosclerotic heart disease of native coronary artery without angina pectoris; I25.2 Old myocardial infarction; Z98.890 Other specified postprocedural states; Z95.5 Presence of coronary angioplasty implant and graft; Z11.52 Encounter for screening for COVID-19; Z87.891 Personal history of nicotine dependence; Z79.82 Long term (current) use of aspirin
CPT/HCPCS: 36410; 36415; 80053; 87040; 87077; 87637; 96374; 99283; 81003; 83735; 85025; J0131; J2997

== ENCOUNTER 2023-11-17 07:30 | Outpatient (RCR) | payer OTHER, SELFPAY ==
[2023-11-10] MEDS: Normal Saline Flush 10 ML SYR IVP (07:52)
[2023-11-10 08:07] LABS: Abs Immature Grans 0.06 10^3/uL (0.0-0.06); Absolute Basophil Count 0.05 10^3/uL (0.0-0.2); Absolute Monocyte Count 1.44 10^3/uL (0.1-0.8); Basophils % 0.4; Eosinophils % 2.4; HCT 37.6 % (40.0-50.0); HGB 12.1 g/dL (13.5-17.5); Immature Grans % 0.5; Lymphocytes % 9.9; MCH 28.1 pg (27.0-33.0); MCHC 32.2 % (32.0-36.0); MCV 87 fL (80-95); MPV 8.5 fL (8.0-11.0); Monocytes % 11.5; Neutrophils % 75.3; Platelet Count 399 10^3/uL (130-400); RDW 12.8 % (11.8-14.1); RDW-SD 40.9 fL; WBC 12.48 10^3/uL (4.4-10.8)
[2023-11-10 08:08] LABS: Absolute Lymphocyte Count 1.24 10^3/uL (1.2-3.4)
[2023-11-10 08:26] LABS: ALT 13 U/L (16-63); AST 15 U/L (15-37); Albumin 2.9 g/dL (3.4-5.0); Alkaline Phosphatase 102 U/L (46-116); Anion Gap 7.8 mmol/L (3-11); BUN 12 mg/dL (7-18); Bilirubin, Total 0.4 mg/dL (0.2-1.0); CO2 29.2 mmol/L (21.0-32.0); CREATININE 0.7 mg/dL (0.70-1.30); Calcium 8.7 mg/dL (8.5-10.1); Chloride 103 mmol/L (98-107); Estimated GFR 112.25 (mL/min/1.73m2); Glucose 141 mg/dL (74-106); Sodium 140 mmol/L (136-145); Total Protein 6.8 g/dL (6.4-8.2)
[2023-11-17] MEDS: Normal Saline Flush 10 ML SYR IVP (07:45)
[2023-11-17 08:25] LABS: Abs Immature Grans 0.08 10^3/uL (0.0-0.06); Absolute Basophil Count 0.04 10^3/uL (0.0-0.2); Absolute Eosinophil Count 0.14 10^3/uL (0.0-0.7); Absolute Lymphocyte Count 1.61 10^3/uL (1.2-3.4); Absolute Monocyte Count 0.75 10^3/uL (0.1-0.8); Absolute Neutrophil Count 5.51 10^3/uL (1.2-6.7); Basophils % 0.5; Eosinophils % 1.7; HCT 40.7 % (40.0-50.0); Lymphocytes % 19.8; MCH 27.7 pg (27.0-33.0); MCHC 31.9 % (32.0-36.0); MCV 87 fL (80-95); Monocytes % 9.2; Neutrophils % 67.8; Platelet Count 439 10^3/uL (130-400); RDW 12.6 % (11.8-14.1); RDW-SD 39.8 fL; WBC 8.13 10^3/uL (4.4-10.8)
[2023-11-17 08:44] LABS: ALT 18 U/L (16-63); AST 15 U/L (15-37); Albumin 3.1 g/dL (3.4-5.0); Alkaline Phosphatase 103 U/L (46-116); Anion Gap 12.5 mmol/L (3-11); BUN 16 mg/dL (7-18); Bilirubin, Total 0.5 mg/dL (0.2-1.0); CO2 24.5 mmol/L (21.0-32.0); CREATININE 0.7 mg/dL (0.70-1.30); Calcium 8.6 mg/dL (8.5-10.1); Chloride 104 mmol/L (98-107); Estimated GFR 112.25 (mL/min/1.73m2); Glucose 153 mg/dL (74-106); Magnesium 2.3 mg/dL (1.8-2.4); Potassium 4.1 mmol/L (3.5-5.1); Sodium 141 mmol/L (136-145); Total Protein 7.3 g/dL (6.4-8.2)
== END 2023-11-23 23:59 | disposition home or self-care (01) ==
LOC: INF 07:30
PROVIDERS: PCP Family Medicine; Visit Provider Internal Medicine Medical Oncology
DX: C15.5 Malignant neoplasm of lower third of esophagus (principal); C79.51 Secondary malignant neoplasm of bone; Z45.2 Encounter for adjustment and management of vascular access device
CPT/HCPCS: 36591; 80053; 83735; 85025

== ENCOUNTER 2023-12-21 01:09 | Outpatient (RCR) | payer OTHER, SELFPAY ==
[2023-11-29] MEDS: Normal Saline Flush 10 ML SYR IVP (11:00)
[2023-11-29 11:14] LABS: Abs Immature Grans 0.01 10^3/uL (0.0-0.06); Absolute Basophil Count 0.03 10^3/uL (0.0-0.2); Absolute Eosinophil Count 0.19 10^3/uL (0.0-0.7); Absolute Lymphocyte Count 2.43 10^3/uL (1.2-3.4); Absolute Monocyte Count 1.24 10^3/uL (0.1-0.8); Absolute Neutrophil Count 2.68 10^3/uL (1.2-6.7); Basophils % 0.5 %; Eosinophils % 2.9 %; HCT 35.2 % (40.0-50.0); Immature Grans % 0.2 %; Lymphocytes % 36.9 %; MCHC 31.3 % (32.0-36.0); MCV 90 fL (80-95); MPV 8.6 fL (8.0-11.0); Monocytes % 18.8 %; Neutrophils % 40.7 %; Platelet Count 449 10^3/uL (130-400); RBC 3.93 10^6/uL (4.36-5.78); RDW 13.5 % (11.8-14.1); RDW-SD 44.1 fL; WBC 6.58 10^3/uL (4.4-10.8)
[2023-11-29 11:41] LABS: ALT 13 U/L (16-63); AST 13 U/L (15-37); Albumin 2.7 g/dL (3.4-5.0); Alkaline Phosphatase 111 U/L (46-116); Anion Gap 9.5 mmol/L (3-11); BUN 17 mg/dL (7-18); Bilirubin, Total 0.2 mg/dL (0.2-1.0); CO2 25.5 mmol/L (21.0-32.0); CREATININE 0.9 mg/dL (0.70-1.30); Calcium 7.7 mg/dL (8.5-10.1); Chloride 108 mmol/L (98-107); Estimated GFR 104.05 (mL/min/1.73m2); Glucose 137 mg/dL (74-106); Magnesium 2.3 mg/dL (1.8-2.4); Potassium 3.7 mmol/L (3.5-5.1); Sodium 143 mmol/L (136-145); TSH 5.47 uIU/Ml (0.36-3.74); Total Protein 6.1 g/dL (6.4-8.2)
[2023-12-13] MEDS: Normal Saline Flush 10 ML SYR IVP (07:30)
[2023-12-13 07:56] LABS: Abs Immature Grans 0.03 10^3/uL (0.0-0.06); Absolute Basophil Count 0.05 10^3/uL (0.0-0.2); Absolute Eosinophil Count 0.17 10^3/uL (0.0-0.7); Absolute Lymphocyte Count 1.84 10^3/uL (1.2-3.4); Absolute Monocyte Count 0.93 10^3/uL (0.1-0.8); Absolute Neutrophil Count 4.67 10^3/uL (1.2-6.7); Basophils % 0.7 %; Eosinophils % 2.2 %; HCT 40.7 % (40.0-50.0); HGB 12.6 g/dL (13.5-17.5); Immature Grans % 0.4 %; Lymphocytes % 23.9 %; MCV 87 fL (80-95); MPV 8.9 fL (8.0-11.0); Monocytes % 12.1 %; Neutrophils % 60.7 %; Platelet Count 464 10^3/uL (130-400); RBC 4.66 10^6/uL (4.36-5.78); RDW 13.6 % (11.8-14.1); RDW-SD 42.8 fL; WBC 7.69 10^3/uL (4.4-10.8)
[2023-12-13 07:59] LABS: Bilirubin Negative (Negative); Blood Negative (Negative); Clarity Clear (Clear); Glucose Negative (Negative); Ketones 15 mg/dL (Negative); Leukocyte Esterase Negative (Negative); Nitrite Negative (Negative); pH 8.5 (5-8)
[2023-12-13 08:14] LABS: ALT 17 U/L (16-63); AST 15 U/L (15-37); Alkaline Phosphatase 108 U/L (46-116); Anion Gap 6.5 mmol/L (3-11); BUN 15 mg/dL (7-18); Bilirubin, Total 0.4 mg/dL (0.2-1.0); CO2 27.5 mmol/L (21.0-32.0); CREATININE 0.7 mg/dL (0.70-1.30); Calcium 8.3 mg/dL (8.5-10.1); Chloride 106 mmol/L (98-107); Estimated GFR 112.25 (mL/min/1.73m2); Glucose 106 mg/dL (74-106); Potassium 4.3 mmol/L (3.5-5.1); Sodium 140 mmol/L (136-145); Total Protein 6.8 g/dL (6.4-8.2)
[2023-12-21] MEDS: Normal Saline Flush 10 ML SYR IVP (07:30)
[2023-12-21 07:55] LABS: Abs Immature Grans 0.05 10^3/uL (0.0-0.06); Absolute Basophil Count 0.06 10^3/uL (0.0-0.2); Absolute Eosinophil Count 0.24 10^3/uL (0.0-0.7); Absolute Lymphocyte Count 1.63 10^3/uL (1.2-3.4); Absolute Monocyte Count 0.54 10^3/uL (0.1-0.8); Absolute Neutrophil Count 4.49 10^3/uL (1.2-6.7); Basophils % 0.9 %; Eosinophils % 3.4 %; HCT 39.5 % (40.0-50.0); HGB 12.3 g/dL (13.5-17.5); Immature Grans % 0.7 %; Lymphocytes % 23.3 %; MCH 27.3 pg (27.0-33.0); MCHC 31.1 % (32.0-36.0); MCV 88 fL (80-95); MPV 9.1 fL (8.0-11.0); Monocytes % 7.7 %; Platelet Count 473 10^3/uL (130-400); RBC 4.51 10^6/uL (4.36-5.78); RDW 14.1 % (11.8-14.1); RDW-SD 44.8 fL; WBC 7.01 10^3/uL (4.4-10.8)
[2023-12-21 07:56] LABS: Bilirubin Negative (Negative); Blood Negative (Negative); Clarity Clear (Clear); Glucose Negative (Negative); Ketones Trace mg/dL (Negative); Leukocyte Esterase Negative (Negative); Nitrite Negative (Negative); Specific Gravity 1.025 (1.005-1.025); Urobilinogen 0.2 mg/dL (Up to 0.2)
[2023-12-21 08:11] LABS: ALT 19 U/L (16-63); AST 13 U/L (15-37); Albumin 3.2 g/dL (3.4-5.0); Alkaline Phosphatase 98 U/L (46-116); Anion Gap 9.9 mmol/L (3-11); BUN 17 mg/dL (7-18); Bilirubin, Total 0.4 mg/dL (0.2-1.0); CO2 25.1 mmol/L (21.0-32.0); CREATININE 0.8 mg/dL (0.70-1.30); Calcium 8.1 mg/dL (8.5-10.1); Chloride 108 mmol/L (98-107); Estimated GFR 107.82 (mL/min/1.73m2); Glucose 135 mg/dL (74-106); Potassium 4.2 mmol/L (3.5-5.1); Sodium 143 mmol/L (136-145); Total Protein 6.8 g/dL (6.4-8.2)
== END 2023-12-24 23:59 | disposition home or self-care (01) ==
LOC: INF 01:09
PROVIDERS: Nurse Practitioner Family; PCP Family Medicine; Visit Provider Internal Medicine Medical Oncology
DX: E03.2 Hypothyroidism due to medicaments and other exogenous substances (principal); C15.5 Malignant neoplasm of lower third of esophagus; Z45.2 Encounter for adjustment and management of vascular access device
CPT/HCPCS: 36591; 80053; 81003; 83735; 84439; 84443; 85025

== ENCOUNTER 2024-01-17 02:45 | Outpatient (RCR) | payer OTHER, SELFPAY ==
[2023-12-27] MEDS: Normal Saline Flush 10 ML SYR IVP (07:15)
[2023-12-27 07:49] LABS: Abs Immature Grans 0.02 10^3/uL (0.0-0.06); Absolute Basophil Count 0.03 10^3/uL (0.0-0.2); Absolute Eosinophil Count 0.06 10^3/uL (0.0-0.7); Absolute Lymphocyte Count 1.64 10^3/uL (1.2-3.4); Absolute Monocyte Count 0.33 10^3/uL (0.1-0.8); Absolute Neutrophil Count 4.17 10^3/uL (1.2-6.7); Basophils % 0.5 %; HCT 37.7 % (40.0-50.0); HGB 12.1 g/dL (13.5-17.5); Immature Grans % 0.3 %; Lymphocytes % 26.2 %; MCH 27.4 pg (27.0-33.0); MCHC 32.1 % (32.0-36.0); MCV 86 fL (80-95); MPV 9.4 fL (8.0-11.0); Monocytes % 5.3 %; Neutrophils % 66.7 %; Platelet Count 364 10^3/uL (130-400); RBC 4.41 10^6/uL (4.36-5.78); RDW 14.3 % (11.8-14.1); RDW-SD 44.7 fL; WBC 6.25 10^3/uL (4.4-10.8)
[2023-12-27 07:52] LABS: Bilirubin Negative (Negative); Blood Negative (Negative); Clarity Clear (Clear); Glucose Negative (Negative); Ketones Trace mg/dL (Negative); Leukocyte Esterase Negative (Negative); Nitrite Negative (Negative); Specific Gravity 1.025 (1.005-1.025)
[2023-12-27 08:08] LABS: ALT 22 U/L (16-63); AST 13 U/L (15-37); Albumin 3.3 g/dL (3.4-5.0); Alkaline Phosphatase 99 U/L (46-116); Anion Gap 8.5 mmol/L (3-11); BUN 14 mg/dL (7-18); Bilirubin, Total 0.5 mg/dL (0.2-1.0); CO2 25.5 mmol/L (21.0-32.0); CREATININE 0.6 mg/dL (0.70-1.30); Calcium 8.4 mg/dL (8.5-10.1); Chloride 107 mmol/L (98-107); Glucose 144 mg/dL (74-106); Sodium 141 mmol/L (136-145); Total Protein 6.8 g/dL (6.4-8.2)
[2024-01-10] MEDS: Normal Saline Flush 10 ML SYR IVP (07:59)
[2024-01-10 08:22] LABS: Abs Immature Grans 0.03 10^3/uL (0.0-0.06); Absolute Basophil Count 0.06 10^3/uL (0.0-0.2); Absolute Eosinophil Count 0.12 10^3/uL (0.0-0.7); Absolute Lymphocyte Count 1.43 10^3/uL (1.2-3.4); Absolute Monocyte Count 0.98 10^3/uL (0.1-0.8); Absolute Neutrophil Count 3.24 10^3/uL (1.2-6.7); HCT 38.7 % (40.0-50.0); HGB 12.2 g/dL (13.5-17.5); Immature Grans % 0.5 %; Lymphocytes % 24.4 %; MCH 27.3 pg (27.0-33.0); MCHC 31.5 % (32.0-36.0); MCV 87 fL (80-95); MPV 8.7 fL (8.0-11.0); Monocytes % 16.7 %; Neutrophils % 55.4 %; Platelet Count 393 10^3/uL (130-400); RBC 4.47 10^6/uL (4.36-5.78); RDW 15.6 % (11.8-14.1); RDW-SD 48.5 fL; WBC 5.86 10^3/uL (4.4-10.8)
[2024-01-10 08:24] LABS: Bilirubin Negative (Negative); Blood Negative (Negative); Clarity Clear (Clear); Glucose Negative (Negative); Ketones Trace mg/dL (Negative); Leukocyte Esterase Negative (Negative); Nitrite Negative (Negative); Specific Gravity >= 1.030 (1.005-1.025); pH 6.5 (5-8)
[2024-01-10 08:41] LABS: ALT 19 U/L (16-63); AST 14 U/L (15-37); Albumin 2.9 g/dL (3.4-5.0); Alkaline Phosphatase 93 U/L (46-116); Anion Gap 6.9 mmol/L (3-11); BUN 7 mg/dL (7-18); Bilirubin, Total 0.4 mg/dL (0.2-1.0); CO2 27.1 mmol/L (21.0-32.0); CREATININE 0.7 mg/dL (0.70-1.30); Calcium 7.7 mg/dL (8.5-10.1); Chloride 109 mmol/L (98-107); Estimated GFR 112.25 (mL/min/1.73m2); Glucose 121 mg/dL (74-106); Potassium 4.5 mmol/L (3.5-5.1); Sodium 143 mmol/L (136-145); Total Protein 6.6 g/dL (6.4-8.2)
[2024-01-17] MEDS: Normal Saline Flush 10 ML SYR IVP (09:00)
[2024-01-17 11:40] LABS: Abs Immature Grans 0.08 10^3/uL (0.0-0.06); Absolute Basophil Count 0.07 10^3/uL (0.0-0.2); Absolute Eosinophil Count 0.19 10^3/uL (0.0-0.7); Absolute Lymphocyte Count 2.28 10^3/uL (1.2-3.4); Absolute Monocyte Count 0.74 10^3/uL (0.1-0.8); Absolute Neutrophil Count 6.25 10^3/uL (1.2-6.7); Basophils % 0.7 %; HCT 37.5 % (40.0-50.0); HGB 11.6 g/dL (13.5-17.5); Immature Grans % 0.8 %; Lymphocytes % 23.7 %; MCH 27.2 pg (27.0-33.0); MCHC 30.9 % (32.0-36.0); MCV 88 fL (80-95); MPV 8.8 fL (8.0-11.0); Monocytes % 7.7 %; Neutrophils % 65.1 %; Platelet Count 407 10^3/uL (130-400); RBC 4.27 10^6/uL (4.36-5.78); RDW 15.5 % (11.8-14.1); WBC 9.61 10^3/uL (4.4-10.8)
[2024-01-17 11:42] LABS: Bilirubin Negative (Negative); Blood Negative (Negative); Clarity Clear (Clear); Glucose 100 mg/dL (Negative); Ketones Negative (Negative); Leukocyte Esterase Negative (Negative); Nitrite Negative (Negative); Specific Gravity >= 1.030 (1.005-1.025); Urobilinogen 0.2 mg/dL (Up to 0.2)
[2024-01-17 11:55] LABS: ALT 17 U/L (16-63); AST 10 U/L (15-37); Albumin 2.9 g/dL (3.4-5.0); Alkaline Phosphatase 78 U/L (46-116); Anion Gap 7.9 mmol/L (3-11); BUN 12 mg/dL (7-18); Bilirubin, Total 0.22 mg/dL (0.2-1.0); CO2 28.1 mmol/L (21.0-32.0); CREATININE 0.7 mg/dL (0.70-1.30); Calcium 7.6 mg/dL (8.5-10.1); Chloride 107 mmol/L (98-107); Estimated GFR 111.56 (mL/min/1.73m2); Glucose 113 mg/dL (74-106); Potassium 3.9 mmol/L (3.5-5.1); Sodium 143 mmol/L (136-145); Total Protein 6.4 g/dL (6.4-8.2)
== END 2024-01-23 23:59 | disposition home or self-care (01) ==
LOC: INF 02:45
PROVIDERS: Nurse Practitioner Family; PCP Family Medicine; Visit Provider Internal Medicine Medical Oncology
DX: C79.51 Secondary malignant neoplasm of bone (principal); C15.5 Malignant neoplasm of lower third of esophagus; Z45.2 Encounter for adjustment and management of vascular access device
CPT/HCPCS: 36591; 80053; 81003; 85025

== ENCOUNTER 2024-02-21 01:47 | Outpatient (RCR) | payer OTHER, SELFPAY ==
[2024-01-24] MEDS: Normal Saline Flush 10 ML SYR IVP (08:25)
[2024-01-24 08:51] LABS: Abs Immature Grans 0.05 10^3/uL (0.0-0.06); Absolute Basophil Count 0.06 10^3/uL (0.0-0.2); Absolute Eosinophil Count 0.24 10^3/uL (0.0-0.7); Absolute Lymphocyte Count 1.67 10^3/uL (1.2-3.4); Absolute Monocyte Count 0.58 10^3/uL (0.1-0.8); Absolute Neutrophil Count 3.81 10^3/uL (1.2-6.7); Basophils % 0.9 %; Eosinophils % 3.7 %; HCT 37.1 % (40.0-50.0); HGB 11.7 g/dL (13.5-17.5); Immature Grans % 0.8 %; Lymphocytes % 26.1 %; MCH 27.1 pg (27.0-33.0); MCHC 31.5 % (32.0-36.0); MCV 86 fL (80-95); MPV 9.2 fL (8.0-11.0); Neutrophils % 59.5 %; Platelet Count 363 10^3/uL (130-400); RBC 4.32 10^6/uL (4.36-5.78); RDW 16.1 % (11.8-14.1); WBC 6.41 10^3/uL (4.4-10.8)
[2024-01-24 08:53] LABS: Bilirubin Negative (Negative); Blood Negative (Negative); Clarity Clear (Clear); Glucose Negative (Negative); Ketones Negative (Negative); Leukocyte Esterase Negative (Negative); Nitrite Negative (Negative); Specific Gravity >= 1.030 (1.005-1.025); Urobilinogen 0.2 mg/dL (Up to 0.2); pH 5.5 (5-8)
[2024-01-24 09:20] LABS: ALT 20 U/L (16-63); AST 12 U/L (15-37); Albumin 2.9 g/dL (3.4-5.0); Alkaline Phosphatase 86 U/L (46-116); BUN 10 mg/dL (7-18); Bilirubin, Total 0.34 mg/dL (0.2-1.0); CREATININE 0.7 mg/dL (0.70-1.30); Calcium 8.1 mg/dL (8.5-10.1); Chloride 107 mmol/L (98-107); Estimated GFR 111.56 (mL/min/1.73m2); Glucose 123 mg/dL (74-106); Potassium 4.1 mmol/L (3.5-5.1); Sodium 141 mmol/L (136-145); Total Protein 6.5 g/dL (6.4-8.2)
[2024-02-14] MEDS: Normal Saline Flush 10 ML SYR IVP (08:20)
[2024-02-14 08:47] LABS: Abs Immature Grans 0.07 10^3/uL (0.0-0.06); Absolute Basophil Count 0.05 10^3/uL (0.0-0.2); Absolute Lymphocyte Count 2.05 10^3/uL (1.2-3.4); Absolute Monocyte Count 1.39 10^3/uL (0.1-0.8); Basophils % 0.4 %; Eosinophils % 2.4 %; HCT 39.6 % (40.0-50.0); HGB 12.3 g/dL (13.5-17.5); Immature Grans % 0.6 %; Lymphocytes % 16.2 %; MCHC 31.1 % (32.0-36.0); MCV 87 fL (80-95); Neutrophils % 69.4 %; Platelet Count 397 10^3/uL (130-400); RBC 4.56 10^6/uL (4.36-5.78); RDW 17.4 % (11.8-14.1); RDW-SD 54.9 fL; WBC 12.67 10^3/uL (4.4-10.8)
[2024-02-14 08:48] LABS: Absolute Neutrophil Count 8.79 10^3/uL (1.2-6.7)
[2024-02-14 09:04] LABS: ALT 21 U/L (16-63); AST 16 U/L (15-37); Albumin 2.9 g/dL (3.4-5.0); Alkaline Phosphatase 84 U/L (46-116); Anion Gap 5.6 mmol/L (3-11); BUN 23 mg/dL (7-18); Bilirubin, Total 0.31 mg/dL (0.2-1.0); CO2 29.4 mmol/L (21.0-32.0); CREATININE 0.6 mg/dL (0.70-1.30); Calcium 8.6 mg/dL (8.5-10.1); Chloride 100 mmol/L (98-107); Estimated GFR 116.87 (mL/min/1.73m2); Glucose 120 mg/dL (74-106); Potassium 4.7 mmol/L (3.5-5.1); Sodium 135 mmol/L (136-145); Total Protein 6.7 g/dL (6.4-8.2)
[2024-02-14 09:49] LABS: PHOSPHORUS 2.8 mg/dL (2.6-4.7)
[2024-02-21] MEDS: Normal Saline Flush 10 ML SYR IVP (08:06)
[2024-02-21 08:35] LABS: Abs Immature Grans 0.15 10^3/uL (0.0-0.06); Absolute Eosinophil Count 0.74 10^3/uL (0.0-0.7); Basophils % 0.7 %; Eosinophils % 4.5 %; HCT 40.3 % (40.0-50.0); HGB 12.4 g/dL (13.5-17.5); Immature Grans % 0.9 %; Lymphocytes % 17.3 %; MCH 27.6 pg (27.0-33.0); MCHC 30.8 % (32.0-36.0); MCV 90 fL (80-95); MPV 8.6 fL (8.0-11.0); Monocytes % 8.4 %; Neutrophils % 68.2 %; Platelet Count 463 10^3/uL (130-400); RDW 18.1 % (11.8-14.1); RDW-SD 59.4 fL; WBC 16.38 10^3/uL (4.4-10.8)
[2024-02-21 08:36] LABS: Absolute Basophil Count 0.11 10^3/uL (0.0-0.2); Absolute Lymphocyte Count 2.83 10^3/uL (1.2-3.4); Absolute Monocyte Count 1.38 10^3/uL (0.1-0.8); Absolute Neutrophil Count 11.17 10^3/uL (1.2-6.7)
[2024-02-21 08:50] LABS: ALT 45 U/L (16-63); AST 29 U/L (15-37); Alkaline Phosphatase 91 U/L (46-116); BUN 19 mg/dL (7-18); Bilirubin, Total 0.32 mg/dL (0.2-1.0); CREATININE 0.7 mg/dL (0.70-1.30); Calcium 8.4 mg/dL (8.5-10.1); Chloride 107 mmol/L (98-107); Estimated GFR 111.56 (mL/min/1.73m2); Glucose 151 mg/dL (74-106); Potassium 4.6 mmol/L (3.5-5.1); Sodium 141 mmol/L (136-145); Total Protein 6.7 g/dL (6.4-8.2)
== END 2024-02-23 23:59 | disposition home or self-care (01) ==
LOC: INF 01:47
PROVIDERS: Nurse Practitioner Family; PCP Family Medicine; Visit Provider Internal Medicine Medical Oncology
DX: Z79.899 Other long term (current) drug therapy (principal); C15.5 Malignant neoplasm of lower third of esophagus; Z45.2 Encounter for adjustment and management of vascular access device; C79.51 Secondary malignant neoplasm of bone
CPT/HCPCS: 36591; 80053; 81003; 84100; 85025

== ENCOUNTER 2024-02-25 10:43 | Emergency (ER) | payer OTHER, SELFPAY ==
[2024-02-25] VITALS (25 sets, daily range): BP systolic 115–147; BP diastolic 68–92; PULSE 101–115; RESP 12–26; TEMP 36.8–37.1; O2SAT 97–100
--- NOTE | 2024-02-25 11:30 | DI.RAD_ITS ---
Exam(s) XR CHEST 2V PA LATERAL EXAM: XR CHEST 2V PA LATERAL CLINICAL HISTORY: fever, on chemo TECHNIQUE: 2D digital imaging was performed. Two views. COMPARISON: CT CT CHEST/ABD W from 07/05/2023 FINDINGS: HEART: Normal size. Aorta: Not dilated. PULMONARY VASCULATURE: Normal. MEDIASTINUM: No widening. Gastric pull-through. LUNGS: Mild interstitial changes. Area of scarring medial left lower lobe. PLEURAL SPACE: No pleural effusion or pneumothorax. BONE:Unremarkable for age. SOFT TISSUES: Unremarkable. IMPRESSION: No acute abnormality. DATA REPOSITORY: RADIATION DOSE DELIVERED:
--- NOTE | 2024-02-25 11:48 | W.ED.GENAD ---
Discharge Plan Disposition Patient Disposition: Home Condition: Improving Discharge Details Chief Complaint: GenMedical Clinical Impression: COVID Primary Care Provider: Donovan Bobby ED Provider: Ravinder Abdalla Meds and New Rx's Prescriptions: No Action multivitamin Tablet 1 tab PO DAILY nitroglycerin 0.4 mg tablet, sublingual 0.4 mg Sublingual PRN Qty: 25 0RF sildenafil 100 mg tablet 100 mg PO DAILY PRN (Reason: sexual activity) Qty: 30 2RF Rx Instructions: administer 30 minutes to 4 hours before activity cyclobenzaprine 5 mg tablet 5 mg PO TID PRN (Reason: muscle spasm) Qty: 60 0RF Rx Instructions: Take 1 tablet by mouth three times a day as needed for pain olanzapine 5 mg tablet 5 mg PO QHS aspirin 81 MG tablet,chewable 81 mg PO DAILY lansoprazole 30 mg capsule,delayed release(DR/EC) 30 mg PO DAILY Qty: 90 3RF nicotine 21 mg/24 hr patch 24 hour 1 patch TD Q24H Qty: 30 2RF Patient Comments: not on med list levothyroxine 75 mcg capsule 75 mcg PO DAILY Qty: 90 3RF bupropion HCl 300 mg tablet extended release 24 hr 300 mg PO QAM lorazepam 0.5 mg tablet 0.5 mg PO DAILY PRN sulfamethoxazole 500 mg tablet 500 mg PO DAILY PRN Rx Instructions: for diverticulitis flare oxycodone 20 mg tablet,oral only,ext.rel.12 hr 20 mg PO BID MDD 40 Qty: 60 0RF oxycodone 10 mg tablet 10 mg PO Q4H MDD 6 tabs PRN (Reason: pain) Qty: 120 0RF Rx Instructions: for cancer related pain palliative care patient. docusate sodium 100 mg Capsule 100 mg PO BID sennosides [senna] 8.6 mg Tablet 8.6 mg PO DAILY PRN prochlorperazine maleate 10 mg tablet 10 mg PO Q6H Patient Comments: TAKE 1 TABLET BY MOUTH EVERY 6 HOURS NEEDED FOR NAUSEA ondansetron 4 mg tablet,disintegrating 8 mg PO QID PRN (Reason: nausea and vomiting) Discharge Instructions Instructions: COVID-19 ED Additional Instructions: Please follow-up with your primary care team and oncology team. Return to the emergency department for any worsening symptoms HPI General Date/Time Provider Initiated Documentation: 02/25/24 11:28. 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, currently undergoing chemotherapy last chemotherapy session on Wednesday presents with low-grade fever at home 100.4 associate with fatigue Related Data Home Medications ?Medication ?Instructions ?Recorded ?Confirmed aspirin 81 mg chewable tablet 81 mg PO DAILY 03/25/16 02/25/24 multivitamin 1 tab PO DAILY 04/16/20 02/25/24 lansoprazole 30 mg capsule,delayed 30 mg PO DAILY #90 caps 11/04/20 02/25/24 release nicotine 21 mg/24 hr daily 1 patch transdermal Q24H #30 ea 09/25/21 02/25/24 transdermal patch nitroglycerin 0.4 mg sublingual 0.4 mg sublingual PRN #25 tabs 12/23/21 02/25/24 tablet docusate sodium 100 mg capsule 100 mg PO BID 10/26/22 02/25/24 prochlorperazine maleate 10 mg 10 mg PO Q6H 10/26/22 02/25/24 tablet sennosides 8.6 mg tablet (senna) 8.6 mg PO DAILY PRN 10/26/22 02/25/24 levothyroxine 75 mcg capsule 75 mcg PO DAILY #90 caps 10/27/22 02/25/24 sildenafil 100 mg tablet 100 mg PO DAILY PRN sexual 12/29/22 02/25/24 activity #30 tabs cyclobenzaprine 5 mg tablet 5 mg PO TID PRN muscle spasm #60 10/05/23 02/25/24 tabs ondansetron 4 mg disintegrating 8 mg PO QID PRN nausea and vomiting 10/23/23 02/25/24 tablet bupropion HCl 300 mg 24 hr tablet, 300 mg PO QAM 12/14/23 02/25/24 extended release lorazepam 0.5 mg tablet 0.5 mg PO DAILY PRN 12/14/23 02/25/24 sulfamethoxazole 500 mg tablet 500 mg PO DAILY PRN 12/14/23 02/25/24 olanzapine 5 mg tablet 5 mg PO QHS 01/13/24 02/25/24 oxycodone 20 mg tablet,crush 20 mg PO BID #60 tabs 02/14/24 02/25/24 resistant,extended release 12 hr oxycodone 10 mg tablet 10 mg PO Q4H PRN pain #120 tabs 02/24/24 02/25/24 Previous Rx's ?Medication ?Instructions ?Recorded lansoprazole 30 mg capsule,delayed 30 mg PO DAILY #90 caps 11/04/20 release nicotine 21 mg/24 hr daily 1 patch transdermal Q24H #30 ea 09/25/21 transdermal patch nitroglycerin 0.4 mg sublingual 0.4 mg sublingual PRN #25 tabs 12/23/21 tablet levothyroxine 75 mcg capsule 75 mcg PO DAILY #90 caps 10/27/22 sildenafil 100 mg tablet 100 mg PO DAILY PRN sexual 12/29/22 activity #30 tabs cyclobenzaprine 5 mg tablet 5 mg PO TID PRN muscle spasm #60 10/05/23 tabs oxycodone 20 mg tablet,crush 20 mg PO BID #60 tabs 02/14/24 resistant,extended release 12 hr oxycodone 10 mg tablet 10 mg PO Q4H PRN pain #120 tabs 02/24/24 Allergies Allergy/AdvReac Type Severity Reaction Status Date / Time No Known Allergies Allergy Verified 02/04/24 11:18 General Stated Complaint: GenMedical CRISTA: 2 Exam Narrative Exam Narrative: Frail, cachectic Dry oral mucosa Clear bilaterally no rales wheezes or rhonchi Normal heart sounds no murmurs rubs or gallops Abdomen soft nontender nondistended No peripheral edema Moving all extremities without deficit speaking full sentences Poor skin turgor dry, port site clean dry intact no induration erythema or fluctuance Course Vital Signs Vital signs: Vital Signs Temperature 36.8 C 02/25/24 11:13 Pulse 112 H 02/25/24 11:13 Respiratory Rate 18 02/25/24 11:13 Blood Pressure 115/71 02/25/24 11:13 Pulse Oximetry 98 02/25/24 11:13 Temperature 36.8 C 02/25/24 11:13 Temperature Source Temporal Artery Scan 02/25/24 11:13 Pulse 112 H 02/25/24 11:13 Respiratory Rate 18 02/25/24 11:13 Blood Pressure 115/71 02/25/24 11:13 Pulse Oximetry 98 02/25/24 11:13 Lab/Test Results Lab/Test Results: 02/25/24 11:39 Blood Blood Culture - Pending 02/25/24 11:39 Blood Blood Culture - Pending Medical Decision Making 49-year-old male history of metastatic esophageal cancer currently undergoing chemotherapy last session on Wednesday presents with low-grade fever at home, fatigue, appears dehydrated with dry oral mucosa poor skin turgor, lungs clear nonperitoneal afebrile alert oriented nonmeningeal. Consider viral illness such as COVID flu RSV versus pneumonia versus bacteremia lower suspicion for meningitis or intra-abdominal process, will obtain basic labs blood cultures urinalysis chest x-ray fluids basic labs close reassessment 13: 33 patient resting comfortably feeling much better after fluids. COVID-positive. X-ray unremarkable urine clear. Blood cultures have been sent. Home care instructions and return precautions given Quality:SDOH Health Related Social Needs: No Data to Display PFSH All Active Problems (Updated 02/25/24 @ 13:34 by Ravinder Abdalla MD) COVID (Acute) Palliative care patient (Acute) Cancer related pain (Acute) Secondary malignant neoplasm of bone (Acute) Malignant neoplasm of lower third of esophagus (Acute) Pulmonary, lymph and bone mets Cancer with pulmonary metastases (Acute ~09/15/23) Right shoulder pain (Acute) Nausea (Acute) Sinusitis (Acute) Sleep disorder (Acute) Anxiety (Chronic) Mood disorder (Acute) Mucus plugging of bronchi (Acute) Thrush (Acute) Erectile dysfunction (Acute) Hypomagnesemia (Acute) Aspiration pneumonia (Acute) DVT prophylaxis (Acute) Nausea & vomiting (Acute) Fatigue (Chronic) Low BP (Chronic) wean metoprolol to stop Cachexia (Chronic) will augment mirtazapine encourage po whenever possible Pharyngitis (Chronic) Likely related to radiation Persistent mood disorder (Chronic) better but wt down History of arthroscopy of left knee (Chronic 12/31/14) Weight loss (Chronic) 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) Knee pain (Chronic 07/14/13) Unstable angina (Chronic) Medical History EtOH dependence Nicotine addiction Essential hypertension Dehydration due to radiation Dysphagia High risk medication use STEMI (ST elevation myocardial infarction) Chest pain Anxiety Esophageal cancer Alcohol abuse (07/14/13) Bleeding hemorrhoids (05/28/17) Essential hypertension (07/13/13) Gastroesophageal reflux disease with esophagitis (03/09/13) Hyperlipidemia (11/19/08) ST elevation myocardial infarction involving left circumflex coronary artery (03/18/16) SANDRITA to LCX EF 62% Adjustment disorder with depressed mood Tobacco use disorder GERD (gastroesophageal reflux disease) Coronary artery disease Surgical History History of coronary artery stent placement Esophagus cancer with h/o esophagus stent EGD - MAC (12/29/17) Family History Mother Diabetes Essential hypertension Heart disease Hyperlipidemia Stroke Father Diabetes Sister No problems noted. Brother Essential hypertension Hyperlipidemia Brother Hyperlipidemia Brother Essential hypertension Heart disease Hyperlipidemia Social History Smoking/Tobacco Use Status: Former Tobacco Use tobacco type: cigarettes and smokeless tobacco Smokeless tobacco user: chewing tobacco Second Hand Exposure: Yes Smoking risk assessment performed?: Yes Alcohol Intake: former Drug use: Daily Substance use type: marijuana Caregiver/Support person: No Household members: spouse Housing: house Communication Needs: None Do you need help understanding health information?: Never Pets and animals: Yes Pets and animals: dog(s) and bird(s) Do you think of yourself as: straight/heterosexual Current gender identity: male What is your relationship status?: How often do you talk on the phone with friends or family?: three or more times per week How often do you get together with friends or relatives?: never How often do you attend spiritism or scientologist services?: decline to answer Do you belong to any clubs or organized social groups?: no Panel score (0-1 are the most socially isolated patients): 2 What type of physical activity do you participate in: decline to answer Beverly/Rastafarian: No preference Special beverly needs: No Seatbelt use: always Helmet use: Yes Drive intox or ride w/intox 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
[2024-02-25 12:07] LABS: Abs Immature Grans 0.06 10^3/uL (0.0-0.06); Absolute Basophil Count 0.05 10^3/uL (0.0-0.2); Absolute Eosinophil Count 0.07 10^3/uL (0.0-0.7); Absolute Neutrophil Count 10.98 10^3/uL (1.2-6.7); Basophils % 0.4 %; Eosinophils % 0.6 %; HCT 41.1 % (40.0-50.0); Immature Grans % 0.5 %; Lymphocytes % 7.3 %; MCH 27.8 pg (27.0-33.0); MCHC 31.6 % (32.0-36.0); MCV 88 fL (80-95); MPV 8.8 fL (8.0-11.0); Monocytes % 2.4 %; Neutrophils % 88.8 %; Nucleated RBC 0.2 % (0.0-0.3); Platelet Count 378 10^3/uL (130-400); RBC 4.68 10^6/uL (4.36-5.78); RDW 18.2 % (11.8-14.1); RDW-SD 58.4 fL; WBC 12.36 10^3/uL (4.4-10.8)
[2024-02-25] MEDS: Normal Saline 1,000 ML 1000 ML IV (12:20)
[2024-02-25 12:21] LABS: Bilirubin Negative (Negative); Blood Negative (Negative); Clarity Clear (Clear); Glucose Negative (Negative); Ketones Negative (Negative); Leukocyte Esterase Negative (Negative); Nitrite Negative (Negative); Specific Gravity 1.025 (1.005-1.025); pH 6.5 (5-8)
[2024-02-25 12:28] LABS: ALT 66 U/L (16-63); AST 35 U/L (15-37); Albumin 3.1 g/dL (3.4-5.0); Alkaline Phosphatase 114 U/L (46-116); Anion Gap 8.4 mmol/L (3-11); BUN 29 mg/dL (7-18); Bilirubin, Total 0.69 mg/dL (0.2-1.0); CO2 25.6 mmol/L (21.0-32.0); CREATININE 0.7 mg/dL (0.70-1.30); Calcium 8.2 mg/dL (8.5-10.1); Chloride 101 mmol/L (98-107); Estimated GFR 111.56 (mL/min/1.73m2); Glucose 139 mg/dL (74-106); Potassium 4.7 mmol/L (3.5-5.1); Sodium 135 mmol/L (136-145); Total Protein 6.9 g/dL (6.4-8.2)
[2024-02-25 12:55] LABS: Influenza A PCR Negative (Negative); Influenza B PCR Negative (Negative); RSV PCR Negative (Negative)
[2024-02-25 12:59] LABS: Source Nasopharynx
[2024-02-25 13:01] LABS: COVID-19 PCR Positive (Negative)
== END 2024-02-25 13:47 | disposition home or self-care (01) ==
PROVIDERS: Emergency Provider Emergency Medicine; PCP Family Medicine
DX: U07.1 COVID-19 (principal); C15.9 Malignant neoplasm of esophagus, unspecified; C79.51 Secondary malignant neoplasm of bone; I10 Essential (primary) hypertension; I25.2 Old myocardial infarction; E78.5 Hyperlipidemia, unspecified; I25.10 Atherosclerotic heart disease of native coronary artery without angina pectoris; Z93.1 Gastrostomy status; Z95.5 Presence of coronary angioplasty implant and graft; Z79.82 Long term (current) use of aspirin; Z87.891 Personal history of nicotine dependence
CPT/HCPCS: 80053; 87040; 87637; 96360; 99284; 71046; 81003; 85025

== ENCOUNTER 2024-03-03 17:24 | Emergency (ER) | payer OTHER, SELFPAY ==
[2024-03-03 17:26] VITALS: BP 114/76; PULSE 84; RESP 16; TEMP 36.1; O2SAT 99
[2024-03-03 17:37] VITALS: BP 114/76; PULSE 84; RESP 16; TEMP 36.1; O2SAT 99
--- NOTE | 2024-03-03 17:53 | ED.GENADUL_ITS ---
Discharge Plan Disposition Patient Disposition: Home Condition: Stable Discharge Details Clinical Impression: Feeding tube dysfunction Primary Care Provider: Donovan Bobby ED Provider: Jovani Stafford Home Meds and New Rx's Prescriptions: Continued multivitamin Tablet 1 tab PO DAILY nitroglycerin 0.4 mg tablet, sublingual 0.4 mg Sublingual PRN Qty: 25 0RF sildenafil 100 mg tablet 100 mg PO DAILY PRN (Reason: sexual activity) Qty: 30 2RF Rx Instructions: administer 30 minutes to 4 hours before activity cyclobenzaprine 5 mg tablet 5 mg PO TID PRN (Reason: muscle spasm) Qty: 60 0RF Rx Instructions: Take 1 tablet by mouth three times a day as needed for pain olanzapine 5 mg tablet 5 mg PO QHS aspirin 81 MG tablet,chewable 81 mg PO DAILY lansoprazole 30 mg capsule,delayed release(DR/EC) 30 mg PO DAILY Qty: 90 3RF nicotine 21 mg/24 hr patch 24 hour 1 patch TD Q24H Qty: 30 2RF Patient Comments: not on med list levothyroxine 75 mcg capsule 75 mcg PO DAILY Qty: 90 3RF bupropion HCl 300 mg tablet extended release 24 hr 300 mg PO QAM lorazepam 0.5 mg tablet 0.5 mg PO DAILY PRN sulfamethoxazole 500 mg tablet 500 mg PO DAILY PRN Rx Instructions: for diverticulitis flare oxycodone 20 mg tablet,oral only,ext.rel.12 hr 20 mg PO BID MDD 40 Qty: 60 0RF oxycodone 10 mg tablet 10 mg PO Q4H MDD 6 tabs PRN (Reason: pain) Qty: 120 0RF Rx Instructions: for cancer related pain palliative care patient. docusate sodium 100 mg Capsule 100 mg PO BID sennosides [senna] 8.6 mg Tablet 8.6 mg PO DAILY PRN prochlorperazine maleate 10 mg tablet 10 mg PO Q6H Patient Comments: TAKE 1 TABLET BY MOUTH EVERY 6 HOURS NEEDED FOR NAUSEA ondansetron 4 mg tablet,disintegrating 8 mg PO QID PRN (Reason: nausea and vomiting) Discharge Instructions Instructions: How to Care for Your Gastrostomy Tube Additional Instructions: You were seen in the emergency department for the single ripped suture of your 3 suture anchored feeding tube. We did replace the broken suture, please follow- up with your regular provider for care of your feeding tube. Please return to the emergency department for any further feeding tube dysfunction, or any other emergent concern. Referrals: Donovan Bobby MD [Primary Care Provider] - Discharge Data Discharge Date/Time-TO BE ENTERED AT DEPARTURE: 03/03/24 18:02 HPI General Date/Time Provider Initiated Documentation: 03/03/24 17:32 . HPI Narrative: 49 year-old male presents to ED today by POV/ambulating with his with a chief complaint of feeding tube problem- one of his 3 suture anchors pulled out during a shower today- wants it re-stitched as he is going on vacation tomorrow. Quality described as not painful, no radiation to erythema, discharge, feeding tube not functioning correctly, nausea/vomiting. Severity is described as 0/10. Palliating factors include nothing specific- taped it. Provoking factors include nothing specific. Patient not anticoagulated. Related Data Home Medications ?Medication ?Instructions ?Recorded ?Confirmed aspirin 81 mg chewable tablet 81 mg PO DAILY 03/25/16 03/03/24 multivitamin 1 tab PO DAILY 04/16/20 03/03/24 lansoprazole 30 mg capsule,delayed 30 mg PO DAILY #90 caps 11/04/20 03/03/24 release nicotine 21 mg/24 hr daily 1 patch transdermal Q24H #30 ea 09/25/21 03/03/24 transdermal patch nitroglycerin 0.4 mg sublingual 0.4 mg sublingual PRN #25 tabs 12/23/21 03/03/24 tablet docusate sodium 100 mg capsule 100 mg PO BID 10/26/22 03/03/24 prochlorperazine maleate 10 mg 10 mg PO Q6H 10/26/22 03/03/24 tablet sennosides 8.6 mg tablet (senna) 8.6 mg PO DAILY PRN 10/26/22 03/03/24 levothyroxine 75 mcg capsule 75 mcg PO DAILY #90 caps 10/27/22 03/03/24 sildenafil 100 mg tablet 100 mg PO DAILY PRN sexual 12/29/22 03/03/24 activity #30 tabs cyclobenzaprine 5 mg tablet 5 mg PO TID PRN muscle spasm #60 10/05/23 03/03/24 tabs ondansetron 4 mg disintegrating 8 mg PO QID PRN nausea and vomiting 10/23/23 03/03/24 tablet bupropion HCl 300 mg 24 hr tablet, 300 mg PO QAM 12/14/23 03/03/24 extended release lorazepam 0.5 mg tablet 0.5 mg PO DAILY PRN 12/14/23 03/03/24 sulfamethoxazole 500 mg tablet 500 mg PO DAILY PRN 12/14/23 03/03/24 olanzapine 5 mg tablet 5 mg PO QHS 01/13/24 03/03/24 oxycodone 20 mg tablet,crush 20 mg PO BID #60 tabs 02/14/24 03/03/24 resistant,extended release 12 hr oxycodone 10 mg tablet 10 mg PO Q4H PRN pain #120 tabs 02/24/24 03/03/24 Previous Rx's ?Medication ?Instructions ?Recorded lansoprazole 30 mg capsule,delayed 30 mg PO DAILY #90 caps 11/04/20 release nicotine 21 mg/24 hr daily 1 patch transdermal Q24H #30 ea 09/25/21 transdermal patch nitroglycerin 0.4 mg sublingual 0.4 mg sublingual PRN #25 tabs 12/23/21 tablet levothyroxine 75 mcg capsule 75 mcg PO DAILY #90 caps 10/27/22 sildenafil 100 mg tablet 100 mg PO DAILY PRN sexual 12/29/22 activity #30 tabs cyclobenzaprine 5 mg tablet 5 mg PO TID PRN muscle spasm #60 10/05/23 tabs oxycodone 20 mg tablet,crush 20 mg PO BID #60 tabs 02/14/24 resistant,extended release 12 hr oxycodone 10 mg tablet 10 mg PO Q4H PRN pain #120 tabs 02/24/24 Allergies Allergy/AdvReac Type Severity Reaction Status Date / Time No Known Allergies Allergy Verified 03/03/24 17:28 General Stated Complaint: GenMedical CRISTA: 4 Review of Systems All systems reviewed & are unremarkable except as noted in HPI and below Exam Narrative Exam Narrative: GENERAL APPEARANCE: Well-nourished, non-toxic, awake and alert, atraumatic, no acute distress. SKIN: Warm, pink, dry, intact, without rashes/lesions/ulcerations. HEAD: Normocephalic, atraumatic, normal hair distribution for gender/age. EYES: Normal conjunctiva, no exudates on lids/lashes. ENT: Nares patent, no circumoral cyanosis, no facial swelling NECK: Supple, trachea midline, painless cervical ROM. LUNGS/CHEST: Non-labored respirations, normal A/P diameter, symmetrical expansion, no chest wall deformity HEART (CV/PV): No peripheral edema, no JVD. ABDOMEN: Soft, non-distended, no guarding, feeding tube in place and functioning properly, 1 out of the 3 suture anchors pulled out of his skin, there is no erythema or discharge around the site, benign abdomen. MSK: Normal ROM, no swelling/deformity to bilateral UEs or LEs, moving all extremities without weakness, no cyanosis, spine midline without tenderness, normal curvature. NEURO: Mental Status AAOx4 - alert to person, place, time, events No facial droop, no forehead involvement. Motor: No focal weakness - strength 5/5 in bilateral UEs and LEs, proximal and distal, symmetric. Sensory: sensation intact to light touch globally. Gait normal: patient ambulated without ataxia into ED room. PSYCH: euthymic, cooperative, pleasant, appropriate speech Course Vital Signs Vital signs: Vital Signs Temperature 36.1 C L 03/03/24 17:26 Pulse 84 03/03/24 17:26 Respiratory Rate 16 03/03/24 17:26 Blood Pressure 114/76 03/03/24 17:26 Pulse Oximetry 99 03/03/24 17:26 Temperature 36.1 C L 03/03/24 17:37 Temperature Source Temporal Artery Scan 03/03/24 17:37 Pulse 84 03/03/24 17:37 Respiratory Rate 16 03/03/24 17:37 Respiratory Effort Normal, Non-Labored 03/03/24 17:37 Respiratory Depth Normal 03/03/24 17:37 Respiratory Pattern Normal 03/03/24 17:37 Blood Pressure 114/76 03/03/24 17:37 Blood Pressure Position Sitting 03/03/24 17:37 Pulse Oximetry 99 03/03/24 17:37 Oxygen Delivery Method Room Air 03/03/24 17:37 Oxygen Flow Rate 0 03/03/24 17:37 Pain Level 0 03/03/24 17:37 Medical Decision Making This dictation utilizes [id number] dictation software and may contain unedited grammatical errors. 49 year-old male presents to ED today by POV/ambulating with his with a chief complaint of feeding tube problem- one of his 3 suture anchors pulled out during a shower today- wants it re-stitched as he is going on vacation tomorrow. Quality described as not painful, no radiation to erythema, discharge, feeding tube not functioning correctly, nausea/vomiting. Severity is described as 0/10. Palliating factors include nothing specific- taped it. Provoking factors include nothing specific. Patients' medical history: Hypertension, history of alcohol dependence, nicotine addiction, history of STEMI, esophageal cancer, GERD, pa lliative care patient, nausea and vomiting. Family and social history: Noncontributory. Pertinent exam findings / vital signs include feeding tube in place and functioning properly, 1 out of the 3 suture anchors pulled out of his skin, there is no erythema or discharge around the site, benign abdomen. Differential / pathologies of concern include feeding tube problem. Diagnostic studies of: -None. Interventions of: -Feeding tube sutured by Dr. Abdalla, please see his procedure note. ED Course/Assessment/Plan: 49-year-old male presents with one of his suture anchors from his feeding tube displaced while showering this morning, he had taped the area, and is functioning properly and still in place by the other 2 suture anchors, he wants to sutured so he can go on vacation. This was done by Dr. Romo oh please see procedure note. Counseled on strict return criteria for infection at the site, tube feeding tube dysfunction, not functioning properly, nausea vomiting or other emergent concerns. Findings not consistent with cellulitis, feeding tube not operating correctly. Disposition of Feeding Tube Dysfunction. Patient verbalized understanding of the plan and return to ED criteria and engaged in shared decision making. Medical Records Medical records reviewed: Yes I reviewed the patient's medical records. Quality:SDOH Health Related Social Needs: No Data to Display PFSH All Active Problems (Updated 03/03/24 @ 17:55 by NISSA Ramirez) Feeding tube dysfunction (Acute) COVID (Acute) Palliative care patient (Acute) Cancer related pain (Acute) Secondary malignant neoplasm of bone (Acute) Malignant neoplasm of lower third of esophagus (Acute) Pulmonary, lymph and bone mets Cancer with pulmonary metastases (Acute ~09/15/23) Right shoulder pain (Acute) Nausea (Acute) Sinusitis (Acute) Sleep disorder (Acute) Anxiety (Chronic) Mood disorder (Acute) Mucus plugging of bronchi (Acute) Thrush (Acute) Erectile dysfunction (Acute) Hypomagnesemia (Acute) Aspiration pneumonia (Acute) DVT prophylaxis (Acute) Nausea & vomiting (Acute) Fatigue (Chronic) Low BP (Chronic) wean metoprolol to stop Cachexia (Chronic) will augment mirtazapine encourage po whenever possible Pharyngitis (Chronic) Likely related to radiation Persistent mood disorder (Chronic) better but wt down History of arthroscopy of left knee (Chronic 12/31/14) Weight loss (Chronic) 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) Knee pain (Chronic 07/14/13) Unstable angina (Chronic) Medical History EtOH dependence Nicotine addiction Essential hypertension Dehydration due to radiation Dysphagia High risk medication use STEMI (ST elevation myocardial infarction) Chest pain Anxiety Esophageal cancer Alcohol abuse (07/14/13) Bleeding hemorrhoids (05/28/17) Essential hypertension (07/13/13) Gastroesophageal reflux disease with esophagitis (03/09/13) Hyperlipidemia (11/19/08) ST elevation myocardial infarction involving left circumflex coronary artery (03/18/16) SANDRITA to LCX EF 62% Adjustment disorder with depressed mood Tobacco use disorder GERD (gastroesophageal reflux disease) Coronary artery disease Surgical History History of coronary artery stent placement Esophagus cancer with h/o esophagus stent EGD - MAC (12/29/17) Family History Mother Diabetes Essential hypertension Heart disease Hyperlipidemia Stroke Father Diabetes Sister No problems noted. Brother Essential hypertension Hyperlipidemia Brother Hyperlipidemia Brother Essential hypertension Heart disease Hyperlipidemia Social History Smoking/Tobacco Use Status: Former Tobacco Use tobacco type: cigarettes and smokeless tobacco Smokeless tobacco user: chewing tobacco Second Hand Exposure: Yes Smoking risk assessment performed?: Yes Alcohol Intake: former Drug use: Daily Substance use type: marijuana Caregiver/Support person: No Household members: spouse Housing: house Communication Needs: None Do you need help understanding health information?: Never Pets and animals: Yes Pets and animals: dog(s) and bird(s) Do you think of yourself as: straight/heterosexual Current gender identity: male What is your relationship status?: How often do you talk on the phone with friends or family?: three or more times per week How often do you get together with friends or relatives?: never How often do you attend christian or buddhism services?: decline to answer Do you belong to any clubs or organized social groups?: no Panel score (0-1 are the most socially isolated patients): 2 What type of physical activity do you participate in: decline to answer Beverly/Mosque: No preference Special beverly needs: No Seatbelt use: always Helmet use: Yes Drive intox or ride w/intox school bus driver/mechanic: No Do you feel safe at home: Yes Do you feel safe in your relationship?: Yes
--- NOTE | 2024-03-03 19:47 | NUR.NOTE ---
Nursing Note: Nurse who discharged called back to have someone finish d.c charting. This RN charted info based on what the primary RN told me.
== END 2024-03-03 18:02 | disposition home or self-care (01) ==
PROVIDERS: Emergency Provider Physician Assistant; PCP Family Medicine
DX: K94.23 Gastrostomy malfunction (principal); C15.5 Malignant neoplasm of lower third of esophagus; C77.9 Secondary and unspecified malignant neoplasm of lymph node, unspecified; C78.00 Secondary malignant neoplasm of unspecified lung; C79.51 Secondary malignant neoplasm of bone; I10 Essential (primary) hypertension; I25.2 Old myocardial infarction; I25.10 Atherosclerotic heart disease of native coronary artery without angina pectoris; E78.5 Hyperlipidemia, unspecified; Z95.5 Presence of coronary angioplasty implant and graft; Z79.82 Long term (current) use of aspirin; Z87.891 Personal history of nicotine dependence
CPT/HCPCS: 99283

== ENCOUNTER 2024-03-11 08:06 | Emergency (ER) | payer OTHER, SELFPAY ==
[2024-03-11 08:13] VITALS: BP 131/74; PULSE 78; RESP 12; TEMP 37.1; O2SAT 98
[2024-03-11] MEDS: Lidocaine/Epinephri/Tetracaine Topical Gel 3 ML TP (08:50)
[2024-03-11] MEDS: oxyCODONE 10 MG TAB PO (08:50)
--- NOTE | 2024-03-11 13:53 | ED.GENADUL_ITS ---
Discharge Plan Disposition Patient Disposition: Home Condition: Stable Discharge Details Clinical Impression: Malfunction of jejunostomy tube Primary Care Provider: Donovan Bobby ED Provider: Barb Spaulding [place] Meds and New Rx's Prescriptions: New lidocaine HCl 3 % cream 1 applic topical BID PRNQty: 85 0RF Continued multivitamin Tablet 1 tab PO DAILY nitroglycerin 0.4 mg tablet, sublingual 0.4 mg Sublingual PRN Qty: 25 0RF sildenafil 100 mg tablet 100 mg PO DAILY PRN (Reason: sexual activity) Qty: 30 2RF Rx Instructions: administer 30 minutes to 4 hours before activity cyclobenzaprine 5 mg tablet 5 mg PO TID PRN (Reason: muscle spasm) Qty: 60 0RF Rx Instructions: Take 1 tablet by mouth three times a day as needed for pain olanzapine 5 mg tablet 5 mg PO QHS aspirin 81 MG tablet,chewable 81 mg PO DAILY lansoprazole 30 mg capsule,delayed release(DR/EC) 30 mg PO DAILY Qty: 90 3RF nicotine 21 mg/24 hr patch 24 hour 1 patch TD Q24H Qty: 30 2RF Patient Comments: not on med list levothyroxine 75 mcg capsule 75 mcg PO DAILY Qty: 90 3RF bupropion HCl 300 mg tablet extended release 24 hr 300 mg PO QAM lorazepam 0.5 mg tablet 0.5 mg PO DAILY PRN sulfamethoxazole 500 mg tablet 500 mg PO DAILY PRN Rx Instructions: for diverticulitis flare oxycodone 20 mg tablet,oral only,ext.rel.12 hr 20 mg PO BID MDD 40 Qty: 60 0RF oxycodone 10 mg tablet 10 mg PO Q4H MDD 6 tabs PRN (Reason: pain) Qty: 120 0RF Rx Instructions: for cancer related pain palliative care patient. docusate sodium 100 mg Capsule 100 mg PO BID sennosides [senna] 8.6 mg Tablet 8.6 mg PO DAILY PRN prochlorperazine maleate 10 mg tablet 10 mg PO Q6H Patient Comments: TAKE 1 TABLET BY MOUTH EVERY 6 HOURS NEEDED FOR NAUSEA ondansetron 4 mg tablet,disintegrating 8 mg PO QID PRN (Reason: nausea and vomiting) Discharge Instructions Additional Instructions: keep wound clean and dry may apply topical let as needed follow up with your doctor this week for reassessment return earlier with new or worsening complaints Referrals: Donovan Bobby MD [Primary Care Provider] - Discharge Data Discharge Date/Time-TO BE ENTERED AT DEPARTURE: 03/11/24 09:47 HPI General Date/Time Provider Initiated Documentation: 03/11/24 08:13 . HPI Narrative: This is a 49-year-old male with history of esophageal cancer and lung metastasis who had a J-tube placed approximately 6 weeks ago and hit the corner of his J- tube now only has [address] There were 3, 1 was recently repaired a w [place] ago. Denies any fever or chills. Has pain overlying the remaining suture. Tube has been functioning well per patient. Denies any fevers or chills or additional complaints at this time. Related Data Home Medications ?Medication ?Instructions ?Recorded ?Confirmed aspirin 81 mg chewable tablet 81 mg PO DAILY 03/25/16 03/11/24 multivitamin 1 tab PO DAILY 04/16/20 03/11/24 lansoprazole 30 mg capsule,delayed 30 mg PO DAILY #90 caps 11/04/20 03/11/24 release nicotine 21 mg/24 hr daily 1 patch transdermal Q24H #30 ea 09/25/21 03/11/24 transdermal patch nitroglycerin 0.4 mg sublingual 0.4 mg sublingual PRN #25 tabs 12/23/21 03/11/24 tablet docusate sodium 100 mg capsule 100 mg PO BID 10/26/22 03/11/24 prochlorperazine maleate 10 mg 10 mg PO Q6H 10/26/22 03/11/24 tablet sennosides 8.6 mg tablet (senna) 8.6 mg PO DAILY PRN 10/26/22 03/11/24 levothyroxine 75 mcg capsule 75 mcg PO DAILY #90 caps 10/27/22 03/11/24 sildenafil 100 mg tablet 100 mg PO DAILY PRN sexual 12/29/22 03/11/24 activity #30 tabs cyclobenzaprine 5 mg tablet 5 mg PO TID PRN muscle spasm #60 10/05/23 03/11/24 tabs ondansetron 4 mg disintegrating 8 mg PO QID PRN nausea and vomiting 10/23/23 03/11/24 tablet bupropion HCl 300 mg 24 hr tablet, 300 mg PO QAM 12/14/23 03/11/24 extended release lorazepam 0.5 mg tablet 0.5 mg PO DAILY PRN 12/14/23 03/11/24 sulfamethoxazole 500 mg tablet 500 mg PO DAILY PRN 12/14/23 03/11/24 olanzapine 5 mg tablet 5 mg PO QHS 01/13/24 03/11/24 oxycodone 20 mg tablet,crush 20 mg PO BID #60 tabs 02/14/24 03/11/24 resistant,extended release 12 hr oxycodone 10 mg tablet 10 mg PO Q4H PRN pain #120 tabs 02/24/24 03/11/24 lidocaine HCl 3 % topical cream 1 applic topical BID PRN #85 grams 03/11/24 Previous Rx's ?Medication ?Instructions ?Recorded lansoprazole 30 mg capsule,delayed 30 mg PO DAILY #90 caps 11/04/20 release nicotine 21 mg/24 hr daily 1 patch transdermal Q24H #30 ea 09/25/21 transdermal patch nitroglycerin 0.4 mg sublingual 0.4 mg sublingual PRN #25 tabs 12/23/21 tablet levothyroxine 75 mcg capsule 75 mcg PO DAILY #90 caps 10/27/22 sildenafil 100 mg tablet 100 mg PO DAILY PRN sexual 12/29/22 activity #30 tabs cyclobenzaprine 5 mg tablet 5 mg PO TID PRN muscle spasm #60 10/05/23 tabs oxycodone 20 mg tablet,crush 20 mg PO BID #60 tabs 02/14/24 resistant,extended release 12 hr oxycodone 10 mg tablet 10 mg PO Q4H PRN pain #120 tabs 02/24/24 lidocaine HCl 3 % topical cream 1 applic topical BID PRN #85 grams 03/11/24 Allergies Allergy/AdvReac Type Severity Reaction Status Date / Time No Known Allergies Allergy Verified 03/11/24 08:18 General Stated Complaint: Abd Prob CRISTA: 4 Exam Narrative Exam Narrative: J-tube in place with fastener, no erythema or significant tenderness consistent with abscess or cellulitis, no significant purulent drainage, speaking consistent pleat sentences, alert and oriented Course Vital Signs Vital signs: Vital Signs Temperature 37.1 C 03/11/24 08:13 Pulse 78 03/11/24 08:13 Respiratory Rate 12 03/11/24 08:13 Blood Pressure 131/74 03/11/24 08:13 Pulse Oximetry 98 03/11/24 08:13 Temperature 37.1 C 03/11/24 08:13 Temperature Source Skin 03/11/24 08:13 Pulse 78 03/11/24 08:13 Respiratory Rate 12 03/11/24 08:13 Respiratory Effort Normal, Non-Labored 03/11/24 08:16 Blood Pressure 131/74 03/11/24 08:13 Blood Pressure Position Sitting 03/11/24 08:13 Pulse Oximetry 98 03/11/24 08:13 Oxygen Delivery Method Room Air 03/11/24 08:13 Oxygen Flow Rate 0 03/11/24 08:13 Pain Level 10 03/11/24 08:50 Procedures Other Description: Fastener for G-tube was cleansed copiously and three 2-0 Prolene sutures interrupted were placed to hold in place, patient tolerated this without incident no active bleeding and pain controlled patient tolerated procedure without incident Medical Decision Making Patient presents for suture dislodgment on fastener for J-tube. Case is discussed with Dr. Aguila who recommends suture replacement. 3 interrupted Ethilon 2-0 sutures were applied to fastener with patient tolerated without incident. Pain has completely alleviated and patient is feeling symptomatically improvement. He is encouraged to follow-up with surgeon and to return earlier with new or worsening complaints Quality:SDOH Health Related Social Needs: No Data to Display PFSH All Active Problems (Updated 03/11/24 @ 09:36 by NISSA Mcleod) Malfunction of jejunostomy tube (Acute) Feeding tube dysfunction (Acute) COVID (Acute) Palliative care patient (Acute) Cancer related pain (Acute) Secondary malignant neoplasm of bone (Acute) Malignant neoplasm of lower third of esophagus (Acute) Pulmonary, lymph and bone mets Cancer with pulmonary metastases (Acute ~09/15/23) Right shoulder pain (Acute) Nausea (Acute) Sinusitis (Acute) Sleep disorder (Acute) Anxiety (Chronic) Mood disorder (Acute) Mucus plugging of bronchi (Acute) Thrush (Acute) Erectile dysfunction (Acute) Hypomagnesemia (Acute) Aspiration pneumonia (Acute) DVT prophylaxis (Acute) Nausea & vomiting (Acute) Fatigue (Chronic) Low BP (Chronic) wean metoprolol to stop Cachexia (Chronic) will augment mirtazapine encourage po whenever possible Pharyngitis (Chronic) Likely related to radiation Persistent mood disorder (Chronic) better but wt down History of arthroscopy of left knee (Chronic 12/31/14) Weight loss (Chronic) 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) Knee pain (Chronic 07/14/13) Unstable angina (Chronic) Medical History EtOH dependence Nicotine addiction Essential hypertension Dehydration due to radiation Dysphagia High risk medication use STEMI (ST elevation myocardial infarction) Chest pain Anxiety Esophageal cancer Alcohol abuse (07/14/13) Bleeding hemorrhoids (05/28/17) Essential hypertension (07/13/13) Gastroesophageal reflux disease with esophagitis (03/09/13) Hyperlipidemia (11/19/08) ST elevation myocardial infarction involving left circumflex coronary artery (03/18/16) SANDRITA to LCX EF 62% Adjustment disorder with depressed mood Tobacco use disorder GERD (gastroesophageal reflux disease) Coronary artery disease Surgical History History of coronary artery stent placement Esophagus cancer with h/o esophagus stent EGD - MAC (12/29/17) Family History Mother Diabetes Essential hypertension Heart disease Hyperlipidemia Stroke Father Diabetes Sister No problems noted. Brother Essential hypertension Hyperlipidemia Brother Hyperlipidemia Brother Essential hypertension Heart disease Hyperlipidemia Social History Smoking/Tobacco Use Status: Former Tobacco Use tobacco type: cigarettes and smokeless tobacco Smokeless tobacco user: chewing tobacco Second Hand Exposure: Yes Smoking risk assessment performed?: Yes Alcohol Intake: former Drug use: Daily Substance use type: marijuana Caregiver/Support person: No Household members: spouse Housing: house Communication Needs: None Do you need help understanding health information?: Never Pets and animals: Yes Pets and animals: dog(s) and bird(s) Do you think of yourself as: straight/heterosexual Current gender identity: male What is your relationship status?: How often do you talk on the phone with friends or family?: three or more times per week How often do you get together with friends or relatives?: never How often do you attend jain or adventist services?: decline to answer Do you belong to any clubs or organized social groups?: no Panel score (0-1 are the most socially isolated patients): 2 What type of physical activity do you participate in: decline to answer [place]/Latter Day: No preference Special beverly needs: No Seatbelt use: always Helmet use: Yes Drive intox or ride w/intox bus driver school: No Do you feel safe at home: Yes Do you feel safe in your relationship?: Yes
== END 2024-03-11 09:47 | disposition home or self-care (01) ==
PROVIDERS: Emergency Provider Physician Assistant; PCP Family Medicine
DX: K94.13 Enterostomy malfunction (principal)
CPT/HCPCS: 99283

== ENCOUNTER 2024-03-20 02:42 | Outpatient (RCR) | payer OTHER, SELFPAY ==
[2024-03-13] MEDS: Normal Saline Flush 10 ML SYR IVP (07:31)
[2024-03-13 07:58] LABS: Absolute Basophil Count 0.09 10^3/uL (0.0-0.2); Absolute Eosinophil Count 0.27 10^3/uL (0.0-0.7); Absolute Monocyte Count 1.16 10^3/uL (0.1-0.8); Absolute Neutrophil Count 8.82 10^3/uL (1.2-6.7); Basophils % 0.7 %; Eosinophils % 2.1 %; HCT 42.3 % (40.0-50.0); HGB 12.9 g/dL (13.5-17.5); Immature Grans % 0.8 %; Lymphocytes % 18.2 %; MCH 27.6 pg (27.0-33.0); MCHC 30.5 % (32.0-36.0); MCV 90 fL (80-95); MPV 8.4 fL (8.0-11.0); Monocytes % 9.1 %; Neutrophils % 69.1 %; Platelet Count 474 10^3/uL (130-400); RBC 4.68 10^6/uL (4.36-5.78); RDW 18.1 % (11.8-14.1); RDW-SD 60.1 fL; WBC 12.77 10^3/uL (4.4-10.8)
[2024-03-13 08:03] LABS: Absolute Lymphocyte Count 2.32 10^3/uL (1.2-3.4)
[2024-03-13 08:37] LABS: ALT 21 U/L (16-63); AST 17 U/L (15-37); Albumin 3.2 g/dL (3.4-5.0); Alkaline Phosphatase 89 U/L (46-116); Anion Gap 8.6 mmol/L (3-11); BUN 24 mg/dL (7-18); CO2 27.4 mmol/L (21.0-32.0); CREATININE 0.7 mg/dL (0.70-1.30); Calcium 8.8 mg/dL (8.5-10.1); Chloride 103 mmol/L (98-107); Estimated GFR 111.56 (mL/min/1.73m2); Glucose 137 mg/dL (74-106); Magnesium 1.7 mg/dL (1.8-2.4); Potassium 4.5 mmol/L (3.5-5.1); Sodium 139 mmol/L (136-145); TSH 26.96 uIU/Ml (0.36-3.74); Total Protein 7.2 g/dL (6.4-8.2)
[2024-03-20] MEDS: Normal Saline Flush 10 ML SYR IVP (08:01)
[2024-03-20 08:26] LABS: Absolute Basophil Count 0.08 10^3/uL (0.0-0.2); Absolute Eosinophil Count 0.32 10^3/uL (0.0-0.7); Absolute Lymphocyte Count 2.12 10^3/uL (1.2-3.4); Absolute Monocyte Count 0.49 10^3/uL (0.1-0.8); Basophils % 0.9 %; Eosinophils % 3.6 %; HCT 40.3 % (40.0-50.0); HGB 12.3 g/dL (13.5-17.5); Immature Grans % 1.1 %; Lymphocytes % 24.1 %; MCHC 30.5 % (32.0-36.0); MCV 92 fL (80-95); MPV 9.1 fL (8.0-11.0); Monocytes % 5.6 %; Neutrophils % 64.7 %; Platelet Count 356 10^3/uL (130-400); RBC 4.39 10^6/uL (4.36-5.78); RDW 17.5 % (11.8-14.1); RDW-SD 59.1 fL; WBC 8.81 10^3/uL (4.4-10.8)
[2024-03-20 08:30] LABS: Bilirubin Negative (Negative); Blood Negative (Negative); Clarity Clear (Clear); Glucose Negative (Negative); Ketones Negative (Negative); Leukocyte Esterase Negative (Negative); Nitrite Negative (Negative); Specific Gravity 1.025 (1.005-1.025); Urobilinogen 0.2 mg/dL (Up to 0.2)
[2024-03-20 08:56] LABS: ALT 33 U/L (16-63); AST 18 U/L (15-37); Albumin 3.1 g/dL (3.4-5.0); Alkaline Phosphatase 91 U/L (46-116); Anion Gap 4.1 mmol/L (3-11); BUN 21 mg/dL (7-18); Bilirubin, Total 0.26 mg/dL (0.2-1.0); CO2 28.9 mmol/L (21.0-32.0); CREATININE 0.7 mg/dL (0.70-1.30); Calcium 8.8 mg/dL (8.5-10.1); Chloride 104 mmol/L (98-107); Estimated GFR 111.56 (mL/min/1.73m2); FREE T4 0.99 ng/dL (0.76-1.46); Glucose 147 mg/dL (74-106); Potassium 4.7 mmol/L (3.5-5.1); Sodium 137 mmol/L (136-145); TSH 29.05 uIU/Ml (0.36-3.74); Total Protein 6.8 g/dL (6.4-8.2)
== END 2024-03-25 23:59 | disposition home or self-care (01) ==
LOC: INF 02:42
PROVIDERS: PCP Family Medicine; Visit Provider Internal Medicine Medical Oncology
DX: C15.5 Malignant neoplasm of lower third of esophagus (principal); C79.51 Secondary malignant neoplasm of bone; E03.9 Hypothyroidism, unspecified; Z79.899 Other long term (current) drug therapy
CPT/HCPCS: 36591; 80053; 81003; 83735; 84439; 84443; 85025

== ENCOUNTER 2024-04-24 02:47 | Outpatient (RCR) | payer OTHER, SELFPAY ==
[2024-03-28 07:50] LABS: Abs Immature Grans 0.05 10^3/uL (0.0-0.06); Absolute Basophil Count 0.06 10^3/uL (0.0-0.2); Absolute Eosinophil Count 0.28 10^3/uL (0.0-0.7); Absolute Monocyte Count 0.73 10^3/uL (0.1-0.8); Absolute Neutrophil Count 4.03 10^3/uL (1.2-6.7); Basophils % 0.9 %; Eosinophils % 4.1 %; HCT 40.1 % (40.0-50.0); HGB 12.6 g/dL (13.5-17.5); Immature Grans % 0.7 %; Lymphocytes % 24.8 %; MCH 28.7 pg (27.0-33.0); MCHC 31.4 % (32.0-36.0); MCV 91 fL (80-95); Monocytes % 10.7 %; Neutrophils % 58.8 %; Platelet Count 360 10^3/uL (130-400); RBC 4.39 10^6/uL (4.36-5.78); RDW 17.9 % (11.8-14.1); RDW-SD 60.4 fL; WBC 6.85 10^3/uL (4.4-10.8)
[2024-03-28 07:52] LABS: Bilirubin Negative (Negative); Blood Negative (Negative); Clarity Clear (Clear); Glucose Negative (Negative); Ketones Negative (Negative); Leukocyte Esterase Negative (Negative); Nitrite Negative (Negative); Urobilinogen 0.2 mg/dL (Up to 0.2)
[2024-03-28] MEDS: Normal Saline Flush 10 ML SYR IVP (08:09)
[2024-03-28 08:19] LABS: ALT 30 U/L (16-63); AST 19 U/L (15-37); Alkaline Phosphatase 98 U/L (46-116); Anion Gap 5.3 mmol/L (3-11); BUN 21 mg/dL (7-18); Bilirubin, Total 0.25 mg/dL (0.2-1.0); CO2 26.7 mmol/L (21.0-32.0); CREATININE 0.7 mg/dL (0.70-1.30); Calcium 8.3 mg/dL (8.5-10.1); Chloride 107 mmol/L (98-107); Estimated GFR 111.56 (mL/min/1.73m2); FREE T4 1.11 ng/dL (0.76-1.46); Glucose 152 mg/dL (74-106); Magnesium 2.3 mg/dL (1.8-2.4); Potassium 4.6 mmol/L (3.5-5.1); Sodium 139 mmol/L (136-145); Total Protein 6.8 g/dL (6.4-8.2)
[2024-04-10 08:35] LABS: Abs Immature Grans 0.09 10^3/uL (0.0-0.06); Absolute Basophil Count 0.08 10^3/uL (0.0-0.2); Absolute Eosinophil Count 0.12 10^3/uL (0.0-0.7); Absolute Lymphocyte Count 2.07 10^3/uL (1.2-3.4); Absolute Monocyte Count 1.19 10^3/uL (0.1-0.8); Absolute Neutrophil Count 5.58 10^3/uL (1.2-6.7); Basophils % 0.9 %; Eosinophils % 1.3 %; HCT 41.4 % (40.0-50.0); HGB 13.1 g/dL (13.5-17.5); Lymphocytes % 22.7 %; MCH 28.8 pg (27.0-33.0); MCHC 31.6 % (32.0-36.0); MCV 91 fL (80-95); MPV 8.9 fL (8.0-11.0); Neutrophils % 61.1 %; Platelet Count 381 10^3/uL (130-400); RBC 4.55 10^6/uL (4.36-5.78); RDW 17.4 % (11.8-14.1); RDW-SD 58.1 fL; WBC 9.13 10^3/uL (4.4-10.8)
[2024-04-10 08:37] LABS: Bilirubin Negative (Negative); Blood Negative (Negative); Clarity Clear (Clear); Glucose Negative (Negative); Ketones Negative (Negative); Leukocyte Esterase Negative (Negative); Nitrite Negative (Negative); Specific Gravity 1.015 (1.005-1.025); Urobilinogen 0.2 mg/dL (Up to 0.2)
[2024-04-10] MEDS: Normal Saline Flush 10 ML SYR IVP (08:59)
[2024-04-10 09:07] LABS: ALT 32 U/L (16-63); AST 20 U/L (15-37); Albumin 2.8 g/dL (3.4-5.0); Alkaline Phosphatase 90 U/L (46-116); Anion Gap 4.3 mmol/L (3-11); BUN 20 mg/dL (7-18); Bilirubin, Total 0.23 mg/dL (0.2-1.0); CO2 27.7 mmol/L (21.0-32.0); CREATININE 0.7 mg/dL (0.70-1.30); Calcium 8.4 mg/dL (8.5-10.1); Chloride 106 mmol/L (98-107); Estimated GFR 111.56 (mL/min/1.73m2); FREE T4 1.12 ng/dL (0.76-1.46); Glucose 144 mg/dL (74-106); Magnesium 2.1 mg/dL (1.8-2.4); Potassium 4.6 mmol/L (3.5-5.1); Sodium 138 mmol/L (136-145); TSH 3.17 uIU/Ml (0.36-3.74); Total Protein 6.6 g/dL (6.4-8.2)
[2024-04-17 08:39] LABS: Abs Immature Grans 0.26 10^3/uL (0.0-0.06); Absolute Basophil Count 0.12 10^3/uL (0.0-0.2); Absolute Eosinophil Count 0.21 10^3/uL (0.0-0.7); Absolute Monocyte Count 0.76 10^3/uL (0.1-0.8); Absolute Neutrophil Count 4.75 10^3/uL (1.2-6.7); Basophils % 1.4 %; Eosinophils % 2.5 %; HCT 41.1 % (40.0-50.0); HGB 12.8 g/dL (13.5-17.5); Immature Grans % 3.1 %; Lymphocytes % 27.4 %; MCHC 31.1 % (32.0-36.0); MCV 93 fL (80-95); MPV 9.2 fL (8.0-11.0); Neutrophils % 56.6 %; Platelet Count 400 10^3/uL (130-400); RBC 4.41 10^6/uL (4.36-5.78); RDW 16.9 % (11.8-14.1); RDW-SD 57.7 fL
[2024-04-17 08:49] LABS: Bilirubin Negative (Negative); Blood Negative (Negative); Clarity Clear (Clear); Glucose Negative (Negative); Ketones Negative (Negative); Leukocyte Esterase Negative (Negative); Nitrite Negative (Negative); Urobilinogen 0.2 mg/dL (Up to 0.2)
[2024-04-17 08:52] LABS: ALT 61 U/L (16-63); AST 24 U/L (15-37); Albumin 2.8 g/dL (3.4-5.0); Alkaline Phosphatase 106 U/L (46-116); Anion Gap 5.9 mmol/L (3-11); BUN 20 mg/dL (7-18); Bilirubin, Total 0.25 mg/dL (0.2-1.0); CO2 29.1 mmol/L (21.0-32.0); CREATININE 0.6 mg/dL (0.70-1.30); Calcium 8.5 mg/dL (8.5-10.1); Chloride 105 mmol/L (98-107); Estimated GFR 116.87 (mL/min/1.73m2); Glucose 139 mg/dL (74-106); Magnesium 2.1 mg/dL (1.8-2.4); Potassium 4.3 mmol/L (3.5-5.1); Sodium 140 mmol/L (136-145); Total Protein 6.6 g/dL (6.4-8.2)
[2024-04-17 09:01] LABS: FREE T4 0.95 ng/dL (0.76-1.46); TSH 19.09 uIU/Ml (0.36-3.74)
[2024-04-17] MEDS: Normal Saline Flush 10 ML SYR IVP (10:19)
[2024-04-17 18:34] LABS: CEA 48.1 ng/mL (See Note)
[2024-04-24] MEDS: Normal Saline Flush 10 ML SYR IVP (09:58)
[2024-04-24 10:25] LABS: Abs Immature Grans 0.13 10^3/uL (0.0-0.06); Absolute Basophil Count 0.09 10^3/uL (0.0-0.2); Absolute Eosinophil Count 0.15 10^3/uL (0.0-0.7); Absolute Monocyte Count 0.59 10^3/uL (0.1-0.8); Absolute Neutrophil Count 3.63 10^3/uL (1.2-6.7); Basophils % 1.4 %; Eosinophils % 2.3 %; HCT 42.5 % (40.0-50.0); HGB 13.3 g/dL (13.5-17.5); Lymphocytes % 29.3 %; MCH 29.1 pg (27.0-33.0); MCHC 31.3 % (32.0-36.0); MCV 93 fL (80-95); MPV 9.3 fL (8.0-11.0); Monocytes % 9.1 %; Neutrophils % 55.9 %; Platelet Count 392 10^3/uL (130-400); RBC 4.57 10^6/uL (4.36-5.78); RDW 17.2 % (11.8-14.1); RDW-SD 58.6 fL; WBC 6.49 10^3/uL (4.4-10.8)
[2024-04-24 10:45] LABS: Bilirubin Negative (Negative); Blood Negative (Negative); Clarity Clear (Clear); Glucose Negative (Negative); Ketones Negative (Negative); Leukocyte Esterase Negative (Negative); Nitrite Negative (Negative); Urobilinogen 0.2 mg/dL (Up to 0.2)
[2024-04-24 10:51] LABS: ALT 52 U/L (16-63); AST 26 U/L (15-37); Albumin 3.1 g/dL (3.4-5.0); Alkaline Phosphatase 111 U/L (46-116); Anion Gap 8.4 mmol/L (3-11); BUN 17 mg/dL (7-18); Bilirubin, Total 0.29 mg/dL (0.2-1.0); CO2 25.6 mmol/L (21.0-32.0); CREATININE 0.7 mg/dL (0.70-1.30); Calcium 8.9 mg/dL (8.5-10.1); Chloride 102 mmol/L (98-107); Estimated GFR 111.56 (mL/min/1.73m2); Glucose 126 mg/dL (74-106); Magnesium 2.2 mg/dL (1.8-2.4); Potassium 4.3 mmol/L (3.5-5.1); Sodium 136 mmol/L (136-145); Total Protein 6.8 g/dL (6.4-8.2)
[2024-04-24 10:53] LABS: FREE T4 0.88 ng/dL (0.76-1.46); TSH 35.73 uIU/Ml (0.36-3.74)
== END 2024-04-24 23:59 | disposition home or self-care (01) ==
LOC: INF 02:47
PROVIDERS: Nurse Practitioner Family; PCP Family Medicine; Visit Provider Internal Medicine Medical Oncology
DX: C15.5 Malignant neoplasm of lower third of esophagus (principal); C79.51 Secondary malignant neoplasm of bone; E03.9 Hypothyroidism, unspecified; Z79.899 Other long term (current) drug therapy
CPT/HCPCS: 36591; 80053; 81003; 82378; 83735; 84439; 84443; 85025

== ENCOUNTER 2024-05-22 01:48 | Outpatient (RCR) | payer OTHER, SELFPAY ==
[2024-05-08] MEDS: Normal Saline Flush 10 ML SYR IVP (09:15)
[2024-05-08 09:51] LABS: Abs Immature Grans 0.13 10^3/uL (0.0-0.06); Absolute Basophil Count 0.08 10^3/uL (0.0-0.2); Absolute Monocyte Count 2.04 10^3/uL (0.1-0.8); Absolute Neutrophil Count 6.65 10^3/uL (1.2-6.7); Basophils % 0.7 %; Eosinophils % 1.1 %; HCT 44.1 % (40.0-50.0); HGB 13.8 g/dL (13.5-17.5); Immature Grans % 1.1 %; Lymphocytes % 20.9 %; MCH 29.2 pg (27.0-33.0); MCHC 31.3 % (32.0-36.0); MCV 93 fL (80-95); MPV 8.7 fL (8.0-11.0); Monocytes % 17.9 %; Neutrophils % 58.3 %; Platelet Count 328 10^3/uL (130-400); RBC 4.73 10^6/uL (4.36-5.78); RDW 16.4 % (11.8-14.1); RDW-SD 56.4 fL; WBC 11.41 10^3/uL (4.4-10.8)
[2024-05-08 10:02] LABS: Absolute Eosinophil Count 0.13 10^3/uL (0.0-0.7); Absolute Lymphocyte Count 2.38 10^3/uL (1.2-3.4)
[2024-05-08 10:06] LABS: ALT 31 U/L (16-63); AST 22 U/L (15-37); Albumin 3.1 g/dL (3.4-5.0); Alkaline Phosphatase 96 U/L (46-116); Anion Gap 8.5 mmol/L (3-11); BUN 26 mg/dL (7-18); Bilirubin, Total 0.41 mg/dL (0.2-1.0); CO2 27.5 mmol/L (21.0-32.0); CREATININE 0.7 mg/dL (0.70-1.30); Calcium 8.6 mg/dL (8.5-10.1); Chloride 103 mmol/L (98-107); Estimated GFR 111.56 (mL/min/1.73m2); Glucose 119 mg/dL (74-106); Magnesium 2.1 mg/dL (1.8-2.4); Potassium 4.7 mmol/L (3.5-5.1); Sodium 139 mmol/L (136-145)
[2024-05-08 10:11] LABS: Bilirubin Negative (Negative); Blood Negative (Negative); Clarity Clear (Clear); Glucose Negative (Negative); Ketones Negative (Negative); Leukocyte Esterase Negative (Negative); Nitrite Negative (Negative)
[2024-05-08 10:16] LABS: FREE T4 1.29 ng/dL (0.76-1.46); TSH 6.16 uIU/mL (0.36-3.74)
[2024-05-08 10:21] LABS: Diff Comment Diff Reviewed; RBC Morphology Normal
[2024-05-15 08:10] LABS: Abs Immature Grans 0.16 10^3/uL (0.0-0.06); Absolute Basophil Count 0.08 10^3/uL (0.0-0.2); Absolute Eosinophil Count 0.16 10^3/uL (0.0-0.7); Absolute Lymphocyte Count 1.65 10^3/uL (1.2-3.4); Absolute Neutrophil Count 5.43 10^3/uL (1.2-6.7); HCT 43.2 % (40.0-50.0); HGB 13.7 g/dL (13.5-17.5); Lymphocytes % 20.4 %; MCH 29.5 pg (27.0-33.0); MCHC 31.7 % (32.0-36.0); MCV 93 fL (80-95); MPV 8.8 fL (8.0-11.0); Monocytes % 7.4 %; Neutrophils % 67.2 %; Platelet Count 379 10^3/uL (130-400); RBC 4.65 10^6/uL (4.36-5.78); RDW-SD 54.8 fL; WBC 8.08 10^3/uL (4.4-10.8)
[2024-05-15] MEDS: Normal Saline Flush 10 ML SYR IVP (08:10)
[2024-05-15 08:11] LABS: Bilirubin Negative (Negative); Blood Negative (Negative); Clarity Clear (Clear); Glucose Negative (Negative); Ketones Negative (Negative); Leukocyte Esterase Negative (Negative); Nitrite Negative (Negative); Specific Gravity 1.025 (1.005-1.025)
[2024-05-15 08:48] LABS: ALT 35 U/L (16-63); AST 21 U/L (15-37); Alkaline Phosphatase 97 U/L (46-116); Anion Gap 7.1 mmol/L (3-11); BUN 27 mg/dL (7-18); Bilirubin, Total 0.33 mg/dL (0.2-1.0); CO2 27.9 mmol/L (21.0-32.0); CREATININE 0.7 mg/dL (0.70-1.30); Calcium 9.2 mg/dL (8.5-10.1); Chloride 107 mmol/L (98-107); Estimated GFR 111.56 (mL/min/1.73m2); Glucose 128 mg/dL (74-106); Magnesium 2.1 mg/dL (1.8-2.4); Sodium 142 mmol/L (136-145); Total Protein 6.9 g/dL (6.4-8.2)
[2024-05-15 08:57] LABS: FREE T4 1.13 ng/dL (0.76-1.46); TSH 14.05 uIU/mL (0.36-3.74)
[2024-05-22] MEDS: Normal Saline Flush 10 ML SYR IVP (07:46)
[2024-05-22 07:59] LABS: Abs Immature Grans 0.14 10^3/uL (0.0-0.06); Absolute Basophil Count 0.06 10^3/uL (0.0-0.2); Absolute Eosinophil Count 0.16 10^3/uL (0.0-0.7); Absolute Lymphocyte Count 1.81 10^3/uL (1.2-3.4); Absolute Neutrophil Count 4.09 10^3/uL (1.2-6.7); Basophils % 0.9 %; Eosinophils % 2.3 %; HCT 43.2 % (40.0-50.0); HGB 13.7 g/dL (13.5-17.5); Lymphocytes % 26.4 %; MCH 29.6 pg (27.0-33.0); MCHC 31.7 % (32.0-36.0); MCV 93 fL (80-95); MPV 9.1 fL (8.0-11.0); Monocytes % 8.7 %; Neutrophils % 59.7 %; Platelet Count 355 10^3/uL (130-400); RBC 4.63 10^6/uL (4.36-5.78); RDW 16.1 % (11.8-14.1); RDW-SD 54.8 fL; WBC 6.86 10^3/uL (4.4-10.8)
[2024-05-22 08:01] LABS: Bilirubin Negative (Negative); Blood Negative (Negative); Clarity Clear (Clear); Glucose Negative (Negative); Ketones Negative (Negative); Leukocyte Esterase Negative (Negative); Nitrite Negative (Negative)
[2024-05-22 08:33] LABS: ALT 29 U/L (16-63); AST 20 U/L (15-37); Albumin 2.9 g/dL (3.4-5.0); Alkaline Phosphatase 96 U/L (46-116); Anion Gap 6.7 mmol/L (3-11); BUN 21 mg/dL (7-18); Bilirubin, Total 0.31 mg/dL (0.2-1.0); CO2 28.3 mmol/L (21.0-32.0); CREATININE 0.7 mg/dL (0.70-1.30); Calcium 8.8 mg/dL (8.5-10.1); Chloride 105 mmol/L (98-107); Estimated GFR 111.56 (mL/min/1.73m2); FREE T4 1.06 ng/dL (0.76-1.46); Glucose 135 mg/dL (74-106); Magnesium 2.1 mg/dL (1.8-2.4); Potassium 4.7 mmol/L (3.5-5.1); Sodium 140 mmol/L (136-145); TSH 14.58 uIU/mL (0.36-3.74); Total Protein 6.7 g/dL (6.4-8.2)
== END 2024-05-25 23:59 | disposition home or self-care (01) ==
LOC: INF 01:48
PROVIDERS: Nurse Practitioner Family; PCP Family Medicine; Visit Provider Internal Medicine Medical Oncology
DX: C15.5 Malignant neoplasm of lower third of esophagus (principal); C79.51 Secondary malignant neoplasm of bone; Z79.899 Other long term (current) drug therapy; E03.9 Hypothyroidism, unspecified; Z45.2 Encounter for adjustment and management of vascular access device
CPT/HCPCS: 36415; 36591; 80053; 81003; 83735; 84439; 84443; 85025

== ENCOUNTER 2024-06-05 02:42 | Outpatient (RCR) | payer OTHER, SELFPAY ==
[2024-06-05] MEDS: Normal Saline Flush 10 ML SYR IVP (08:22)
[2024-06-05 08:40] LABS: HCT 43.9 % (40.0-50.0); HGB 14.2 g/dL (13.5-17.5); MCH 29.7 pg (27.0-33.0); MCHC 32.3 % (32.0-36.0); MCV 92 fL (80-95); MPV 9.1 fL (8.0-11.0); Platelet Count 385 10^3/uL (130-400); RBC 4.78 10^6/uL (4.36-5.78); RDW 15.9 % (11.8-14.1); RDW-SD 53.9 fL; WBC 11.95 10^3/uL (4.4-10.8)
[2024-06-05 08:53] LABS: Bilirubin Negative (Negative); Blood Negative (Negative); Clarity Clear (Clear); Glucose Negative (Negative); Ketones Negative (Negative); Leukocyte Esterase Negative (Negative); Nitrite Negative (Negative); Specific Gravity 1.015 (1.005-1.025); Urobilinogen 0.2 mg/dL (Up to 0.2); pH 7.5 (5-8)
[2024-06-05 09:02] LABS: ALT 22 U/L (16-63); AST 16 U/L (15-37); Alkaline Phosphatase 84 U/L (46-116); Anion Gap 8.5 mmol/L (3-11); BUN 19 mg/dL (7-18); Bilirubin, Total 0.39 mg/dL (0.2-1.0); CO2 28.5 mmol/L (21.0-32.0); CREATININE 0.7 mg/dL (0.70-1.30); Calcium 8.8 mg/dL (8.5-10.1); Chloride 104 mmol/L (98-107); Estimated GFR 111.56 (mL/min/1.73m2); Glucose 110 mg/dL (74-106); Magnesium 2.2 mg/dL (1.8-2.4); Potassium 4.7 mmol/L (3.5-5.1); Sodium 141 mmol/L (136-145)
[2024-06-05 09:34] LABS: Absolute Basophil Count 0.12 10^3/uL (0.0-0.2); Absolute Eosinophil Count 0.12 10^3/uL (0.0-0.7); Absolute Lymphocyte Count 1.67 10^3/uL (1.2-3.4); Absolute Monocyte Count 1.31 10^3/uL (0.1-0.8); Atypical Lymphocytes % 1 %; Bands % 1 %; Diff Comment Manual Differential; Metamyelocytes % 1; RBC Morphology Normal
[2024-06-05 09:46] LABS: FREE T4 1.01 ng/dL (0.76-1.46); TSH 18.01 uIU/mL (0.36-3.74)
[2024-06-05 18:43] LABS: CEA 69.1 ng/mL (See Note)
== END 2024-06-24 23:59 | disposition home or self-care (01) ==
LOC: INF 02:42
PROVIDERS: Nurse Practitioner Family; PCP Family Medicine; Visit Provider Internal Medicine Medical Oncology
DX: E03.9 Hypothyroidism, unspecified (principal); C15.5 Malignant neoplasm of lower third of esophagus; Z79.899 Other long term (current) drug therapy; C79.51 Secondary malignant neoplasm of bone; Z45.2 Encounter for adjustment and management of vascular access device
CPT/HCPCS: 36591; 80053; 81003; 82378; 83735; 84439; 84443; 85025

== ENCOUNTER 2024-07-13 01:26 | Outpatient (CLI) | payer OTHER, SELFPAY ==
[2024-07-13] MEDS: Omnipaque 350 MG/ML 100 ML BTL 70 ML IJ (14:34)
[2024-07-13] MEDS: Normal Saline - Diluent 50 ML VIAL IJ (14:36)
--- NOTE | 2024-07-13 14:39 | DI.CT_ITS ---
Exam(s) CT CHEST W EXAM: CT CHEST W CLINICAL HISTORY: ESOPHAGUS CA,C15.5,SECONDARY NEOPLASM OF BONE,C79.51,NEW SEVERE. TECHNIQUE: Multi planar reconstructions were performed. CONTRAST MATERIAL: Omnipaque 350; 70 cc COMPARISON: CT CT CHEST/ABD W from 07/05/2023 FINDINGS: CHEST: LUNGS: There is chronic appearing interstitial disease in both lung jamil, slightly further progress ed from 1 year ago. The previously described masslike density in the right lung base just above the hemidiaphragm is again noted and appears slightly larger, measuring 3 cm AP by 1.7 cm wide by 1.8 cm craniocaudal; approximately 5 mm larger in each dimension. This is superimposed upon advanced COPD a nd interstitial disease findings which have progressed from previous. There are no new discernible n odules in the right lung. In the opposite-left lung a left suprahilar density is noted which has sli ghtly increased in size from June 2023 and probably represents adenopathy. In the superior lingu lar segment there is a pleural based density which exhibits benign appearance but was not evident on the prior CT 1 year ago. There are no new focal findings in the trachea and mainstem bronchi. Left supraclavicular Port-A-Cath noted with distal tip at the SVC-RA junction. MEDIASTINUM: Gastric pull-up again evident from prior esophageal cancer surgery. There is no abnorma l fluid collection in the mediastinum nor extra luminal gas is in the mediastinum. There is no adeno mustapha around the gastric pull-up nor in the subcarinal region. Visualized thyroid unremarkable. CARDIAC: Heart size is normal. There is no pericardial effusion.Caliber of the thoracic aorta is wit hin normal limits. VISUALIZED UPPER ABDOMEN:Partially visualized liver reveals no evidence of metastatic lesions. There is a horizontally orientated catheter within an anteriorly located small bowel loop which is only pa rtially included in the field of view. I suspect that this is feeding tube. OSSEOUS: Lower most image of this study reveals partially included lucency in the right-side of L2 ve rtebral body which is possibly metastatic as does not appear to have been present on prior CT scan 1 year ago.. IMPRESSION: 1. Gastric pull-up surgery again noted. No abnormal fluid collection or gas in the mediastinal tissu es and no new adenopathy around the gastric pull-up nor within the subcarinal region. 2. However, there is increased size of the previously described masslike density in the right lung ba se, this appearing to have increased in size approximate 0.5 cm in all 3 planes and there is increase d density in the left suprahilar region which is probably an enlarged lymph node. 3. There is increasing interstitial fibrosis appearance/COPD in both lung jamil. There no pleural e ffusions. RADIATION DOSE DELIVERED: 96.42mGy.cm Total DLP DATA REPOSITORY: All CT scans at this facility are submitted to the National Radiology Data Registry (NRDR) Dose Index Registry (DIR) with the [employer] (A[employer]). RADIATION OPTIMIZATION: All CT scans at this facility use at least one of these dose optimization te chniques: automated exposure control; mA and/or kV adjustment per patient size (includes targeted exa ms where dose is matched to clinical indication); or iterative reconstruction.
== END 2024-07-13 01:46 ==
LOC: DI 01:26
PROVIDERS: PCP Family Medicine; Visit Provider Nurse Practitioner Family
DX: C15.5 Malignant neoplasm of lower third of esophagus (principal); C79.51 Secondary malignant neoplasm of bone
CPT/HCPCS: 71260; J3490

== ENCOUNTER 2024-07-24 02:14 | Outpatient (RCR) | payer OTHER, SELFPAY ==
[2024-07-03 08:25] LABS: Bilirubin Negative (Negative); Blood Negative (Negative); Clarity Clear (Clear); Glucose Negative (Negative); Ketones Negative (Negative); Leukocyte Esterase Negative (Negative); Nitrite Negative (Negative); Specific Gravity 1.025 (1.005-1.025); Urobilinogen 0.2 mg/dL (Up to 0.2); pH 5.5 (5-8)
[2024-07-03 08:26] LABS: Abs Immature Grans 0.09 10^3/uL (0.0-0.06); Absolute Basophil Count 0.06 10^3/uL (0.0-0.2); Absolute Lymphocyte Count 1.39 10^3/uL (1.2-3.4); Absolute Monocyte Count 0.93 10^3/uL (0.1-0.8); Basophils % 0.5 %; Eosinophils % 1.4 %; HCT 41.5 % (40.0-50.0); HGB 13.1 g/dL (13.5-17.5); Immature Grans % 0.7 %; Lymphocytes % 11.1 %; MCH 29.3 pg (27.0-33.0); MCHC 31.6 % (32.0-36.0); MCV 93 fL (80-95); MPV 8.6 fL (8.0-11.0); Monocytes % 7.4 %; Neutrophils % 78.9 %; Nucleated RBC 0.2 % (0.0-0.3); Platelet Count 402 10^3/uL (130-400); RBC 4.47 10^6/uL (4.36-5.78); RDW-SD 51.3 fL; WBC 12.54 10^3/uL (4.4-10.8)
[2024-07-03 08:27] LABS: Absolute Eosinophil Count 0.18 10^3/uL (0.0-0.7); Absolute Neutrophil Count 9.89 10^3/uL (1.2-6.7)
[2024-07-03] MEDS: Normal Saline Flush 10 ML SYR IVP (08:39)
[2024-07-03 08:43] LABS: ALT 57 U/L (16-63); AST 29 U/L (15-37); Albumin 2.8 g/dL (3.4-5.0); Alkaline Phosphatase 121 U/L (46-116); Anion Gap 9.2 mmol/L (3-11); BUN 25 mg/dL (7-18); Bilirubin, Total 0.44 mg/dL (0.2-1.0); CO2 25.8 mmol/L (21.0-32.0); CREATININE 0.7 mg/dL (0.70-1.30); Calcium 8.7 mg/dL (8.5-10.1); Chloride 105 mmol/L (98-107); Estimated GFR 111.56 (mL/min/1.73m2); Glucose 164 mg/dL (74-106); Potassium 4.9 mmol/L (3.5-5.1); Sodium 140 mmol/L (136-145); Total Protein 7.3 g/dL (6.4-8.2)
[2024-07-13] MEDS: Normal Saline Flush 10 ML SYR IVP (13:26)
[2024-07-13 13:38] LABS: Abs Immature Grans 0.07 10^3/uL (0.0-0.06); Absolute Basophil Count 0.04 10^3/uL (0.0-0.2); Absolute Eosinophil Count 0.26 10^3/uL (0.0-0.7); Absolute Lymphocyte Count 1.81 10^3/uL (1.2-3.4); Absolute Monocyte Count 1.04 10^3/uL (0.1-0.8); Basophils % 0.4 %; Eosinophils % 2.7 %; HCT 39.1 % (40.0-50.0); HGB 12.6 g/dL (13.5-17.5); Immature Grans % 0.7 %; Lymphocytes % 18.6 %; MCH 30.1 pg (27.0-33.0); MCHC 32.2 % (32.0-36.0); MCV 93 fL (80-95); MPV 8.6 fL (8.0-11.0); Monocytes % 10.7 %; Neutrophils % 66.9 %; Platelet Count 359 10^3/uL (130-400); RBC 4.19 10^6/uL (4.36-5.78); RDW 16.2 % (11.8-14.1); RDW-SD 53.1 fL; WBC 9.72 10^3/uL (4.4-10.8)
[2024-07-13 14:13] LABS: ALT 33 U/L (16-63); AST 23 U/L (15-37); Albumin 2.9 g/dL (3.4-5.0); Alkaline Phosphatase 109 U/L (46-116); Anion Gap 10.8 mmol/L (3-11); BUN 22 mg/dL (7-18); Bilirubin, Total 0.37 mg/dL (0.2-1.0); CO2 26.2 mmol/L (21.0-32.0); CREATININE 0.8 mg/dL (0.70-1.30); Calcium 8.5 mg/dL (8.5-10.1); Chloride 105 mmol/L (98-107); Estimated GFR 107.15 (mL/min/1.73m2); FREE T4 0.95 ng/dL (0.76-1.46); Glucose 105 mg/dL (74-106); Magnesium 1.9 mg/dL (1.8-2.4); Sodium 142 mmol/L (136-145); TSH 16.07 uIU/mL (0.36-3.74); Total Protein 7.1 g/dL (6.4-8.2)
[2024-07-24] MEDS: Normal Saline Flush 10 ML SYR IVP (09:37)
[2024-07-24 09:58] LABS: Abs Immature Grans 0.09 10^3/uL (0.0-0.06); Absolute Basophil Count 0.03 10^3/uL (0.0-0.2); Absolute Eosinophil Count 0.09 10^3/uL (0.0-0.7); Absolute Monocyte Count 2.09 10^3/uL (0.1-0.8); Absolute Neutrophil Count 5.41 10^3/uL (1.2-6.7); Basophils % 0.3 %; Eosinophils % 0.9 %; HCT 39.3 % (40.0-50.0); HGB 12.2 g/dL (13.5-17.5); Immature Grans % 0.9 %; Lymphocytes % 19.8 %; MCH 29.4 pg (27.0-33.0); MCV 95 fL (80-95); MPV 8.5 fL (8.0-11.0); Neutrophils % 56.4 %; Platelet Count 456 10^3/uL (130-400); RBC 4.15 10^6/uL (4.36-5.78); RDW 15.5 % (11.8-14.1); WBC 9.61 10^3/uL (4.4-10.8)
[2024-07-24 10:10] LABS: ALT 36 U/L (16-63); AST 27 U/L (15-37); Albumin 2.6 g/dL (3.4-5.0); Alkaline Phosphatase 131 U/L (46-116); Anion Gap 11.1 mmol/L (3-11); BUN 20 mg/dL (7-18); Bilirubin, Total 0.49 mg/dL (0.2-1.0); CO2 25.9 mmol/L (21.0-32.0); CREATININE 0.7 mg/dL (0.70-1.30); Calcium 8.4 mg/dL (8.5-10.1); Chloride 103 mmol/L (98-107); Estimated GFR 111.56 (mL/min/1.73m2); Glucose 143 mg/dL (74-106); Magnesium 1.9 mg/dL (1.8-2.4); Monocytes % 21.7 %; Sodium 140 mmol/L (136-145); Total Protein 7.2 g/dL (6.4-8.2)
[2024-07-24 10:21] LABS: FREE T4 1.02 ng/dL (0.76-1.46); TSH 9.65 uIU/mL (0.36-3.74)
== END 2024-07-25 23:59 | disposition home or self-care (01) ==
LOC: INF 02:14
PROVIDERS: Nurse Practitioner Family; PCP Family Medicine; Visit Provider Internal Medicine Medical Oncology
DX: C15.5 Malignant neoplasm of lower third of esophagus (principal); C79.51 Secondary malignant neoplasm of bone; E03.9 Hypothyroidism, unspecified; Z45.2 Encounter for adjustment and management of vascular access device
CPT/HCPCS: 36591; 80053; 81003; 83735; 84439; 84443; 85025

== ENCOUNTER 2024-08-21 02:43 | Outpatient (RCR) | payer MEDICARE, SELFPAY ==
[2024-08-21 10:26] LABS: Absolute Basophil Count 0.08 10^3/uL (0.0-0.2); Absolute Eosinophil Count 0.08 10^3/uL (0.0-0.7); Absolute Lymphocyte Count 1.91 10^3/uL (1.2-3.4); Absolute Neutrophil Count 6.52 10^3/uL (1.2-6.7); Basophils % 0.7 %; Eosinophils % 0.7 %; HCT 37.6 % (40.0-50.0); HGB 11.7 g/dL (13.5-17.5); Immature Grans % 3.6 %; MCH 28.5 pg (27.0-33.0); MCHC 31.1 % (32.0-36.0); MCV 92 fL (80-95); Monocytes % 19.9 %; Neutrophils % 58.1 %; RDW 16.2 % (11.8-14.1); RDW-SD 52.6 fL; WBC 11.23 10^3/uL (4.4-10.8)
[2024-08-21 10:30] LABS: Absolute Monocyte Count 2.23 10^3/uL (0.1-0.8)
[2024-08-21 10:39] LABS: ALT 38 U/L (16-63); AST 22 U/L (15-37); Albumin 2.3 g/dL (3.4-5.0); Alkaline Phosphatase 201 U/L (46-116); Anion Gap 11.3 mmol/L (3-11); BUN 23 mg/dL (7-18); Bilirubin, Total 0.53 mg/dL (0.2-1.0); CO2 26.7 mmol/L (21.0-32.0); CREATININE 0.6 mg/dL (0.70-1.30); Calcium 9.1 mg/dL (8.5-10.1); Chloride 100 mmol/L (98-107); Estimated GFR 116.87 (mL/min/1.73m2); Glucose 120 mg/dL (74-106); Magnesium 1.8 mg/dL (1.8-2.4); Potassium 4.3 mmol/L (3.5-5.1); Sodium 138 mmol/L (136-145); Total Protein 7.6 g/dL (6.4-8.2)
[2024-08-21 10:42] LABS: Diff Comment Diff Reviewed; RBC Morphology Normal
[2024-08-21] MEDS: Normal Saline Flush 10 ML SYR IVP (10:44)
== END 2024-08-25 23:59 | disposition home or self-care (01) ==
LOC: INF 02:43
PROVIDERS: Nurse Practitioner Family; PCP Family Medicine; Visit Provider Internal Medicine Medical Oncology
DX: C15.5 Malignant neoplasm of lower third of esophagus (principal); C79.51 Secondary malignant neoplasm of bone; E03.9 Hypothyroidism, unspecified
CPT/HCPCS: 36591; 80053; 83735; 84443; 85025